=== PATIENT | male | born 1955 | race Caucasian/White ===

== ENCOUNTER 2024-08-09 17:10 | Emergency (ER) | payer MEDICARE, MEDICAID, SELFPAY ==
--- NOTE | ~2024-08-09 | CT_ITS ---
EXAMINATION: CT CERVICAL SPINE WITHOUT CONTRAST CLINICAL INFORMATION: Fall. Head strike. COMPARISON: None available. TECHNIQUE: Noncontrast computed tomography of the cervical spine was performed. This CT examination was performed using dose optimization techniques as appropriate, variously including the following: *Automated exposure control *Adjustment of mA and/or kV according to patient size (this includes techniques or standardized protocols for targeted exams where dose is matched to indication/reason for exam; i.e. extremities or head) *Use of iterative reconstruction technique DLP: 546.99 mGy-cm FINDINGS: There is straightening and reversal of the cervical lordosis. There is trace anterolisthesis of C3 in relation to C4 and C4 in relation to C5. The posterior elements are anatomically aligned. The atlantooccipital articulations are intact. The C1-C2 relationship is anatomic. Vertebral body heights are preserved. There is moderate degenerative disc disease at C5-C6 and milder degenerative disc disease at C6-7. There is multilevel facet arthropathy. No acute fracture. Prevertebral soft tissue is normal in appearance. The lung apices are clear. The thyroid gland is normal in appearance. CT/CT cervical spine wo IV con IMPRESSION: No acute osseous cervical spine abnormality. Fleischner guidelines were followed. Electronically signed by: Ras Ibarra DO 08/09/2024 09:31 PM JENN
--- NOTE | ~2024-08-09 | CT_ITS ---
EXAMINATION: CT HEAD WITHOUT CONTRAST CLINICAL INFORMATION: Fall. Head strike. COMPARISON: None available. TECHNIQUE: Contiguous axial imaging was performed from the skull base to vertex without intravenous administration of contrast. This CT examination was performed using dose optimization techniques as appropriate, variously including the following: *Automated exposure control *Adjustment of mA and/or kV according to patient size (this includes techniques or standardized protocols for targeted exams where dose is matched to indication/reason for exam; i.e. extremities or head) *Use of iterative reconstruction technique DLP: 722.69 mGy-cm FINDINGS: There is no acute intracranial hemorrhage. There is no evidence of acute/subacute cerebral or cerebellar infarction. There is moderate microvascular ischemic change. No midline shift or mass effect. No extra-axial fluid collection. The ventricles are normal in size. The orbits are symmetric and within normal limits. The calvarium is intact. Visualized paranasal sinuses and mastoid air cells are clear. CT/CT head/brain wo IV con IMPRESSION: No acute intracranial pathology. Electronically signed by: Ras Ibarra DO 08/09/2024 09:01 PM EST
[2024-08-09 17:26] VITALS: BP 190/78; BP 206/103; PULSE 60; PULSE 63; RESP 18; TEMP 36.3; O2SAT 100; O2SAT 96; BMI 35.4
[2024-08-09 17:30] VITALS: BP 204/106; PULSE 65; RESP 18; TEMP 36.6; O2SAT 96
[2024-08-09 18:05] VITALS: BP 213/126; PULSE 69
[2024-08-09 18:08] VITALS: BP 213/126; PULSE 69
[2024-08-09] MEDS: atenoloL 25 MG TABLET PO (18:08)
[2024-08-09] MEDS: Acetaminophen 325 MG TABLET 650 MG PO (18:10)
--- NOTE | 2024-08-09 18:24 | ED.FALL ---
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 Denies symptoms prior to fall including lightheadedness/dizziness, denies LOC or anticoagulation use. Reports missing doses of blood pressure medication, denies taking today. Denies headache, neck or back pain, vision change or loss, nausea/vomiting, CP. Tetanus up-to-date. Denies EtOH or substance use Related Data Previous Rx's ?Medication ?Instructions ?Recorded bacitracin 500 unit/gram topical 1 appl topical BID #30 grams 08/09/24 ointment Allergies Allergy/AdvReac Type Severity Reaction Status Date / Time No Known Allergies Allergy Verified 08/09/24 17:28 Review of Systems Review of Systems: Yes all other systems are reviewed and are negative Constitutional: Constitutional: Reports as per HPI Neurologic: Denies Abnormal speech present [facility] Past Medical History Attestation statement: The following information was validated with the patient. Source: old records reviewed Social History Social History Advance Directives: No Advance Directives Information Provided: No Physical Exam Vital Signs: Vital Signs: Last Vital Signs Temp 97.9 F 08/09/24 17:30 Pulse 69 08/09/24 18:08 Resp 18 08/09/24 17:30 BP 213/126 H 08/09/24 18:08 Pulse Ox 96 08/09/24 17:30 O2 Del Method Room Air 08/09/24 17:30 BMI result Body Mass Index 35.4 Const: General: cooperative, healthy appearing and no acute distress Orientation/consciousness: patient oriented x3 Limitations: no limitations HEENT: Other: Superficial abrasion noted to right forehead + 2 cm irregular laceration noted to right temporal region. Bleeding controlled. Head: Yes normal to inspection, No Urias's sign and No raccoon eyes Ears: hearing grossly normal bilaterally General nose exam: Normal external nose present Face and sinus: Yes normal facial exam Mouth: Normal oral and palatal mucosa present and no drooling Throat: Yes posterior oropharynx normal, Yes uvula midline, No peritonsillar mass, No uvula laterally displaced and No uvular edema Eyes: General: appearance normal, both eyes and all related structures Pupils: Equal, round and reactive pupils present EOM: EOMs intact bilaterally Neck: Other: C-collar in place Neck: Yes normal visual inspection and Yes no meningeal signs Resp: Effort & Inspection: normal respiratory effort and no respiratory distress Auscultation: clear to auscultation bilaterally Cardio: Rate: regular rate Heart sounds: S1 normal heart sound present and S2 normal heart sound present GI: Inspection: Yes normal to inspection Palpation (GI): Soft to palpation, nontender, no guarding and not rigid Back/Spine/Pelvis: Other: No midline cervical/thoracic/lumbar spinous tenderness/step-off or deformity Skin: Rashes: no rashes Wounds: no wounds Neuro: General: patient oriented x3, gait normal, tone normal, moves all extremities, no meningeal signs, no focal motor deficits and CN's II-XI intact bilaterally Cranial nerves: Yes CN's II-XII intact bilaterally, Yes Equal, round and reactive pupils present and Yes Bilaterally intact EOM present Cognition (Neuro): normal cognition Speech: No Abnormal speech present Motor exam (neuro): 5/5 motor strength present throughout Extrem: General: Yes normal to inspection Course Course Course Narrative: -wound repair successful with 6 sutures 1937--patient's blood pressure slightly improved after home dose of atenolol. Patient would like to leave prior to CT results. Patient will sign out AMA. Discussed risks including brain bleed, fractures, and . Patient is A&O x3, competent to make his own decisions. Medications Administered Discontinued Medications Generic Name Dose Route Start Last Admin Trade Name Katerine PRN Reason Stop Dose Admin Acetaminophen 650 mg 08/09/24 17:51 08/09/24 18:10 Acetaminophen 325 Mg Tablet PO 08/09/24 17:52 650 mg ONCE ONE Administration Atenolol 25 mg 08/09/24 17:51 08/09/24 18:08 Atenolol 25 Mg Tablet PO 08/09/24 17:52 25 mg ONCE ONE Administration Protocol Lidocaine HCl 5 ml 08/09/24 17:47 08/09/24 19:20 Lidocaine Hcl 1 % Mpf 5 Ml Vial INFILTRATI 08/09/24 17:48 5 ml ONCE ONE Administration Procedures Laceration Laceration 1: Site: face Side (If applicable): right Size (cm): 2 Description: irregular Depth: simple, single layer Local Anesthetic: lidocaine 1% Amount of anesthesia used (mL): 3 Pre-repair: wound explored Skin layer closed with: nylon Size (cm): 5-0 Number of sutures: 6 Technique: simple, interrupted Medical Decision Making Medical Decision Making [facility] Narrative: 69-year-old male with a past medical history HTN, HLD, presenting to the ED via EMS complaining of laceration to right side of face s/p mechanical trip and fall on cement after getting 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 On exam hypertensive, NAD, nontoxic appearing, no midline spinous tenderness or focal neuro deficits, physical exam as noted above with abrasion and laceration noted to right side of face needing suture repair. Tetanus up-to-date. Concern for ICH vs fractures. Lower suspicion for acute hypertensive urgency/emergency at this time, hypertensive likely from medication noncompliance. Unlikely ACS Plan: Head/C-spine CT, wound repair Please refer to course for remaining clinical decision making, interpretation of labs/imaging results, and discussions with consultants and/or family members. Differential Diagnosis Differential Diagnoses: The differential diagnosis associated with the presentation includes As above Admission/Observation Consideration of admission/observation: Escalation of care including admission/observation considered Lab Data [facility] Lab Attestation statement: I reviewed the patient's lab results. Independent Interpretation I performed an independent interpretation of an: CT Scan Radiology Impression Discussion of test interpretation with radiology: I have reviewed the radiologist's reading. External Record Review External record reviewed: Inpatient record, Office record, Outpatient record, Prior outpatient labs, Prior outpatient radiology, Primary care record and Outside ED record Tests considered The following testing was considered but not selected: As above Prescription Management I considered prescription management with: Pain Medication Chronic Conditions Patient?s care impacted by: Hypertension Social Determinants Patient?s care significantly limited by Social Determinants of Health including: Other Social Determinant of Health Discharge Plan Discharge Clinical Impression: Head injury, Facial laceration Patient Disposition: Left Against Medical Advice Instructions: Laceration (DC), Head Injury (ED) Additional Instructions: Your wounds were repaired today in the emergency department. Keep dry and clean. You need to return to any emergency department, urgent care, or your PCPs office in 5 days for suture removal Apply bacitracin and or Neosporin daily Once sutures are removed apply anti scar cream like Mederma If area begins look infected, is red, there is drainage, streaking, or you have fever please return to the emergency department Prescriptions: New bacitracin 500 unit/gram ointment 1 appl topical BID Qty: 30 0RF Print Language: Anguillan
[2024-08-09] MEDS: Lidocaine HCl 1 % MPF 5 ML VIAL INFILTRATI (19:20)
--- NOTE | 2024-08-09 19:37 | PC.NURSE ---
PT refuses to wait for CT scan says he has A hard head and he's not worried about it. PT verbalizes understanding of Risks leaving AMA.
--- NOTE | 2024-08-09 19:39 | PC.NURSE ---
PT ripped out C-collar says he doesn't want to wear it because he's uncomfortable and doesn't need it. PT verbalizes understanding of risks of taking off c-collar before cleared by provider, pt continued to take off collar.
[2024-08-09 19:45] VITALS: BP 151/88; PULSE 63; RESP 16; TEMP 36.5; O2SAT 97
--- NOTE | 2024-08-09 22:54 | PC.NURSE ---
PT verbalizes understanding of risks of leaving AMA, despite teaching form this nurse and the provider about risks of leaving ama pt wishes to go. AMA form signed, provider signed and second witness provided.
[2024-08-09 22:55] VITALS: BP 151/88; PULSE 63; RESP 16; TEMP 36.5; O2SAT 97
--- OUTSIDE RECORDS SUMMARY | 2024-08-12 13:37 | XMS_ITS | Continuity of Care Document ---
Author Organization [facility] ialty Address [address] [place] [address]- Care Team Providers Care Tank Washer Name Role Phone Jovita Jonas MD Primary Care Physician Encounter [facility] Date(s): 11/29/19 - 12/06/19 [facility] [address] [place] [address]- [place] Attending Physician: Robert Maynard MD Referring Physician: Jovita Jonas MD Allergies, Adverse Reactions, Alerts Substance Reaction Severity Status NKA Active Immunizations Given and Recorded Vaccine Date Status Refusal Reason hepatitis B adult vaccine 1 03/08/19 Given hepatitis B adult vaccine 02/08/19 Recorded influenza virus vaccine, inactivated 2 07/22/18 Gi diandra influenza virus vaccine, inactivated 07/06/18 Give n influenza virus vaccine, inactivated 3, 4 08/21/17 Given influenza virus vaccine, inactivated 5 09/02/16 Gi diandra influenza virus vaccine, inactivated 06/26/15 Give n pneumococcal 23-valent vaccine 09/02/16 Given Fluzone (oldterm) 07/18/14 Given Fluarix (oldterm) 08/16/13 Given Prevnar (oldterm) 02/01/13 Given FluLaval (oldterm) 07/20/12 Given FluLaval (oldterm) 07/01/11 Given FluLaval (oldterm) 08/20/10 Given FluLaval (oldterm) 06/19/09 Given tetanus/diphtheria/pertussis, acel(Tdap) 08/20/10 Given influ virus vac, H1N1, inactive(oldterm) 6 08/14/09 Given Influenza Virus Vaccine (oldterm) 07/12/08 Given Influenza Virus Vaccine (oldterm) 7 08/17/07 Given Influenza Virus Vaccine (oldterm) 07/22/06 Given Influenza Virus Vaccine (oldterm) 08/26/02 Given Pneumococcal Vaccine (oldterm) 12/20/07 Given Pneumococcal Vaccine (oldterm) 08/24/99 Given tetanus-diphtheria toxoids (Td) 07/14/05 Given Hepatitis B Vaccine (old term) 10/18/01 Given Hepatitis B Vaccine (old term) 04/09/01 Given Hepatitis B Vaccine (old term) 03/10/01 Given 1Result Comment: Heplisav-B #2 2Result Comment: [07/22/2018] [facility]#[id number] 3Result Comment: [08/21/2017] [facility] #[id number] 4Admin Note: afluria quadrivalent 5Admin Note: Afluria made by [employer] 6Admin Note: h1n1 7Admin Note: [employer]ETS [employer] Medications ADCARE ADCARE, See Instructions, # 1 each, Refills 0, Tot. Refills 0, Maintenance, ADCARE Evaluate and treat for outpatient, 11/09/19 10:02:00 EST, Compound Start Date: 11/09/19 Status: Ordered aspirin 81 mg oral tablet, chewable 81 mg, 1, tablet, By Mouth, Daily, # 90 tablet, Refills 3, Tot. Refills 3, Maintenance, 08/21/17 14:03:42, Route to Pharmacy Electronically, [id number], [facility]/pharmacy #[id number] Start Date: 08/21/17 Status: Ordered atenolol 25 mg oral tablet 25 mg, 1, tablet, By Mouth, Daily, # 90 tablet, Refills 3, Tot. Refills 3, Maintenance, 09/02/19 9:30:06 EST, Route to Pharmacy Electronically, [id number], [facility]/pharmacy #[id number], 168.5, cm, 09/02/19 8:56:00 EST, Height, 94.9, kg... Start Date: 09/02/19 Stop Date: 11/01/19 Status: Ordered atorvastatin 40 mg oral tablet 1 tablet = 40 mg, By Mouth, Daily, # 90 tablet, 3 Refills, Maintenance, 09/02/19 9:28:38 EST, Tablet, 168.5, cm, 09/02/19 8:56:00 EST, Height, 94.9, kg, 06/23/19 8:51:12 EDT, Dry Weight Start Date: 09/02/19 Status: Ordered Norvir 100 mg oral tablet 1 tablet = 100 mg, By Mouth, Daily, # 90 tablet, 3 Refills, Maintenance, 06/08/19 14:56:00 EDT Start Date: 06/08/19 Status: Ordered Paxil 20 mg oral tablet 20 mg, 1, tablet, By Mouth, Daily, # 30 tablet, Refills 5, Tot. Refills 5, Maintenance, 08/22/19 11:06:03 EST, Route to Pharmacy Electronically, [id number], [facility]/pharmacy #[id number] Start Date: 08/22/19 Stop Date: 02/18/20 Status: Ordered QUEtiapine 200 mg oral tablet 1, tablet, By Mouth, Daily, # 90 tablet, Refills 0, Tot. Refills 0, Maintenance, 09/12/19 15:33:00 EST, Route to Pharmacy Electronically, [id number], 168.5, cm, 09/02/19 11:13:00 EST, Height, 94.9, kg, 06/23/19 8:51:00 EDT, Dry Weight Start Date: 09/12/19 Status: Ordered Reyataz 300 mg oral capsule 1 capsule = 300 mg, By Mouth, Daily, # 90 capsule, 3 Refills, Maintenance, 06/08/19 14:56:00 EDT, 1capsule By Mouth Daily Start Date: 06/08/19 Status: Ordered tenofovir disoproxil fumarate 300 mg oral tablet 1 tablet, By Mouth, Daily, # 30 tablet, 11 Refills, Maintenance, 09/12/19 8:29:00 EST, [id number], 168.5, cm, 09/02/19 11:13:00 EST, Height, 94.9, kg, 06/23/19 8:51:00 EDT, Dry Weight Start Date: 09/12/19 Status: Ordered Therpaeutic phlebotomy one unit every 6 weeks Hold for Hb<12 gmDiagnosis: Heriditary Hemochromatos Therpaeutic phlebotomy one unit every 6 weeks Hold for Hb<12 gmDiagnosis: Heriditary Hemochromatosis, See Instructions, # 1 units, Refills 12, Tot. Refills 12, Maintenance, Hold for Hb <12 gm Diagnosis : heriditary hemochromatosis, 09/04/14 10:04:... Start Date: 09/04/14 Stop Date: 09/06/15 Status: Ordered Ziagen 300 mg oral tablet 2 tablets, By Mouth, Daily, # 180 capsule, 3 Refills, Maintenance, 06/08/19 14:56:00 EDT Start Date: 06/08/19 Stop Date: 10/06/19 Status: Ordered Problem List Condition Effective Dates Status Health Status Inform ant AIDS(Confirmed) Active Cocaine dependence(Confirmed) Active Cranial neuropathy(Confirmed) Active FHx: AAA(Confirmed) Active Fracture of left radius(Confirmed) Active Gall bladder polyp(Confirmed) Active Hemochromatosis(Confirmed) 1 Active HIV - Human immunodeficiency virus infection(Confirmed) Active Hyperlipidemia LDL goal < 130(Confirmed) Active Hypertension(Confirmed) Active Insomnia(Confirmed) Active 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
--- OUTSIDE RECORDS SUMMARY | 2024-08-12 13:37 | XMS_ITS | Continuity of Care Document ---
Author Organization [facility] Address [address] [place] [address]- Care Team Providers Care Diesel Trailer Mechanic Name Role Phone Ponce Andrew MD Primary Care Physician [facility]counter [facility] Date(s): 07/22/22 - 08/21/22 [facility] [address] [place] [id number] Allergies, Adverse Reactions, Alerts No Known Allergies Immunizations Given and Recorded Vaccine Date Status Refusal Reason SARS-CoV-2 (COVID-19) mRNA-1273 vaccine 08/02/21 R ecorded SARS-CoV-2 (COVID-19) mRNA-1273 vaccine 01/11/21 R ecorded SARS-CoV-2 (COVID-19) mRNA-1273 vaccine 12/14/20 R ecorded influenza virus vaccine, inactivated 07/31/21 Gilberto rded influenza virus vaccine, inactivated 07/11/20 Give n influenza virus vaccine, inactivated 08/04/19 Gilberto rded influenza virus vaccine, inactivated 1 07/22/18 Gi diandra influenza virus vaccine, inactivated 07/06/18 Give n influenza virus vaccine, inactivated 2, 3 08/21/17 Given influenza virus vaccine, inactivated 4 09/02/16 Gi diandra influenza virus vaccine, inactivated 06/26/15 Give n tetanus-diphtheria toxoids (Td) 5 01/08/21 Given tetanus-diphtheria toxoids (Td) 07/14/05 Given hepatitis B adult vaccine 6 03/08/19 Given hepatitis B adult vaccine 02/08/19 Recorded pneumococcal 23-valent vaccine 09/02/16 Given Fluzone (oldterm) 07/18/14 Given Fluarix (oldterm) 08/16/13 Given Prevnar (oldterm) 02/01/13 Given FluLaval (oldterm) 07/20/12 Given FluLaval (oldterm) 07/01/11 Given FluLaval (oldterm) 08/20/10 Given FluLaval (oldterm) 06/19/09 Given tetanus/diphtheria/pertussis, acel(Tdap) 08/20/10 Given influ virus vac, H1N1, inactive(oldterm) 7 08/14/09 Given Influenza Virus Vaccine (oldterm) 07/12/08 Given Influenza Virus Vaccine (oldterm) 8 08/17/07 Given Influenza Virus Vaccine (oldterm) 07/22/06 Given Influenza Virus Vaccine (oldterm) 08/26/02 Given Pneumococcal Vaccine (oldterm) 12/20/07 Given Pneumococcal Vaccine (oldterm) 08/24/99 Given Hepatitis B Vaccine (old term) 10/18/01 Given Hepatitis B Vaccine (old term) 04/09/01 Given Hepatitis B Vaccine (old term) 03/10/01 Given 1Result Comment: [07/22/2018] [facility]#[id number] 2Result Comment: [08/21/2017] [facility] #[id number] 3Admin Note: afluria quadrivalent 4Admin Note: Afluria made by [employer] 5Result Comment: [facility]# [id number] 6Result Comment: Heplisav-B #2 7Admin Note: h1n1 8Admin Note: [employer] PATIENT MEETS [employer]ITERIA Medications abacavir 300 mg oral tablet 2 tablet, By Mouth, Daily, # 180 tablet, 0 Refills, Maintenance, 06/30/22 8:33:00 EDT, [facility], 168.5, cm, 06/27/22 11:54:00 EDT, Height Start Date: 06/30/22 Stop Date: 07/30/22 Status: Ordered ADCARE ADCARE, See Instructions, # 1 each, Refills 0, Tot. Refills 0, Maintenance, ADCARE Evaluate and treat for outpatient, 11/09/19 10:02:00 EST, Compound Start Date: 11/09/19 Status: Ordered atazanavir 300 mg oral capsule 1 capsule, By Mouth, Daily, # 90 capsule, 0 Refills, Maintenance, 06/13/22 15:54:00 EDT, [facility], 90, TAKE 1 CAPSULE BY MOUTH EVERY DAY, 168.5, cm, 05/21/22 11:39:00 EDT, Height Start Date: 06/13/22 Status: Ordered atenolol 25 mg oral tablet 1, tablet, By Mouth, Daily, # 90 tablet, Refills 1, Route to Pharmacy Electronically, [facility] STORE [id number], 168.5, cm, 11/05/21 10:51:00 EST, Height Start Date: 05/08/22 Status: Ordered atorvastatin 40 mg oral tablet 1 tablet = 40 mg, By Mouth, Daily, # 90 tablet, 3 Refills, Maintenance, 03/07/22 11:06:00 EDT, Tablet, [facility]/pharmacy #[id number], 168.5, cm, 11/05/21 10:51:00 EST, Height Start Date: 03/07/22 Status: Ordered diclofenac sodium 75 mg oral delayed release tablet 1 tablet = 75 mg, By Mouth, 2 times a day, PRN rib pain, with food, # 30 tablet, 1 Refills, Maintenance, 10/04/21 12:43:00 EST, EC Tablet, [facility]/pharmacy #[id number], Partial fill upon patient request if theprescription is for a schedule II opioid drug., 168... Start Date: 10/04/21 Stop Date: 10/04/22 Status: Ordered Paxil 20 mg oral tablet 20 mg, 1, tablet, By Mouth, Daily, for 90 days, # 90 tablet, Refills 3, Tot. Refills 3, Hard Stop 06/12/23 12:46:00 EDT, 06/17/22 12:46:00 EDT, Route to Pharmacy Electronically, [facility]/pharmacy #[id number], 168.5, cm, 05/21/22 11:39:00 EDT, Height Start Date: 06/17/22 Stop Date: 06/12/23 Status: Ordered QUEtiapine 200 mg oral tablet 1, tablet, By Mouth, Daily, # 90 tablet, Refills 3, Route to Pharmacy Electronically, [facility] STORE 85729, 168.5, cm, 10/02/21 10:33:00 EST, Height, 95.3, kg, 02/23/20 7:40:00 EDT, Dry Weight Start Date: 10/04/21 Status: Ordered ritonavir 100 mg oral tablet 1 tablet, By Mouth, Daily, # 90 tablet, 0 Refills, Maintenance, 06/13/22 15:54:00 EDT, [facility], 168.5, cm, 05/21/22 11:39:00 EDT, Height Start Date: 06/13/22 Status: Ordered Shingrix intramuscular injection = 0.5 mL, Intramuscular, Once, repeat dose in 2 to 6 months, # 2 each, 0 Refills, Soft Stop, 09/07/20 14:31:00 EST, Powder, [facility]/pharmacy #[id number], Partial fill upon patient request if the prescription is for a schedule II opioid drug., 0.5 mL Intramuscul... Start Date: 09/07/20 Status: Ordered tenofovir disoproxil fumarate 300 mg oral tablet 1 tablet, By Mouth, Daily, # 90 tablet, 1 Refills, Maintenance, 06/13/22 15:54:00 EDT, [facility] STORE 23995, 168.5, cm, 05/21/22 11:39:00 EDT, Height Start Date: 06/13/22 Status: Ordered Therpaeutic phlebotomy one unit every 6 weeks Hold for Hb<12 gmDiagnosis: Heriditary Hemochromatos Therpaeutic phlebotomy one unit every 6 weeks Hold for Hb<12 gmDiagnosis: Heriditary Hemochromatosis, See Instructions, # 1 units, Refills 12, Tot. Refills 12, Maintenance, Hold for Hb <12 gm Diagnosis : heriditary hemochromatosis, 09/04/14 10:04:... Start Date: 09/04/14 Stop Date: 09/06/15 Status: Ordered Problem List Condition Confirmation Course Effective Dates Status H ealth Status Informant Adrenal adenoma Confirmed Active AIDS Confirmed Active Carpal tunnel syndrome Confirmed Active Cocaine dependence Confirmed Active Cranial neuropathy Confirmed Active FHx: AAA Confirmed Active Fracture of left radius Confirmed Active Gall bladder polyp Confirmed Active Hemochromatosis 1 Confirmed Active HIV - Human immunodeficiency virus infection Confirmed Active Hyperlipidemia LDL goal < 130 Confirmed Active Hypertension Confirmed Active Insomnia Confirmed Active Malignant basal cell neoplasm of skin Confirmed Active Pulmonary nodules Confirmed Active Lung mass Confirmed Active Obese class I Confirmed Active Obesity Confirmed Active Depression Confirmed Active Complex sleep apnea syndrome Confirmed Active Tobacco use Confirmed [facility] Social History Social History Type Response Smoking Status Current every day sm oker; Type: Cigarettes; Previous treatment: Nicotine replacement; Interested in cessation: Yes; Tobacco use times per day: 1ppd; Number of years: 40; Total pack years: 40; Started at age: 15; 1 entered on: 02/19/16 Sex 11 ppd Patient Care team information Care Team Personnel Name: Trina Beaver Position: [facility] Onco RN Member Role: Primary Care Nurse Name: Ponce Andrew MD Position: [facility] Primary Care Physician Member Role: PCP Address: Address: [address] [place] [address] [facility] [address] Name: Daniella Brand RN Position: [facility] RN Member Role: Primary Care Nurse Name: Kiersten Rodrigues RN Position: [facility] RN Member Role: Primary Care Nurse Name: Gloria Osorio RN Position: [facility] RN Supv Member Role: Primary Care Nurse Name: Shira Rosa RN Position: S RN Member Role: Primary Care Nurse Name: Soledad Mckee RN Position: [facility] RN Member Role: Primary Care Nurse Care Team Related Persons Name: CATRACHITO BORGES Address: home [place], [place] Name: COURTNEY BORGES Address: home [address], [place]
--- OUTSIDE RECORDS SUMMARY | 2024-08-12 13:37 | XMS_ITS | Continuity of Care Document ---
Author Organization [facility] Address [address] [place] [address]- Care Team Providers Care Office Support Assistant Name Role Phone Ponce Andrew MD Primary Care Physician [place] [facility]21 [place] 11/12/21 [facility] [address] [place], [place] [address] Encounter Diagnosis AIDS(Discharge Diagnosis) - 11/05/21 Cocaine dependence(Discharge Diagnosis) - 11/05/21 Depression(Discharge Diagnosis) - 11/05/21 Hypertension(Discharge Diagnosis) - 11/05/21 Hyperlipidemia LDL goal < 130(Discharge Diagnosis) - 11/05/21 Insomnia(Discharge Diagnosis) - 11/05/21 Tobacco use(Discharge Diagnosis) - 11/05/21 Attending Physician: Ponce Andrew MD Allergies, Adverse Reactions, Alerts No Known Allergies [...] (old term) 03/10/01 Given 1Result Comment: [07/22/2018] [facility]#[id number] 2Result Comment: [08/21/2017] [facility] #[id number] 3Admin Note: afluria quadrivalent 4Admin Note: Afluria made by [employer] 5Result Comment: [facility]# [id number] 6Result Comment: Heplisav-B #2 7Admin Note: h1n1 8Admin Note: [employer] PATIENT MEETS [employer]ITERIA Medications ADCARE ADCARE, See Instructions, # 1 each, Refills 0, Tot. Refills 0, Maintenance, ADCARE Evaluate and treat for outpatient, 11/09/19 10:02:00 EST, Compound Start Date: 11/09/19 Status: Ordered atazanavir 300 mg oral capsule 1 capsule, By Mouth, Daily, # 90 capsule, 1 Refills, [facility], 90, TAKE 1 CAPSULE BY MOUTH EVERY DAY, 168.5, cm, 08/18/21 13:57:00 EDT, Height, 95.3, kg, 02/23/20 7:40:00 EDT, Dry Weight Start Date: 08/05/21 Status: Ordered atenolol 25 mg oral tablet 25 mg, 1, tablet, By Mouth, Daily, # 90 tablet, Refills 1, Tot. Refills 1, Maintenance, 10/31/21 13:33:00 EST, Route to Pharmacy Electronically, [facility]/pharmacy #207, 168.5, cm, 10/02/21 10:33:00 EST, Height, 95.3, kg, 02/23/20 7:40:00 EDT, Dry Weight Start Date: 10/31/21 Status: Ordered atorvastatin 40 mg oral tablet 1 tablet = 40 mg, By Mouth, Daily, # 90 tablet, 3 Refills, Maintenance, 09/17/20 10:02:00 EST, Tablet, [facility]/pharmacy #207, 168.5, cm, 07/11/20 10:23:00 EDT, Height, 95.3, kg, 02/23/20 7:40:00 EDT, Dry Weight Start Date: 09/17/20 Status: Ordered diclofenac sodium 75 mg oral delayed release tablet 1 tablet = 75 mg, By Mouth, 2 times a day, PRN rib pain, with food, # 30 tablet, 1 Refills, Maintenance, 10/04/21 12:43:00 EST, EC Tablet, [facility]/pharmacy #207, Partial fill upon patient request if theprescription is for a schedule II opioid drug., 168... Start Date: 10/04/21 Stop Date: 10/04/22 Status: Ordered Norvir 100 mg oral tablet 1 tablet = 100 mg, By Mouth, Daily, # 30 tablet, 5 Refills, Maintenance, 04/08/21 10:08:00 EDT, [facility]/pharmacy #[id number], 168.5, cm, 02/06/21 10:35:00 EDT, Height, 95.3, kg, 02/23/20 7:40:00 EDT, Dry Weight Start Date: 04/08/21 Stop Date: 10/05/21 Status: Ordered Norvir 100 mg oral tablet 1 tablet = 100 mg, By Mouth, Daily, # 30 tablet, 2 Refills, Maintenance, 09/09/21 16:24:00 EST, [facility]/pharmacy #[id number], 168.5, cm, 05/08/21 13:57:00 EDT, Height, 95.3, kg, 02/23/20 7:40:00 EDT, Dry Weight Start Date: 09/09/21 Stop Date: 12/08/21 Status: Ordered Paxil 20 mg oral tablet 20 mg, 1, tablet, By Mouth, Daily, for 30 days, # 30 tablet, Refills 5, Tot. Refills 5, Hard Stop 03/08/22 15:12:00 EDT, 09/09/21 15:12:00 EST, Route to Pharmacy Electronically, [facility]/pharmacy #[id number], 168.5, cm, 05/08/21 13:57:00 EDT, Height, 95.3, kg, 0... Start Date: 09/09/21 Stop Date: 03/08/22 Status: Ordered QUEtiapine 200 mg oral tablet 1, tablet, By Mouth, Daily, # 90 tablet, Refills 3, Route to Pharmacy Electronically, [facility] STORE 91546, 168.5, cm, 10/02/21 10:33:00 EST, Height, 95.3, kg, 02/23/20 7:40:00 EDT, Dry Weight Start Date: 10/04/21 Status: Ordered Shingrix intramuscular injection = 0.5 mL, Intramuscular, Once, repeat dose in 2 to 6 months, # 2 each, 0 Refills, Soft Stop, 09/07/20 14:31:00 EST, Powder, [facility]/pharmacy #207, Partial fill upon patient request if the prescription is for a schedule II opioid drug., 0.5 mL Intramuscul... Start Date: 09/07/20 Status: Ordered tenofovir disoproxil fumarate 300 mg oral tablet 1 tablet, By Mouth, Daily, # 30 tablet, 5 Refills, Maintenance, 04/08/21 10:08:00 EDT, [facility]/pharmacy#[id number], 168.5, cm, 02/06/21 10:35:00 EDT, Height, 95.3, kg, 02/23/20 7:40:00 EDT, Dry Weight Start Date: 04/08/21 Stop Date: 10/05/21 Status: Ordered tenofovir disoproxil fumarate 300 mg oral tablet 1 tablet, By Mouth, Daily, # 30 tablet, 2 Refills, Maintenance, 09/09/21 16:24:00 EST, [id number], 168.5, cm, 05/08/21 13:57:00 EDT, Height, 95.3, kg, 02/23/20 7:40:00 EDT, Dry Weight Start Date: 09/09/21 Stop Date: 12/08/21 Status: Ordered Therpaeutic phlebotomy one unit every [...] tablet 2 tablets, By Mouth, Daily, # 60 tablet, 5 Refills, Maintenance, 04/08/21 10:08:00 EDT, [id number], 168.5, cm, 02/06/21 10:35:00 EDT, Height, 95.3, kg, 02/23/20 7:40:00 EDT, Dry Weight Start Date: 04/08/21 Stop Date: 10/05/21 Status: Ordered Ziagen 300 mg oral tablet 2 tablets, By Mouth, Daily, # 60 tablet, 2 Refills, Maintenance, 09/09/21 16:24:00 EST, [facility]pharmacy #[id number], 168.5, cm, 05/08/21 13:57:00 EDT, Height, 95.3, kg, 02/23/20 7:40:00 EDT, Dry Weight Start Date: 09/09/21 Stop Date: 12/08/21 Status: Ordered Problem List Condition Effective Dates Status Health Status Inform ant Adrenal adenoma(Confirmed) Active AIDS(Confirmed) Active Carpal tunnel syndrome(Confirmed) Active Cocaine dependence(Confirmed) Active Cranial neuropathy(Confirmed) Active FHx: AAA(Confirmed) Active Fracture of left radius(Confirmed) Active Gall bladder polyp(Confirmed) Active Hemochromatosis(Confirmed) 1 Active HIV - Human immunodeficiency virus infection(Confirmed) Active Hyperlipidemia LDL goal < 130(Confirmed) Active Hypertension(Confirmed) Active Insomnia(Confirmed) Active Malignant basal cell neoplas m of skin(Confirmed) Active Pulmonary nodules(Confirmed) Active Lung mass(Confirmed) Active Obese class II(Confirmed) Active Obesity(Confirmed) Active Depression(Confirmed) Active Complex sleep apnea syndrome(Confirmed) Active Tobacco use(Confirmed) [facility] Diagnosis Diagnosis Type Effective Dates Health Status Clinical Service Informant AIDS Discharge Diagnosis 11/05/21 Cocaine dependence Discharge Diagnosis 11/05/21 Depression Discharge Diagnosis 11/05/21 Hypertension Discharge Diagnosis 11/05/21 Hyperlipidemia LDL goal < 130 Discharge Diagnosis 11/05/21 Insomnia Discharge Diagnosis 11/05/21 Tobacco use Discharge Diagnosis 11/05/21 Vital Signs Most recent to oldest [Reference Range]: 1 2 Height 168.5 cm (11/05/21 10:51 AM) 168.5 cm (11/05/21 10:32 AM) Weight 100.2 kg (11/05/21 10:32 AM) Oxygen Saturation [94-100 %] 97 % (11/05/21 10:32 AM) Pulse Rate [55-90 bpm] 73 bpm (11/05/21 10:32 AM) Body Mass Index [18.5-24.99] 35.29 *>HHI* (11/05/21 10:32 AM) Blood Pressure [90-138/55-84 mm Hg] 128/ 60mm Hg (11/05/21 10:51 AM) 142/66mm Hg *H* (11/05/21 10:32 AM) Temperature [96.8-100.4 DegF] 98.3 DegF (11/05/21 10:32 AM) Blood pressure sites Arm, left (11/05/21 10:51 AM) Arm, left (11/05/21 10:32 AM) Temperature Route Temporal (11/05/21 10:32 AM) Social History Social History Type Response Smoking Status Current every day sneha phipps; Type: Cigarettes; Previous treatment: Nicotine replacement; Interested in cessation: Yes; Tobacco use times per day: 1ppd; Number of years: 40; Total pack years: 40; Started at age: 15; 1 entered on: 02/19/16 Sex 11 ppd
--- OUTSIDE RECORDS SUMMARY | 2024-08-12 13:37 | XMS_ITS | Continuity of Care Document ---
Author Organization [facility] wan Address [address] [place], [place] [address] ve [address] [place] [address]- Care Team Providers Care Salary And Wage Administrator Name Role Phone Jovita Jonas MD Primary Care Physician [phone] [facility]counter [facility] Date[facility]s): 03/06/20 - 03/13/20 [facility] [address] [place] [address]- [facility] Attending Physician: Robert Maynard MD Allergies, Adverse Reactions, Alerts Substance Reaction [...] 1Result Comment: Heplisav-B #2 2Result Comment: [07/22/2018] [facility]#[id number] 3Result Comment: [08/21/2017] [facility] #[id number] 4Admin Note: afluria quadrivalent 5Admin Note: Afluria made by [employer] 6Admin Note: h1n1 7Admin Note: [employer] PATIENT MEETS CRITERIA Medications ADCARE ADCARE, See Instructions, # 1 each, Refills 0, Tot. Refills 0, Maintenance, ADCARE Evaluate and treat for outpatient, 11/09/19 10:02:00 EST, Compound Start Date: 11/09/19 Status: Ordered aspirin 81 mg oral tablet, chewable 81 mg, 1, tablet, By Mouth, Daily, # 90 tablet, Refills 3, Tot. Refills 3, Maintenance, 08/21/17 14:03:42, Route to Pharmacy Electronically, [id number], [facility]/pharmacy #207 Start Date: 08/21/17 Status: Ordered atenolol 25 mg oral tablet 25 mg, 1, tablet, By Mouth, Daily, # 90 tablet, Refills 3, Tot. Refills 3, Maintenance, 09/02/19 9:30:06 EST, Route to Pharmacy Electronically, [id number], [facility]/pharmacy #207, 168.5, cm, 09/02/19 8:56:00 EST, Height, 94.9, [...] tablet, Refills 5, Tot. Refills 5, Maintenance, 03/12/20 9:24:00 EDT, Route to Pharmacy Electronically, [facility]/pharmacy #[id number], 168.5, cm, 03/06/20 9:48:00 EDT, Height, 95.3, kg, 02/23/20 7:40:00 EDT, Dry Weight Start Date: 03/12/20 Stop Date: 09/08/20 Status: Ordered QUEtiapine 200 mg oral tablet 1, tablet, By Mouth, Daily, # 90 tablet, Refills 1, Tot. Refills 1, Maintenance, 12/26/19 15:16:00 EDT, Route to Pharmacy Electronically, [facility]/pharmacy #[id number], 168.5, cm, 09/02/19 11:13:00 EST, Height,94.9, kg, 06/23/19 8:51:00 EDT, Dry Weight Start Date: 12/26/19 Status: Ordered Reyataz 300 mg oral capsule 1 capsule = 300 mg, By Mouth, Daily, # 90 capsule, 3 Refills, Maintenance, 06/08/19 14:56:00 EDT, 1capsule By Mouth Daily Start Date: 06/08/19 Status: Ordered tenofovir disoproxil fumarate 300 mg oral tablet 1 tablet, By Mouth, Daily, # 30 tablet, 11 Refills, Maintenance, 09/12/19 8:29:00 EST, [facility] STORE 24276, 168.5, cm, 09/02/19 11:13:00 EST, Height, 94.9, [...] Status Health Status Inform ant AIDS(Confirmed) Active Carpal tunnel syndrome(Confirmed) Active Cocaine [...] Tobacco use(Confirmed) Active [facility] Vital Signs Most recent to oldest [Reference Range]: 1 Height 168.5 cm (03/06/20 9:48 AM) Social History Social History Type Response Smoking Status Current every day sneha phipps; Type: Cigarettes; Previous treatment: Nicotine replacement; Interested in cessation: Yes; Tobacco use times per day: 1ppd; Number of years: 40; Total pack years: 40; Started at age: 15; 1 entered on: 02/19/16 Sex 11 ppd
--- OUTSIDE RECORDS SUMMARY | 2024-08-12 13:37 | XMS_ITS | Continuity of Care Document ---
Author Organization [facility] Address [address] [place] [address]- Care Team Providers Care Mental Health Case Manager Name Role Phone Ponce Andrew MD Primary Care Physician [facility] Date[facility]s): 02[facility]10[facility]22 - 03/12/22 [facility] [address] [place] [id number] Allergies, Adverse Reactions, Alerts No Known Allergies [...] (old term) 03/10/01 Given 1Result Comment: [07/22/2018] [facility]#[id number] 2Result Comment: [08/21/2017] [facility] #[id number] 3Admin Note: afluria quadrivalent 4Admin Note: Afluria made by [employer] 5Result Comment: [facility]# [id number] 6Result Comment: Heplisav-B #2 7Admin Note: h1n1 8Admin Note: [employer] PATIENT MEETS CRITERIA Medications ADCARE ADCARE, See Instructions, # 1 each, Refills 0, Tot. Refills 0, Maintenance, ADCARE Evaluate and treat for outpatient, 11/09/19 10:02:00 EST, Compound Start Date: 11/09/19 Status: Ordered atazanavir 300 mg oral capsule 1 capsule, By Mouth, Daily, # 90 capsule, 1 Refills, [facility], 90, TAKE 1 CAPSULE BY MOUTH EVERY DAY, 168.5, cm, 05/08/21 13:57:00 EDT, Height, 95.3, kg, 02/23/20 7:40:00 EDT, Dry Weight Start Date: 08/05/21 Status: Ordered atazanavir 300 mg oral capsule 1 capsule, By Mouth, Daily, for 30 days, # 30 capsule, 2 Refills, Physician Stop 05/08/22 8:55:00 EDT, 02/07/22 8:55:00 EDT, [facility]/pharmacy #[id number], 1 capsule By Mouth Daily,x30 days, 168.5, cm, 11/05/2209:51:00 EST, Height, 95.3, kg, 02/23/20 7:40:00 ED... Start Date: 02/07/22 Stop Date: 05/08/22 Status: Ordered atenolol 25 mg oral tablet 25 mg, 1, tablet, By Mouth, Daily, # 90 tablet, Refills 1, Tot. Refills 1, Maintenance, 10/31/21 13:33:00 EST, Route to Pharmacy Electronically, [facility]/pharmacy #207, 168.5, cm, 10/02/21 10:33:00 EST, Height, 95.3, kg, 02/23/20 7:40:00 EDT, Dry Weight Start Date: 10/31/21 Status: Ordered atorvastatin 40 mg oral tablet 1 tablet = 40 mg, By Mouth, Daily, # 90 tablet, 3 Refills, Maintenance, 03/07/22 11:06:00 EDT, Tablet, [facility]/pharmacy #207, 168.5, cm, 11/05/21 10:51:00 EST, Height Start [...] Date: 10/04/21 Stop Date: 10/04/22 Status: Ordered QUEtiapine 200 mg oral tablet 1, tablet, By Mouth, Daily, # 90 tablet, Refills 3, Route to Pharmacy Electronically, [facility], 168.5, cm, 10/02/21 10:33:00 EST, Height, 95.3, kg, 02/23/20 7:40:00 EDT, Dry Weight Start Date: 10/04/21 Status: Ordered ritonavir 100 mg oral tablet 1 tablet, By Mouth, Daily, # 90 tablet, 0 Refills, [facility] STORE [address]334, 168.5, cm, 11/05/21 10:51:00 EST, Height Start Date: 03/03/22 Status: Ordered Shingrix intramuscular injection = 0.5 mL, Intramuscular, Once, repeat dose in 2 to 6 months, # 2 each, 0 Refills, Soft Stop, 09/07/20 14:31:00 EST, Powder, [id number], Partial fill upon patient request if the prescription is for a schedule II opioid drug., 0.5 mL Intramuscul... Start Date: 09/07/20 Status: Ordered tenofovir disoproxil fumarate 300 mg oral tablet 1 tablet, By Mouth, Daily, # 30 tablet, 5 Refills, Maintenance, 04/08/21 10:08:00 EDT, [id number], 168.5, cm, 02/06/21 10:35:00 EDT, Height, 95.3, kg, 02/23/20 7:40:00 EDT, Dry Weight Start Date: 04/08/21 Stop Date: 10/05/21 Status: Ordered tenofovir disoproxil fumarate 300 mg oral tablet 1 tablet, By Mouth, Daily, for 30 days, # 30 tablet, 5 Refills, Hard Stop 08/09/22 10:29:00 EST, 02/10/22 10:29:00 EDT, [id number], 168.5, cm, 11/05/21 10:51:00 EST, Height, 95.3, kg, 02/23/20 7:40:00 EDT, Dry Weight Start Date: 02/10/22 Stop Date: 08/09/22 Status: Ordered tenofovir disoproxil fumarate 300 mg [...] Daily, # 60 tablet, 2 Refills, Maintenance, 02/07/22 8:55:00 EDT, [id number], 168.5, cm, 11/05/21 10:51:00 EST, Height, 95.3, kg, 02/23/20 7:40:00 EDT, Dry Weight Start Date: 02/07/22 Stop Date: 05/08/22 Status: Ordered Ziagen 300 mg oral tablet 2 tablets, By Mouth, Daily, # 60 tablet, 5 Refills, Maintenance, 04/08/21 10:08:00 EDT, [id number], 168.5, cm, 02/06/21 10:35:00 EDT, Height, 95.3, kg, 02/23/20 7:40:00 EDT, Dry Weight Start Date: 04/08/21 Stop Date: 10/05/21 Status: Ordered Ziagen 300 mg oral tablet 2 tablets, By Mouth, Daily, # 60 tablet, 2 Refills, Maintenance, 09/09/21 16:24:00 EST, [id number], 168.5, cm, 05/08/21 13:57:00 EDT, Height, [...]
--- OUTSIDE RECORDS SUMMARY | 2024-08-12 13:37 | XMS_ITS | Continuity of Care Document ---
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 Name Role Phone Ponce Andrew MD Primary Care Physician [phone] Encounter [facility] Date(s): 06/23/23 - 06/30/23 [facility] [address] [place], [place] [address] Encounter Diagnosis AIDS(Discharge Diagnosis) - 06/23/23 Cocaine dependence(Discharge Diagnosis) - 06/23/23 Hypertension(Discharge Diagnosis) - 06/23/23 Depression(Discharge Diagnosis) - 06/23/23 Attending Physician: Ponce Andrew MD Allergies, Adverse Reactions, Alerts No Known Allergies Immunizations Given and Recorded Vaccine Date Status Refusal Reason influenza virus vaccine, inactivated 07/09/22 Gilberto rded influenza virus vaccine, inactivated 07/31/21 Gilberto rded influenza virus vaccine, inactivated 07/11/20 Give n influenza virus vaccine, inactivated 08/04/19 Gilberto rded influenza virus vaccine, inactivated 1 07/22/18 Gi diandra influenza virus vaccine, inactivated 07/06/18 Give n influenza virus vaccine, inactivated 2, 3 08/21/17 Given influenza virus vaccine, inactivated 4 09/02/16 Gi diandra influenza virus vaccine, inactivated 06/26/15 Give n SARS-CoV-2 (COVID-19) mRNA-1273 vaccine 08/02/21 R ecorded SARS-CoV-2 (COVID-19) mRNA-1273 vaccine 01/11/21 R ecorded SARS-CoV-2 (COVID-19) mRNA-1273 vaccine 12/14/20 R ecorded tetanus-diphtheria toxoids (Td) 5 01/08/21 Given tetanus-diphtheria [...] (old term) 03/10/01 Given 1Result Comment: [07/22/2018] [facility]#[id number] 2Result Comment: [08/21/2017] [facility] #[id number] 3Admin Note: afluria quadrivalent 4Admin Note: Afluria made by [employer] 5Result Comment: [facility]# [id number] 6Result Comment: Heplis[facility]-B #2 7Admin Note: [id number] 8Admin Note: [employer] [facility] [employer] Medications abacavir 300 mg oral tablet 2 tablet, By Mouth, Daily, # 180 tablet, 0 Refills, Maintenance, 04/20/23 14:00:00 EDT, [id number], 168.5, cm, 03/12/23 8:41:00 EDT, Height Start Date: 04/20/23 Status: Ordered atazanavir 300 mg oral capsule 1 capsule, By Mouth, Daily, # 90 capsule, 0 Refills, Maintenance, 02/11/23 18:29:00 EDT, [facility]/pharmacy #[id number], 1 capsule By Mouth Daily,x90 days, 168.5, cm, 11/11/22 10:31:00 EST, Height Start Date: 02/11/23 Stop Date: 05/12/23 Status: Ordered atenolol 25 mg oral tablet 1, tablet, By Mouth, Daily, # 90 tablet, Refills 3, Tot. Refills 3, 06/23/23 13:06:00 EDT, Route toPharmacy Electronically, [facility]/pharmacy #[id number], 168.5, cm, 06/23/23 13:01:00 EDT, Height Start Date: 06/23/23 Status: Ordered atorvastatin 40 mg oral tablet 1 tablet, By Mouth, Daily, # 90 tablet, 3 Refills, Maintenance, 06/23/23 13:06:00 EDT, [facility]/pharmacy#[id number], 168.5, cm, 06/23/23 13:01:00 EDT, Height Start Date: 06/23/23 Status: Ordered PARoxetine 20 mg oral tablet See Instructions, TAKE 1 TABLET BY MOUTH EVERY DAY, # 90 tablet, Refills 3, Maintenance, 06/23/23 13:06:00 EDT, Instructions Replace Required Details, Route to Pharmacy Electronically, [id number], 168.5, cm, 06/23/23 13:01:00 EDT, Height Start Date: 06/23/23 Status: Ordered QUEtiapine 200 mg oral tablet 1, tablet, By Mouth, Daily, # 90 tablet, Refills 3, Tot. Refills 3, 06/23/23 13:07:00 EDT, Route toPharmacy Electronically, [facility]/pharmacy #[id number], 168.5, cm, 06/23/23 13:01:00 EDT, Height Start Date: 06/23/23 Status: Ordered ritonavir 100 mg oral tablet 1 tablet, By Mouth, Daily, # 90 tablet, 0 Refills, Maintenance, 01/06/23 11:49:00 EDT, [facility]/pharmacy#[id number], 168.5, cm, 11/11/22 10:31:00 EST, Height Start Date: 01/06/23 Stop Date: 04/06/23 Status: Ordered tenofovir disoproxil fumarate 300 mg oral tablet 1 tablet, By Mouth, Daily, # 90 tablet, 0 Refills, Maintenance, 04/20/23 14:00:00 EDT, [id number], 168.5, cm, 03/12/23 8:41:00 EDT, Height Start Date: 04/20/23 Status: Ordered Therpaeutic phlebotomy one unit every [...] use Confirmed Active [facility] Diagnosis Diagnosis Type Effective Dates Health Status Clinical Service Informant AIDS Discharge Diagnosis 06/23/23 Cocaine dependence Discharge Diagnosis 06/23/23 Hypertension Discharge Diagnosis 06/23/23 Depression Discharge Diagnosis 06/23/23 Vital Signs Most recent to oldest [Reference Range]: 1 2 3 Height 168.5 cm (06/23/23 1:08 PM) 168.5 cm (06/23/23 1:01 PM) 168.5 cm (06/23/23 12:54 PM) Weight 93.0 kg (06/23/23 12:54 PM) Oxygen Saturation [94-100 %] 96 % (06/23/23 12:54 PM) Pulse Rate [55-90 bpm] 74 bpm (06/23/23 12:54 PM) Body Mass Index [18.5-24.99 kg/m2] 32.76 kg/m2 *>HHI* (06/23/23 12:54 PM) Blood Pressure [90-138/55-84 mm Hg] 128/80mm Hg (06/23/23 1:08 PM) 139/88mm Hg *H* (06/23/23 1:01 PM) 160/95mm Hg *H* (06/23/23 12:54 PM) Mode of Delivery (Oxygen) Room air (06/23/23 12:54 PM) Blood pressure sites Arm, left (06/23/23 1:08 PM) Arm, left (06/23/23 1:01 PM) Arm, left (06/23/23 12:54 PM) Weight Obtained Via Standing scale (06/23/23 12:54 PM) Social History Social History Type Response Smoking Status Current every day sm oker; Type: Cigarettes; Previous treatment: Nicotine replacement; Interested in cessation: Yes; Tobacco use times per day: 1ppd; Number of years: 40; Total pack years: 40; Started at age: 15; 1 entered on: 02/19/16 Sex 11 ppd Note * Veronica Mar: PERFORM, SIGN, VERIFY Event Display: Patient Education/Instruction Authored Date: [id number] [facility] *[facility] Clinical Summary Name DIAZ BORGES Age 68 Years 1955 PCP Kamran JENKINS, Ponce Alfonso PCP Visit Date 06/23/2023 12:46:00 Patient Instructions continue current medication and diet; avoid cocaine use, stay in contact with your sponsor, and continue to attend recovery meetings; flu shot today; try to cut back on smoking, let me know if you'd like to try nicotine patches again; keep scheduled appointment with dr harrington; call if any question orproblem Additional Instructions: Scheduled Appointments?? Future Appointments ?No Future Appointments Scheduled Follow-Up Instructions ?? Diagnosis Medications: Please continue your medications until treatment is completed or stopped by your provider. Discuss any questions related to medications with your provider. Medications to Continue Taking That Have Changed These medications were not printed or sent to your pharmacy - Miscellaneous Rx (Therpaeutic phlebotomy one unit every 6 weeks Hold for Hb<12 gmDiagnosis: Heriditary Hemochromatos) Hold for Hb <12 gm Diagnosis : heriditary hemochromatosis. Refills: 12. Next Dose: Medications to Continue with No Changes [facility]/pharmacy #[id number], [address] [facility] [place] [id number], [phone] Atenolol (atenolol 25 mg oral tablet) 1 tab(s) Oral Daily. Refills: 3. Next Dose: Atorvastatin (atorvastatin 40 mg oral tablet) 1 tab(s) Oral Daily. Refills: 3. Next Dose: Quetiapine (QUEtiapine 200 mg oral tablet) 1 tab(s) Oral Daily. Refills: 3. Next Dose: These medications were not printed or sent to your pharmacy Abacavir (abacavir 300 mg oral tablet) 2 tab(s) Oral Daily. Refills: 0. Next Dose: Atazanavir (atazanavir 300 mg oral capsule) 1 capsule Oral Daily for 90 Days. Refills: 0. Next Dose: Paroxetine (PARoxetine 20 mg oral tablet) TAKE 1 TABLET BY MOUTH EVERY DAY. Refills: 3. Next Dose: Ritonavir (ritonavir 100 mg oral tablet) 1 tab(s) Oral Daily for 90 Days. Refills: 0. Next Dose: Tenofovir (tenofovir disoproxil fumarate 300 mg oral tablet) 1 tab(s) Oral Daily. Refills: 0. Next Dose: No Longer Take the Following Medications Diclofenac (diclofenac sodium 75 mg oral delayed release tablet) 1 tab(s) Oral twice a day as needed rib pain. with food. Refills: 1. zoster vaccine, inactivated (Shingrix intramuscular injection) 0.5 Milliliter Intramuscular once. repeat dose in 2 to 6 months. Refills: 0. Allergy Info:?? NKA Medications Given This Visit Future Orders ?No future orders Vital Signs Height 168.5 cm Weight 93.0 kg BMI 32.76 kg/m2 Blood Pressure 128 mm Hg/80 mm Hg Temperature Pulse Rate 74 bpm Respiratory Rate 02 Sat Mode of Delivery 96 %/Room air You can now view a summary of your hospital visit from the comfort of your home through a free online portal called [employer]. [employer] is a website that allows you to securely view your medical information including discharge summary, medications and follow-up visits. ??You can alsosend a secure electronic message to your doctor???s office to request appointments, renew medications or just ask a question. You can enroll at [email or web address] or register during your next office visit. Disclaimer:?? The information provided is of a general nature and is intended to be used in conjunction with the recommendations and advice of your health care practitioner. ??Every effort has been made to ensure that the information provided is accurate and complete at the time it is provided to you however, as your needs change, or, as new ??information becomes available, different or additional instructions may be required. If you have questions, please consult with your primary care provider or pharmacist, as appropriate. ??This information is not intended to serve as substitution for assessment and evaluation by a qualified health care provider. If you do not have a primary care provider, you may find a [facility] provider by calling [facility] [employer] Link at [phone]. [facility], in keeping with [facility] guidance, no longer requires face masks for staff, patientsor visitors in most situations. Similar to time spent indoors at other locations, there is the chance that you were exposed to respiratory viruses during your time with us (such as flu or COVID-19).? If you develop symptoms concerning for a viral respiratory infection, please seek testing (and treatment if indicated) from your medical provider or home test kit. For information about the plan of care including goals and instructions for your diagnosis, please see the patient education orders section of this document. Patient Education Materials?? The content of this educational material or handout may have been modified, supplemented, or adapted from its original content and format to support your individualized medical care. Patient Care team information Care Team Personnel Name: Trina Beaver Position: [facility] Onco RN Member Role: Primary Care Nurse Name: Ponce Andrew MD Position: [facility] Physician - Primary Care Member Role: PCP Address: Address: [address] [place] [address] [facility] [address] Name: Daniella Brand RN Position: [facility] AMB Nurse Member Role: Primary Care Nurse Name: Kiersten Rodrigues RN Position: [facility] AMB Nurse Member Role: Primary Care Nurse Name: Shira Rosa RN Position: [facility] ED RN W/OE and Tasks Member Role: Primary Care Nurse Name: Soledad Mckee RN Position: [facility] SN RN Member Role: Primary Care Nurse Care Team Related Persons Name: CATRACHITO BORGES Address: home [place], [place] Name: COURTNEY BORGES Address: home [address], [place]
--- OUTSIDE RECORDS SUMMARY | 2024-08-12 13:37 | XMS_ITS | Continuity of Care Document ---
Author Organization [facility] Address [address] [place] [address]- Care Team Providers Care Carbide Powder Processor Name Role Phone Ponce Andrew MD Primary Care Physician [place] [facility] [place]): [place]24 [facility] [address], [place] [address] Encounter Diagnosis Cocaine dependence(Discharge Diagnosis) - 06/23/24 Attending Physician: Ponce Andrew MD Allergies, Adverse Reactions, Alerts No Known Allergies Immunizations Given and Recorded Vaccine Date Status Refusal Reason influenza virus vaccine, inactivated 06/22/24 Gilberto rded influenza virus vaccine, inactivated 07/09/22 Gilberto rded [...] influenza virus vaccine, inactivated 06/26/15 Give n SARS-CoV-2(COVID-19)mRNA-LNP vac([id number]) 06/22/24 Recorded SARS-CoV-2 (COVID-19) mRNA-1273 vaccine 08/02/21 R ecorded [...] (old term) 03/10/01 Given 1Result Comment: [07/22/2018] [facility]#[id number] 2Result Comment: [08/21/2017] [facility] #[id number] 3Admin Note: afluria quadrivalent 4Admin Note: Afluria made by Seq[employer] 5Result Comment: [facility]# [id number] 6Result Comment: Heplisav-B #2 7Admin Note: h1n1 8Admin Note: [employer] PATIENT MEETS CRITERIA Medications abacavir 300 mg oral tablet 2 tablet, By Mouth, Daily, # 180 tablet, 1 Refills, Maintenance, 02/08/24 14:51:00 EDT, [id number], 168.5, cm, 12/23/23 13:13:00 EDT, Height, 95.5, kg, 12/23/23 13:06:00 EDT, Dry Weight Start Date: 02/08/24 Status: Ordered atazanavir 300 mg oral capsule 1 capsule, By Mouth, Daily, # 90 capsule, 1 Refills, Maintenance, 03/29/24 15:32:00 EDT, [facility] STORE [id number], 90, TAKE 1 CAPSULE BY MOUTH EVERY DAY, 168.5, cm, 03/10/24 8:13:00 EDT, Height, 95.5, kg, 12/23/23 13:06:00 EDT, Dry Weight Start Date: 03/29/24 Status: Ordered atenolol 25 mg oral tablet 1, tablet, By Mouth, Daily, # 90 tablet, Refills 3, Tot. Refills 3, 06/23/24 8:28:00 EDT, [id number] 168.5, cm, 06/23/24 8:19:00 EDT, Height, 95.5, kg, 12/23/23 13:06:00 EDT, Dry Weight Start Date: 06/23/24 Status: Ordered atorvastatin 40 mg oral tablet 1 tablet, By Mouth, Daily, # 90 tablet, 3 Refills, Maintenance, 06/23/24 8:29:00 EDT[id number] 168.5, cm, 06/23/24 8:19:00 EDT, Height, 95.5, kg, 12/23/23 13:06:00 EDT, Dry Weight Start Date: 06/23/24 Status: Ordered PARoxetine 20 mg oral tablet See Instructions, TAKE 1 TABLET BY MOUTH EVERY DAY, # 90 tablet, Refills 3, Tot. Refills 3, Maintenance, 06/23/24 8:29:00 EDT, Instructions Replace Required Details, [facility] 168.5, cm, 06/23/24 8:19:00 EDT... Start Date: 06/23/24 Status: Ordered QUEtiapine 200 mg oral tablet 1, tablet, By Mouth, Daily, # 90 tablet, Refills 3, Tot. Refills 3, 06/23/24 8:30:00 EDT, [id number], 168.5, cm, 06/23/24 8:19:00 EDT, Height, 95.5, kg, 12/23/23 13:06:00 EDT, Dry Weight Start Date: 06/23/24 Status: Ordered ritonavir 100 mg oral tablet 1 tablet, By Mouth, Daily, with food, # 90 tablet, 1 Refills, Maintenance, 04/25/24 14:07:00 EDT, [facility]/pharmacy #[id number], 168.5, cm, 03/10/24 8:13:00 EDT, Height, 95.5, kg, 12/23/23 13:06:00 EDT, Dry Weight Start Date: 04/25/24 Stop Date: 10/22/24 Status: Ordered tenofovir disoproxil fumarate 300 mg oral tablet 1 tablet, By Mouth, Daily, # 90 tablet, 1 Refills, Maintenance, 02/08/24 14:51:00 EDT, [id number], 168.5, cm, 12/23/23 13:13:00 EDT, Height, 95.5, kg, 12/23/23 13:06:00 EDT, Dry Weight Start Date: 02/08/24 Status: Ordered Therpaeutic phlebotomy one unit every [...] Condition Confirmation Course Effective Dates Status H ealt Status Informant Adrenal adenoma Confirmed Active AIDS [...] Effective Dates Health Status Clinical Service Informant Cocaine dependence Discharge Diagnosis 06/23/24 Vital Signs Most recent to oldest [Reference Range]: 1 Height 168.5 cm (06/23/24 8:19 AM) Weight 97.2 kg (10/3/24 8:19 AM) Oxygen Saturation [94-100 %] 85 % *L* (06/23/24 8:19 AM) Pulse Rate [55-90 bpm] 85 bpm (06/23/24 8:19 AM) Body Mass Index [18.5-24.99 kg/m2] 34.23 kg/m2 *>HHI* (06/23/24 8:19 AM) Blood Pressure [90-138/55-84 mm Hg] 138/ 84mm Hg (06/23/24 8:19 AM) Mode of Delivery (Oxygen) Room air (06/23/24 8:19 AM) Blood pressure sites Arm, left (06/23/24 8:19 AM) Social History Social History Type Response Smoking Status Current every day sneha phipps; Type: Cigarettes; Previous treatment: Nicotine replacement; Interested in cessation: Yes; Tobacco use times per day: 1ppd; Number of years: 40; Total pack years: 40; Started at age: 15; 1 entered on: 02/19/16 Sex 11 ppd Note * Gaby Julian MA: PERFORM Event Display: Patient Education/Instruction Authored Date: [id number] Ambulatory Adult Visit Summary [facility] [address] [place] [address] Name: DIAZ BORGES : 1955?? Visit: 06/23/2024 08:00?? Ambulatory Visit Instructions ?? Your Care Team Primary Care Provider Ponce Andrew MD? This Visit Provider Ponce Andrew MD Vitals Signs Pulse Rate: 85 bpm Height: 168.5 cm Systolic Blood Pressure: 138 mm Hg Weight: 97.2 kg Diastolic Blood Pressure: 84 mm Hg Body Mass Index:??34.23 kg/m2??Critical Oxygen Saturation:??85 %??Low Body surface area: 2.13 What to do next Future Orders Ferritin - Routine, Once, 12/23/23 13:19:00 EDT, Future Order, [facility], Blood?? Iron + Iron Binding Capacity - Routine, Once, 12/23/23 13:19:00 EDT, Future Order, [facility], Blood?? Cholesterol Total - Routine, Once, 12/23/23 13:19:00 EDT, Future Order, [facility], Blood?? Direct LDL - Routine, Once, 12/23/23 13:19:00 EDT, Future Order, [facility], Blood?? Medications The list below reflects the information in our records and provided by you today along with any changes made during this visit. Please continue your medications until treatment is completed or stopped by your provider. If this is different from the information you have or there are other questions,please contact the prescribing provider. What How Much When Instructions Unchanged Abacavir (abacavir 300 mg oral tablet) 2 tab(s) Oral Daily Unchanged Atazanavir (atazanavir 300 mg oral capsule) 1 capsule Oral Daily Unchanged Atenolol (atenolol 25 mg oral tablet) 1 tab(s) Oral Daily Unchanged Atorvastatin (atorvastatin 40 mg oral tablet) 1 tab(s) Oral Daily Unchanged Miscellaneous Rx (Therpaeutic phlebotomy one unit every 6 weeks Hold for Hb<12 gmDiagnosis: Heriditary Hemochromatos) See instructions Hold for Hb <12 gm ?? Diagnosis : heriditary hemochromatosis ?? Unchanged Paroxetine (PARoxetine 20 mg oral tablet) See instructions TAKE 1 TABLET BY MOUTH EVERY DAY ?? Unchanged Quetiapine (QUEtiapine 200 mg oral tablet) 1 tab(s) Oral Daily Unchanged Ritonavir (ritonavir 100 mg oral tablet) 1 tab(s) Oral Daily Duration: 90 Days with food ?? Unchanged Tenofovir (tenofovir disoproxil fumarate 300 mg oral tablet) 1 tab(s) Oral Daily Medications and Immunizations Administered Medications Given During Visit No medications given during this visit.?? Allergies (NKA means No Known Allergies) NKA Education Materials Below is the list of Educational Leaflet Providered with your Visit summary. [employer] Ignite Patient Education - How to Quit Smoking?? Common Emergency Awareness Tips IS IT A STROKE? Act FAST and Check for these signs: FACE Does the face look uneven? ARM Does one arm drift down? SPEECH Does their speech sound strange? TIME Call at any sign of stroke ?? Heart Attack Signs Chest discomfort: Most heart attacks involve discomfort in the center of the chest and lasts more than a few minutes, or goes away and comes back. It can feel like uncomfortable pressure, squeezing, fullness or pain. Discomfort in upper body: Symptoms can include pain or discomfort in one or both arms, back, neck, jaw or stomach. Shortness of breath: With or without discomfort. Other signs: Breaking out in a cold sweat, nausea, or lightheaded. Remember, MINUTES DO MATTER. If you experience any of these heart attack warning signs, call 05-22- to get immediate medical attention! ?? Smoking can increase your chances of developing chronic health problems and can cause harmful effects to other family members in your house. If you smoke, you are strongly encouraged to quit. Please call [facility] [employer] Link at [phone] or [phone] ([phone]) or log in to [email or web address] for referrals to smoking cessation programs. ?? The National Suicide Prevention Hotline is available 13/04 if you or someone you know needs to find a reason to keep living. By calling 6-701-904-ParkingCarma (2806) you'll be connected to a skilled, trained counselor at a crisis center in your area. [facility] [employer] Portal You can view and manage your care through the patient portal or by using a health care fatoumata of your choosing. [employer] is a website that allows you to securely view your medical information including your hospital discharge summary, office visit summaries, medications and follow-up visits. You can also request appointments, renew medications, and request access to your medical information using a health care fatoumata of your choosing, or just ask a question. You can enroll at [email or web address] or register during your next office visit. [facility], in keeping with [facility] guidance, no longer requires face masks for staff, patientsor visitors in most situations. Similiar to time spent indoors at other locations, there is the chance that you were exposed to repiratory viruses during your time with us (such as flu or COVID-19). If you develop symptoms concerning for a viral respiratory infection, please seek testing (and treatment if indicated) from your medical provider or home test kit. ?? Disclaimer: The information provided is of a general nature and is intended to be used in conjunction with the recommendations and advice of your health care practitioner. Every effort has been made to ensure that the information provided is accurate and complete at the time it is provided to you however, as your needs change, or, as new information becomes available, different or additional instructions may be required. ?? If you have questions, please consult with your primary care provider or pharmacist, as appropriate. This information is not intended to serve as substitution for assessment and evaluation by a qualified health care provider. If you do not have a primary care provider, you may find a [facility] provider by calling [facility] [employer] [facility] at [phone]. * Gaby Julian MA: PERFORM Event Display: Patient Education Leaflets Authored Date: How to Quit Smoking ?? [id number] How to Quit Smoking Smoking is a hard habit to break. About half of all??people who've ever smoked have been able to quit. Most people??who still smoke want to quit. Here are some of the best ways to stop smoking. Keep in mind how quitting can help your health The health benefits of quitting start right away. They keep improving the longer you go without smoking. Knowing this can help inspire you to stay on track. These benefits occur at any age. Quitting is a good choice whether you are 17 or 70. Some of the health benefits after your last cigarette include: ??? After 20 minutes: Your blood pressure and pulse return to normal. ??? After 8 hours: Your oxygen levels return to normal. ??? After 2 days: Your ability to smell and taste start to get better as damaged nerves regrow. ??? After 2 to 3 weeks: Your circulation and lung function get better. ??? After 1 to 9 months: You have less coughing, congestion, and shortness of breath. You feel less tired. ??? After 1 year: Your risk of heart attack goes down by 50%. ??? After 5 years: Your risk of lung cancer goes down by 50%. Your risk of stroke becomes the same as a nonsmoker???s. ?? What about going cold turkey? You may have heard about quitting cold turkey. This means stopping all at once. Going cold turkeyis an option. But it's not the most successful way to quit smoking. Trying to cut back slowly oftendoesn't work as well either. This may be because it continues the habit of smoking. You may also inhale more smoke while smoking fewer cigarettes. This leads to the same amount of nicotine in your body. But quitting cold turkey or cutting back slowly aren't your only choices. Using tobacco cessation medicines with behavioral counseling may be a better choice to help you succeed. Talk with your provider about your choices for support while you quit smoking. ?? Get support Support programs can be a big help, especially for heavy smokers. These groups offer information, ways to change behavior, and peer support. Ask your provider for some resources. Here are some other ways to find support: ??? Smokefree.gov at www.smokefree.gov or 770-CVTM-PMK (460-726-4298) ??? [place] Lung Associationat www.lung.org/quit-smoking or 863-717-7495 ??? [place] [employer] at www.cancer.org/quitsmoking or 634-029-4129 Support at home is important too. Family and friends can offer praise and reassurance. Ask your friends who smoke to support your decision. Try to stay away from situations that trigger the desire tosmoke. This may include smoking with your morning coffee. Or smoking after a meal. Create new routines to help decrease your cravings. If the smoker in your life finds it hard to quit, encourage them to keep trying. Remind them of allof the benefits to themselves and people they love. ?? Try ijct-bgi-jssxhbu nicotine replacements Nicotine replacement therapy??may make it??easier to quit. You can buy some aids without a prescription. These include a nicotine patch, gum, and lozenges. But it's best to use these under the care of your healthcare provider. The skin patch gives a steady supply of nicotine. Nicotine gum and lozenges give??short- time doses of low levels of nicotine. Both methods reduce the craving for cigarettes. If you??have upset stomach (nausea), vomiting, dizziness, weakness, or a fast heartbeat, stop using these products and see your provider. ?? Ask about prescription medicine After reviewing??your smoking patterns and past attempts to quit, your provider may offer a prescription medicine. These include bupropion, varenicline, a nicotine inhaler, or nasal spray. Each has advantages and side effects. Your provider can go over these with you. ?? Keep trying Most smokers try to quit many times before they succeed. It???s important not to give up. ?? Last Reviewed Date: 2022 ?? 3034-9518 The [employer] All rights reserved. This information is not intended as a substitute for professional medical care. Always follow your healthcare professional's instructions. ?? Patient Care team information Care Team Personnel Name: Trina Beaver Position: [facility] Onco RN Member Role: Primary Care Nurse Name: Ponce Andrew MD Position: [facility] Physician - Primary Care Member Role: PCP Address: Address: [address] [place] [address] Adult [facility] Pediatric Medicine [address] Name: Daniella Brand RN Position: [facility] AMB Nurse Member Role: Primary Care Nurse Name: Kiersten Rodrigues RN Position: [facility] AMB Nurse Member Role: Primary Care Nurse Name: Shira Rosa RN Position: [facility] ED RN W/OE and Tasks Member Role: Primary Care Nurse Name: Soledad Mckee RN Position: [facility] SN RN Member Role: Primary Care Nurse Care Team Related Persons Name: CATRACHITO BORGES Address: home [place], [place] Name: COURTNEY BORGES Address: home [address] [place] [address]
--- OUTSIDE RECORDS SUMMARY | 2024-08-12 13:37 | XMS_ITS | Continuity of Care Document ---
Author Organization [facility] Address [address] [place] [address]- Care Team Providers Care Reverse Unit Operator Name Role Phone Ponce Andrew MD Primary Care Physician [phone] Encounter [facility] Date(s): 09/25/22 - 10/25/22 [facility]/[address] [address]- [place] Allergies, Adverse Reactions, Alerts No Known Allergies [...] (old term) 03/10/01 Given 1Result Comment: [07/22/2018] [facility]#[id number] 2Result Comment: [08/21/2017] [facility] #[id number] 3Admin Note: afluria quadrivalent 4Admin Note: Afluria made by Seqirus 5Result Comment: [facility]# [id number] 6Result Comment: Heplisav-B #2 7Admin Note: h1n1 8Admin Note: [employer] PATIENT MEETS CRITERIA Medications abacavir 300 mg oral tablet 2 tablet, By Mouth, Daily, # 180 tablet, 0 Refills, Maintenance, 10/07/22 12:08:00 EST, [facility]/pharmacy #[id number], 168.5, cm, 06/27/22 11:54:00 EDT, Height Start Date: 10/07/22 Stop Date: 11/06/22 Status: Ordered ADCARE ADCARE, See Instructions, # 1 each, Refills 0, Tot. Refills 0, Maintenance, ADCARE Evaluate and treat for outpatient, 11/09/19 10:02:00 EST, Compound Start Date: 11/09/19 Status: Ordered atazanavir 300 mg oral capsule 1 capsule, By Mouth, Daily, # 90 capsule, 0 Refills, Maintenance, 09/25/22 15:09:00 EST, [facility], 90, TAKE 1 CAPSULE BY MOUTH EVERY DAY, 168.5, cm, 06/27/22 11:54:00 EDT, Height Start Date: 09/25/22 Status: Ordered atenolol 25 mg oral tablet 1, tablet, By Mouth, Daily, # 90 tablet, Refills 1, Route to Pharmacy Electronically, [facility]37, 168.5, cm, 11/05/21 10:51:00 EST, Height Start Date: 05/08/22 Status: Ordered atorvastatin 40 mg oral tablet 1 tablet = 40 mg, By Mouth, Daily, # 90 tablet, 3 Refills, Maintenance, 03/07/22 11:06:00 EDT, Tablet, [facility]/pharmacy #[id number], 168.5, cm, 11/05/21 10:51:00 EST, Height Start Date: 03/07/22 Status: Ordered diclofenac sodium 75 mg oral delayed release tablet 1 tablet = 75 mg, By Mouth, 2 times a day, PRN rib pain, with food, # 30 tablet, 1 Refills, Maintenance, 10/04/21 12:43:00 EST, EC Tablet, [facility]/pharmacy #[id number], Partial fill upon patient request if theprescription is for a schedule II opioid drug., 168... Start Date: 10/04/21 Stop Date: 10/04/22 Status: Ordered Paxil 20 mg oral tablet 20 mg, 1, tablet, By Mouth, Daily, for 90 days, # 90 tablet, Refills 3, Tot. Refills 3, Hard Stop 06/12/23 12:46:00 EDT, 06/17/22 12:46:00 EDT, Route to Pharmacy Electronically, [facility]/pharmacy #[id number], 168.5, cm, 05/21/22 11:39:00 EDT, Height Start Date: 06/17/22 Stop Date: 06/12/23 Status: Ordered QUEtiapine 200 mg oral tablet 1, tablet, By Mouth, Daily, # 90 tablet, Refills 3, Route to Pharmacy Electronically, [facility] 18444, 168.5, cm, 10/02/21 10:33:00 EST, Height, 95.3, kg, 02/23/20 7:40:00 EDT, Dry Weight Start Date: 10/04/21 Status: Ordered ritonavir 100 mg oral tablet 1 tablet, By Mouth, Daily, # 90 tablet, 0 Refills, Maintenance, 09/25/22 15:09:00 EST, [facility], 168.5, cm, 06/27/22 11:54:00 EDT, Height Start Date: 09/25/22 Status: Ordered Shingrix intramuscular injection = 0.5 mL, Intramuscular, Once, repeat dose in 2 to 6 months, # 2 each, 0 Refills, Soft Stop, 09/07/20 14:31:00 EST, Powder, [facility]/pharmacy #[id number], Partial fill upon patient request if the prescription is for a schedule II opioid drug., 0.5 mL Intramuscul... Start Date: 09/07/20 Status: Ordered tenofovir disoproxil fumarate 300 mg oral tablet 1 tablet, By Mouth, Daily, # 90 tablet, 1 Refills, Maintenance, 06/13/22 15:54:00 EDT, [facility], 168.5, cm, 05/21/22 11:39:00 EDT, Height Start [...] Care Team Personnel Name: Trina Beaver Position: [facility] Onco RN Member Role: Primary Care Nurse Name: Ponce Andrew MD Position: [facility] Primary Care Physician Member Role: PCP Address: Address: [address] [place] [address] Adult & Pediatric Medicine [address] Name: Daniella Brand RN Position: [facility] RN Member Role: Primary Care Nurse Name: Kiersten Rodrigues RN Position: [facility] RN Member Role: Primary Care Nurse Name: Gloria Osorio RN Position: [facility] RN Supv Member Role: Primary Care Nurse Name: Shira Rosa RN Position: S RN Member Role: Primary Care Nurse Name: Soledad Mckee RN Position: [facility] RN Member Role: Primary Care Nurse Care Team Related Persons Name: CATRACHITO BORGES Address: home [place], [place] Name: COURTNEY BORGES Address: home [address], [place]
--- OUTSIDE RECORDS SUMMARY | 2024-08-12 13:37 | XMS_ITS | Continuity of Care Document ---
Author Organization [facility] Address [address] [place] [address]- Care Team Providers Care Manager Union Name Role Phone Pritesh JENKINS, Jovita Primary Care Physician [facility]counter [facility] Date(s): 10/20/20 - 11/19/20 [facility] [address] [place], [place] [address] Allergies, Adverse Reactions, Alerts Substance Reaction Severity Status NKA Active Immunizations Given and Recorded Vaccine Date Status Refusal Reason influenza virus vaccine, inactivated 07/11/20 Give n influenza virus vaccine, inactivated 1 07/22/18 Gi diandra influenza virus vaccine, inactivated 07/06/18 Give n influenza virus vaccine, inactivated 2, 3 08/21/17 Given influenza virus vaccine, inactivated 4 09/02/16 Gi diandra influenza virus vaccine, inactivated 06/26/15 Give n hepatitis B adult vaccine 5 03/08/19 Given hepatitis B adult vaccine 02/08/19 [...] Vaccine (oldterm) 08/26/02 Given Pneumococcal Vaccine (oldterm) 3/31/08 Given Pneumococcal Vaccine (oldterm) 08/24/99 Given tetanus-diphtheria toxoids (Td) 07/14/05 Given Hepatitis B Vaccine (old term) 10/18/01 Given Hepatitis B Vaccine (old term) 04/09/01 Given Hepatitis B Vaccine (old term) 03/10/01 Given 1Result Comment: [07/22/2018] [facility]#[id number] 2Result Comment: [08/21/2017] [facility] #[id number] 3Admin Note: afluria quadrivalent 4Admin Note: Afluria made by Seq[employer] 5Result Comment: Heplisav-B #2 6Admin Note: h1n1 7Admin Note: [employer] PATIENT MEETS CRITERIA Medications ADCARE ADCARE, See Instructions, # 1 each, Refills 0, Tot. Refills 0, Maintenance, ADCARE Evaluate and treat for outpatient, 11/09/19 10:02:00 EST, Compound Start Date: 11/09/19 Status: Ordered atenolol 25 mg oral tablet 25 mg, 1, tablet, By Mouth, Daily, # 90 tablet, Refills 3, Tot. Refills 3, Maintenance, 09/17/20 10:02:00 EST, Route to Pharmacy Electronically, [facility]/pharmacy #[id number], 168.5, cm, 07/11/20 10:23:00 EDT, Height, 95.3, kg, 02/23/20 7:40:00 EDT, Dry Weight Start Date: 09/17/20 Status: Ordered atorvastatin 40 mg oral tablet 1 tablet = 40 mg, By Mouth, Daily, # 90 tablet, 3 Refills, Maintenance, 09/17/20 10:02:00 EST, Tablet, [facility]/pharmacy #[id number], 168.5, cm, 07/11/20 10:23:00 EDT, Height, 95.3, kg, 02/23/20 7:40:00 EDT, Dry Weight Start Date: 09/17/20 Status: Ordered Norvir 100 mg oral tablet 1 tablet = 100 mg, By Mouth, Daily, for 30 days, # 30 tablet, 5 Refills, Hard Stop 12/15/20 10:40:00 EDT, 06/18/20 10:40:00 EDT, [facility]/pharmacy #[id number], 168.5, cm, 03/14/20 9:16:00 EDT, Height, 95.3, kg,02/23/20 7:40:00 EDT, Dry Weight Start Date: 06/18/20 Stop Date: 12/15/20 Status: Ordered Norvir 100 mg oral tablet 1 tablet = 100 mg, By Mouth, Daily, # 30 tablet, 5 Refills, Maintenance, 10/09/20 11:17:00 EST, [facility]/pharmacy #207, 168.5, cm, 07/11/20 10:23:00 EDT, Height, 95.3, kg, 02/23/20 7:40:00 EDT, Dry Weight Start Date: 10/09/20 Stop Date: 04/07/21 Status: Ordered Paxil 20 mg oral tablet 20 mg, 1, tablet, By Mouth, Daily, for 30 days, # 30 tablet, Refills 5, Tot. Refills 5, Hard Stop 03/06/21 14:31:00 EDT, 09/07/20 14:31:00 EST, Route to Pharmacy Electronically, [facility]/pharmacy #[id number], 168.5, cm, 07/11/20 10:23:00 EDT, Height, 95.3, kg, 0... Start Date: 09/07/20 Stop Date: 03/06/21 Status: Ordered QUEtiapine 200 mg oral tablet 1, tablet, By Mouth, Daily, # 90 tablet, Refills 1, Tot. Refills 1, Maintenance, 06/14/20 11:42:00 EDT, Route to Pharmacy Electronically, [facility]/pharmacy #[id number], 168.5, cm, 03/14/20 9:16:00 EDT, Height, 95.3, kg, 02/23/20 7:40:00 EDT, Dry Weight Start Date: 06/14/20 Status: Ordered QUEtiapine 200 mg oral tablet See Instructions, TAKE 1 TABLET BY MOUTH EVERY DAY, # 90 tablet, Refills 1, Tot. Refills 1, 09/07/20 14:31:00 EST, Instructions Replace Required Details, Route to Pharmacy Electronically, [facility]/pharmacy #207, 168.5, cm, 07/11/20 10:23:00 EDT, Height, 9... Start Date: 09/07/20 Status: Ordered Reyataz 300 mg oral capsule 1 capsule = 300 mg, By Mouth, Daily, for 30 days, # 30 capsule, 5 Refills, Hard Stop 12/15/20 10:40:00 EDT, 06/18/20 10:40:00 EDT, [facility]/pharmacy #207, 168.5, cm, 03/14/20 9:16:00 EDT, Height, 95.3, kg, 02/23/20 7:40:00 EDT, Dry Weight Start Date: 06/18/20 Stop Date: 12/15/20 Status: Ordered Reyataz 300 mg oral capsule 1 capsule = 300 mg, By Mouth, Daily, # 30 capsule, 5 Refills, Maintenance, 10/09/20 11:17:00 EST, [facility]/pharmacy #207, 1 capsule By Mouth Daily,x30 days, 168.5, cm, 07/11/20 10:23:00 EDT, Height, 95.3, kg, 02/23/20 7:40:00 EDT, Dry Weight Start Date: 10/09/20 Stop Date: 04/07/21 Status: Ordered Shingrix intramuscular injection = 0.5 mL, Intramuscular, Once, repeat dose in 2 to 6 months, # 2 each, 0 Refills, Soft Stop, 09/07/20 14:31:00 EST, Powder, [facility]/pharmacy #[id number], Partial fill upon patient request if the prescription is for a schedule II opioid drug., 0.5 mL Intramuscul... Start Date: 09/07/20 Status: Ordered tenofovir disoproxil fumarate 300 mg oral tablet 1 tablet, By Mouth, Daily, for 30 days, # 30 tablet, 5 Refills, Hard Stop 12/15/20 10:40:00 EDT, 06/18/20 10:40:00 EDT, [facility]/pharmacy #[id number], 168.5, cm, 03/14/20 9:16:00 EDT, Height, 95.3, kg, :40:00 EDT, Dry Weight Start Date: 06/18/20 Stop Date: 12/15/20 Status: Ordered tenofovir disoproxil fumarate 300 mg oral tablet 1 tablet, By Mouth, Daily, # 30 tablet, 5 Refills, Maintenance, 10/09/20 11:17:00 EST, [facility]/pharmacy#207, 168.5, cm, 07/11/20 10:23:00 EDT, Height, 95.3, kg, 02/23/20 7:40:00 EDT, Dry Weight Start Date: 10/09/20 Stop Date: 04/07/21 Status: Ordered Therpaeutic phlebotomy one unit every [...] oral tablet 2 tablets, By Mouth, Daily, for 30 days, # 60 tablet, 5 Refills, Hard Stop 12/15/20 10:40:00 EDT, 06/18/20 10:40:00 EDT, [facility]/pharmacy #207, 168.5, cm, 03/14/20 9:16:00 EDT, Height, 95.3, kg, 02/23/20 7:40:00 EDT, Dry Weight Start Date: 06/18/20 Stop Date: 12/15/20 Status: Ordered Ziagen 300 mg oral tablet 2 tablets, By Mouth, Daily, # 60 tablet, 5 Refills, Maintenance, 10/09/20 11:17:00 EST, [facility]/pharmacy #[id number], 168.5, cm, 07/11/20 10:23:00 EDT, Height, 95.3, kg, 02/23/20 7:40:00 EDT, Dry Weight Start Date: 10/09/20 Stop Date: 04/07/21 Status: Ordered Problem List Condition Effective Dates [...] Active Pulmonary nodules(Confirmed) Active Lung mass(Confirmed) Active Obesity(Confirmed) Active Depression(Confirmed) [...]
--- OUTSIDE RECORDS SUMMARY | 2024-08-12 13:37 | XMS_ITS | Continuity of Care Document ---
Author Organization [facility] Address [address] [place] [address]- Care Team Providers Care Workshop Manager Name Role Phone Ponce Andrew MD Primary Care Physician Encounter [facility] Date(s): 07/03/22 - 08/02/[address] [address] Attending Physician: Admtr, Arielle Admitting Physician: Admtr, Tim8 Referring Physician: Admtr, Ar8 Allergies, Adverse Reactions, Alerts No Known Allergies [...] (old term) 03/10/01 Given 1Result Comment: [07/22/2018] [facility]#[id number] 2Result Comment: [08/21/2017] [facility] #[id number] 3Admin Note: afluria quadrivalent 4Admin Note: Afluria made by Se[employer] 5Result Comment: [facility]# [id number] 6Result Comment: Heplisav-B #2 7Admin Note: h1n1 8Admin Note: [employer] PATIENT MEETS CRITERIA Medications abacavir 300 mg oral tablet 2 tablet, By Mouth, Daily, # 180 tablet, 0 Refills, Maintenance, 06/30/22 8:33:00 EDT, [facility], 168.5, cm, 06/27/22 11:54:00 EDT, Height Start Date: 06/30/22 Stop Date: 07/30/22 Status: Ordered ADCARE ADCARE, See Instructions, # 1 each, Refills 0, Tot. Refills 0, Maintenance, ADCARE Evaluate and treat for outpatient, 11/09/19 10:02:00 EST, Compound Start Date: 11/09/19 Status: Ordered atazanavir 300 mg oral capsule 1 capsule, By Mouth, Daily, # 90 capsule, 0 Refills, Maintenance, 06/13/22 15:54:00 EDT, [facility] STORE [facility], 90, TAKE 1 CAPSULE BY MOUTH EVERY DAY, 168.5, cm, 05/21/22 11:39:00 EDT, Height Start Date: 06/13/22 Status: Ordered atenolol 25 mg oral tablet 1, tablet, By Mouth, Daily, # 90 tablet, Refills 1, Route to Pharmacy Electronically, [facility], 168.5, cm, 11/05/21 10:51:00 EST, Height Start Date: 05/08/22 Status: Ordered atorvastatin 40 mg oral tablet 1 tablet = 40 mg, By Mouth, Daily, # 90 tablet, 3 Refills, Maintenance, 03/07/22 11:06:00 EDT, Tablet, [facility]/pharmacy #[id number], 168.5, cm, 11/05/21 10:51:00 EST, Height Start Date: 03/07/22 Status: Ordered diclofenac sodium 75 mg oral delayed release tablet 1 tablet = 75 mg, By Mouth, 2 times a day, PRN rib pain, with food, # 30 tablet, 1 Refills, Maintenance, 10/04/21 12:43:00 EST, EC Tablet, [facility]/pharmacy #207, Partial fill upon patient request if theprescription is for a schedule II opioid drug., 168... Start Date: 10/04/21 Stop Date: 10/04/22 Status: Ordered Paxil 20 mg oral tablet 20 mg, 1, tablet, By Mouth, Daily, for 90 days, # 90 tablet, Refills 3, Tot. Refills 3, Hard Stop 06/12/23 12:46:00 EDT, 06/17/22 12:46:00 EDT, Route to Pharmacy Electronically, [facility]/pharmacy #[id number], 168.5, cm, 05/21/22 11:39:00 EDT, Height Start Date: 06/17/22 Stop Date: 06/12/23 Status: Ordered QUEtiapine 200 mg oral tablet 1, tablet, By Mouth, Daily, # 90 tablet, Refills 3, Route to Pharmacy Electronically, [facility] 6[facility], 168.5, cm, 10/02/21 10:33:00 EST, Height, 95.3, kg, 02/23/20 7:40:00 EDT, Dry Weight Start Date: 10/04/21 Status: Ordered ritonavir 100 mg oral tablet 1 tablet, By Mouth, Daily, # 90 tablet, 0 Refills, Maintenance, 06/13/22 15:54:00 EDT, [facility], 168.5, cm, 05/21/22 11:39:00 EDT, Height Start Date: 06/13/22 Status: Ordered Shingrix intramuscular injection = 0.5 mL, Intramuscular, Once, repeat dose in 2 to 6 months, # 2 each, 0 Refills, Soft Stop, 09/07/20 14:31:00 EST, Powder, [facility]/pharmacy #2071, Partial fill upon patient request if the prescription is for a schedule II opioid drug., 0.5 mL Intramuscul... Start Date: 09/07/20 Status: Ordered tenofovir disoproxil fumarate 300 mg oral tablet 1 tablet, By Mouth, Daily, # 90 tablet, 1 Refills, Maintenance, 06/13/22 15:54:00 EDT, [facility], 168.5, cm, 05/21/22 11:39:00 EDT, Height Start [...] Care Team Personnel Name: Trina Beaver Position: [facility] Onco RN Member Role: Primary Care Nurse Name: Ponce Andrew MD Position: [facility] Primary Care Physician Member Role: PCP Address: Address: [address] [place] [address] [facility] [address] Name: Daniella Brand RN Position: [facility] RN Member Role: Primary Care Nurse Name: Kiersten Rodrigues RN Position: [facility] RN Member Role: Primary Care Nurse Name: Gloria Osorio RN Position: [facility] RN Supv Member Role: Primary Care Nurse Name: Shira Rosa RN Position: [facility] RN Member Role: Primary Care Nurse Name: Soledad Mckee RN Position: [facility] SN RN Member Role: Primary Care Nurse Care Team Related Persons Name: CATRACHITO BORGES Address: home [place], [place] Name: COURTNEY BORGES Address: home [address] [place] [address]
--- OUTSIDE RECORDS SUMMARY | 2024-08-12 13:38 | XMS_ITS | Continuity of Care Document ---
Author Organization [facility] wan Address [address] [place], [place] [address]i ve [address] [place] [address]- Care Team Providers Care Reactor Service Operator Name Role Phone Jovita Jonas MD Primary Care Physician [facility]counter [facility] Date(s): 03/14/20 - 03/21/20 [facility] [address] [place] [address]- [facility] Attending Physician: Manasa Levine Allergies, Adverse Reactions, Alerts Substance Reaction Severity [...] 1Result Comment: Heplisav-B #2 2Result Comment: [07/22/2018] [facility]#[id number] 3Result Comment: [08/21/2017] [facility] #[id number] 4Admin Note: afluria quadrivalent 5Admin Note: Afluria made by Seq[employer] 6Admin Note: h1n1 7Admin Note: [employer] PATIENT MEETS CRITERIA Medications ADCARE ADCARE, See Instructions, # 1 each, Refills 0, Tot. Refills 0, Maintenance, ADCARE Evaluate and treat for outpatient, 11/09/19 10:02:00 EST, Compound Start Date: 11/09/19 Status: Ordered aspirin 81 mg oral tablet, chewable 81 mg, 1, tablet, By Mouth, Daily, # 90 tablet, Refills 3, Tot. Refills 3, Maintenance, 08/21/17 14:03:42, Route to Pharmacy Electronically, [id number], [facility]/pharmacy #207 Start Date: 08/21/17 Status: Ordered atenolol 25 mg oral tablet 25 mg, 1, tablet, By Mouth, Daily, # 90 tablet, Refills 3, Tot. Refills 3, Maintenance, 09/02/19 9:30:06 EST, Route to Pharmacy Electronically, [id number], [facility]/pharmacy #207, 168.5, cm, 09/02/19 8:56:00 EST, Height, [...] 03/12/20 9:24:00 EDT, Route to Pharmacy Electronically, [facility]/pharmacy #[id number], 168.5, cm, 03/06/20 9:48:00 EDT, Height, 95.3, kg, 02/23/20 7:40:00 EDT, Dry Weight Start Date: 03/12/20 Stop Date: 09/08/20 Status: Ordered QUEtiapine 200 mg oral tablet 1, tablet, By Mouth, Daily, # 90 tablet, Refills 1, Tot. Refills 1, Maintenance, 12/26/19 15:16:00 EDT, Route to Pharmacy Electronically, [facility]/pharmacy #[id number], 168.5, cm, 09/02/19 11:13:00 EST, Height,94.9, [...] tablet, 11 Refills, Maintenance, 09/12/19 8:29:00 EST, [facility] STORE 81404, 168.5, cm, 09/02/19 11:13:00 EST, Height, 94.9, [...] oldest [Reference Range]: 1 Height 168.5 cm (03/14/20 9:16 AM) Weight 96.36 kg (03/14/20 9:16 AM) Body Mass Index [18.5-24.99] 33.94 *>HHI* (03/14/20 9:16 AM) Temperature [96.8-100.4 DegF] 98.0 DegF (03/14/20 9:16 AM) Temperature Route Temporal (03/14/20 9:16 AM) Weight Obtained Via Standing scale (03/14/20 9:16 AM) Social History Social History Type Response Smoking Status Current every day sm laverneer; Type: Cigarettes; Previous treatment: Nicotine replacement; Interested in cessation: Yes; Tobacco use times per day: 1ppd; Number of years: 40; Total pack years: 40; Started at age: 15; 1 entered on: 02/19/16 Sex 11 ppd
--- OUTSIDE RECORDS SUMMARY | 2024-08-12 13:38 | XMS_ITS | Continuity of Care Document ---
Author Organization [facility] Address [address] [place] [address]- Care Team Providers Care Director Of Reservations Name Role Phone Jovita Jonas MD Primary Care Physician Encounter [facility] Date(s): 03/07/20 - 04/06/20 [facility] [address] [place] [address]- [facility] Attending Physician: Arielle Ortiz Admitting Physician: AdmArielle mcintosh Referring Physician: Admtr, Ar8 Allergies, Adverse Reactions, Alerts Substance Reaction Severity [...] 1Result Comment: Heplisav-B #2 2Result Comment: [07/22/2018] [facility]#[id number] 3Result Comment: [08/21/2017] [facility] #[id number] 4Admin Note: afluria quadrivalent 5Admin Note: Afluria [...] Maintenance, 08/21/17 14:03:42, Route to Pharmacy Electronically, [id number], [facility]/pharmacy #207 Start Date: 08/21/17 Status: Ordered atenolol 25 mg oral tablet 25 mg, 1, tablet, By Mouth, Daily, # 90 tablet, Refills 3, Tot. Refills 3, Maintenance, 09/02/19 9:30:06 EST, Route to Pharmacy Electronically, [id number], [facility]/pharmacy #207, 168.5, cm, 09/02/19 8:56:00 [...] 03/12/20 9:24:00 EDT, Route to Pharmacy Electronically, [facility]/pharmacy #[id number], 168.5, cm, 03/06/20 9:48:00 EDT, Height, 95.3, kg, 02/23/20 7:40:00 EDT, Dry Weight Start Date: 03/12/20 Stop Date: 09/08/20 Status: Ordered QUEtiapine 200 mg oral tablet 1, tablet, By Mouth, Daily, # 90 tablet, Refills 1, Tot. Refills 1, Maintenance, 12/26/19 15:16:00 EDT, Route to Pharmacy Electronically, [facility]/pharmacy #[id number], 168.5, cm, 09/02/19 11:13:00 [...] tablet, 11 Refills, Maintenance, 09/12/19 8:29:00 EST, [facility] STORE 18388, 168.5, cm, 09/02/19 11:13:00 EST, Height, 94.9, [...]
--- OUTSIDE RECORDS SUMMARY | 2024-08-12 13:38 | XMS_ITS | Continuity of Care Document ---
Author Organization [facility] Address [address] [place] [address]- Care Team Providers Care Fluorescent Lighting Model Maker Name Role Phone Jovita Jonas MD Primary Care Physician [phone] Encounter [facility] Date(s): 09/07/20 - 09/14/20 [facility] [address] [place] [address]- Encounter Diagnosis AIDS(Discharge Diagnosis) - 09/07/20 Cocaine dependence(Discharge Diagnosis) - 09/07/20 Complex sleep apnea syndrome(Discharge Diagnosis) - 09/07/20 Depression(Discharge Diagnosis) - 09/07/20 Hemochromatosis(Discharge Diagnosis) - 09/07/20 Hyperlipidemia LDL goal < 130(Discharge Diagnosis) - 09/07/20 Hypertension(Discharge Diagnosis) - 09/07/20 Tobacco use(Discharge Diagnosis) - 09/07/20 Attending Physician: Jovita Jonas MD Allergies, Adverse Reactions, [...] (old term) 03/10/01 Given 1Result Comment: [07/22/2018] [facility]#[id number] 2Result Comment: [08/21/2017] [facility] #[id number] 3Admin Note: afluria quadrivalent 4Admin Note: Afluria made by Seqirus 5Result Comment: Heplisav-B #2 6Admin Note: h1n1 7Admin Note: [employer] PATIENT MEETS CRITERIA Medications ADCARE ADCARE, See Instructions, # 1 each, Refills 0, Tot. Refills 0, Maintenance, ADCARE Evaluate and treat for outpatient, 11/09/19 10:02:00 EST, Compound Start Date: 11/09/19 Status: Ordered atenolol 25 mg oral tablet 25 mg, 1, tablet, By Mouth, Daily, # 90 tablet, Refills 3, Tot. Refills 3, Maintenance, 09/07/20 14:31:00 EST, Route to Pharmacy Electronically, [facility]/pharmacy #1031, 168.5, cm, 07/11/20 10:23:00 EDT, Height, 95.3, kg, 02/23/20 7:40:00 EDT, Dry Weight Start Date: 09/07/20 Status: Ordered atorvastatin 40 mg oral tablet 1 tablet = 40 mg, By Mouth, Daily, # 90 tablet, 3 Refills, Maintenance, 09/07/20 14:31:00 EST, Tablet, [facility]/pharmacy #[id number], 168.5, cm, 07/11/20 10:23:00 EDT, Height, 95.3, kg, 02/23/20 7:40:00 EDT, Dry Weight Start Date: 09/07/20 Status: Ordered Norvir 100 mg oral tablet 1 tablet = 100 mg, By Mouth, Daily, # 30 tablet, 5 Refills, Maintenance, 06/18/20 10:40:00 EDT, [facility]/pharmacy #[id number], 168.5, cm, 03/14/20 9:16:00 EDT, Height, 95.3, kg, 02/23/20 7:40:00 EDT, Dry Weight Start Date: 06/18/20 Stop Date: 12/15/20 Status: Ordered Paxil 20 mg oral tablet 20 mg, 1, tablet, By Mouth, Daily, for 30 days, # 30 tablet, Refills 5, Tot. Refills 5, Hard Stop 03/06/21 14:31:00 EDT, 09/07/20 14:31:00 EST, [id number] 168.5, cm, 07/11/20 10:23:00 EDT, Height, 95.3, kg, 0... Start Date: 09/07/20 Stop Date: 03/06/21 Status: Ordered QUEtiapine 200 mg oral tablet 1, tablet, By Mouth, Daily, # 90 tablet, Refills 1, Tot. Refills 1, Maintenance, 06/14/20 11:42:00 EDT, Route to Pharmacy Electronically, [facility]/pharmacy #[id number], 168.5, cm, 03/14/20 9:16:00 EDT, Height, 95.3, kg, 02/23/20 7:40:00 EDT, Dry Weight Start Date: 06/14/20 Status: Ordered QUEtiapine 200 mg oral tablet See Instructions, TAKE 1 TABLET BY MOUTH EVERY DAY, # 90 tablet, Refills 1, Tot. Refills 1, 09/07/20 14:31:00 EST, Instructions Replace Required Details, Route to Pharmacy Electronically, [facility]/pharmacy #[id number], 168.5, cm, 07/11/20 10:23:00 EDT, Height, 9... Start Date: 09/07/20 Status: Ordered Reyataz 300 mg oral capsule 1 capsule = 300 mg, By Mouth, Daily, # 30 capsule, 5 Refills, Maintenance, 06/18/20 10:40:00 EDT, [facility]/pharmacy #207, 1 capsule By Mouth Daily,x30 days, 168.5, cm, 03/14/20 9:16:00 EDT, Height, 95.3,kg, 02/23/20 7:40:00 EDT, Dry Weight Start Date: 06/18/20 Stop Date: 12/15/20 Status: Ordered Shingrix intramuscular injection = 0.5 mL, Intramuscular, Once, repeat dose in 2 to 6 months, # 2 each, 0 Refills, Soft Stop, 09/07/20 14:31:00 EST, Powder, [facility]/pharmacy #[id number], Partial fill upon patient request if the prescription is for a schedule II opioid drug., 0.5 mL Intramuscul... Start Date: 09/07/20 Status: Ordered tenofovir disoproxil fumarate 300 mg oral tablet 1 tablet, By Mouth, Daily, # 30 tablet, 5 Refills, Maintenance, 06/18/20 10:40:00 EDT, [facility], 168.5, cm, 03/14/20 9:16:00 EDT, Height, 95.3, kg, 02/23/20 7:40:00 EDT, Dry Weight Start Date: 06/18/20 Stop Date: 12/15/20 Status: Ordered Therpaeutic phlebotomy one unit every [...] Daily, # 60 tablet, 5 Refills, Maintenance, 06/18/20 10:40:00 EDT, [facility], 168.5, cm, 03/14/20 9:16:00 EDT, Height, 95.3, kg, 02/23/20 7:40:00 EDT, Dry Weight Start Date: 06/18/20 Stop Date: 12/15/20 Status: Ordered Problem List Condition Effective Dates [...] Status Clinical Service Informant AIDS Discharge Diagnosis 09/07/20 Cocaine dependence Discharge Diagnosis 09/07/20 Complex sleep apnea syndrome Discharge Diagnosis 09/07/20 Depression Discharge Diagnosis 09/07/20 Hemochromatosis Discharge Diagnosis 09/07/20 Hyperlipidemia LDL goal < 130 Discharge Diagnosis 09/07/20 Hypertension Discharge Diagnosis 09/07/20 Tobacco use Discharge Diagnosis 09/07/20 Social History Social History Type Response Smoking Status Current every day sneha phipps; Type: Cigarettes; Previous treatment: Nicotine replacement; Interested in cessation: Yes; Tobacco use times per day: 1ppd; Number of years: 40; Total pack years: 40; Started at age: 15; 1 entered on: 02/19/16 Sex 11 ppd
--- OUTSIDE RECORDS SUMMARY | 2024-08-12 13:38 | XMS_ITS | Continuity of Care Document ---
Author Organization [facility] Infectious Disease Address [address] [place] [id number]- Care Team Providers Care Soft Mud Molder Name Role Phone Ponce Andrew MD Primary Care Physician Encounter [facility] Date(s): 11/04/21 - 12/04/21 [facility] [address] [place] [id number] Allergies, Adverse Reactions, Alerts No Known Allergies [...] (old term) 03/10/01 Given 1Result Comment: [07/22/2018] [facility]#[id number] 2Result Comment: [08/21/2017] [facility] #[id number] 3Admin Note: afluria quadrivalent 4Admin Note: Afluria made by Seq[employer] 5Result Comment: [facility]# [id number] 6Result Comment: Heplisav-B #2 7Admin Note: h1n1 8Admin Note: [employer] PATIENT MEETS CRITERIA Medications ADCARE ADCARE, See Instructions, # 1 each, Refills 0, Tot. Refills 0, Maintenance, ADCARE Evaluate and treat for outpatient, 11/09/19 10:02:00 EST, Compound Start Date: 11/09/19 Status: Ordered atazanavir 300 mg oral capsule 1 capsule, By Mouth, Daily, # 90 capsule, 1 Refills, [facility] STORE [facility]8088, 90, TAKE 1 CAPSULE BY MOUTH EVERY DAY, 168.5, cm, 05/08/21 13:57:00 EDT, Height, 95.3, kg, 02/23/20 7:40:00 EDT, Dry Weight Start Date: 08/05/21 Status: Ordered atenolol 25 mg oral tablet 25 mg, 1, tablet, By Mouth, Daily, # 90 tablet, Refills 1, Tot. Refills 1, Maintenance, 10/31/21 13:33:00 EST, Route to Pharmacy Electronically, [facility]/pharmacy #207, 168.5, cm, 10/02/21 10:33:00 EST, Height, 95.3, kg, 02/23/20 7:40:00 EDT, Dry Weight Start Date: 10/31/21 Status: Ordered atorvastatin 40 mg oral tablet 1 tablet = 40 mg, By Mouth, Daily, # 90 tablet, 3 Refills, Maintenance, 09/17/20 10:02:00 EST, Tablet, [facility]/pharmacy #207, 168.5, cm, 07/11/20 10:23:00 EDT, Height, 95.3, kg, 02/23/20 7:40:00 EDT, Dry Weight Start Date: 09/17/20 Status: Ordered diclofenac sodium 75 mg oral delayed release tablet 1 tablet = 75 mg, By Mouth, 2 times a day, PRN rib pain, with food, # 30 tablet, 1 Refills, Maintenance, 10/04/21 12:43:00 EST, EC Tablet, [facility]/pharmacy #207, Partial fill upon patient request if theprescription is for a schedule II opioid drug., 168... Start Date: 10/04/21 Stop Date: 10/04/22 Status: Ordered Norvir 100 mg oral tablet 1 tablet = 100 mg, By Mouth, Daily, # 30 tablet, 5 Refills, Maintenance, 04/08/21 10:08:00 EDT, [facility]/pharmacy #207, 168.5, cm, 02/06/21 10:35:00 EDT, Height, 95.3, kg, 02/23/20 7:40:00 EDT, Dry Weight Start Date: 04/08/21 Stop Date: 10/05/21 Status: Ordered Norvir 100 mg oral tablet 1 tablet = 100 mg, By Mouth, Daily, # 30 tablet, 2 Refills, Maintenance, 09/09/21 16:24:00 EST, [facility]/pharmacy #207, 168.5, cm, 05/08/21 13:57:00 EDT, Height, 95.3, kg, 02/23/20 7:40:00 EDT, Dry Weight Start Date: 09/09/21 Stop Date: 12/08/21 Status: Ordered Paxil 20 mg oral tablet 20 mg, 1, tablet, By Mouth, Daily, for 30 days, # 30 tablet, Refills 5, Tot. Refills 5, Hard Stop 03/08/22 15:12:00 EDT, 09/09/21 15:12:00 EST, Route to Pharmacy Electronically, [facility]/pharmacy #207, 168.5, cm, 05/08/21 13:57:00 EDT, Height, 95.3, kg, 0... Start Date: 09/09/21 Stop Date: 03/08/22 Status: Ordered QUEtiapine 200 mg oral tablet 1, tablet, By Mouth, Daily, # 90 tablet, Refills 3, Route to Pharmacy Electronically, [facility] STORE 57767, 168.5, cm, 10/02/21 10:33:00 EST, Height, 95.3, kg, 02/23/20 7:40:00 EDT, Dry Weight Start Date: 10/04/21 Status: Ordered Shingrix intramuscular injection = 0.5 mL, Intramuscular, Once, repeat dose in 2 to 6 months, # 2 each, 0 Refills, Soft Stop, 09/07/20 14:31:00 EST, Powder, [facility]/pharmacy #[id number], Partial fill upon patient request if the prescription is for a schedule II opioid drug., 0.5 mL Intramuscul... Start Date: 09/07/20 Status: Ordered tenofovir disoproxil fumarate 300 mg oral tablet 1 tablet, By Mouth, Daily, # 30 tablet, 5 Refills, Maintenance, 04/08/21 10:08:00 EDT, [facility]/pharmacy#207, 168.5, cm, 02/06/21 10:35:00 EDT, Height, 95.3, kg, 02/23/20 7:40:00 EDT, Dry Weight Start Date: 04/08/21 Stop Date: 10/05/21 Status: Ordered tenofovir disoproxil fumarate 300 mg oral tablet 1 tablet, By Mouth, Daily, # 30 tablet, 2 Refills, Maintenance, 09/09/21 16:24:00 EST, [facility]/pharmacy#207, 168.5, cm, 05/08/21 13:57:00 EDT, Height, 95.3, [...]
--- OUTSIDE RECORDS SUMMARY | 2024-08-12 13:38 | XMS_ITS | Continuity of Care Document ---
Author Organization [facility] Address [address] [place] [address]- Care Team Providers Care [employer] Customer Service Name Role Phone Ponce Andrew MD Primary Care Physician Encounter [facility] Date(s): 11/11/22 - 11/18/22 [facility] [address] [place], [place] [address] Encounter Diagnosis Cocaine dependence(Discharge Diagnosis) - 11/11/22 HIV - Human immunodeficiency virus infection(Discharge Diagnosis) - 11/11/22 Depression(Discharge Diagnosis) - 11/11/22 Hypertension(Discharge Diagnosis) - 11/11/22 Hyperlipidemia LDL goal < 130(Discharge Diagnosis) - 11/11/22 Tobacco use(Discharge Diagnosis) - 11/11/22 Attending Physician: Ponce Andrew MD Allergies, Adverse [...] (old term) 03/10/01 Given 1Result Comment: [07/22/2018] [facility]#[id number] 2Result Comment: [08/21/2017] [facility] #[id number] 3Admin Note: afluria quadrivalent 4Admin Note: Afluria made by Seq[employer] 5Result Comment: [facility]# [id number] 6Result Comment: Heplisav-B #2 7Admin Note: h1n1 8Admin Note: [employer] PATIENT MEETS CRITERIA Medications abacavir 300 mg oral tablet 2 tablet, By Mouth, Daily, # 180 tablet, 0 Refills, Maintenance, 11/12/22 13:43:00 EST, [facility] #[id number], 168.5, cm, 11/11/22 10:31:00 EST, Height Start Date: 11/12/22 Stop Date: 02/10/23 Status: Ordered ADCARE ADCARE, See Instructions, # 1 each, Refills 0, Tot. Refills 0, Maintenance, ADCARE Evaluate and treat for outpatient, 11/09/19 10:02:00 EST, Compound Start Date: 11/09/19 Status: Ordered atazanavir 300 mg oral capsule 1 capsule, By Mouth, Daily, # 90 capsule, 0 Refills, Maintenance, 09/25/22 15:09:00 EST, [facility], 90, TAKE 1 CAPSULE BY MOUTH EVERY DAY, 168.5, cm, 06/27/22 11:54:00 EDT, Height Start Date: 09/25/22 Status: Ordered atenolol 25 mg oral tablet 1, tablet, By Mouth, Daily, # 90 tablet, Refills 1, Route to Pharmacy Electronically, [facility] 418[facility], 168.5, cm, 11/05/21 10:51:00 EST, Height Start Date: 05/08/22 Status: Ordered atorvastatin 40 mg oral tablet 1 tablet = 40 mg, By Mouth, Daily, # 90 tablet, 3 Refills, Maintenance, 03/07/22 11:06:00 EDT, Tablet, [facility]/pharmacy #[id number], 168.5, cm, 11/05/21 10:51:00 EST, Height Start Date: 03/07/22 Status: Ordered diclofenac sodium 75 mg oral delayed release tablet 1 tablet = 75 mg, By Mouth, 2 times a day, PRN rib pain, with food, # 30 tablet, 1 Refills, Maintenance, 10/04/21 12:43:00 EST, EC Tablet, [facility]/pharmacy #[id number], Partial fill upon patient request if theprescription is for a schedule II opioid drug., 168... Start Date: 10/04/21 Stop Date: 10/04/22 Status: Ordered Paxil 20 mg oral tablet 20 mg, 1, tablet, By Mouth, Daily, for 90 days, # 90 tablet, Refills 3, Tot. Refills 3, Hard Stop 06/12/23 12:46:00 EDT, 06/17/22 12:46:00 EDT, Route to Pharmacy Electronically, [facility]/pharmacy #[id number], 168.5, cm, 05/21/22 11:39:00 EDT, Height Start Date: 06/17/22 Stop Date: 06/12/23 Status: Ordered QUEtiapine 200 mg oral tablet 1, tablet, By Mouth, Daily, # 90 tablet, Refills 3, Route to Pharmacy Electronically, [facility] STORE 51109, 168.5, cm, 10/02/21 10:33:00 EST, Height, 95.3, kg, 02/23/20 7:40:00 EDT, Dry Weight Start Date: 10/04/21 Status: Ordered ritonavir 100 mg oral tablet 1 tablet, By Mouth, Daily, # 90 tablet, 0 Refills, Maintenance, 09/25/22 15:09:00 EST, [facility] STORE 41369, 168.5, cm, 06/27/22 11:54:00 EDT, Height Start Date: 09/25/22 Status: Ordered Shingrix intramuscular injection = 0.5 mL, Intramuscular, Once, repeat dose in 2 to 6 months, # 2 each, 0 Refills, Soft Stop, 09/07/20 14:31:00 EST, Powder, [facility]/pharmacy #[id number], Partial fill upon patient request if the prescription is for a schedule II opioid drug., 0.5 mL Intramuscul... Start Date: 09/07/20 Status: Ordered tenofovir disoproxil fumarate 300 mg oral tablet 1 tablet, By Mouth, Daily, # 90 tablet, 1 Refills, Maintenance, 06/13/22 15:54:00 EDT, [facility] STORE 07847, 168.5, cm, 05/21/22 11:39:00 EDT, Height Start [...] Clinical Service Informant Cocaine dependence Discharge Diagnosis 11/11/22 HIV - Human immunodeficiency virus infection Discharge Diagnosis 11/11/22 Depression Discharge Diagnosis 11/11/22 Hypertension Discharge Diagnosis 11/11/22 Hyperlipidemia LDL goal < 130 Discharge Diagnosis 11/11/22 Tobacco use Discharge Diagnosis 11/11/22 Vital Signs Most recent to oldest [Reference Range]: 1 Height 168.5 cm (11/11/22 10:31 AM) Weight 94.5 kg (11/11/22 10:31 AM) Oxygen Saturation [94-100 %] 96 % (11/11/22 10:31 AM) Pulse Rate [55-90 bpm] 93 bpm *H* (11/11/22 10:31 AM) Body Mass Index [18.5-24.99 kg/m2] 33.28 kg/m2 *>HHI* (11/11/22 10:31 AM) Blood Pressure [90-138/55-84 mm Hg] 138/ 88mm Hg (11/11/22 10:31 AM) Mode of Delivery (Oxygen) Nasal cannula (11/11/22 10:31 AM) Blood pressure sites Arm, left (11/11/22 10:31 AM) Weight Obtained Via Standing scale (11/11/22 10:31 AM) Social History Social History Type Response Smoking Status Current every day sm oker; Type: Cigarettes; Previous treatment: Nicotine replacement; Interested in cessation: Yes; Tobacco use times per day: 1ppd; Number of years: 40; Total pack years: 40; Started at age: 15; 1 entered on: 02/19/16 Sex 11 ppd Note * Kyleigh Heller: PERFORM, SIGN, VERIFY Event Display: Patient Education/Instruction Authored Date: [facility] *No [facility] Clinical Summary Name DIAZ BORGES Age 67 Years 1955 PCP Kamran JENKINS, Ponce Alfonso PCP Visit Date 11/11/2022 10:30:00 Patient Instructions continue current medication, avoid alcohol and cocaine use as discussed, and continue going to a.a.meetings daily; consider having someone hold your a.t.m. card for you, and consider attending i.o.p. program; follow up with dr harrington as scheduled; call if any question or problem Additional Instructions: Scheduled Appointments?? Future Appointments ?No Future Appointments Scheduled Follow-Up Instructions ?? Diagnosis Medications: Please continue your medications until treatment is completed or stopped by your provider. Discuss any questions related to medications with your provider. Medications to Continue with No Changes These medications were not printed or sent to your pharmacy Abacavir (abacavir 300 mg oral tablet) 2 tab(s) Oral Daily for 30 Days. Refills: 0. Next Dose: Atazanavir (atazanavir 300 mg oral capsule) 1 capsule Oral Daily. Refills: 0. Next Dose: Atenolol (atenolol 25 mg oral tablet) 1 tab(s) Oral Daily. Refills: 1. Next Dose: Atorvastatin (atorvastatin 40 mg oral tablet) 1 tab(s) Oral Daily. Refills: 3. Next Dose: Diclofenac (diclofenac sodium 75 mg oral delayed release tablet) 1 tab(s) Oral twice a day as needed rib pain. with food. Refills: 1. Next Dose: Miscellaneous Rx (ADCARE) ADCARE Evaluate and treat for outpatient. Refills: 0. Next Dose: Miscellaneous Rx (Therpaeutic phlebotomy one unit every 6 weeks Hold for Hb<12 gmDiagnosis: Heriditary Hemochromatos) Hold for Hb <12 gm Diagnosis : heriditary hemochromatosis. Refills: 12. Next Dose: Paroxetine (Paxil 20 mg oral tablet) 1 tab(s) Oral Daily for 90 Days. Refills: 3. Next Dose: Quetiapine (QUEtiapine 200 mg oral tablet) 1 tab(s) Oral Daily. Refills: 3. Next Dose: Ritonavir (ritonavir 100 mg oral tablet) 1 tab(s) Oral Daily. Refills: 0. Next Dose: Tenofovir (tenofovir disoproxil fumarate 300 mg oral tablet) 1 tab(s) Oral Daily. Refills: 1. Next Dose: zoster vaccine, inactivated (Shingrix intramuscular injection) 0.5 Milliliter Intramuscular once. repeat dose in 2 to 6 months. Refills: 0. Next Dose: Allergy Info:?? NKA Medications Given This Visit Future Orders ?No future orders Vital Signs Height 168.5 cm Weight 94.5 kg BMI 33.28 kg/m2 Blood Pressure 138 mm Hg/88 mm Hg Temperature Pulse Rate 93 bpm Respiratory Rate 02 Sat Mode of Delivery 96 %/Nasal cannula You can now view a summary of your hospital visit from the comfort of your home through a free online portal called [employer]. [employer] is a website that allows you to securely view your medical information including discharge summary, medications and follow-up visits. ??You can alsosend a secure electronic message to your doctor???s office to request appointments, renew medications or just ask a question. You can enroll at [email or web address] or register during your next office [...] primary care provider, you may find a [facility] provider by calling [facility] [employer] [facility] at [phone]. For information about the plan of care [...] Care Team Personnel Name: Trina Beaver Position: [facility] Onco RN Member Role: Primary Care Nurse Name: Ponce Andrew MD Position: [facility] Primary Care Physician Member Role: PCP Address: Address: [address] [place] [address] Adult & Pediatric Medicine [address] Name: Daniella Brand RN Position: S RN Member Role: Primary Care Nurse Name: Kiersten Rodrigues RN Position: [facility] RN Member Role: Primary Care Nurse Name: Gloria Osorio RN Position: [facility] RN Supdavey Member Role: Primary Care Nurse Name: Shira Rosa RN Position: S RN Member Role: Primary Care Nurse Name: Soledad Mckee RN Position: [facility] RN Member Role: Primary Care Nurse Care Team Related Persons Name: CATRACHITO BORGES Address: home [place], [place] Name: COURTNEY BORGES Address: home [address] [place] [address]
--- OUTSIDE RECORDS SUMMARY | 2024-08-12 13:38 | XMS_ITS | Continuity of Care Document ---
Author Organization [facility] Address [address] [place] [address]- Care Team Providers Care Network Designer Name Role Phone Ponce Andrew MD Primary Care Physician Encounter [facility] Date(s): 06/30/22 - 07/30/22 [facility]/[address] [address]- [place] Allergies, Adverse Reactions, Alerts No Known [...] (old term) 03/10/01 Given 1Result Comment: [07/22/2018] [facility]#[id number] 2Result Comment: [08/21/2017] [facility] #[id number] 3Admin Note: afluria quadrivalent 4Admin Note: Afluria made by [employer] 5Result Comment: [facility]# [id number] 6Result Comment: Heplisav-B #2 7Admin Note: h1n1 8Admin Note: [employer] PATIENT MEETS CRITERIA Medications abacavir 300 mg oral tablet 2 tablet, By Mouth, Daily, # 180 tablet, 0 Refills, Maintenance, 06/30/22 8:33:00 EDT, [facility], 168.5, cm, 06/27/22 11:54:00 EDT, Height Start Date: 06/30/22 Stop Date: 07/30/22 Status: Ordered ADCARE ADCARE, See Instructions, # 1 each, Refills 0, Tot. Refills 0, Maintenance, ADCARE Evaluate and treat for outpatient, 11/09/19 10:02:00 EST, Compound Start Date: 11/09/19 Status: Ordered atazanavir 300 mg oral capsule 1 capsule, By Mouth, Daily, # 90 capsule, 0 Refills, Maintenance, 06/13/22 15:54:00 EDT, [facility], 90, TAKE 1 CAPSULE BY MOUTH EVERY DAY, 168.5, cm, 05/21/22 11:39:00 EDT, Height Start Date: 06/13/22 Status: Ordered atenolol 25 mg oral tablet 1, tablet, By Mouth, Daily, # 90 tablet, Refills 1, Route to Pharmacy Electronically, [facility] STORE 02175, 168.5, cm, 11/05/21 10:51:00 EST, Height Start Date: 05/08/22 Status: Ordered atorvastatin 40 mg oral tablet 1 tablet = 40 mg, By Mouth, Daily, # 90 tablet, 3 Refills, Maintenance, 03/07/22 11:06:00 EDT, Tablet, [facility]/pharmacy #[id number], 168.5, cm, 11/05/21 10:51:00 EST, Height Start Date: 03/07/22 Status: Ordered diclofenac sodium 75 mg oral delayed release tablet 1 tablet = 75 mg, By Mouth, 2 times a day, PRN rib pain, with food, # 30 tablet, 1 Refills, Maintenance, 10/04/21 12:43:00 EST, EC Tablet, [facility]/pharmacy #[id number], Partial fill upon patient request if theprescription is for a schedule II opioid drug., 168... Start Date: 10/04/21 Stop Date: 10/04/22 Status: Ordered Paxil 20 mg oral tablet 20 mg, 1, tablet, By Mouth, Daily, for 90 days, # 90 tablet, Refills 3, Tot. Refills 3, Hard Stop 06/12/23 12:46:00 EDT, 06/17/22 12:46:00 EDT, Route to Pharmacy Electronically, [facility]/pharmacy #[id number], 168.5, cm, 05/21/22 11:39:00 EDT, Height Start Date: 06/17/22 Stop Date: 06/12/23 Status: Ordered QUEtiapine 200 mg oral tablet 1, tablet, By Mouth, Daily, # 90 tablet, Refills 3, Route to Pharmacy Electronically, [facility], 168.5, cm, 10/02/21 10:33:00 EST, Height, 95.3, kg, 02/23/20 7:40:00 EDT, Dry Weight Start Date: 10/04/21 Status: Ordered ritonavir 100 mg oral tablet 1 tablet, By Mouth, Daily, # 90 tablet, 0 Refills, Maintenance, 06/13/22 15:54:00 EDT, [facility] STORE 99144, 168.5, cm, 05/21/22 11:39:00 EDT, Height Start Date: 06/13/22 Status: Ordered Shingrix intramuscular injection = 0.5 mL, Intramuscular, Once, repeat dose in 2 to 6 months, # 2 each, 0 Refills, Soft Stop, 09/07/20 14:31:00 EST, Powder, [facility]/pharmacy #[id number], Partial fill upon patient request if the prescription is for a schedule II opioid drug., 0.5 mL Intramuscul... Start Date: 09/07/20 Status: Ordered tenofovir disoproxil fumarate 300 mg oral tablet 1 tablet, By Mouth, Daily, # 90 tablet, 1 Refills, Maintenance, 06/13/22 15:54:00 EDT, [facility] STORE 91054, 168.5, cm, 05/21/22 11:39:00 EDT, Height Start [...] Care Team Personnel Name: Trina Beaver Position: [facility] Onco RN Member Role: Primary Care Nurse Name: Ponce Andrew MD Position: [facility] Primary Care Physician Member Role: PCP Address: Address: [address] [place] [address] Adult & Pediatric Medicine [place], [place] [address] Name: Daniella Brand RN Position: [facility] RN Member Role: Primary Care Nurse Name: Kiersten Rodrigues RN Position: [facility] RN Member Role: Primary Care Nurse Name: Gloria Osorio RN Position: [facility] RN Supv Member Role: Primary Care Nurse Name: Shira Rosa RN Position: S RN Member Role: Primary Care Nurse Name: Soledad Mckee RN Position: [facility] RN Member Role: Primary Care Nurse Care Team Related Persons Name: CATRACHITO BORGES Address: home [place], [place] Name: COURTNEY BORGES Address: home [address] [place], [place]
--- OUTSIDE RECORDS SUMMARY | 2024-08-12 13:38 | XMS_ITS | Continuity of Care Document ---
Author Organization [facility][1] Adult [facility] Address [address] [place] [address]- Care Team Providers Care Dividend Deposit Voucher Clerk Name Role Phone Jovita Jonas MD Primary Care Physician Encounter [facility] Date(s): 03/02/20 - 03/09/20 [facility][1] [facility] [address] [place] [address]- [facility] Encounter Diagnosis HIV - Human immunodeficiency virus infection(Discharge Diagnosis) - 03/02/20 Hemochromatosis(Discharge Diagnosis) - 03/02/20 Depression(Discharge Diagnosis) - 03/02/20 Carpal tunnel syndrome(Discharge Diagnosis) - 03/02/20 Attending Physician: Jovita Jonas MD Allergies, Adverse [...] 1Result Comment: Heplisav-B #2 2Result Comment: [07/22/2018] [facility]#[id number] 3Result Comment: [08/21/2017] [facility] #[id number] 4Admin Note: afluria quadrivalent 5Admin Note: Afluria made by [employer] 6Admin Note: h1n1 7Admin Note: [employer] PATIENT MEETS CRITERIA Medications ADCARE ADCARE, See Instructions, # 1 each, Refills 0, Tot. Refills 0, Maintenance, ADCARE Evaluate and treat for outpatient, 11/09/19 10:02:00 EST, Compound Start Date: 11/09/19 Status: Ordered aspirin 81 mg oral tablet, chewable 81 mg, 1, tablet, By Mouth, Daily, # 90 tablet, Refills 3, Tot. Refills 3, Maintenance, 08/21/17 14:03:42, Route to Pharmacy Electronically, [id number], [facility]/pharmacy #[id number] Start Date: 08/21/17 Status: Ordered atenolol 25 mg oral tablet 25 mg, 1, tablet, By Mouth, Daily, # 90 tablet, Refills 3, Tot. Refills 3, Maintenance, 09/02/19 9:30:06 EST, Route to Pharmacy Electronically, [id number], [facility]/pharmacy #207, 168.5, cm, 09/02/19 8:56:00 EST, [...] 08/22/19 11:06:03 EST, Route to Pharmacy Electronically, [id number], [facility]/pharmacy #[id number] Start Date: 08/22/19 Stop Date: 02/18/20 Status: Ordered QUEtiapine 200 mg oral tablet 1, tablet, By Mouth, Daily, # 90 tablet, Refills 1, Tot. Refills 1, Maintenance, 12/26/19 15:16:00 EDT, Route to Pharmacy Electronically, [facility]/pharmacy #[id number], 168.5, cm, 09/02/19 11:13:00 EST, [...] tablet, 11 Refills, Maintenance, 09/12/19 8:29:00 EST, [facility] STORE 52089, 168.5, cm, 09/02/19 11:13:00 EST, Height, 94.9, [...] Effective Dates Health Status Clinical Service Informant HIV - Human immunodeficiency virus infection Discharge Diagnosis 03/02/20 Hemochromatosis Discharge Diagnosis 03/02/20 Depression Discharge Diagnosis 03/02/20 Carpal tunnel syndrome Discharge Diagnosis 03/02/20 Vital Signs Most recent to oldest [Reference Range]: 1 Height 168.5 cm (03/01/20 9:56 AM) Social History Social History Type Response Smoking Status Current every day sm oker; Type: Cigarettes; Previous treatment: Nicotine replacement; Interested in cessation: Yes; Tobacco use times per day: 1ppd; Number of years: 40; Total pack years: 40; Started at age: 15; 1 entered on: 02/19/16 Sex 11 ppd
--- OUTSIDE RECORDS SUMMARY | 2024-08-12 13:38 | XMS_ITS | Continuity of Care Document ---
Author Organization [facility] Alda wan Address [address] [place] [address] [address] [place] [address]- Care Team Providers Care Therapeutic Recreation Director Name Role Phone Jovita Jonas MD Primary Care Physician [facility] Date[facility]): 03/14/20 - 04/13/20 [facility] [address] [place] [address]- [facility] Attending Physician: AdmArielle mcintosh Admitting Physician: Admtr, Arielle Referring Physician: Admtr, Ar8 Allergies, Adverse Reactions, [...] 1Result Comment: Heplisav-B #2 2Result Comment: [07/22/2018] [facility]#[id number] 3Result Comment: [08/21/2017] [facility] #[id number] 4Admin Note: afluria quadrivalent 5Admin Note: Afluria [...] Maintenance, 08/21/17 14:03:42, Route to Pharmacy Electronically, [id number], [facility]/pharmacy #[id number] Start Date: 08/21/17 Status: Ordered atenolol 25 mg oral tablet 25 mg, 1, tablet, By Mouth, Daily, # 90 tablet, Refills 3, Tot. Refills 3, Maintenance, 09/02/19 9:30:06 EST, Route to Pharmacy Electronically, [id number], [facility]/pharmacy #[id number], 168.5, cm, 09/02/19 8:56:00 EST, Height, [...] 03/12/20 9:24:00 EDT, Route to Pharmacy Electronically, [facility]/pharmacy #[id number], 168.5, cm, 03/06/20 9:48:00 EDT, Height, 95.3, kg, 02/23/20 7:40:00 EDT, Dry Weight Start Date: 03/12/20 Stop Date: 09/08/20 Status: Ordered QUEtiapine 200 mg oral tablet 1, tablet, By Mouth, Daily, # 90 tablet, Refills 1, Tot. Refills 1, Maintenance, 12/26/19 15:16:00 EDT, Route to Pharmacy Electronically, [facility]/pharmacy #[id number], 168.5, cm, 09/02/19 11:13:00 EST, [...] Refills, Maintenance, 09/12/19 8:29:00 EST, [facility], 168.5, cm, 09/02/19 11:13:00 EST, Height, 94.9, [...]
--- OUTSIDE RECORDS SUMMARY | 2024-08-12 13:38 | XMS_ITS | Continuity of Care Document ---
Author Organization [facility] Address [address] [place] [address]- Care Team Providers Care Financial Center Manager Name Role Phone Ponce Andrew MD Primary Care Physician [phone] [place] [facility] [place]24 - 05/25/24 [facility] [address] [place] [id number] Allergies, Adverse Reactions, Alerts No Known Allergies [...] (old term) 03/10/01 Given 1Result Comment: [07/22/2018] [facility]#[id number] 2Result Comment: [08/21/2017] [facility] #[id number] 3Admin Note: afluria quadrivalent 4Admin Note: Afluria made by [employer] 5Result Comment: [facility]# [id number] 6Result Comment: Heplisav-B #2 7Admin Note: h1n1 8Admin Note: [employer] PATIENT MEETS CRITERIA Medications abacavir 300 mg oral tablet 2 tablet, By Mouth, Daily, # 180 tablet, 1 Refills, Maintenance, 02/08/24 14:51:00 EDT, [facility], 168.5, cm, 12/23/23 13:13:00 EDT, Height, 95.5, kg, 12/23/23 13:06:00 EDT, Dry Weight Start Date: 02/08/24 Status: Ordered atazanavir 300 mg oral capsule 1 capsule, By Mouth, Daily, # 90 capsule, 1 Refills, Maintenance, 03/29/24 15:32:00 EDT, [facility], 90, TAKE 1 CAPSULE BY MOUTH EVERY DAY, 168.5, cm, 03/10/24 8:13:00 EDT, Height, 95.5, kg, 12/23/23 13:06:00 EDT, Dry Weight Start Date: 03/29/24 Status: Ordered atenolol 25 mg oral tablet 1, tablet, By Mouth, Daily, # 90 tablet, Refills 3, Tot. Refills 3, 06/23/23 13:06:00 EDT, Route toPharmacy Electronically, [facility]/pharmacy #2071, 168.5, cm, 06/23/23 13:01:00 EDT, Height Start Date: 06/23/23 Status: Ordered atorvastatin 40 mg oral tablet 1 tablet, By Mouth, Daily, # 90 tablet, 3 Refills, Maintenance, 06/23/23 13:06:00 EDT, [facility], 168.5, cm, 06/23/23 13:01:00 EDT, Height Start Date: 06/23/23 Status: Ordered PARoxetine 20 mg oral tablet See Instructions, TAKE 1 TABLET BY MOUTH EVERY DAY, # 90 tablet, Refills 3, Maintenance, 06/23/23 13:06:00 EDT, Instructions Replace Required Details, Route to Pharmacy Electronically, [facility], 168.5, cm, 06/23/23 13:01:00 EDT, Height Start Date: 06/23/23 Status: Ordered QUEtiapine 200 mg oral tablet 1, tablet, By Mouth, Daily, # 90 tablet, Refills 3, Tot. Refills 3, 06/23/23 13:07:00 EDT, Route toPharmacy Electronically, [facility]/pharmacy #2071, 168.5, cm, 06/23/23 13:01:00 EDT, Height Start Date: 06/23/23 Status: Ordered ritonavir 100 mg oral tablet 1 tablet, By Mouth, Daily, with food, # 90 tablet, 1 Refills, Maintenance, 04/25/24 14:07:00 EDT, [facility], 168.5, cm, 03/10/24 8:13:00 EDT, Height, 95.5, kg, 12/23/23 13:06:00 EDT, Dry Weight Start Date: 04/25/24 Stop Date: 10/22/24 Status: Ordered tenofovir disoproxil fumarate 300 mg oral tablet 1 tablet, By Mouth, Daily, # 90 tablet, 1 Refills, Maintenance, 02/08/24 14:51:00 EDT, [facility], 168.5, cm, 12/23/23 13:13:00 EDT, Height, 95.5, [...] Care Team Personnel Name: Trina Beaver Position: [facility] Onco RN Member Role: Primary Care Nurse Name: Ponce Andrew MD Position: [facility] Physician - Primary Care Member Role: PCP Address: Address: [address] [place] [address] Adult & Pediatric Medicine [place], [place] [address] Name: Daniella Brand RN Position: [facility] AMB Nurse Member Role: Primary Care Nurse Name: Kiersten Rodrigues RN Position: [facility] AMB Nurse Member Role: Primary Care Nurse Name: Shira Rosa RN Position: [facility] ED RN W/OE and Tasks Member Role: Primary Care Nurse Name: Soledad Mckee RN Position: [facility] RN Member Role: Primary Care Nurse Care Team Related Persons Name: CATRACHITO BORGES Address: [place] [address] Name: COURTNEY BORGES Address: home [address] [place] [address]
--- OUTSIDE RECORDS SUMMARY | 2024-08-12 13:38 | XMS_ITS | Continuity of Care Document ---
Author Organization [facility] Address [address] [place] [address]- Care Team Providers Care Jig Builder Name Role Phone Ponce Andrew MD Primary Care Physician [facility] Date[facility]s): 07/01/22 - 07/08/22 [facility] [address] [place] [address]- Encounter Diagnosis COVID-19 virus infection(Discharge Diagnosis) - 07/01/22 Attending Physician: Tatyana GIBBONS, Mera Referring Physician: Ponce Andrew MD Allergies, Adverse Reactions, [...] term) 03/10/01 Given 1Result Comment: [07/22/2018] [facility]#[id number] 2Result Comment: [08/21/2017] [facility] #[id number] 3Admin Note: afluria quadrivalent 4Admin Note: Afluria made by [employer] 5Result Comment: [facility]# [id number] 6Result Comment: Heplisav-B #2 7Admin Note: h1n1 8Admin Note: [employer] PATIENT MEETS CRITERIA Medications abacavir 300 mg oral tablet 2 tablet, By Mouth, Daily, # 180 tablet, 0 Refills, Maintenance, 06/30/22 8:33:00 EDT, [facility], 168.5, cm, 06/27/22 11:54:00 EDT, Height Start Date: 06/30/22 Stop Date: 07/30/22 Status: Ordered ADCARE ADCARE, See Instructions, # 1 each, Refills 0, Tot. Refills 0, Maintenance, ADCARE Evaluate and treat for outpatient, 11/09/19 10:02:00 EST, Compound Start Date: 11/09/19 Status: Ordered atazanavir 300 mg oral capsule 1 capsule, By Mouth, Daily, # 90 capsule, 0 Refills, Maintenance, 06/13/22 15:54:00 EDT, [facility], 90, TAKE 1 CAPSULE BY MOUTH EVERY DAY, 168.5, cm, 05/21/22 11:39:00 EDT, Height Start Date: 06/13/22 Status: Ordered atenolol 25 mg oral tablet 1, tablet, By Mouth, Daily, # 90 tablet, Refills 1, Route to Pharmacy Electronically, [facility], 168.5, cm, 11/05/21 10:51:00 EST, Height Start Date: 05/08/22 Status: Ordered atorvastatin 40 mg oral tablet 1 tablet = 40 mg, By Mouth, Daily, # 90 tablet, 3 Refills, Maintenance, 03/07/22 11:06:00 EDT, Tablet, [facility]/pharmacy #2071, 168.5, cm, 11/05/21 10:51:00 EST, Height Start Date: 03/07/22 Status: Ordered diclofenac sodium 75 mg oral delayed release tablet 1 tablet = 75 mg, By Mouth, 2 times a day, PRN rib pain, with food, # 30 tablet, 1 Refills, Maintenance, 10/04/21 12:43:00 EST, EC Tablet, [facility]/pharmacy #2071, Partial fill upon patient request if theprescription is for a schedule II opioid drug., 168... Start Date: 10/04/21 Stop Date: 10/04/22 Status: Ordered Paxil 20 mg oral tablet 20 mg, 1, tablet, By Mouth, Daily, for 90 days, # 90 tablet, Refills 3, Tot. Refills 3, Hard Stop 06/12/23 12:46:00 EDT, 06/17/22 12:46:00 EDT, Route to Pharmacy Electronically, [facility]/pharmacy #2071, 168.5, cm, 05/21/22 11:39:00 EDT, Height Start Date: 06/17/22 Stop Date: 06/12/23 Status: Ordered QUEtiapine 200 mg oral tablet 1, tablet, By Mouth, Daily, # 90 tablet, Refills 3, Route to Pharmacy Electronically, [facility] 87[facility], 168.5, cm, 10/02/21 10:33:00 EST, Height, 95.3, kg, 02/23/20 7:40:00 EDT, Dry Weight Start Date: 10/04/21 Status: Ordered ritonavir 100 mg oral tablet 1 tablet, By Mouth, Daily, # 90 tablet, 0 Refills, Maintenance, 06/13/22 15:54:00 EDT, [facility], 168.5, cm, 05/21/22 11:39:00 EDT, Height Start Date: 06/13/22 Status: Ordered Shingrix intramuscular injection = 0.5 mL, Intramuscular, Once, repeat dose in 2 to 6 months, # 2 each, 0 Refills, Soft Stop, 09/07/20 14:31:00 EST, Powder, [facility]/pharmacy #2071, Partial fill upon patient request if the prescription is for a schedule II opioid drug., 0.5 mL Intramuscul... Start Date: 09/07/20 Status: Ordered tenofovir disoproxil fumarate 300 mg oral tablet 1 tablet, By Mouth, Daily, # 90 tablet, 1 Refills, Maintenance, 06/13/22 15:54:00 EDT, [facility], 168.5, cm, 05/21/22 11:39:00 EDT, Height Start [...] Diagnosis Diagnosis Type Effective Dates Health Status Cl inical Service Informant COVID-19 virus infection Discharge Diagnosis 07/01/22 Social History Social History Type Response Smoking Status Current every day sm oker; Type: Cigarettes; Previous treatment: Nicotine replacement; Interested in cessation: Yes; Tobacco use times per day: 1ppd; Number of years: 40; Total pack years: 40; Started at age: 15; 1 entered on: 02/19/16 Sex 11 ppd Patient Care team information Personnel Name: Ponce Andrew MD Address: Address: [address] [place] [address] Adult & Pediatric Medicine [place], [place] [address]
--- OUTSIDE RECORDS SUMMARY | 2024-08-12 13:38 | XMS_ITS | Continuity of Care Document ---
Author Organization [facility] Address [address] [place] [address]- Care Team Providers Care Assistant Food Service Manager Name Role Phone Ponce Andrew MD Primary Care Physician [phone] [place] [facility] [place] 09/25/23 [facility] [address] [place] [id number] Allergies, Adverse Reactions, Alerts No [...] (old term) 03/10/01 Given 1Result Comment: [07/22/2018] [facility]#[id number] 2Result Comment: [08/21/2017] [facility] #[id number] 3Admin Note: afluria quadrivalent 4Admin Note: Afluria made by [employer] 5Result Comment: [facility]# [id number] 6Result Comment: Heplisav-B #2 7Admin Note: h1n1 8Admin Note: [employer] PATIENT MEETS CRITERIA Medications abacavir 300 mg oral tablet 2 tablet, By Mouth, Daily, # 180 tablet, 1 Refills, Maintenance, 08/26/23 14:57:00 EST, [facility]/pharmacy #207, 168.5, cm, 06/23/23 13:08:00 EDT, Height Start Date: 08/26/23 Stop Date: 02/22/24 Status: Ordered atazanavir 300 mg oral capsule 1 capsule, By Mouth, Daily, # 90 capsule, 1 Refills, Maintenance, 08/26/23 14:57:00 EST, [facility], 1 capsule By Mouth Daily,x90 days, 168.5, cm, 06/23/23 13:08:00 EDT, Height Start Date: 08/26/23 Stop Date: 02/22/24 Status: Ordered atenolol 25 mg oral tablet 1, tablet, By Mouth, Daily, # 90 tablet, Refills 3, Tot. Refills 3, 06/23/23 13:06:00 EDT, Route toPharmacy Electronically, [facility]/pharmacy #2071, 168.5, cm, 06/23/23 13:01:00 EDT, Height Start Date: 06/23/23 Status: Ordered atorvastatin 40 mg oral tablet 1 tablet, By Mouth, Daily, # 90 tablet, 3 Refills, Maintenance, 06/23/23 13:06:00 EDT, [facility]/pharmacy#1, 168.5, cm, 06/23/23 13:01:00 EDT, Height Start Date: 06/23/23 Status: Ordered PARoxetine 20 mg oral tablet See Instructions, TAKE 1 TABLET BY MOUTH EVERY DAY, # 90 tablet, Refills 3, Maintenance, 06/23/23 13:06:00 EDT, Instructions Replace Required Details, Route to Pharmacy Electronically, [facility], 168.5, cm, 06/23/23 13:01:00 EDT, Height Start Date: 06/23/23 Status: Ordered QUEtiapine 200 mg oral tablet 1, tablet, By Mouth, Daily, # 90 tablet, Refills 3, Tot. Refills 3, 06/23/23 13:07:00 EDT, Route toPharmacy Electronically, [facility]/pharmacy #1, 168.5, cm, 06/23/23 13:01:00 EDT, Height Start Date: 06/23/23 Status: Ordered ritonavir 100 mg oral tablet 1 tablet, By Mouth, Daily, # 90 tablet, 1 Refills, Maintenance, 08/26/23 14:57:00 EST, [facility]/pharmacy#1, 168.5, cm, 06/23/23 13:08:00 EDT, Height Start Date: 08/26/23 Stop Date: 02/22/24 Status: Ordered tenofovir disoproxil fumarate 300 mg oral tablet 1 tablet, By Mouth, Daily, # 90 tablet, 1 Refills, Maintenance, 08/26/23 14:57:00 EST, [facility]/pharmacy#2071, 168.5, cm, 06/23/23 13:08:00 EDT, Height Start Date: 08/26/23 Stop Date: 02/22/24 Status: Ordered Therpaeutic phlebotomy one unit every [...] Care Team Personnel Name: Trina Beaver Position: [facility] Onco RN Member Role: Primary Care Nurse Name: Ponce Andrew MD Position: [facility] Physician - Primary Care Member Role: PCP Address: Address: [address] [place] [address] Adult & Pediatric Medicine [address] Name: Daniella Brand RN Position: [facility] AMB Nurse Member Role: Primary Care Nurse Name: Kiersten Rodrigues RN Position: [facility] AMB Nurse Member Role: Primary Care Nurse Name: Shira Rosa RN Position: [facility] [place] RN W/OE and Tasks Member Role: Primary Care Nurse Name: Soledad Mckee RN Position: [facility] SN RN Member Role: Primary Care Nurse Care Team Related Persons Name: CATRACHITO BORGES Address: [place] [address] Name: COURTNEY BORGES Address: home [address] [place] [id number]
--- OUTSIDE RECORDS SUMMARY | 2024-08-12 13:38 | XMS_ITS | Continuity of Care Document ---
Author Organization [facility] Address [address] [place] [address]- Care Team Providers Care Environmental Technical Officer Name Role Phone Kamran JENKINS, Ponce Alfonso Primary Care Physician [facility] Date(s): 12/28/20 - 04/27/21 [facility] [address] [place], [place] [address] Attending Physician: Jovita Jonas MD Allergies, Adverse Reactions, Alerts Substance Reaction Severity Status NKA Active Immunizations Given and Recorded Vaccine Date Status Refusal Reason SARS-CoV-2 (COVID-19) mRNA-1273 vaccine 01/11/21 R ecorded SARS-CoV-2 (COVID-19) mRNA-1273 vaccine 12/14/20 R ecorded tetanus-diphtheria toxoids (Td) 1 01/08/21 Given tetanus-diphtheria toxoids (Td) 07/14/05 Given influenza virus vaccine, inactivated 07/11/20 Give n influenza virus vaccine, inactivated 08/04/19 Gilberto rded influenza virus vaccine, inactivated 2 07/22/18 Gi diandra influenza virus vaccine, inactivated 07/06/18 Give n influenza virus vaccine, inactivated 3, 4 08/21/17 Given influenza virus vaccine, inactivated 5 09/02/16 Gi diandra influenza virus vaccine, inactivated 06/26/15 Give n hepatitis B adult vaccine 6 03/08/19 Given [...] Vaccine (old term) 03/10/01 Given 1Result Comment: [facility]# [id number] 2Result Comment: [07/22/2018] [facility]#[id number] 3Result Comment: [08/21/2017] [facility] #[id number] 4Admin Note: afluria quadrivalent 5Admin Note: Afluria made by [employer] 6Result Comment: Heplisav-B #2 7Admin Note: h1n1 [...] 09/17/20 10:02:00 EST, Route to Pharmacy Electronically, [facility]/pharmacy #0151, 168.5, cm, 07/11/20 10:23:00 EDT, Height, 95.3, kg, 02/23/20 7:40:00 EDT, Dry Weight Start Date: 09/17/20 Status: Ordered atorvastatin 40 mg oral tablet 1 tablet = 40 mg, By Mouth, Daily, # 90 tablet, 3 Refills, Maintenance, 09/17/20 10:02:00 EST, Tablet, [facility]/pharmacy #0661, 168.5, cm, 07/11/20 10:23:00 EDT, Height, 95.3, kg, 02/23/20 7:40:00 EDT, Dry Weight Start Date: 09/17/20 Status: Ordered Norvir 100 mg oral tablet 1 tablet = 100 mg, By Mouth, Daily, # 30 tablet, 5 Refills, Maintenance, 04/08/21 10:08:00 EDT, [facility]/pharmacy #2071, 168.5, cm, 02/06/21 10:35:00 EDT, Height, 95.3, kg, 02/23/20 7:40:00 EDT, Dry Weight Start Date: 04/08/21 Stop Date: 10/05/21 Status: Ordered QUEtiapine 200 mg oral tablet 1, tablet, By Mouth, Daily, # 90 tablet, Refills 0, Tot. Refills 0, Maintenance, 03/02/21 16:11:00 EDT, Route to Pharmacy Electronically, [facility]/pharmacy #2071, 168.5, cm, 02/06/21 10:35:00 EDT, Height,95.3, kg, 02/23/20 7:40:00 EDT, Dry Weight Start Date: 03/02/21 Status: Ordered QUEtiapine 200 mg oral tablet See Instructions, TAKE 1 TABLET BY MOUTH EVERY DAY, # 90 tablet, Refills 1, Tot. Refills 1, 09/07/20 14:31:00 EST, Instructions Replace Required Details, Route to Pharmacy Electronically, [facility]/pharmacy #2071, 168.5, cm, 07/11/20 10:23:00 EDT, Height, 9... Start Date: 09/07/20 Status: Ordered Reyataz 300 mg oral capsule 1 capsule = 300 mg, By Mouth, Daily, # 30 capsule, 5 Refills, Maintenance, 04/08/21 10:08:00 EDT, [facility]/pharmacy #2071, 1 capsule By Mouth Daily,x30 days, 168.5, cm, 02/06/21 10:35:00 EDT, Height, 95.3, kg, 02/23/20 7:40:00 EDT, Dry Weight Start Date: 04/08/21 Stop Date: 10/05/21 Status: Ordered Shingrix intramuscular injection = 0.5 [...] Date: 04/08/21 Stop Date: 10/05/21 Status: Ordered Therpaeutic phlebotomy one unit every [...] 5 Refills, Maintenance, 04/08/21 10:08:00 EDT, [facility], 168.5, cm, 02/06/21 10:35:00 EDT, Height, 95.3, kg, 02/23/20 7:40:00 EDT, Dry Weight Start Date: 04/08/21 Stop Date: 10/05/21 Status: Ordered Problem List Condition Effective Dates [...]
--- OUTSIDE RECORDS SUMMARY | 2024-08-12 13:38 | XMS_ITS | Continuity of Care Document ---
Author Organization [facility] Address [address] [place] [address]- Care Team Providers Care Glassware Maker Demonstrator Name Role Phone Jovita Jonas MD Primary Care Physician [phone] Encounter [facility] Date(s): 01/08/21 - 01/15/21 [facility] [address] [place], [place] [address] Attending Physician: Not on Staff, Attending MD Allergies, Adverse Reactions, Alerts Substance Reaction Severity Status NKA Active Immunizations Given and Recorded Vaccine Date Status Refusal Reason tetanus-diphtheria toxoids (Td) 1 01/08/21 Given tetanus-diphtheria toxoids (Td) 07/14/05 Given influenza virus vaccine, inactivated 07/11/20 Give n influenza virus vaccine, inactivated 2 07/22/18 Gi [...] Vaccine (old term) 03/10/01 Given 1Result Comment: [facility]# [id number] 2Result Comment: [07/22/2018] [facility]#[id number] 3Result Comment: [08/21/2017] [facility] #[id number] 4Admin Note: afluria quadrivalent 5Admin Note: Afluria made by [employer] 6Result Comment: [facility]-B #2 7Admin Note: h1n1 8Admin Note: [email or web address] PATIENT MEETS CRITERIA Medications ADCARE [...] EST, Route to Pharmacy Electronically, [facility]/pharmacy #2071, 168.5, cm, 07/11/20 10:23:00 EDT, Height, 95.3, kg, 02/23/20 7:40:00 EDT, Dry Weight Start Date: 09/17/20 Status: Ordered atorvastatin 40 mg oral tablet 1 tablet = 40 mg, By Mouth, Daily, # 90 tablet, 3 Refills, Maintenance, 09/17/20 10:02:00 EST, Tablet, [facility]/pharmacy #2071, 168.5, cm, 07/11/20 10:23:00 EDT, Height, 95.3, kg, 02/23/20 7:40:00 EDT, Dry Weight Start Date: 09/17/20 Status: Ordered Norvir 100 mg oral tablet 1 tablet = 100 mg, By Mouth, Daily, # 30 tablet, 5 Refills, Maintenance, 10/09/20 11:17:00 EST, [facility]/pharmacy #2071, 168.5, cm, 07/11/20 10:23:00 EDT, Height, 95.3, kg, 02/23/20 7:40:00 EDT, Dry Weight Start Date: 10/09/20 Stop Date: 04/07/21 Status: Ordered Paxil 20 mg oral tablet 20 mg, 1, tablet, By Mouth, Daily, for 30 days, # 30 tablet, Refills 5, Tot. Refills 5, Hard Stop 03/06/21 14:31:00 EDT, 09/07/20 14:31:00 EST, [facility] 168.5, cm, 07/11/20 10:23:00 EDT, Height, 95.3, kg, 0... Start Date: 09/07/20 Stop Date: 03/06/21 Status: Ordered QUEtiapine 200 mg oral tablet 1, tablet, By Mouth, Daily, # 90 tablet, Refills 1, Tot. Refills 1, Maintenance, 06/14/20 11:42:00 EDT, Route to Pharmacy Electronically, [facility]/pharmacy #1, 168.5, cm, 03/14/20 9:16:00 EDT, Height, 95.3, kg, 02/23/20 7:40:00 EDT, Dry Weight Start Date: 06/14/20 Status: Ordered QUEtiapine 200 mg oral tablet See Instructions, TAKE 1 TABLET BY MOUTH EVERY DAY, # 90 tablet, Refills 1, Tot. Refills 1, 09/07/20 14:31:00 EST, Instructions Replace Required Details, Route to Pharmacy Electronically, [facility]/pharmacy #2071, 168.5, cm, 07/11/20 10:23:00 EDT, Height, 9... Start Date: 09/07/20 Status: Ordered Reyataz 300 mg oral capsule 1 capsule = 300 mg, By Mouth, Daily, # 30 capsule, 5 Refills, Maintenance, 10/09/20 11:17:00 EST, [facility]/pharmacy #2070, 1 capsule By Mouth Daily,x30 days, 168.5, cm, 07/11/20 10:23:00 EDT, Height, 95.3, kg, 02/23/20 7:40:00 EDT, Dry Weight Start Date: 10/09/20 Stop Date: 04/07/21 Status: Ordered Shingrix intramuscular injection = 0.5 mL, Intramuscular, Once, repeat dose in 2 to 6 months, # 2 each, 0 Refills, Soft Stop, 09/07/20 14:31:00 EST, Powder, [facility]/pharmacy #2071, Partial fill upon patient request if the prescription is for a schedule II opioid drug., 0.5 mL Intramuscul... Start Date: 09/07/20 Status: Ordered tenofovir disoproxil fumarate 300 mg oral tablet 1 tablet, By Mouth, Daily, # 30 tablet, 5 Refills, Maintenance, 10/09/20 11:17:00 EST, [facility]/pharmacy#2071, 168.5, cm, 07/11/20 10:23:00 EDT, Height, 95.3, [...] tablet, 5 Refills, Maintenance, 10/09/20 11:17:00 EST, [facility]/pharmacy #2071, 168.5, cm, 07/11/20 10:23:00 EDT, [...]
--- OUTSIDE RECORDS SUMMARY | 2024-08-12 13:38 | XMS_ITS | Continuity of Care Document ---
Author Organization [facility] Address [address] [place] [address]- Care Team Providers Care Natural Gas Basis Trader Name Role Phone Jovita Jonas MD Primary Care Physician [phone] [place] [facility] [place] - 03/08/21 [facility] [address] [place], [place] [address] Attending Physician: AdmArielle mcintosh Admitting Physician: Admtr, [...] Vaccine (old term) 03/10/01 Given 1Result Comment: [facility]# [id number] 2Result Comment: [07/22/2018] [facility]#[id number] 3Result Comment: [08/21/2017] [facility] #[id number] 4Admin Note: afluria quadrivalent 5Admin Note: Afluria made by Seq[employer] 6Result Comment: Heplisav-B #2 7Admin Note: h1n1 8Admin Note: [employer] PATIENT MEETS CRITERIA Medications ADCARE ADCARE, See Instructions, # 1 each, Refills 0, Tot. Refills 0, Maintenance, ADCARE Evaluate and treat for outpatient, 11/09/19 10:02:00 EST, Compound Start Date: 11/09/19 Status: Ordered atenolol 25 mg oral tablet 25 mg, 1, tablet, By Mouth, Daily, # 90 tablet, Refills 3, Tot. Refills 3, Maintenance, 09/17/20 10:02:00 EST, Route to Pharmacy Electronically, [facility]/pharmacy #2071, 168.5, cm, 07/11/20 10:23:00 EDT, Height, 95.3, kg, 02/23/20 7:40:00 EDT, Dry Weight Start Date: 09/17/20 Status: Ordered atorvastatin 40 mg oral tablet 1 tablet = 40 mg, By Mouth, Daily, # 90 tablet, 3 Refills, Maintenance, 09/17/20 10:02:00 EST, Tablet, [facility]/pharmacy #2071, 168.5, cm, 07/11/20 10:23:00 EDT, Height, 95.3, kg, 02/23/20 7:40:00 EDT, Dry Weight Start Date: 09/17/20 Status: Ordered Norvir 100 mg oral tablet 1 tablet = 100 mg, By Mouth, Daily, # 30 tablet, 5 Refills, Maintenance, 10/09/20 11:17:00 EST, [facility], 168.5, cm, 07/11/20 10:23:00 EDT, Height, 95.3, kg, 02/23/20 7:40:00 EDT, Dry Weight Start Date: 10/09/20 Stop Date: 04/07/21 Status: Ordered QUEtiapine 200 mg oral tablet 1, tablet, By Mouth, Daily, # 90 tablet, Refills 0, Tot. Refills 0, Maintenance, 03/02/21 16:11:00 EDT, Route to Pharmacy Electronically, [facility]/pharmacy #2070, 168.5, cm, 02/06/21 10:35:00 EDT, Height,95.3, kg, 02/23/20 7:40:00 EDT, Dry Weight Start Date: 03/02/21 Status: Ordered QUEtiapine 200 mg oral tablet See Instructions, TAKE 1 TABLET BY MOUTH EVERY DAY, # 90 tablet, Refills 1, Tot. Refills 1, 09/07/20 14:31:00 EST, Instructions Replace Required Details, Route to Pharmacy Electronically, [facility], 168.5, cm, 07/11/20 10:23:00 EDT, Height, 9... Start Date: 09/07/20 Status: Ordered Reyataz 300 mg oral capsule 1 capsule = 300 mg, By Mouth, Daily, # 30 capsule, 5 Refills, Maintenance, 10/09/20 11:17:00 EST, [facility], 1 capsule By Mouth Daily,x30 days, 168.5, cm, 07/11/20 10:23:00 EDT, Height, 95.3, kg, 02/23/20 7:40:00 EDT, Dry Weight Start Date: 10/09/20 Stop Date: 04/07/21 Status: Ordered Shingrix intramuscular injection = 0.5 mL, Intramuscular, Once, repeat dose in 2 to 6 months, # 2 each, 0 Refills, Soft Stop, 09/07/20 14:31:00 EST, Powder, [facility]/pharmacy #207, Partial fill upon patient request if the prescription is for a schedule II opioid drug., 0.5 mL Intramuscul... Start Date: 09/07/20 Status: Ordered tenofovir disoproxil fumarate 300 mg oral tablet 1 tablet, By Mouth, Daily, # 30 tablet, 5 Refills, Maintenance, 10/09/20 11:17:00 EST, [facility]/pharmacy#2071, 168.5, cm, 07/11/20 10:23:00 EDT, Height, [...] tablet, 5 Refills, Maintenance, 10/09/20 11:17:00 EST, [facility], 168.5, cm, 07/11/20 10:23:00 EDT, Height, [...]
--- OUTSIDE RECORDS SUMMARY | 2024-08-12 13:38 | XMS_ITS | Continuity of Care Document ---
Author Organization [facility] Address [address] [place] [address]- Care Team Providers Care Production Support Supervisor Name Role Phone Jovita Jonas MD Primary Care Physician [phone] [place] [facility] [place] 12/09/19 [facility] [address] [place] [address]- [place] Attending Physician: Admarnaldo, Arielle Admitting Physician: AdmtrArielle Referring Physician: Admtr, Ar8 Allergies, Adverse Reactions, [...] Comment: Heplisav-B #2 2Result Comment: [07/22/2018] [facility]#[id number] 3Result Comment: [08/21/2017] [facility] #[id number] 4Admin Note: afluria quadrivalent 5Admin Note: Afluria [...] Maintenance, 08/21/17 14:03:42, Route to Pharmacy Electronically, [id number], [facility]/pharmacy #207 Start Date: 08/21/17 Status: Ordered atenolol 25 mg oral tablet 25 mg, 1, tablet, By Mouth, Daily, # 90 tablet, Refills 3, Tot. Refills 3, Maintenance, 09/02/19 9:30:06 EST, Route to Pharmacy Electronically, [id number], [facility]/pharmacy #2070, 168.5, cm, 09/02/19 8:56:00 EST, Height, 94.9, [...] 08/22/19 11:06:03 EST, Route to Pharmacy Electronically, [id number], [facility]/pharmacy #2070 Start Date: 08/22/19 Stop Date: 02/18/20 Status: Ordered QUEtiapine 200 mg oral tablet 1, tablet, By Mouth, Daily, # 90 tablet, Refills 0, Tot. Refills 0, Maintenance, 09/12/19 15:33:00 EST, Route to Pharmacy Electronically, [facility], 168.5, cm, 09/02/19 11:13:00 EST, Height, 94.9, [...] Refills, Maintenance, 09/12/19 8:29:00 EST, [facility], 168.5, cm, 09/02/19 11:13:00 EST, Height, 94.9, [...] Response Smoking Status Current every day sm desire; Type: Cigarettes; Previous treatment: Nicotine replacement; Interested in cessation: Yes; Tobacco use times per day: 1ppd; Number of years: 40; Total pack years: 40; Started at age: 15; 1 entered on: 02/19/16 Sex 11 ppd
--- OUTSIDE RECORDS SUMMARY | 2024-08-12 13:38 | XMS_ITS | Continuity of Care Document ---
Author Organization [facility] Address [address] [place] [address]- Care Team Providers Care Textile Machinery Sales Representative Name Role Phone Ponce Andrew MD Primary Care Physician Encounter [facility] [place] Date(s): 07/03/22 - 08/02/[address] [address] Attending Physician: Ponce Andrew MD Admitting Physician: Ponce Andrew MD Referring Physician: Ponce Andrew MD Allergies, Adverse [...] term) 03/10/01 Given 1Result Comment: [07/22/2018] [facility]#[id number] 2Result Comment: [08/21/2017] [facility] #[id number] 3Admin Note: afluria quadrivalent 4Admin Note: Afluria made by [employer] 5Result Comment: [facility]# [id number] 6Result Comment: Heplisav-B #2 7Admin Note: h1n1 8Admin Note: [employer] PATIENT MEETS CRITERIA Medications abacavir 300 mg oral tablet 2 tablet, By Mouth, Daily, # 180 tablet, 0 Refills, Maintenance, 06/30/22 8:33:00 EDT, [facility], 168.5, cm, 06/27/22 11:54:00 EDT, Height Start Date: 06/30/22 Stop Date: 07/30/22 Status: Ordered ADCARE ADCARE, See Instructions, # 1 each, Refills 0, Tot. Refills 0, Maintenance, ADCARE Evaluate and treat for outpatient, 11/09/19 10:02:00 EST, Compound Start Date: 11/09/19 Status: Ordered atazanavir 300 mg oral capsule 1 capsule, By Mouth, Daily, # 90 capsule, 0 Refills, Maintenance, 06/13/22 15:54:00 EDT, [facility] 71500, 90, TAKE 1 CAPSULE BY MOUTH EVERY DAY, 168.5, cm, 05/21/22 11:39:00 EDT, Height Start Date: 06/13/22 Status: Ordered atenolol 25 mg oral tablet 1, tablet, By Mouth, Daily, # 90 tablet, Refills 1, Route to Pharmacy Electronically, [facility] STORE 22461, 168.5, cm, 11/05/21 10:51:00 EST, Height Start Date: 05/08/22 Status: Ordered atorvastatin 40 mg oral tablet 1 tablet = 40 mg, By Mouth, Daily, # 90 tablet, 3 Refills, Maintenance, 03/07/22 11:06:00 EDT, Tablet, [facility]/pharmacy #2071, 168.5, cm, 11/05/21 10:51:00 EST, Height Start Date: 03/07/22 Status: Ordered diclofenac sodium 75 mg oral delayed release tablet 1 tablet = 75 mg, By Mouth, 2 times a day, PRN rib pain, with food, # 30 tablet, 1 Refills, Maintenance, 10/04/21 12:43:00 EST, EC Tablet, [facility]/pharmacy #207, Partial fill upon patient request if theprescription is for a schedule II opioid drug., 168... Start Date: 10/04/21 Stop Date: 10/04/22 Status: Ordered Paxil 20 mg oral tablet 20 mg, 1, tablet, By Mouth, Daily, for 90 days, # 90 tablet, Refills 3, Tot. Refills 3, Hard Stop 06/12/23 12:46:00 EDT, 06/17/22 12:46:00 EDT, Route to Pharmacy Electronically, [facility]/pharmacy #2071, 168.5, cm, 05/21/22 11:39:00 EDT, Height Start Date: 06/17/22 Stop Date: 06/12/23 Status: Ordered QUEtiapine 200 mg oral tablet 1, tablet, By Mouth, Daily, # 90 tablet, Refills 3, Route to Pharmacy Electronically, [facility] STORE 05835, 168.5, cm, 10/02/21 10:33:00 EST, Height, 95.3, kg, 02/23/20 7:40:00 EDT, Dry Weight Start Date: 10/04/21 Status: Ordered ritonavir 100 mg oral tablet 1 tablet, By Mouth, Daily, # 90 tablet, 0 Refills, Maintenance, 06/13/22 15:54:00 EDT, [facility], 168.5, cm, 05/21/22 11:39:00 EDT, Height Start Date: 06/13/22 Status: Ordered Shingrix intramuscular injection = 0.5 mL, Intramuscular, Once, repeat dose in 2 to 6 months, # 2 each, 0 Refills, Soft Stop, 09/07/20 14:31:00 EST, Powder, [facility]/pharmacy #2071, Partial fill upon patient request if the prescription is for a schedule II opioid drug., 0.5 mL Intramuscul... Start Date: 09/07/20 Status: Ordered tenofovir disoproxil fumarate 300 mg oral tablet 1 tablet, By Mouth, Daily, # 90 tablet, 1 Refills, Maintenance, 06/13/22 15:54:00 EDT, [facility], 168.5, cm, 05/21/22 11:39:00 EDT, Height Start [...] RN Member Role: Primary Care Nurse Name: Ponec Andrew MD Position: [facility] Primary Care Physician Member Role: PCP Address: Address: [address] [place] [address] Adult & Pediatric Medicine [address] Name: Daniella Brand RN Position: [facility] RN Member Role: Primary Care Nurse Name: Kiersten Rodrigues RN Position: [facility] RN Member Role: Primary Care Nurse Name: Gloria Osorio RN Position: [facility] RN Supv Member Role: Primary Care Nurse Name: Shira Rosa RN Position: [facility] RN Member Role: Primary Care Nurse Name: Soledad Mckee RN Position: [facility] SN RN Member Role: Primary Care Nurse Care Team Related Persons Name: CATRACHITO BORGES Address: home [place], [place] Name: COURTNEY BORGES Address: home [address] [place] [address]
--- OUTSIDE RECORDS SUMMARY | 2024-08-12 13:39 | XMS_ITS | Continuity of Care Document ---
Author Organization [facility] Address [address] [place] [address]- Care Team Providers Care Commercial Representative Name Role Phone Ponce Andrew MD Primary Care Physician Encounter [facility] Date(s): 07/01/22 - 07/31/22 [facility] [address] [place], [place] [address] Attending Physician: Admtr, Ar8 Allergies, Adverse Reactions, Alerts [...] Given Fluarix (oldterm) 08/16/13 Given Prevnar (oldterm) 5/14/13 Given FluLaval (oldterm) 07/20/12 Given FluLaval (oldterm) [...] (old term) 03/10/01 Given 1Result Comment: [07/22/2018] [facility]#[id number] 2Result Comment: [08/21/2017] [facility] #[id number] 3Admin Note: afluria quadrivalent 4Admin Note: Afluria made by [employer] 5Result Comment: [facility]# [id number] 6Result Comment: Heplisav-B #2 7Admin Note: h1n1 8Admin Note: [employer] PATIENT MEETS CRITERIA Medications abacavir 300 mg oral tablet 2 tablet, By Mouth, Daily, # 180 tablet, 0 Refills, Maintenance, 06/30/22 8:33:00 EDT, [facility], 168.5, cm, 06/27/22 11:54:00 EDT, Height Start Date: 06/30/22 Stop Date: 07/30/22 Status: Ordered ADCARE ADCARE, See Instructions, # 1 each, Refills 0, Tot. Refills 0, Maintenance, ADCARE Evaluate and treat for outpatient, 11/09/19 10:02:00 EST, Compound Start Date: 11/09/19 Status: Ordered atazanavir 300 mg oral capsule 1 capsule, By Mouth, Daily, # 90 capsule, 0 Refills, Maintenance, 06/13/22 15:54:00 EDT, [facility] 36797, 90, TAKE 1 CAPSULE BY MOUTH EVERY DAY, 168.5, cm, 05/21/22 11:39:00 EDT, Height Start Date: 06/13/22 Status: Ordered atenolol 25 mg oral tablet 1, tablet, By Mouth, Daily, # 90 tablet, Refills 1, Route to Pharmacy Electronically, [facility] STORE 48116, 168.5, cm, 11/05/21 10:51:00 EST, Height Start Date: 05/08/22 Status: Ordered atorvastatin 40 mg oral tablet 1 tablet = 40 mg, By Mouth, Daily, # 90 tablet, 3 Refills, Maintenance, 03/07/22 11:06:00 EDT, Tablet, [facility]/pharmacy #207, 168.5, cm, 11/05/21 10:51:00 EST, Height Start Date: 03/07/22 Status: Ordered diclofenac sodium 75 mg oral delayed release tablet 1 tablet = 75 mg, By Mouth, 2 times a day, PRN rib pain, with food, # 30 tablet, 1 Refills, Maintenance, 10/04/21 12:43:00 EST, EC Tablet, [facility]/pharmacy #2071, Partial fill upon patient request if theprescription is for a schedule II opioid drug., 168... Start Date: 10/04/21 Stop Date: 10/04/22 Status: Ordered Paxil 20 mg oral tablet 20 mg, 1, tablet, By Mouth, Daily, for 90 days, # 90 tablet, Refills 3, Tot. Refills 3, Hard Stop 06/12/23 12:46:00 EDT, 06/17/22 12:46:00 EDT, Route to Pharmacy Electronically, [facility]/pharmacy #2070, 168.5, cm, 05/21/22 11:39:00 EDT, Height Start Date: 06/17/22 Stop Date: 06/12/23 Status: Ordered QUEtiapine 200 mg oral tablet 1, tablet, By Mouth, Daily, # 90 tablet, Refills 3, Route to Pharmacy Electronically, [facility] STORE 22872, 168.5, cm, 10/02/21 10:33:00 EST, Height, 95.3, kg, 02/23/20 7:40:00 EDT, Dry Weight Start Date: 10/04/21 Status: Ordered ritonavir 100 mg oral tablet 1 tablet, By Mouth, Daily, # 90 tablet, 0 Refills, Maintenance, 06/13/22 15:54:00 EDT, [facility], 168.5, cm, 05/21/22 11:39:00 EDT, Height Start Date: 06/13/22 Status: Ordered Shingrix intramuscular injection = 0.5 mL, Intramuscular, Once, repeat dose in 2 to 6 months, # 2 each, 0 Refills, Soft Stop, 09/07/20 14:31:00 EST, Powder, [facility]/pharmacy #2071, Partial fill upon patient request if the prescription is for a schedule II opioid drug., 0.5 mL Intramuscul... Start Date: 09/07/20 Status: Ordered tenofovir disoproxil fumarate 300 mg oral tablet 1 tablet, By Mouth, Daily, # 90 tablet, 1 Refills, Maintenance, 06/13/22 15:54:00 EDT, [facility], 168.5, cm, 05/21/22 11:39:00 EDT, Height Start [...] Care Team Personnel Name: Trina Beaver Position: [facility] Onco RN Member Role: Primary Care Nurse Name: Ponce Anrdew MD Position: [facility] Primary Care Physician Member Role: PCP Address: Address: [address] [place] [address] Adult & Pediatric Medicine [address] Name: Daniella Brand RN Position: S RN Member Role: Primary Care Nurse Name: Kiersten Rodrigues RN Position: [facility] RN Member Role: Primary Care Nurse Name: Gloria Osorio RN Position: [facility] RN Supv Member Role: Primary Care Nurse Name: Shira Rosa RN Position: S RN Member Role: Primary Care Nurse Name: Soledad Mckee RN Position: [facility] RN Member Role: Primary Care Nurse Care Team Related Persons Name: CATRACHITO BORGES Address: home [place], [place] Name: COURTNEY BORGES Address: home [address], [place]
--- OUTSIDE RECORDS SUMMARY | 2024-08-12 13:39 | XMS_ITS | Continuity of Care Document ---
Author Organization [facility] Address [address] [place] [address]- Care Team Providers Care Coverstitch Binder Name Role Phone Jovita Jonas MD Primary Care Physician [facility]counter [facility] Date(s): 01/08/21 - 02/07/21 [facility] [address] [place], [place] [address] Attending Physician: Admtr, Ar8 Allergies, Adverse Reactions, [...] Vaccine (old term) 03/10/01 Given 1Result Comment: [facility]# [id number] 2Result Comment: [07/22/2018] [facility]#[id number] 3Result Comment: [08/21/2017] [facility] #[id number] 4Admin Note: afluria quadrivalent 5Admin Note: Afluria [...] 09/17/20 10:02:00 EST, Route to Pharmacy Electronically, [facility]/pharmacy #8801, 168.5, cm, 07/11/20 10:23:00 EDT, Height, 95.3, kg, 02/23/20 7:40:00 EDT, Dry Weight Start Date: 09/17/20 Status: Ordered atorvastatin 40 mg oral tablet 1 tablet = 40 mg, By Mouth, Daily, # 90 tablet, 3 Refills, Maintenance, 09/17/20 10:02:00 EST, Tablet, [facility]/pharmacy #2071, 168.5, cm, 07/11/20 10:23:00 EDT, Height, 95.3, kg, 02/23/20 7:40:00 EDT, Dry Weight Start Date: 09/17/20 Status: Ordered Norvir 100 mg oral tablet 1 tablet = 100 mg, By Mouth, Daily, # 30 tablet, 5 Refills, Maintenance, 10/09/20 11:17:00 EST, [facility]/pharmacy #2070, 168.5, cm, 07/11/20 10:23:00 EDT, Height, 95.3, kg, 02/23/20 7:40:00 EDT, Dry Weight Start Date: 10/09/20 Stop Date: 04/07/21 Status: Ordered Paxil 20 mg oral tablet 20 mg, 1, tablet, By Mouth, Daily, for 30 days, # 30 tablet, Refills 5, Tot. Refills 5, Hard Stop 03/06/21 14:31:00 EDT, 09/07/20 14:31:00 EST, [facility] 168[facility]5, cm, 07/11/20 10:23:00 EDT, Height, 95.3, kg, 0... Start Date: 09/07/20 Stop Date: 03/06/21 Status: Ordered QUEtiapine 200 mg oral tablet 1, tablet, By Mouth, Daily, # 90 tablet, Refills 1, Tot. Refills 1, Maintenance, 06/14/20 11:42:00 EDT, Route to Pharmacy Electronically, [facility]/pharmacy #2070, 168.5, cm, 03/14/20 9:16:00 EDT, Height, 95.3, kg, 02/23/20 7:40:00 EDT, Dry Weight Start Date: 06/14/20 Status: Ordered QUEtiapine 200 mg oral tablet See Instructions, TAKE 1 TABLET BY MOUTH EVERY DAY, # 90 tablet, Refills 1, Tot. Refills 1, 09/07/20 14:31:00 EST, Instructions Replace Required Details, Route to Pharmacy Electronically, [facility]/pharmacy #207, 168.5, cm, 07/11/20 10:23:00 EDT, Height, 9... Start Date: 09/07/20 Status: Ordered Reyataz 300 mg oral capsule 1 capsule = 300 mg, By Mouth, Daily, # 30 capsule, 5 Refills, Maintenance, 10/09/20 11:17:00 EST, [facility]/pharmacy #1, 1 capsule By Mouth Daily,x30 days, 168.5, cm, 07/11/20 10:23:00 EDT, Height, 95.3, kg, 02/23/20 7:40:00 EDT, Dry Weight Start Date: 10/09/20 Stop Date: 04/07/21 Status: Ordered Shingrix intramuscular injection = 0.5 mL, Intramuscular, Once, repeat dose in 2 to 6 months, # 2 each, 0 Refills, Soft Stop, 09/07/20 14:31:00 EST, Powder, [facility]/pharmacy #2071, Partial fill upon patient request if the prescription is for a schedule II opioid drug., 0.5 mL Intramuscul... Start Date: 09/07/20 Status: Ordered tenofovir disoproxil fumarate 300 mg oral tablet 1 tablet, By Mouth, Daily, # 30 tablet, 5 Refills, Maintenance, 10/09/20 11:17:00 EST, [facility]/pharmacy#2071, 168.5, cm, 07/11/20 10:23:00 EDT, Height, 95.3, [...]
--- OUTSIDE RECORDS SUMMARY | 2024-08-12 13:39 | XMS_ITS | Continuity of Care Document ---
Author Organization [facility] Address [address] [place] [address]- Care Team Providers Care Family Development Extension Specialist Name Role Phone Ponce Andrew MD Primary Care Physician [phone] [facility]counter [facility] Date[facility]s): 11[facility]21 - 12/01/21 [facility] [address] [place] [id number] Attending Physician: AdmtrArielle Admitting Physician: Admtr, Ar8 Referring Physician: Admtr, Ar8 Allergies, Adverse Reactions, [...] (old term) 03/10/01 Given 1Result Comment: [07/22/2018] [facility]#[id number] 2Result Comment: [08/21/2017] [facility] #[id number] 3Admin Note: afluria quadrivalent 4Admin Note: Afluria made by [employer] 5Result Comment: [facility]# [id number] 6Result Comment: Heplisav-B #2 7Admin Note: h1n1 8Admin Note: [employer] PATIENT MEETS CRITERIA Medications ADCARE ADCARE, See Instructions, # 1 each, Refills 0, Tot. Refills 0, Maintenance, ADCARE Evaluate and treat for outpatient, 11/09/19 10:02:00 EST, Compound Start Date: 11/09/19 Status: Ordered atazanavir 300 mg oral capsule 1 capsule, By Mouth, Daily, # 90 capsule, 1 Refills, [facility] 19260, 90, TAKE 1 CAPSULE BY MOUTH EVERY DAY, 168.5, cm, 05/08/21 13:57:00 EDT, Height, 95.3, kg, 02/23/20 7:40:00 EDT, Dry Weight Start Date: 08/05/21 Status: Ordered atenolol 25 mg oral tablet 25 mg, 1, tablet, By Mouth, Daily, # 90 tablet, Refills 1, Tot. Refills 1, Maintenance, 10/31/21 13:33:00 EST, Route to Pharmacy Electronically, [facility]/pharmacy #207, 168.5, cm, 10/02/21 10:33:00 EST, Height, 95.3, kg, 02/23/20 7:40:00 EDT, Dry Weight Start Date: 10/31/21 Status: Ordered atorvastatin 40 mg oral tablet 1 tablet = 40 mg, By Mouth, Daily, # 90 tablet, 3 Refills, Maintenance, 09/17/20 10:02:00 EST, Tablet, [facility]/pharmacy #207, 168.5, cm, 07/11/20 10:23:00 EDT, Height, [...] tablet, 5 Refills, Maintenance, 04/08/21 10:08:00 EDT, [facility]/pharmacy #207, 168.5, cm, 02/06/21 10:35:00 EDT, Height, 95.3, kg, 02/23/20 7:40:00 EDT, Dry Weight Start Date: 04/08/21 Stop Date: 10/05/21 Status: Ordered Norvir 100 mg oral tablet 1 tablet = 100 mg, By Mouth, Daily, # 30 tablet, 2 Refills, Maintenance, 09/09/21 16:24:00 EST, [facility]/pharmacy #207, 168.5, cm, 05/08/21 13:57:00 EDT, Height, 95.3, kg, 02/23/20 7:40:00 EDT, Dry Weight Start Date: 09/09/21 Stop Date: 12/08/21 Status: Ordered Paxil 20 mg oral tablet 20 mg, 1, tablet, By Mouth, Daily, for 30 days, # 30 tablet, Refills 5, Tot. Refills 5, Hard Stop 03/08/22 15:12:00 EDT, 09/09/21 15:12:00 EST, Route to Pharmacy Electronically, [facility]/pharmacy #207, 168.5, cm, 05/08/21 13:57:00 EDT, Height, 95.3, kg, 0... Start Date: 09/09/21 Stop Date: 03/08/22 Status: Ordered QUEtiapine 200 mg oral tablet 1, tablet, By Mouth, Daily, # 90 tablet, Refills 3, Route to Pharmacy Electronically, [facility] 29764, 168.5, cm, 10/02/21 10:33:00 EST, Height, 95.3, kg, 02/23/20 7:40:00 EDT, Dry Weight Start Date: 10/04/21 Status: Ordered Shingrix intramuscular injection = 0.5 mL, Intramuscular, Once, repeat dose in 2 to 6 months, # 2 each, 0 Refills, Soft Stop, 09/07/20 14:31:00 EST, Powder, [facility]/pharmacy #207, Partial fill upon patient request if the prescription is for a schedule II opioid drug., 0.5 mL Intramuscul... Start Date: 09/07/20 Status: Ordered tenofovir disoproxil fumarate 300 mg oral tablet 1 tablet, By Mouth, Daily, # 30 tablet, 5 Refills, Maintenance, 04/08/21 10:08:00 EDT, [facility]/pharmacy#207, 168.5, cm, 02/06/21 10:35:00 EDT, Height, 95.3, kg, 02/23/20 7:40:00 EDT, Dry Weight Start Date: 04/08/21 Stop Date: 10/05/21 Status: Ordered tenofovir disoproxil fumarate 300 mg oral tablet 1 tablet, By Mouth, Daily, # 30 tablet, 2 Refills, Maintenance, 09/09/21 16:24:00 EST, [facility]/pharmacy#207, 168.5, cm, 05/08/21 13:57:00 EDT, Height, 95.3, [...]
--- OUTSIDE RECORDS SUMMARY | 2024-08-12 13:39 | XMS_ITS | Continuity of Care Document ---
Author Organization [facility] Address [address] [place] [address]- Care Team Providers Care University Counselor Name Role Phone Jovita Jonas MD Primary Care Physician Encounter [facility] [place] Date(s): 05/22/20 - 06/21/[address] [address]- [facility] Attending Physician: Arielle Ortiz Admitting Physician: AdmArielle mcintosh Referring Physician: Admtr, Tim8 Allergies, Adverse Reactions, Alerts Substance Reaction Severity [...] (oldterm) 07/22/06 Given Influenza Virus Vaccine (oldterm) 12/6/02 Given Pneumococcal Vaccine (oldterm) 12/20/07 Given Pneumococcal Vaccine (oldterm) 08/24/99 Given tetanus-diphtheria toxoids (Td) 07/14/05 Given Hepatitis B Vaccine (old term) 10/18/01 Given Hepatitis B Vaccine (old term) 04/09/01 Given Hepatitis B Vaccine (old term) 03/10/01 Given 1Result Comment: Heplisav-B #2 2Result Comment: [07/22/2018] [facility]#[id number] 3Result Comment: [08/21/2017] [facility] #[id number] 4Admin Note: afluria quadrivalent 5Admin Note: Afluria made by [employer] 6Admin Note: h1n1 7Admin Note: [employer] PATIENT MEETS CRITERIA Medications ADCARE ADCARE, See Instructions, # 1 each, Refills 0, Tot. Refills 0, Maintenance, ADCARE Evaluate and treat for outpatient, 11/09/19 10:02:00 EST, Compound Start Date: 11/09/19 Status: Ordered aspirin 81 mg oral tablet, chewable 81 mg, 1, tablet, By Mouth, Daily, # 90 tablet, Refills 3, Tot. Refills 3, Maintenance, 08/21/17 14:03:42, Route to Pharmacy Electronically, [id number], [facility]/pharmacy #[id number] Start Date: 08/21/17 Status: Ordered atenolol 25 mg oral tablet 25 mg, 1, tablet, By Mouth, Daily, # 90 tablet, Refills 3, Tot. Refills 3, Maintenance, 09/02/19 9:30:06 EST, Route to Pharmacy Electronically, [id number], [facility]/pharmacy #2071, 168.5, cm, 09/02/19 8:56:00 EST, Height, [...] tablet, 5 Refills, Maintenance, 06/18/20 10:40:00 EDT, [facility]/pharmacy #207, 168.5, cm, 03/14/20 9:16:00 EDT, Height, 95.3, kg, 02/23/20 7:40:00 EDT, Dry Weight Start Date: 06/18/20 Stop Date: 12/15/20 Status: Ordered Paxil 20 mg oral tablet 20 mg, 1, tablet, By Mouth, Daily, # 30 tablet, Refills 5, Tot. Refills 5, Maintenance, 03/12/20 9:24:00 EDT, Route to Pharmacy Electronically, [facility]/pharmacy #2070, 168.5, cm, 03/06/20 9:48:00 EDT, Height, 95.3, kg, 02/23/20 7:40:00 EDT, Dry Weight Start Date: 03/12/20 Stop Date: 09/08/20 Status: Ordered QUEtiapine 200 mg oral tablet 1, tablet, By Mouth, Daily, # 90 tablet, Refills 1, Tot. Refills 1, Maintenance, 06/14/20 11:42:00 EDT, Route to Pharmacy Electronically, [facility]/pharmacy #207, 168.5, cm, 03/14/20 9:16:00 EDT, Height, 95.3, kg, 02/23/20 7:40:00 EDT, Dry Weight Start Date: 06/14/20 Status: Ordered Reyataz 300 mg oral capsule 1 capsule = 300 mg, By Mouth, Daily, # 30 capsule, 5 Refills, Maintenance, 06/18/20 10:40:00 EDT, [facility]/pharmacy #2071, 1 capsule By Mouth Daily,x30 days, 168.5, cm, 03/14/20 9:16:00 EDT, Height, 95.3,kg, 02/23/20 7:40:00 EDT, Dry Weight Start Date: 06/18/20 Stop Date: 12/15/20 Status: Ordered tenofovir disoproxil fumarate 300 mg oral tablet 1 tablet, By Mouth, Daily, # 30 tablet, 5 Refills, Maintenance, 06/18/20 10:40:00 EDT, [facility], 168.5, cm, 03/14/20 9:16:00 EDT, Height, 95.3, [...] 5 Refills, Maintenance, 06/18/20 10:40:00 EDT, [id number], 168.5, cm, [...]
--- OUTSIDE RECORDS SUMMARY | 2024-08-12 13:39 | XMS_ITS | Continuity of Care Document ---
Author Organization [facility] Address [address] [place] [address]- Care Team Providers Care Oil Burner Journeyman Name Role Phone Jovita Jonas MD Primary Care Physician [phone] Encounter [facility] [place] Date(s): 10/04/19 - 10/11/19 [facility] [address] [place] [address]- [facility] Attending Physician: Robert Maynard MD Referring Physician: [...] 1Result Comment: Heplisav-B #2 2Result Comment: [07/22/2018] [facility]#[id number] 3Result Comment: [08/21/2017] [facility] #[id number] 4Admin Note: afluria quadrivalent 5Admin Note: Afluria made by [employer] 6Admin Note: h1n1 7Admin Note: [employer] PATIENT MEETS CRITERIA Medications aspirin 81 mg oral tablet, chewable 81 mg, 1, tablet, By Mouth, Daily, # 90 tablet, Refills 3, Tot. Refills 3, Maintenance, 08/21/17 14:03:42, Route to Pharmacy Electronically, [id number], [facility]/pharmacy #2071 Start Date: 08/21/17 Status: Ordered atenolol 25 mg oral tablet 25 mg, 1, tablet, By Mouth, Daily, # 90 tablet, Refills 3, Tot. Refills 3, Maintenance, 09/02/19 9:30:06 EST, Route to Pharmacy Electronically, [id number], [facility]/pharmacy #2071, 168.5, cm, 09/02/19 8:56:00 EST, [...] 08/22/19 11:06:03 EST, Route to Pharmacy Electronically, [id number], [facility]/pharmacy #2071 Start Date: 08/22/19 Stop Date: 02/18/20 Status: Ordered QUEtiapine 200 mg oral tablet 1, tablet, By Mouth, Daily, # 90 tablet, Refills 0, Tot. Refills 0, Maintenance, 09/12/19 15:33:00 EST, Route to Pharmacy Electronically, [facility], 168.5, cm, 09/02/19 11:13:00 EST, Height, 94.9, [...] tablet, 11 Refills, Maintenance, 09/12/19 8:29:00 EST, [facility] 317[facility], 168.5, cm, 09/02/19 11:13:00 EST, Height, 94.9, [...]
--- OUTSIDE RECORDS SUMMARY | 2024-08-12 13:39 | XMS_ITS | Continuity of Care Document ---
Author Organization [facility] Address [address] [place] [address]- Care Team Providers Care Economic Specialist Name Role Phone Ponce Andrew MD Primary Care Physician [place] [facility] Date(s): 06/27/22 - 07/27/22 [facility] [address] [place] [id number] Attending Physician: Admtr, Arielle Admitting Physician: Admtr, Ar8 Referring Physician: Admtr, [...] (old term) 03/10/01 Given 1Result Comment: [07/22/2018] [facility]#[id number] 2Result Comment: [08/21/2017] [facility] #[id number] 3Admin Note: afluria quadrivalent 4Admin Note: Afluria made by [employer] 5Result Comment: [facility]# [id number] 6Result Comment: Heplisav-B #2 7Admin Note: h1n1 8Admin Note: [employer] PATIENT MEETS CRITERIA Medications abacavir 300 mg oral tablet 2 tablet, By Mouth, Daily, # 180 tablet, 0 Refills, Maintenance, 06/30/22 8:33:00 EDT, [facility] 11056, 168.5, cm, 06/27/22 11:54:00 EDT, Height Start Date: 06/30/22 Stop Date: 07/30/22 Status: Ordered ADCARE ADCARE, See Instructions, # 1 each, Refills 0, Tot. Refills 0, Maintenance, ADCARE Evaluate and treat for outpatient, 11/09/19 10:02:00 EST, Compound Start Date: 11/09/19 Status: Ordered atazanavir 300 mg oral capsule 1 capsule, By Mouth, Daily, # 90 capsule, 0 Refills, Maintenance, 06/13/22 15:54:00 EDT, [facility], 90, TAKE 1 CAPSULE BY MOUTH EVERY DAY, 168.5, cm, 05/21/22 11:39:00 EDT, Height Start Date: 06/13/22 Status: Ordered atenolol 25 mg oral tablet 1, tablet, By Mouth, Daily, # 90 tablet, Refills 1, Route to Pharmacy Electronically, [facility] STORE 83865, 168.5, cm, 11/05/21 10:51:00 EST, Height Start Date: 05/08/22 Status: Ordered atorvastatin 40 mg oral tablet 1 tablet = 40 mg, By Mouth, Daily, # 90 tablet, 3 Refills, Maintenance, 03/07/22 11:06:00 EDT, Tablet, [facility]/pharmacy #2071, 168.5, cm, 11/05/21 10:51:00 EST, Height Start Date: 03/07/22 Status: Ordered diclofenac sodium 75 mg oral delayed release tablet 1 tablet = 75 mg, By Mouth, 2 times a day, PRN rib pain, with food, # 30 tablet, 1 Refills, Maintenance, 10/04/21 12:43:00 EST, EC Tablet, [facility]/pharmacy #2071, Partial fill upon patient request if theprescription is for a schedule II opioid drug., 168... Start Date: 10/04/21 Stop Date: 10/04/22 Status: Ordered Paxil 20 mg oral tablet 20 mg, 1, tablet, By Mouth, Daily, for 90 days, # 90 tablet, Refills 3, Tot. Refills 3, Hard Stop 06/12/23 12:46:00 EDT, 06/17/22 12:46:00 EDT, Route to Pharmacy Electronically, [facility]/pharmacy #2071, 168.5, cm, 05/21/22 11:39:00 EDT, Height Start Date: 06/17/22 Stop Date: 06/12/23 Status: Ordered QUEtiapine 200 mg oral tablet 1, tablet, By Mouth, Daily, # 90 tablet, Refills 3, Route to Pharmacy Electronically, [facility] STORE 16725, 168.5, cm, 10/02/21 10:33:00 EST, Height, 95.3, kg, 02/23/20 7:40:00 EDT, Dry Weight Start Date: 10/04/21 Status: Ordered ritonavir 100 mg oral tablet 1 tablet, By Mouth, Daily, # 90 tablet, 0 Refills, Maintenance, 06/13/22 15:54:00 EDT, [facility], 168.5, cm, 05/21/22 11:39:00 EDT, Height Start Date: 06/13/22 Status: Ordered Shingrix intramuscular injection = 0.5 mL, Intramuscular, Once, repeat dose in 2 to 6 months, # 2 each, 0 Refills, Soft Stop, 09/07/20 14:31:00 EST, Powder, [facility]/pharmacy #2071, Partial fill upon patient request if the prescription is for a schedule II opioid drug., 0.5 mL Intramuscul... Start Date: 09/07/20 Status: Ordered tenofovir disoproxil fumarate 300 mg oral tablet 1 tablet, By Mouth, Daily, # 90 tablet, 1 Refills, Maintenance, 06/13/22 15:54:00 EDT, [facility], 168.5, cm, 05/21/22 11:39:00 EDT, Height Start [...] Personnel Name: Ponce Andrew MD Address: Address: [address] [place] [address] Adult [facility] [address]
--- OUTSIDE RECORDS SUMMARY | 2024-08-12 13:39 | XMS_ITS | Continuity of Care Document ---
Author Organization [facility] Address [address] [place] [address]- Care Team Providers Care Product Distribution Specialist Name Role Phone Ponce Andrew MD Primary Care Physician Encounter [facility] [place] Date(s): 05/08/21 - 05/15/21 [facility] [address] [place], [place] [address] Encounter Diagnosis AIDS(Discharge Diagnosis) - 05/08/21 Cocaine dependence(Discharge Diagnosis) - 05/08/21 Depression(Discharge Diagnosis) - 05/08/21 HIV - Human immunodeficiency virus infection(Discharge Diagnosis) - 05/08/21 Attending Physician: Ponce Andrew MD Allergies, Adverse Reactions, Alerts Substance Reaction [...] Vaccine (old term) 03/10/01 Given 1Result Comment: [facility]# [id number] 2Result Comment: [07/22/2018] [facility]#[id number] 3Result Comment: [08/21/2017] [facility] #[id number] 4Admin Note: afluria quadrivalent 5Admin Note: Afluria [...] 09/17/20 10:02:00 EST, Route to Pharmacy Electronically, [facility]/pharmacy #8261, 168.5, cm, 07/11/20 10:23:00 EDT, Height, 95.3, kg, 02/23/20 7:40:00 EDT, Dry Weight Start Date: 09/17/20 Status: Ordered atorvastatin 40 mg oral tablet 1 tablet = 40 mg, By Mouth, Daily, # 90 tablet, 3 Refills, Maintenance, 09/17/20 10:02:00 EST, Tablet, [facility]/pharmacy #2070, 168.5, cm, 07/11/20 10:23:00 EDT, Height, 95.3, kg, 02/23/20 7:40:00 EDT, Dry Weight Start Date: 09/17/20 Status: Ordered Norvir 100 mg oral tablet 1 tablet = 100 mg, By Mouth, Daily, # 30 tablet, 5 Refills, Maintenance, 04/08/21 10:08:00 EDT, [facility]/pharmacy #2071, 168.5, cm, 02/06/21 10:35:00 EDT, Height, 95.3, kg, 02/23/20 7:40:00 EDT, Dry Weight Start Date: 04/08/21 Stop Date: 10/05/21 Status: Ordered Paxil 20 mg oral tablet 20 mg, 1, tablet, By Mouth, Daily, for 30 days, # 30 tablet, Refills 5, Tot. Refills 5, Hard Stop 11/04/21 14:16:00 EST, 05/08/21 14:16:00 EDT, Route to Pharmacy Electronically, [facility]/pharmacy #2070, 168.5, cm, 05/08/21 13:57:00 EDT, Height, 95.3, kg, 0... Start Date: 05/08/21 Stop Date: 11/04/21 Status: Ordered QUEtiapine 200 mg oral tablet 1, tablet, By Mouth, Daily, # 90 tablet, Refills 0, Tot. Refills 0, Maintenance, 03/02/21 16:11:00 EDT, Route to Pharmacy Electronically, [facility]/pharmacy #2071, 168.5, cm, 02/06/21 10:35:00 EDT, Height,95.3, kg, 02/23/20 7:40:00 EDT, Dry Weight Start Date: 03/02/21 Status: Ordered QUEtiapine 200 mg oral tablet See Instructions, TAKE 1 TABLET BY MOUTH EVERY DAY, # 90 tablet, Refills 1, Tot. Refills 1, 09/07/20 14:31:00 EST, Instructions Replace Required Details, Route to Pharmacy Electronically, [facility]/pharmacy #2071, 168.5, cm, 07/11/20 10:23:00 EDT, Height, 9... Start Date: 09/07/20 Status: Ordered Reyataz 300 mg oral capsule 1 capsule = 300 mg, By Mouth, Daily, # 30 capsule, 5 Refills, Maintenance, 04/08/21 10:08:00 EDT, [facility]/pharmacy #2071, 1 capsule By Mouth Daily,x30 days, 168.5, cm, 02/06/21 10:35:00 EDT, Height, 95.3, kg, 02/23/20 7:40:00 EDT, Dry Weight Start Date: 04/08/21 Stop Date: 10/05/21 Status: Ordered Shingrix intramuscular injection = 0.5 mL, Intramuscular, Once, repeat dose in 2 to 6 months, # 2 each, 0 Refills, Soft Stop, 09/07/20 14:31:00 EST, Powder, [facility]/pharmacy #207, Partial fill upon patient request if the prescription is for a schedule II opioid drug., 0.5 mL Intramuscul... Start Date: 09/07/20 Status: Ordered tenofovir disoproxil fumarate 300 mg oral tablet 1 tablet, By Mouth, Daily, # 30 tablet, 5 Refills, Maintenance, 04/08/21 10:08:00 EDT, [facility]/pharmacy#207, 168.5, cm, 02/06/21 10:35:00 EDT, Height, 95.3, [...] tablet, 5 Refills, Maintenance, 04/08/21 10:08:00 EDT, [facility]/pharmacy #2071, 168.5, cm, 02/06/21 10:35:00 EDT, Height, [...] Status Clinical Service Informant AIDS Discharge Diagnosis 05/08/21 Cocaine dependence Discharge Diagnosis 05/08/21 Depression Discharge Diagnosis 05/08/21 HIV - Human immunodeficiency virus infection Discharge Diagnosis 05/08/21 Vital Signs Most recent to oldest [Reference Range]: 1 Height 168.5 cm (05/08/21 1:57 PM) Weight 96.3 kg (05/08/21 1:57 PM) Oxygen Saturation [94-100 %] 96 % (05/08/21 1:57 PM) Pulse Rate [55-90 bpm] 83 bpm (05/08/21 1:57 PM) Body Mass Index [18.5-24.99] 33.92 *>HHI* (05/08/21 1:57 PM) Blood Pressure [90-138/55-84 mm Hg] 140/ 90mm Hg *H* (05/08/21 1:57 PM) Blood pressure sites Arm, left (05/08/21 1:57 PM) Social History Social History Type Response Smoking Status Current every day sneha phipps; Type: Cigarettes; Previous treatment: Nicotine replacement; Interested in cessation: Yes; Tobacco use times per day: 1ppd; Number of years: 40; Total pack years: 40; Started at age: 15; 1 entered on: 02/19/16 Sex 11 ppd
--- OUTSIDE RECORDS SUMMARY | 2024-08-12 13:39 | XMS_ITS | Continuity of Care Document ---
Author Organization [facility] Address [address] [place] [address]- Care Team Providers Care Food And Beverage Lead Name Role Phone Ponce Andrew MD Primary Care Physician [phone] Encounter [facility] [place] Date(s): 11/12/22 - 12/12/22 [facility] [address] [place] [id number] Allergies, Adverse Reactions, Alerts No [...] (old term) 03/10/01 Given 1Result Comment: [07/22/2018] [facility]#[id number] 2Result Comment: [08/21/2017] [facility] #[id number] 3Admin Note: afluria quadrivalent 4Admin Note: Afluria made by [employer] 5Result Comment: [facility]# [id number] 6Result Comment: Heplisav-B #2 7Admin Note: h1n1 8Admin Note: [employer] PATIENT MEETS CRITERIA Medications abacavir 300 mg oral tablet 2 tablet, By Mouth, Daily, # 180 tablet, 0 Refills, Maintenance, 11/12/22 13:43:00 EST, [facility]/pharmacy #2071, 168.5, cm, 11/11/22 10:31:00 EST, Height Start Date: 11/12/22 Stop Date: 02/10/23 Status: Ordered ADCARE ADCARE, See Instructions, # 1 each, Refills 0, Tot. Refills 0, Maintenance, ADCARE Evaluate and treat for outpatient, 11/09/19 10:02:00 EST, Compound Start Date: 11/09/19 Status: Ordered atazanavir 300 mg oral capsule 1 capsule, By Mouth, Daily, # 90 capsule, 0 Refills, Maintenance, 09/25/22 15:09:00 EST, [facility] ST[facility] 37856, 90, TAKE 1 CAPSULE BY MOUTH EVERY DAY, 168.5, cm, 06/27/22 11:54:00 EDT, Height Start Date: 09/25/22 Status: Ordered atenolol 25 mg oral tablet 1, tablet, By Mouth, Daily, # 90 tablet, Refills 1, Route to Pharmacy Electronically, [facility] 21070, 168.5, cm, 11/05/21 10:51:00 EST, Height Start Date: 05/08/22 Status: Ordered atorvastatin 40 mg oral tablet 1 tablet = 40 mg, By Mouth, Daily, # 90 tablet, 3 Refills, Maintenance, 03/07/22 11:06:00 EDT, Tablet, [facility]/pharmacy #2071, 168.5, cm, 11/05/21 10:51:00 EST, Height Start Date: 03/07/22 Status: Ordered diclofenac sodium 75 mg oral delayed release tablet 1 tablet = 75 mg, By Mouth, 2 times a day, PRN rib pain, with food, # 30 tablet, 1 Refills, Maintenance, 10/04/21 12:43:00 EST, EC Tablet, [facility]/pharmacy #207, Partial fill upon patient request if theprescription is for a schedule II opioid drug., 168... Start Date: 10/04/21 Stop Date: 10/04/22 Status: Ordered Paxil 20 mg oral tablet 20 mg, 1, tablet, By Mouth, Daily, for 90 days, # 90 tablet, Refills 3, Tot. Refills 3, Hard Stop 06/12/23 12:46:00 EDT, 06/17/22 12:46:00 EDT, Route to Pharmacy Electronically, [facility]/pharmacy #[id number], 168.5, cm, 05/21/22 11:39:00 EDT, Height Start Date: 06/17/22 Stop Date: 06/12/23 Status: Ordered QUEtiapine 200 mg oral tablet 1, tablet, By Mouth, Daily, # 90 tablet, Refills 3, Route to Pharmacy Electronically, [facility] 03948, 168.5, cm, 10/02/21 10:33:00 EST, Height, 95.3, kg, 02/23/20 7:40:00 EDT, Dry Weight Start Date: 10/04/21 Status: Ordered ritonavir 100 mg oral tablet 1 tablet, By Mouth, Daily, # 90 tablet, 0 Refills, Maintenance, 09/25/22 15:09:00 EST, [facility], 168.5, cm, 06/27/22 11:54:00 EDT, Height Start Date: 09/25/22 Status: Ordered Shingrix intramuscular injection = 0.5 mL, Intramuscular, Once, repeat dose in 2 to 6 months, # 2 each, 0 Refills, Soft Stop, 09/07/20 14:31:00 EST, Powder, [facility]/pharmacy #2071, Partial fill upon patient request if the prescription is for a schedule II opioid drug., 0.5 mL Intramuscul... Start Date: 09/07/20 Status: Ordered tenofovir disoproxil fumarate 300 mg oral tablet 1 tablet, By Mouth, Daily, # 90 tablet, 1 Refills, Maintenance, 06/13/22 15:54:00 EDT, [facility], 168.5, cm, 05/21/22 11:39:00 EDT, Height Start [...] Care Team Personnel Name: Trina Beaver Position: [facility] Onco RN Member Role: Primary Care Nurse Name: Ponce Andrew MD Position: [facility] Primary Care Physician Member Role: PCP Address: Address: [address] [place] [address] Adult & Pediatric Medicine [address] Name: Daniella Brand RN Position: [facility] RN Member Role: Primary Care Nurse Name: Kiersten Rodrigues RN Position: [facility] RN Member Role: Primary Care Nurse Name: Gloria Osorio RN Position: [facility] RN Supv Member Role: Primary Care Nurse Name: Shira Rosa RN Position: S RN Member Role: Primary Care Nurse Name: Soledad Mckee RN Position: [facility] RN Member Role: Primary Care Nurse Care Team Related Persons Name: CATRACHITO BORGES Address: home [place], [place] Name: COURTNEY BORGES Address: home [address], [place]
--- OUTSIDE RECORDS SUMMARY | 2024-08-12 13:39 | XMS_ITS | Continuity of Care Document ---
Author Organization [facility] Address Unknown Care Team Providers Care Engineering Research Manager Name Role Phone Ponce Andrew MD Primary Care Physician [phone] Encounter [facility] [place] Date(s): 08/05/21 - 09/04/21 [facility] Allergies, Adverse Reactions, Alerts Substance Reaction Severity [...] Vaccine (old term) 03/10/01 Given 1Result Comment: [facility]# [id number] 2Result Comment: [07/22/2018] [facility]#[id number] 3Result Comment: [08/21/2017] [facility] #[id number] 4Admin Note: afluria quadrivalent 5Admin Note: Afluria made by [employer] 6Result Comment: Heplisav-B #2 7Admin Note: h1n1 8Admin Note: [employer] PATIENT MEETS CRITERIA Medications ADCARE ADCARE, See Instructions, # 1 each, Refills 0, Tot. Refills 0, Maintenance, ADCARE Evaluate and treat for outpatient, 11/09/19 10:02:00 EST, Compound Start Date: 11/09/19 Status: Ordered atazanavir 300 mg oral capsule 1 capsule, By Mouth, Daily, # 90 capsule, 1 Refills, [facility] STORE 48301, 90, TAKE 1 CAPSULE BY MOUTH EVERY DAY, 168.5, cm, 05/08/21 13:57:00 EDT, Height, 95.3, kg, 02/23/20 7:40:00 EDT, Dry Weight Start Date: 08/05/21 Status: Ordered atenolol 25 mg oral tablet 25 mg, 1, tablet, By Mouth, Daily, # 90 tablet, Refills 3, Tot. Refills 3, Maintenance, 09/17/20 10:02:00 EST, Route to Pharmacy Electronically, [facility]/pharmacy #2071, 168.5, cm, 07/11/20 10:23:00 EDT, Height, 95.3, kg, 02/23/20 7:40:00 EDT, Dry Weight Start Date: 09/17/20 Status: Ordered atorvastatin 40 mg oral tablet 1 tablet = 40 mg, By Mouth, Daily, # 90 tablet, 3 Refills, Maintenance, 09/17/20 10:02:00 EST, Tablet, [facility]/pharmacy #2070, 168.5, cm, 07/11/20 10:23:00 EDT, Height, 95.3, kg, 02/23/20 7:40:00 EDT, Dry Weight Start Date: 09/17/20 Status: Ordered Norvir 100 mg oral tablet 1 tablet = 100 mg, By Mouth, Daily, # 30 tablet, 5 Refills, Maintenance, 04/08/21 10:08:00 EDT, [facility]/pharmacy #2070, 168.5, cm, 02/06/21 10:35:00 EDT, Height, 95.3, kg, 02/23/20 7:40:00 EDT, Dry Weight Start Date: 04/08/21 Stop Date: 10/05/21 Status: Ordered Paxil 20 mg oral tablet 20 mg, 1, tablet, By Mouth, Daily, for 30 days, # 30 tablet, Refills 5, Tot. Refills 5, Hard Stop 11/04/21 14:16:00 EST, 05/08/21 14:16:00 EDT, Route to Pharmacy Electronically, [facility]/pharmacy #2070, 168.5, cm, 05/08/21 13:57:00 EDT, Height, 95.3, kg, 0... Start Date: 05/08/21 Stop Date: 11/04/21 Status: Ordered QUEtiapine 200 mg oral tablet 1, tablet, By Mouth, Daily, # 90 tablet, Refills 0, Route to Pharmacy Electronically, [facility] STORE 85571, 168.5, cm, 05/08/21 13:57:00 EDT, Height, 95.3, kg, 02/23/20 7:40:00 EDT, Dry Weight Start Date: 05/30/21 Status: Ordered Shingrix intramuscular injection = 0.5 mL, Intramuscular, Once, repeat dose in 2 to 6 months, # 2 each, 0 Refills, Soft Stop, 09/07/20 14:31:00 EST, Powder, [facility]/pharmacy #207, Partial fill upon patient request if the prescription is for a schedule II opioid drug., 0.5 mL Intramuscul... Start Date: 09/07/20 Status: Ordered tenofovir disoproxil fumarate 300 mg oral tablet 1 tablet, By Mouth, Daily, # 30 tablet, 5 Refills, Maintenance, 04/08/21 10:08:00 EDT, [facility]/pharmacy#2071, 168.5, cm, 02/06/21 10:35:00 EDT, Height, 95.3, [...]
--- OUTSIDE RECORDS SUMMARY | 2024-08-12 13:39 | XMS_ITS | Continuity of Care Document ---
Author Organization [facility] Address [address] [place] [address]- Care Team Providers Care Barrel Reamer Name Role Phone Jovita Jonas MD Primary Care Physician Encounter [facility] [place] Date(s): 11/18/19 - 01/27/20 [facility] [address] [place] [address]- [facility] Attending Physician: Adin Garrett MD Admitting Physician: Adin Garrett MD Allergies, Adverse Reactions, Alerts Substance Reaction [...] Comment: Heplisav-B #2 2Result Comment: [07/22/2018] [facility]#[id number] 3Result Comment: [08/21/2017] [facility] #[id number] 4Admin Note: afluria quadrivalent 5Admin Note: Afluria [...] Maintenance, 08/21/17 14:03:42, Route to Pharmacy Electronically, [id number], [facility]/pharmacy #[id number] Start Date: 08/21/17 Status: Ordered atenolol 25 mg oral tablet 25 mg, 1, tablet, By Mouth, Daily, # 90 tablet, Refills 3, Tot. Refills 3, Maintenance, 09/02/19 9:30:06 EST, Route to Pharmacy Electronically, [id number], [facility]/pharmacy #[id number], 168.5, cm, 09/02/19 8:56:00 EST, [...] 08/22/19 11:06:03 EST, Route to Pharmacy Electronically, [id number], [facility]/pharmacy #[id number] Start Date: 08/22/19 Stop Date: 02/18/20 Status: Ordered QUEtiapine 200 mg oral tablet 1, tablet, By Mouth, Daily, # 90 tablet, Refills 1, Tot. Refills 1, Maintenance, 12/26/19 15:16:00 EDT, Route to Pharmacy Electronically, [facility]/pharmacy #[id number], 168.5, cm, 09/02/19 11:13:00 [...] Refills, Maintenance, 09/12/19 8:29:00 EST, [facility], 168.5, cm, 09/02/19 11:13:00 EST, Height, 94.9, [...]
--- OUTSIDE RECORDS SUMMARY | 2024-08-12 13:39 | XMS_ITS | Continuity of Care Document ---
Author Organization [facility] Address [address] [place] [address]- Care Team Providers Care Clerk Cashier Name Role Phone Jovita Jonas MD Primary Care Physician [facility] Date[facility]s): 09/02/19 - 09/09/19 [facility] [address] [place] [address]- [facility] Attending Physician: Jovita Jonas MD Allergies, Adverse [...] 1Result Comment: Heplisav-B #2 2Result Comment: [07/22/2018] [facility]#[id number] 3Result Comment: [08/21/2017] [facility] #[id number] 4Admin Note: afluria quadrivalent 5Admin Note: Afluria made by [employer] 6Admin Note: h1n1 7Admin Note: [employer] PATIENT MEETS CRITERIA Medications aspirin 81 mg oral tablet, chewable 81 mg, 1, tablet, By Mouth, Daily, # 90 tablet, Refills 3, Tot. Refills 3, Maintenance, 08/21/17 14:03:42, Route to Pharmacy Electronically, [id number], [facility]/pharmacy #[id number] Start Date: 08/21/17 Status: Ordered atenolol 25 mg oral tablet 25 mg, 1, tablet, By Mouth, Daily, # 90 tablet, Refills 3, Tot. Refills 3, Maintenance, 09/02/19 9:30:06 EST, Route to Pharmacy Electronically, [id number], [facility]/pharmacy #[id number], 168.5, cm, 09/02/19 8:56:00 EST, Height, [...] 08/22/19 11:06:03 EST, Route to Pharmacy Electronically, [id number], [facility]/pharmacy #207 Start Date: 08/22/19 Stop Date: 02/18/20 Status: Ordered QUEtiapine 200 mg oral tablet See Instructions, # 30 tablet, Refills 2 Tot. Refills 2, TAKE 1 TABLET BY MOUTH EVERY DAY, [facility]/pharmacy #[id number] Start Date: 06/21/19 Status: Ordered Reyataz 300 mg oral capsule 1 capsule = 300 mg, By Mouth, Daily, # 90 capsule, 3 Refills, Maintenance, 06/08/19 14:56:00 EDT, 1capsule By Mouth Daily Start Date: 06/08/19 Status: Ordered Therpaeutic phlebotomy one unit every 6 weeks Hold for Hb<12 gmDiagnosis: Heriditary Hemochromatos Therpaeutic phlebotomy one unit every 6 weeks Hold for Hb<12 gmDiagnosis: Heriditary Hemochromatosis, See Instructions, # 1 units, Refills 12, Tot. Refills 12, Maintenance, Hold for Hb <12 gm Diagnosis : heriditary hemochromatosis, 09/04/14 10:04:... Start Date: 09/04/14 Stop Date: 09/06/15 Status: Ordered Viread 300 mg oral tablet 1 tablet = 300 mg, By Mouth, Daily, # 90 tablet, 3 Refills, Maintenance, 08/18/18 15:07:00 EST, Tablet Start Date: 08/18/18 Status: Ordered Ziagen 300 mg oral tablet [...] [Reference Range]: 1 2 Height 168.5 cm (09/02/19 10:00 AM) 168.5 cm (09/02/19 8:56 AM) Weight 92.8 kg (09/02/19 8:56 AM) Oxygen Saturation [94-100 %] 95 % (09/02/19 8:56 AM) Pulse Rate [55-90 bpm] 74 bpm (09/02/19 8:56 AM) Body Mass Index [18.5-24.99] 32.68 *>HHI* (09/02/19 8:56 AM) Blood Pressure [90-138/55-84 mm Hg] 140/ 84mm Hg *H* (09/02/19 10:00 AM) 140/88mm Hg *H* (09/02/19 8:56 AM) Mode of Delivery (Oxygen) Room air (09/02/19 8:56 AM) Blood pressure sites Arm, right (09/02/19 8:56 AM) Weight Obtained Via Standing scale (09/02/19 8:56 AM) Social History Social History Type Response Smoking Status Current every day sneha phipps; Type: Cigarettes; Previous treatment: Nicotine replacement; Interested in cessation: Yes; Tobacco use times per day: 1ppd; Number of years: 40; Total pack years: 40; Started at age: 15; 1 entered on: 02/19/16 Sex 13 ppd
--- OUTSIDE RECORDS SUMMARY | 2024-08-12 13:39 | XMS_ITS | Continuity of Care Document ---
Author Organization [facility] Address [address] [place] [address]- Care Team Providers Care Broadcast Program Director Name Role Phone Ponce Andrew MD Primary Care Physician Encounter [facility] Date(s): 02/12/24 - 03/13/[address] [address] Attending Physician: AdmtrArielle Admitting Physician: Admtr, Tim8 Referring Physician: Admtr, [...] (old term) 03/10/01 Given 1Result Comment: [07/22/2018] [facility]#[id number] 2Result Comment: [08/21/2017] [facility] #[id number] 3Admin Note: afluria quadrivalent 4Admin Note: Afluria made by [employer] 5Result Comment: [facility]# [id number] 6Result Comment: Heplisav-B #2 7Admin Note: h1n1 8Admin Note: [employer] PATIENT MEETS CRITERIA Medications abacavir 300 mg oral tablet 2 tablet, By Mouth, Daily, # 180 tablet, 1 Refills, Maintenance, 02/08/24 14:51:00 EDT, [facility], 168.5, cm, 12/23/23 13:13:00 EDT, Height, 95.5, [...] 3, 06/23/23 13:06:00 EDT, Route toPharmacy Electronically, [facility]/pharmacy #[id number], 168.5, cm, 06/23/23 13:01:00 EDT, Height Start Date: 06/23/23 Status: Ordered atorvastatin 40 mg oral tablet 1 tablet, By Mouth, Daily, # 90 tablet, 3 Refills, Maintenance, 06/23/23 13:06:00 EDT, [facility]/pharmacy#[id number], 168.5, cm, 06/23/23 13:01:00 EDT, Height Start Date: 06/23/23 Status: Ordered PARoxetine 20 mg oral tablet See Instructions, TAKE 1 TABLET BY MOUTH EVERY DAY, # 90 tablet, Refills 3, Maintenance, 06/23/23 13:06:00 EDT, Instructions Replace Required Details, Route to Pharmacy Electronically, [facility], 168.5, cm, 06/23/23 13:01:00 EDT, Height Start Date: 06/23/23 Status: Ordered QUEtiapine 200 mg oral tablet 1, tablet, By Mouth, Daily, # 90 tablet, Refills 3, Tot. Refills 3, 06/23/23 13:07:00 EDT, Route toPharmacy Electronically, [facility]/pharmacy #[id number], 168.5, cm, 06/23/23 13:01:00 EDT, Height Start Date: 06/23/23 Status: Ordered ritonavir 100 mg oral tablet 1 tablet, By Mouth, Daily, # 90 tablet, 0 Refills, Maintenance, 02/29/24 10:46:00 EDT, [facility], 168.5, cm, 12/23/23 13:13:00 EDT, Height, 95.5, kg, 12/23/23 13:06:00 EDT, Dry Weight Start Date: 02/29/24 Status: Ordered tenofovir disoproxil fumarate 300 mg oral tablet 1 tablet, By Mouth, Daily, # 90 tablet, 1 Refills, Maintenance, 02/08/24 14:51:00 EDT, [facility], 168.5, cm, 12/23/23 13:13:00 EDT, Height, 95.5, [...] Care Team Personnel Name: Trina Beaver Position: [facility] Onco RN Member Role: Primary Care Nurse Name: Ponce Andrew MD Position: [facility] Physician - Primary Care Member Role: PCP Address: Address: [address] [place] [address] Adult & Pediatric Medicine [place], [place] [address] Name: Daniella Brand RN Position: [facility] AMB Nurse Member Role: Primary Care Nurse Name: Kiersten Rodrigues RN Position: [facility] AMB Nurse Member Role: Primary Care Nurse Name: Shira Rosa RN Position: [facility] RN W/OE and Tasks Member Role: Primary Care Nurse Name: Soledad Mckee RN Position: [facility] RN Member Role: Primary Care Nurse Care Team Related Persons Name: CATRACHITO BORGES Address: [place] [address] Name: COURTNEY BORGES Address: home [address] [place] [address]
--- OUTSIDE RECORDS SUMMARY | 2024-08-12 13:39 | XMS_ITS | Continuity of Care Document ---
Author Organization [facility] Address [address] [place] [address]- Care Team Providers Care Game Engineer Name Role Phone Kamran JENKINS, Ponce Alfonso Primary Care Physician [facility] Date(s): 10/03/21 - 11/02/[address] [facility] [address] [place], [place] [address] Allergies, Adverse Reactions, Alerts No Known [...] Given Prevnar (oldterm) 02/01/13 Given FluLaval (oldterm) 10/30/12 Given FluLaval (oldterm) 07/01/11 Given FluLaval (oldterm) [...] (old term) 03/10/01 Given 1Result Comment: [07/22/2018] [facility]#[id number] 2Result Comment: [08/21/2017] [facility] #[id number] 3Admin Note: afluria quadrivalent 4Admin Note: Afluria made by [employer] 5Result Comment: [facility]# [id number] 6Result Comment: Heplisav-B #2 7Admin Note: h1n1 8Admin Note: [employer] PATIENT MEETS CRITERIA Medications ADCARE ADCARE, See Instructions, # 1 each, Refills 0, Tot. Refills 0, Maintenance, ADCARE Evaluate and treat for outpatient, 11/09/19 10:02:00 EST, Compound Start Date: 11/09/19 Status: Ordered atazanavir 300 mg oral capsule 1 capsule, By Mouth, Daily, # 90 capsule, 1 Refills, [facility], 90, TAKE 1 CAPSULE BY MOUTH EVERY DAY, 168.5, cm, 05/08/21 13:57:00 EDT, Height, 95.3, kg, 02/23/20 7:40:00 EDT, Dry Weight Start Date: 08/05/21 Status: Ordered atenolol 25 mg oral tablet 25 mg, 1, tablet, By Mouth, Daily, # 90 tablet, Refills 1, Tot. Refills 1, Maintenance, 10/31/21 13:33:00 EST, Route to Pharmacy Electronically, [facility]/pharmacy #207, 168.5, cm, 10/02/21 10:33:00 EST, Height, 95.3, kg, 02/23/20 7:40:00 EDT, Dry Weight Start Date: 10/31/21 Status: Ordered atorvastatin 40 mg oral tablet 1 tablet = 40 mg, By Mouth, Daily, # 90 tablet, 3 Refills, Maintenance, 09/17/20 10:02:00 EST, Tablet, [facility]/pharmacy #207, 168.5, cm, 07/11/20 10:23:00 EDT, Height, 95.3, kg, 02/23/20 7:40:00 EDT, Dry Weight Start Date: 09/17/20 Status: Ordered diclofenac sodium 75 mg oral delayed release tablet 1 tablet = 75 mg, By Mouth, 2 times a day, PRN rib pain, with food, # 30 tablet, 1 Refills, Maintenance, 10/04/21 12:43:00 EST, EC Tablet, [facility]/pharmacy #207, Partial fill upon patient request if theprescription is for a schedule II opioid drug., 168... Start Date: 10/04/21 Stop Date: 10/04/22 Status: Ordered Norvir 100 mg oral tablet 1 tablet = 100 mg, By Mouth, Daily, # 30 tablet, 5 Refills, Maintenance, 04/08/21 10:08:00 EDT, [facility]/pharmacy #2070, 168.5, cm, 02/06/21 10:35:00 EDT, Height, 95.3, kg, 02/23/20 7:40:00 EDT, Dry Weight Start Date: 04/08/21 Stop Date: 10/05/21 Status: Ordered Norvir 100 mg oral tablet 1 tablet = 100 mg, By Mouth, Daily, # 30 tablet, 2 Refills, Maintenance, 09/09/21 16:24:00 EST, [facility]/pharmacy #207, 168.5, cm, 05/08/21 13:57:00 EDT, Height, 95.3, kg, 02/23/20 7:40:00 EDT, Dry Weight Start Date: 09/09/21 Stop Date: 12/08/21 Status: Ordered Paxil 20 mg oral tablet 20 mg, 1, tablet, By Mouth, Daily, for 30 days, # 30 tablet, Refills 5, Tot. Refills 5, Hard Stop 03/08/22 15:12:00 EDT, 09/09/21 15:12:00 EST, Route to Pharmacy Electronically, [facility]/pharmacy #207, 168.5, cm, 05/08/21 13:57:00 EDT, Height, 95.3, kg, 0... Start Date: 09/09/21 Stop Date: 03/08/22 Status: Ordered QUEtiapine 200 mg oral tablet 1, tablet, By Mouth, Daily, # 90 tablet, Refills 3, Route to Pharmacy Electronically, [facility] 394[facility], 168.5, cm, 10/02/21 10:33:00 EST, Height, 95.3, kg, 02/23/20 7:40:00 EDT, Dry Weight Start Date: 10/04/21 Status: Ordered Shingrix intramuscular injection = 0.5 mL, Intramuscular, Once, repeat dose in 2 to 6 months, # 2 each, 0 Refills, Soft Stop, 09/07/20 14:31:00 EST, Powder, [facility]/pharmacy #207, Partial fill upon patient request if the prescription is for a schedule II opioid drug., 0.5 mL Intramuscul... Start Date: 09/07/20 Status: Ordered tenofovir disoproxil fumarate 300 mg oral tablet 1 tablet, By Mouth, Daily, # 30 tablet, 5 Refills, Maintenance, 04/08/21 10:08:00 EDT, [facility]/pharmacy#207, 168.5, cm, 02/06/21 10:35:00 EDT, Height, 95.3, kg, 02/23/20 7:40:00 EDT, Dry Weight Start Date: 04/08/21 Stop Date: 10/05/21 Status: Ordered tenofovir disoproxil fumarate 300 mg oral tablet 1 tablet, By Mouth, Daily, # 30 tablet, 2 Refills, Maintenance, 09/09/21 16:24:00 EST, [facility]/pharmacy#207, 168.5, cm, 05/08/21 13:57:00 [...]
--- OUTSIDE RECORDS SUMMARY | 2024-08-12 13:39 | XMS_ITS | Continuity of Care Document ---
Author Organization [facility] Address [address] [place] [address]- Care Team Providers Care Sap Gatherer Name Role Phone Ponce Andrew MD Primary Care Physician [facility] Date(s): 06/13/22 - 07/13/22 [facility]/[address] [address] [place] Allergies, Adverse Reactions, Alerts No Known [...] term) 03/10/01 Given 1Result Comment: [07/22/2018] [facility]#[id number] 2Result Comment: [08/21/2017] [facility] #[id number] 3Admin Note: afluria quadrivalent 4Admin Note: Afluria made by [employer] 5Result Comment: [facility]# [id number] 6Result Comment: Heplisav-B #2 7Admin Note: h1n1 8Admin Note: [employer] PATIENT MEETS CRITERIA Medications abacavir 300 mg oral tablet 2 tablet, By Mouth, Daily, # 180 tablet, 0 Refills, Maintenance, 06/30/22 8:33:00 EDT, [facility], 168.5, cm, 06/27/22 11:54:00 EDT, Height Start Date: 06/30/22 Stop Date: 07/30/22 Status: Ordered ADCARE ADCARE, See Instructions, # 1 each, Refills 0, Tot. Refills 0, Maintenance, ADCARE Evaluate and treat for outpatient, 11/09/19 10:02:00 EST, Compound Start Date: 11/09/19 Status: Ordered atazanavir 300 mg oral capsule 1 capsule, By Mouth, Daily, # 90 capsule, 0 Refills, Maintenance, 06/13/22 15:54:00 EDT, [facility], 90, TAKE 1 CAPSULE BY MOUTH EVERY DAY, 168.5, cm, 05/21/22 11:39:00 EDT, Height Start Date: 06/13/22 Status: Ordered atenolol 25 mg oral tablet 1, tablet, By Mouth, Daily, # 90 tablet, Refills 1, Route to Pharmacy Electronically, [facility], 168.5, cm, 11/05/21 10:51:00 EST, Height Start Date: 05/08/22 Status: Ordered atorvastatin 40 mg oral tablet 1 tablet = 40 mg, By Mouth, Daily, # 90 tablet, 3 Refills, Maintenance, 03/07/22 11:06:00 EDT, Tablet, [facility]/pharmacy #2071, 168.5, cm, 11/05/21 10:51:00 EST, Height Start Date: 03/07/22 Status: Ordered diclofenac sodium 75 mg oral delayed release tablet 1 tablet = 75 mg, By Mouth, 2 times a day, PRN rib pain, with food, # 30 tablet, 1 Refills, Maintenance, 10/04/21 12:43:00 EST, EC Tablet, [facility]/pharmacy #2071, Partial fill upon patient request if theprescription is for a schedule II opioid drug., 168... Start Date: 10/04/21 Stop Date: 10/04/22 Status: Ordered Paxil 20 mg oral tablet 20 mg, 1, tablet, By Mouth, Daily, for 90 days, # 90 tablet, Refills 3, Tot. Refills 3, Hard Stop 06/12/23 12:46:00 EDT, 06/17/22 12:46:00 EDT, Route to Pharmacy Electronically, [facility]/pharmacy #2071, 168.5, cm, 05/21/22 11:39:00 EDT, Height Start Date: 06/17/22 Stop Date: 06/12/23 Status: Ordered QUEtiapine 200 mg oral tablet 1, tablet, By Mouth, Daily, # 90 tablet, Refills 3, Route to Pharmacy Electronically, [facility], 168.5, cm, 10/02/21 10:33:00 EST, Height, 95.3, kg, 02/23/20 7:40:00 EDT, Dry Weight Start Date: 10/04/21 Status: Ordered ritonavir 100 mg oral tablet 1 tablet, By Mouth, Daily, # 90 tablet, 0 Refills, Maintenance, 06/13/22 15:54:00 EDT, [facility], 168.5, cm, 05/21/22 11:39:00 EDT, Height Start Date: 06/13/22 Status: Ordered Shingrix intramuscular injection = 0.5 mL, Intramuscular, Once, repeat dose in 2 to 6 months, # 2 each, 0 Refills, Soft Stop, 09/07/20 14:31:00 EST, Powder, [facility]/pharmacy #2071, Partial fill upon patient request if the prescription is for a schedule II opioid drug., 0.5 mL Intramuscul... Start Date: 09/07/20 Status: Ordered tenofovir disoproxil fumarate 300 mg oral tablet 1 tablet, By Mouth, Daily, # 90 tablet, 1 Refills, Maintenance, 06/13/22 15:54:00 EDT, [facility], 168.5, cm, 05/21/22 11:39:00 EDT, Height Start [...] Personnel Name: Ponce Andrew MD Address: Address: [address] [place] [address] Adult & Pediatric Medicine [place], [place] [address]
--- OUTSIDE RECORDS SUMMARY | 2024-08-12 13:39 | XMS_ITS | Continuity of Care Document ---
Author Organization [facility] Address [address] [place] [address]- Care Team Providers Care Sales Broker Name Role Phone oPnce Andrew MD Primary Care Physician [facility] Date[facility]): 05/12/22 - 06/11/22 [facility] [address] [place] [id number] Allergies, Adverse Reactions, Alerts No Known [...] (old term) 03/10/01 Given 1Result Comment: [07/22/2018] [facility]#[id number] 2Result Comment: [08/21/2017] [facility] #[id number] 3Admin Note: afluria quadrivalent 4Admin Note: Afluria made by [employer] 5Result Comment: [facility]# [id number] 6Result Comment: Heplisav-B #2 7Admin Note: h1n1 8Admin Note: [employer] PATIENT MEETS CRITERIA Medications ADCARE ADCARE, See Instructions, # 1 each, Refills 0, Tot. Refills 0, Maintenance, ADCARE Evaluate and treat for outpatient, 11/09/19 10:02:00 EST, Compound Start Date: 11/09/19 Status: Ordered atazanavir 300 mg oral capsule 1 capsule, By Mouth, Daily, # 90 capsule, 1 Refills, [facility], 90, TAKE 1 CAPSULE BY MOUTH EVERY DAY, 168.5, cm, 05/08/21 13:57:00 EDT, Height, 95.3, kg, 02/23/20 7:40:00 EDT, Dry Weight Start Date: 08/05/21 Status: Ordered atenolol 25 mg oral tablet 1, tablet, By Mouth, Daily, # 90 tablet, Refills 1, Route to Pharmacy Electronically, [facility] [address]194, 168.5, cm, 11/05/21 10:51:00 EST, Height Start Date: 05/08/22 Status: Ordered atorvastatin 40 mg oral tablet 1 tablet = 40 mg, By Mouth, Daily, # 90 tablet, 3 Refills, Maintenance, 03/07/22 11:06:00 EDT, Tablet, [facility]/pharmacy #2071, 168.5, cm, 11/05/21 10:51:00 EST, Height Start Date: 03/07/22 Status: Ordered diclofenac sodium 75 mg oral delayed release tablet 1 tablet = 75 mg, By Mouth, 2 times a day, PRN rib pain, with food, # 30 tablet, 1 Refills, Maintenance, 10/04/21 12:43:00 EST, EC Tablet, [facility], Partial fill upon patient request if theprescription is for a schedule II opioid drug., 168... Start Date: 10/04/21 Stop Date: 10/04/22 Status: Ordered QUEtiapine 200 mg oral tablet 1, tablet, By Mouth, Daily, # 90 tablet, Refills 3, Route to Pharmacy Electronically, [facility], 168.5, cm, 10/02/21 10:33:00 EST, Height, 95.3, kg, 02/23/20 7:40:00 EDT, Dry Weight Start Date: 10/04/21 Status: Ordered ritonavir 100 mg oral tablet 1 tablet, By Mouth, Daily, # 90 tablet, 0 Refills, [facility], 168.5, cm, 11/05/21 10:51:00 EST, Height Start [...] tablets, By Mouth, Daily, # 60 tablet, 1 Refills, Maintenance, 05/07/22 15:40:00 EDT, [facility], 168.5, cm, 11/05/21 10:51:00 EST, Height Start Date: 05/07/22 Stop Date: 07/06/22 Status: Ordered Problem List Condition Effective Dates [...] nodules(Confirmed) Active Lung mass(Confirmed) Active Obese class I(Confirmed) Active Obesity(Confirmed) Active Depression(Confirmed) Active Complex sleep [...] 1 entered on: 02/19/16 Sex 13 ppd Care Team Personnel Name: Ponce Andrew MD Address: [address] [place] [address] Adult & Pediatric Medicine [place], [place] [address]
--- OUTSIDE RECORDS SUMMARY | 2024-08-12 13:39 | XMS_ITS | Continuity of Care Document ---
Author Organization [facility] Address [address] [place] [address]- Care Team Providers Care Residence Leasing Agent Name Role Phone Pritesh JENIKNS, Jovita Primary Care Physician [facility]21 - 03/08/21 [facility] [address] [place], [place] [address] Allergies, Adverse Reactions, Alerts Substance Reaction Severity [...] 03/10/01 Given 1Result Comment: [facility]# [id number] 2Result Comment: [07/22/2018] [facility]#[id number] 3Result Comment: [08/21/2017] [facility] #[id number] 4Admin Note: afluria quadrivalent 5Admin Note: Afluria [...] 09/17/20 10:02:00 EST, Route to Pharmacy Electronically, [facility]/pharmacy #[id number], 168.5, cm, 07/11/20 10:23:00 EDT, Height, 95.3, kg, 02/23/20 7:40:00 EDT, Dry Weight Start Date: 09/17/20 Status: Ordered atorvastatin 40 mg oral tablet 1 tablet = 40 mg, By Mouth, Daily, # 90 tablet, 3 Refills, Maintenance, 09/17/20 10:02:00 EST, Tablet, [facility]/pharmacy #[id number], 168.5, cm, 07/11/20 10:23:00 EDT, Height, 95.3, kg, 02/23/20 7:40:00 EDT, Dry Weight Start Date: 09/17/20 Status: Ordered Norvir 100 mg oral tablet 1 tablet = 100 mg, By Mouth, Daily, # 30 tablet, 5 Refills, Maintenance, 10/09/20 11:17:00 EST, [facility]/pharmacy #207, 168.5, cm, 07/11/20 10:23:00 EDT, Height, 95.3, kg, 02/23/20 7:40:00 EDT, Dry Weight Start Date: 10/09/20 Stop Date: 04/07/21 Status: Ordered QUEtiapine 200 mg oral tablet 1, tablet, By Mouth, Daily, # 90 tablet, Refills 0, Tot. Refills 0, Maintenance, 03/02/21 16:11:00 EDT, Route to Pharmacy Electronically, [facility]/pharmacy #207, 168.5, cm, 02/06/21 10:35:00 EDT, Height,95.3, kg, 02/23/20 7:40:00 EDT, Dry Weight Start Date: 03/02/21 Status: Ordered QUEtiapine 200 mg oral tablet See Instructions, TAKE 1 TABLET BY MOUTH EVERY DAY, # 90 tablet, Refills 1, Tot. Refills 1, 09/07/20 14:31:00 EST, Instructions Replace Required Details, Route to Pharmacy Electronically, [facility]/pharmacy #207, 168.5, cm, 07/11/20 10:23:00 EDT, Height, 9... Start Date: 09/07/20 Status: Ordered Reyataz 300 mg oral capsule 1 capsule = 300 mg, By Mouth, Daily, # 30 capsule, 5 Refills, Maintenance, 10/09/20 11:17:00 EST, [facility]/pharmacy #207, 1 capsule By Mouth Daily,x30 days, 168.5, cm, 07/11/20 10:23:00 EDT, Height, 95.3, kg, 02/23/20 7:40:00 EDT, Dry Weight Start Date: 10/09/20 Stop Date: 04/07/21 Status: Ordered Shingrix intramuscular injection = 0.5 mL, Intramuscular, Once, repeat dose in 2 to 6 months, # 2 each, 0 Refills, Soft Stop, 09/07/20 14:31:00 EST, Powder, [facility]/pharmacy #[id number], Partial fill upon patient request if the prescription is for a schedule II opioid drug., 0.5 mL Intramuscul... Start Date: 09/07/20 Status: Ordered tenofovir disoproxil fumarate 300 mg oral tablet 1 tablet, By Mouth, Daily, # 30 tablet, 5 Refills, Maintenance, 10/09/20 11:17:00 EST, [facility]/pharmacy#[id number], 168.5, cm, 07/11/20 10:23:00 EDT, Height, 95.3, [...]
--- OUTSIDE RECORDS SUMMARY | 2024-08-12 13:39 | XMS_ITS | Continuity of Care Document ---
Author Organization [facility] Address [address] [place] [address]- Care Team Providers Care Exam Proctor Name Role Phone Pritesh JENKINS, Jovita Primary Care Physician [facility]): 10[facility]20/20 - 11/19/20 [facility] [address] [place], [place] [address] Allergies, Adverse Reactions, Alerts Substance Reaction [...] [facility]#[id number] 2Result Comment: [08/21/2017] [facility] #[id number] 3Admin Note: afluria quadrivalent 4Admin Note: Afluria made by Seqirus 5Result Comment: Heplisav-B #2 6Admin Note: h1n1 7Admin Note: [employer] PATIENT MEETS CRITERIA Medications ADCARE ADCARE, See Instructions, # 1 each, Refills 0, Tot. Refills 0, Maintenance, ADCARE Evaluate and treat for outpatient, 11/09/19 10:02:00 EST, Compound Start Date: 11/09/19 Status: Ordered atenolol 25 mg oral tablet 25 mg, 1, tablet, By Mouth, Daily, # 90 tablet, Refills 3, Tot. Refills 3, Maintenance, 09/17/20 10:02:00 EST, Route to Pharmacy Electronically, [facility]/pharmacy #[id number], 168.5, cm, 07/11/20 10:23:00 EDT, Height, 95.3, kg, 02/23/20 7:40:00 EDT, Dry Weight Start Date: 09/17/20 Status: Ordered atorvastatin 40 mg oral tablet 1 tablet = 40 mg, By Mouth, Daily, # 90 tablet, 3 Refills, Maintenance, 09/17/20 10:02:00 EST, Tablet, [facility]/pharmacy #[id number], 168.5, cm, 07/11/20 10:23:00 EDT, Height, 95.3, kg, 02/23/20 7:40:00 EDT, Dry Weight Start Date: 09/17/20 Status: Ordered Norvir 100 mg oral tablet 1 tablet = 100 mg, By Mouth, Daily, for 30 days, # 30 tablet, 5 Refills, Hard Stop 12/15/20 10:40:00 EDT, 06/18/20 10:40:00 EDT, [facility]/pharmacy #[id number], 168.5, cm, 03/14/20 9:16:00 EDT, Height, 95.3, kg,02/23/20 7:40:00 EDT, Dry Weight Start Date: 06/18/20 Stop Date: 12/15/20 Status: Ordered Norvir 100 mg oral tablet 1 tablet = 100 mg, By Mouth, Daily, # 30 tablet, 5 Refills, Maintenance, 10/09/20 11:17:00 EST, [facility]/pharmacy #207, 168.5, cm, 07/11/20 10:23:00 EDT, Height, 95.3, kg, 02/23/20 7:40:00 EDT, Dry Weight Start Date: 10/09/20 Stop Date: 04/07/21 Status: Ordered Paxil 20 mg oral tablet 20 mg, 1, tablet, By Mouth, Daily, for 30 days, # 30 tablet, Refills 5, Tot. Refills 5, Hard Stop 03/06/21 14:31:00 EDT, 09/07/20 14:31:00 EST, Route to Pharmacy Electronically, [facility]/pharmacy #[id number], 168.5, cm, 07/11/20 10:23:00 EDT, Height, 95.3, kg, 0... Start Date: 09/07/20 Stop Date: 03/06/21 Status: Ordered QUEtiapine 200 mg oral tablet 1, tablet, By Mouth, Daily, # 90 tablet, Refills 1, Tot. Refills 1, Maintenance, 06/14/20 11:42:00 EDT, Route to Pharmacy Electronically, [facility]/pharmacy #[id number], 168.5, cm, 03/14/20 9:16:00 EDT, Height, 95.3, kg, 02/23/20 7:40:00 EDT, Dry Weight Start Date: 06/14/20 Status: Ordered QUEtiapine 200 mg oral tablet See Instructions, TAKE 1 TABLET BY MOUTH EVERY DAY, # 90 tablet, Refills 1, Tot. Refills 1, 09/07/20 14:31:00 EST, Instructions Replace Required Details, Route to Pharmacy Electronically, [facility]/pharmacy #207, 168.5, cm, 07/11/20 10:23:00 EDT, Height, 9... Start Date: 09/07/20 Status: Ordered Reyataz 300 mg oral capsule 1 capsule = 300 mg, By Mouth, Daily, for 30 days, # 30 capsule, 5 Refills, Hard Stop 12/15/20 10:40:00 EDT, 06/18/20 10:40:00 EDT, [facility]/pharmacy #207, 168.5, cm, 03/14/20 9:16:00 EDT, Height, 95.3, kg, 02/23/20 7:40:00 EDT, Dry Weight Start Date: 06/18/20 Stop Date: 12/15/20 Status: Ordered Reyataz 300 mg oral capsule 1 capsule = 300 mg, By Mouth, Daily, # 30 capsule, 5 Refills, Maintenance, 10/09/20 11:17:00 EST, [facility]/pharmacy #207, 1 capsule By Mouth Daily,x30 days, 168.5, cm, 07/11/20 10:23:00 EDT, Height, 95.3, kg, 02/23/20 7:40:00 EDT, Dry Weight Start Date: 10/09/20 Stop Date: 04/07/21 Status: Ordered Shingrix intramuscular injection = 0.5 mL, Intramuscular, Once, repeat dose in 2 to 6 months, # 2 each, 0 Refills, Soft Stop, 09/07/20 14:31:00 EST, Powder, [facility]/pharmacy #[id number], Partial fill upon patient request if [...] tablet, 5 Refills, Maintenance, 10/09/20 11:17:00 EST, [facility]/pharmacy#207, 168.5, cm, 07/11/20 10:23:00 EDT, Height, 95.3, [...] Stop 12/15/20 10:40:00 EDT, 06/18/20 10:40:00 EDT, [facility]/pharmacy #207, 168.5, cm, 03/14/20 9:16:00 EDT, Height, 95.3, kg, 02/23/20 7:40:00 EDT, Dry Weight Start Date: 06/18/20 Stop Date: 12/15/20 Status: Ordered Ziagen 300 mg oral tablet 2 tablets, By Mouth, Daily, # 60 tablet, 5 Refills, Maintenance, 10/09/20 11:17:00 EST, [facility]/pharmacy #[id number], 168.5, cm, 07/11/20 10:23:00 EDT, Height, [...]
--- OUTSIDE RECORDS SUMMARY | 2024-08-12 13:40 | XMS_ITS | Continuity of Care Document ---
Author Organization [facility] Address [address] [place] [address]- Care Team Providers Care Wildlife Rehabilitator Name Role Phone Ponce Andrew MD Primary Care Physician [facility]): 10[facility]21 - 11/01/21 [facility] [address] [place], [place] [address] Attending Physician: Admarnaldo, Arielle Admitting Physician: Admtr, [id number] Referring Physician: [...] 1Result Comment: [07/22/2018] [facility]#[id number] 2Result Comment: [08/21/2017] [facility] #[id number] 3Admin Note: afluria quadrivalent 4Admin Note: Afluria made by Seqirus 5Result Comment: [facility]# [id number] 6Result Comment: Heplisav-B #2 7Admin Note: h1n1 8Admin Note: [employer] PATIENT MEETS CRITERIA Medications ADCARE ADCARE, See Instructions, # 1 each, Refills 0, Tot. Refills 0, Maintenance, ADCARE Evaluate and treat for outpatient, 11/09/19 10:02:00 EST, Compound Start Date: 11/09/19 Status: Ordered atazanavir 300 mg oral capsule 1 capsule, By Mouth, Daily, # 90 capsule, 1 Refills, [facility] STORE [id number], 90, TAKE 1 CAPSULE BY MOUTH EVERY DAY, 168.5, cm, 05/08/21 13:57:00 EDT, Height, 95.3, kg, 02/23/20 7:40:00 EDT, Dry Weight Start Date: 08/05/21 Status: Ordered atenolol 25 mg oral tablet 25 mg, 1, tablet, By Mouth, Daily, # 90 tablet, Refills 1, Tot. Refills 1, Maintenance, 10/31/21 13:33:00 EST, Route to Pharmacy Electronically, [facility]/pharmacy #[id number], 168.5, cm, 10/02/21 10:33:00 EST, Height, 95.3, kg, 02/23/20 7:40:00 EDT, Dry Weight Start Date: 10/31/21 Status: Ordered atorvastatin 40 mg oral tablet 1 tablet = 40 mg, By Mouth, Daily, # 90 tablet, 3 Refills, Maintenance, 09/17/20 10:02:00 EST, Tablet, [facility]/pharmacy #[id number], 168.5, cm, 07/11/20 10:23:00 EDT, Height, 95.3, kg, 02/23/20 7:40:00 EDT, Dry Weight Start Date: 09/17/20 Status: Ordered diclofenac sodium 75 mg oral delayed release tablet 1 tablet = 75 mg, By Mouth, 2 times a day, PRN rib pain, with food, # 30 tablet, 1 Refills, Maintenance, 10/04/21 12:43:00 EST, EC Tablet, [facility]/pharmacy #207, Partial fill upon patient request if theprescription is for a schedule II opioid drug., 168... Start Date: 10/04/21 Stop Date: 10/04/22 Status: Ordered Norvir 100 mg oral tablet 1 tablet = 100 mg, By Mouth, Daily, # 30 tablet, 5 Refills, Maintenance, 04/08/21 10:08:00 EDT, [facility]/pharmacy #[id number], 168.5, cm, 02/06/21 10:35:00 EDT, Height, 95.3, kg, 02/23/20 7:40:00 EDT, Dry Weight Start Date: 04/08/21 Stop Date: 10/05/21 Status: Ordered Norvir 100 mg oral tablet 1 tablet = 100 mg, By Mouth, Daily, # 30 tablet, 2 Refills, Maintenance, 09/09/21 16:24:00 EST, [facility]/pharmacy #207, 168.5, cm, 05/08/21 13:57:00 EDT, Height, 95.3, kg, 02/23/20 7:40:00 EDT, Dry Weight Start Date: 09/09/21 Stop Date: 12/08/21 Status: Ordered Paxil 20 mg oral tablet 20 mg, 1, tablet, By Mouth, Daily, for 30 days, # 30 tablet, Refills 5, Tot. Refills 5, Hard Stop 03/08/22 15:12:00 EDT, 09/09/21 15:12:00 EST, Route to Pharmacy Electronically, [facility]/pharmacy #207, 168.5, cm, 05/08/21 13:57:00 EDT, Height, 95.3, kg, 0... Start Date: 09/09/21 Stop Date: 03/08/22 Status: Ordered QUEtiapine 200 mg oral tablet 1, tablet, By Mouth, Daily, # 90 tablet, Refills 3, Route to Pharmacy Electronically, [facility] [id number], 168.5, cm, 10/02/21 10:33:00 EST, Height, 95.3, kg, 02/23/20 7:40:00 EDT, Dry Weight Start Date: 10/04/21 Status: Ordered Shingrix intramuscular injection = 0.5 mL, Intramuscular, Once, repeat dose in 2 to 6 months, # 2 each, 0 Refills, Soft Stop, 09/07/20 14:31:00 EST, Powder, [facility]/pharmacy #[id number], Partial fill upon patient request if the prescription is for a schedule II opioid drug., 0.5 mL Intramuscul... Start Date: 09/07/20 Status: Ordered tenofovir disoproxil fumarate 300 mg oral tablet 1 tablet, By Mouth, Daily, # 30 tablet, 5 Refills, Maintenance, 04/08/21 10:08:00 EDT, [facility]/pharmacy#207, 168.5, cm, 02/06/21 10:35:00 EDT, Height, 95.3, kg, 02/23/20 7:40:00 EDT, Dry Weight Start Date: 04/08/21 Stop Date: 10/05/21 Status: Ordered tenofovir disoproxil fumarate 300 mg oral tablet 1 tablet, By Mouth, Daily, # 30 tablet, 2 Refills, Maintenance, 09/09/21 16:24:00 EST, [facility]/pharmacy#207, 168.5, cm, 05/08/21 13:57:00 [...]
--- OUTSIDE RECORDS SUMMARY | 2024-08-12 13:40 | XMS_ITS | Continuity of Care Document ---
Author Organization [facility] Address [address] [place] [address]- Care Team Providers Care Neuroradiologist Name Role Phone Ponce Andrew MD Primary Care Physician [facility]): [facility] - 10/17/23 [facility] [address] [place] [id number] Attending Physician: Admtr, Arielle Admitting Physician: [...] term) 03/10/01 Given 1Result Comment: [07/22/2018] [facility]#[id number] 2Result Comment: [08/21/2017] [facility] #[id number] 3Admin Note: afluria quadrivalent 4Admin Note: Afluria made by Seq[employer] 5Result Comment: [facility]# [id number] 6Result Comment: Heplisav-B #2 7Admin Note: h1n1 8Admin Note: [employer] PATIENT MEETS CRITERIA Medications abacavir 300 mg oral tablet 2 tablet, By Mouth, Daily, # 180 tablet, 1 Refills, Maintenance, 08/26/23 14:57:00 EST, [facility]/pharmacy #[id number], 168.5, cm, 06/23/23 13:08:00 EDT, Height Start [...] Route toPharmacy Electronically, [facility]/pharmacy #[id number], 168.5, cm, 06/23/23 13:01:00 EDT, Height Start Date: 06/23/23 Status: Ordered atorvastatin 40 mg oral tablet 1 tablet, By Mouth, Daily, # 90 tablet, 3 Refills, Maintenance, 06/23/23 13:06:00 EDT, [facility]/pharmacy#[id number], 168.5, cm, 06/23/23 13:01:00 EDT, Height Start Date: 06/23/23 Status: Ordered PARoxetine 20 mg oral tablet See Instructions, TAKE 1 TABLET BY MOUTH EVERY DAY, # 90 tablet, Refills 3, Maintenance, 06/23/23 13:06:00 EDT, Instructions Replace Required Details, Route to Pharmacy Electronically, [facility]ORE [id number], 168.5, cm, 06/23/23 13:01:00 EDT, Height Start Date: 06/23/23 Status: Ordered QUEtiapine 200 mg oral tablet 1, tablet, By Mouth, Daily, # 90 tablet, Refills 3, Tot. Refills 3, 06/23/23 13:07:00 EDT, Route toPharmacy Electronically, [facility]/pharmacy #[id number], 168.5, cm, 06/23/23 13:01:00 EDT, Height Start Date: 06/23/23 Status: Ordered ritonavir 100 mg oral tablet 1 tablet, By Mouth, Daily, # 90 tablet, 1 Refills, Maintenance, 08/26/23 14:57:00 EST, [facility]/pharmacy#[id number], 168.5, cm, 06/23/23 13:08:00 EDT, Height Start Date: 08/26/23 Stop Date: 02/22/24 Status: Ordered tenofovir disoproxil fumarate 300 mg oral tablet 1 tablet, By Mouth, Daily, # 90 tablet, 1 Refills, Maintenance, 08/26/23 14:57:00 EST, [facility]/pharmacy#[id number], 168.5, cm, 06/23/23 13:08:00 EDT, Height [...] on: 02/19/16 Sex 11 ppd Note * Event Display: Capsule Endoscopy Report Authored Date: Patient Care team information Care Team Personnel Name: Trina Beaver Position: [facility] Onco RN Member Role: Primary Care Nurse Name: Ponce Andrew MD Position: [facility] Physician - Primary Care Member Role: PCP Address: Address: [address] [place] [address] Adult & Pediatric Medicine [address] Name: Daniella Brand RN Position: [facility] AMB Nurse Member Role: Primary Care Nurse Name: Kiersten Rodrigues RN Position: [facility] AMB Nurse Member Role: Primary Care Nurse Name: Shira Rosa RN Position: [facility] ED RN W/OE and Tasks Member Role: Primary Care Nurse Name: Soledad Mckee RN Position: [facility] RN Member Role: Primary Care Nurse Care Team Related Persons Name: CATRACHITO BORGES Address: [place] [address] Name: COURTNEY BORGES Address: home [address] [place] [address]
--- OUTSIDE RECORDS SUMMARY | 2024-08-12 13:40 | XMS_ITS | Continuity of Care Document ---
Author Organization [facility] Address [address] [place] [address]- Care Team Providers Care Job Cost Estimator Name Role Phone Pritesh JENKINS, Jovita Primary Care Physician [facility]20 - 10/12/20 [facility] [address] [place], [place] [address] Allergies, Adverse Reactions, Alerts Substance Reaction Severity [...] 03/10/01 Given 1Result Comment: [07/22/2018] [facility]#[id number] 2Result Comment: [08/21/2017] [facility] #[id number] 3Admin Note: afluria quadrivalent 4Admin Note: Afluria made by Seq[employer] 5Result Comment: Heplisav-B #2 6Admin Note: h1n1 7Admin Note: [employer] PATIENT MEETS CRITERIA Medications ADCARE ADCARE, See Instructions, # 1 each, Refills 0, Tot. Refills 0, Maintenance, ADCARE Evaluate and treat for outpatient, 11/09/19 10:02:00 EST, Compound Start Date: 11/09/19 Status: Ordered atenolol 25 mg oral tablet 25 mg, 1, tablet, By Mouth, Daily, # 90 tablet, Refills 3, Tot. Refills 3, Maintenance, 09/17/20 10:02:00 EST, Route to Pharmacy Electronically, [facility]/pharmacy #[id number], 168.5, cm, 07/11/20 10:23:00 EDT, Height, 95.3, kg, 02/23/20 7:40:00 EDT, Dry Weight Start Date: 09/17/20 Status: Ordered atorvastatin 40 mg oral tablet 1 tablet = 40 mg, By Mouth, Daily, # 90 tablet, 3 Refills, Maintenance, 09/17/20 10:02:00 EST, Tablet, [facility]/pharmacy #[id number], 168.5, cm, 07/11/20 10:23:00 EDT, Height, 95.3, kg, 02/23/20 7:40:00 EDT, Dry Weight Start Date: 09/17/20 Status: Ordered Norvir 100 mg oral tablet 1 tablet = 100 mg, By Mouth, Daily, for 30 days, # 30 tablet, 5 Refills, Hard Stop 12/15/20 10:40:00 EDT, 06/18/20 10:40:00 EDT, [facility]/pharmacy #[id number], 168.5, cm, 03/14/20 9:16:00 EDT, Height, 95.3, kg,02/23/20 7:40:00 EDT, Dry Weight Start Date: 06/18/20 Stop Date: 12/15/20 Status: Ordered Norvir 100 mg oral tablet 1 tablet = 100 mg, By Mouth, Daily, # 30 tablet, 5 Refills, Maintenance, 10/09/20 11:17:00 EST, [facility]/pharmacy #[id number], 168.5, cm, 07/11/20 10:23:00 EDT, Height, 95.3, kg, 02/23/20 7:40:00 EDT, Dry Weight Start Date: 10/09/20 Stop Date: 04/07/21 Status: Ordered Paxil 20 mg oral tablet 20 mg, 1, tablet, By Mouth, Daily, for 30 days, # 30 tablet, Refills 5, Tot. Refills 5, Hard Stop 03/06/21 14:31:00 EDT, 09/07/20 14:31:00 EST, Route to Pharmacy Electronically, [facility]/pharmacy #[id number], 168.5, cm, 07/11/20 10:23:00 EDT, Height, 95.3, kg, 0... Start Date: 09/07/20 Stop Date: 03/06/21 Status: Ordered QUEtiapine 200 mg oral tablet 1, tablet, By Mouth, Daily, # 90 tablet, Refills 1, Tot. Refills 1, Maintenance, 06/14/20 11:42:00 EDT, Route to Pharmacy Electronically, [facility]/pharmacy #[id number], 168.5, cm, 03/14/20 9:16:00 EDT, Height, 95.3, kg, 02/23/20 7:40:00 EDT, Dry Weight Start Date: 06/14/20 Status: Ordered QUEtiapine 200 mg oral tablet See Instructions, TAKE 1 TABLET BY MOUTH EVERY DAY, # 90 tablet, Refills 1, Tot. Refills 1, 09/07/20 14:31:00 EST, Instructions Replace Required Details, Route to Pharmacy Electronically, [facility]/pharmacy #[id number], 168.5, cm, 07/11/20 10:23:00 EDT, Height, 9... Start Date: 09/07/20 Status: Ordered Reyataz 300 mg oral capsule 1 capsule = 300 mg, By Mouth, Daily, for 30 days, # 30 capsule, 5 Refills, Hard Stop 12/15/20 10:40:00 EDT, 06/18/20 10:40:00 EDT, [facility]/pharmacy #207, 168.5, cm, 03/14/20 9:16:00 EDT, Height, 95.3, kg, 02/23/20 7:40:00 EDT, Dry Weight Start Date: 06/18/20 Stop Date: 12/15/20 Status: Ordered Reyataz 300 mg oral capsule 1 capsule = 300 mg, By Mouth, Daily, # 30 capsule, 5 Refills, Maintenance, 10/09/20 11:17:00 EST, [facility]/pharmacy #207, 1 capsule By Mouth Daily,x30 days, 168.5, cm, 07/11/20 10:23:00 EDT, Height, 95.3, kg, 02/23/20 7:40:00 EDT, Dry Weight Start Date: 10/09/20 Stop Date: 04/07/21 Status: Ordered Shingrix intramuscular injection = 0.5 mL, Intramuscular, Once, repeat dose in 2 to 6 months, # 2 each, 0 Refills, Soft Stop, 09/07/20 14:31:00 EST, Powder, [facility]/pharmacy #207, Partial fill upon patient request [...] tablet, 5 Refills, Maintenance, 10/09/20 11:17:00 EST, [facility]/pharmacy#207, 168.5, cm, 07/11/20 10:23:00 EDT, Height, 95.3, [...] Stop 12/15/20 10:40:00 EDT, 06/18/20 10:40:00 EDT, [facility]/pharmacy #207, 168.5, cm, 03/14/20 9:16:00 EDT, Height, 95.3, kg, 02/23/20 7:40:00 EDT, Dry Weight Start Date: 06/18/20 Stop Date: 12/15/20 Status: Ordered Ziagen 300 mg oral tablet 2 tablets, By Mouth, Daily, # 60 tablet, 5 Refills, Maintenance, 10/09/20 11:17:00 EST, [facility]/pharmacy #[id number], 168.5, cm, 07/11/20 10:23:00 EDT, [...]
--- OUTSIDE RECORDS SUMMARY | 2024-08-12 13:40 | XMS_ITS | Continuity of Care Document ---
Author Organization [facility] Address [address] [place] [address]- Care Team Providers Care Freight Clerk Name Role Phone Ponce Andrew MD Primary Care Physician [facility]counter [facility] Date(s): 02/04/22 - 06/04/22 [facility] [address] [place] [address]- Encounter Diagnosis Hyperlipidemia LDL goal < 130(Discharge Diagnosis) - 03/07/22 Attending Physician: Ponce Andrew MD Allergies, Adverse [...] (old term) 03/10/01 Given 1Result Comment: [07/22/2018] [facility]#[id number] 2Result Comment: [08/21/2017] [facility] #[id number] 3Admin Note: afluria quadrivalent 4Admin Note: Afluria made by Seq[employer] 5Result Comment: [facility]# [id number] 6Result Comment: Heplisav-B #2 7Admin Note: h1n1 8Admin Note: [employer] PATIENT MEETS CRITERIA Medications ADCARE ADCARE, See Instructions, # 1 each, Refills 0, Tot. Refills 0, Maintenance, ADCARE Evaluate and treat for outpatient, 11/09/19 10:02:00 EST, Compound Start Date: 11/09/19 Status: Ordered atazanavir 300 mg oral capsule 1 capsule, By Mouth, Daily, # 90 capsule, 1 Refills, [facility] STORE [id number], 90, TAKE 1 CAPSULE BY MOUTH EVERY DAY, 168.5, cm, 05/08/21 13:57:00 EDT, Height, 95.3, kg, 02/23/20 7:40:00 EDT, Dry Weight Start Date: 08/05/21 Status: Ordered atenolol 25 mg oral tablet 1, tablet, By Mouth, Daily, # 90 tablet, Refills 1, Route to Pharmacy Electronically, [facility] STORE 52442, 168.5, cm, 11/05/21 10:51:00 EST, Height Start Date: 05/08/22 Status: Ordered atorvastatin 40 mg oral tablet 1 tablet = 40 mg, By Mouth, Daily, # 90 tablet, 3 Refills, Maintenance, 03/07/22 11:06:00 EDT, Tablet, [facility]/pharmacy #[id number], 168.5, cm, 11/05/21 10:51:00 EST, Height Start Date: 03/07/22 Status: Ordered diclofenac sodium 75 mg oral delayed release tablet 1 tablet = 75 mg, By Mouth, 2 times a day, PRN rib pain, with food, # 30 tablet, 1 Refills, Maintenance, 10/04/21 12:43:00 EST, EC Tablet, [facility]/pharmacy #[id number], Partial fill upon patient request if theprescription is for a schedule II opioid drug., 168... Start Date: 10/04/21 Stop Date: 10/04/22 Status: Ordered QUEtiapine 200 mg oral tablet 1, tablet, By Mouth, Daily, # 90 tablet, Refills 3, Route to Pharmacy Electronically, [facility] STORE 47387, 168.5, cm, 10/02/21 10:33:00 EST, Height, 95.3, kg, 02/23/20 7:40:00 EDT, Dry Weight Start Date: 10/04/21 Status: Ordered ritonavir 100 mg oral tablet 1 tablet, By Mouth, Daily, # 90 tablet, 0 Refills, [facility] STORE 95034, 168.5, cm, 11/05/21 10:51:00 EST, Height Start Date: 03/03/22 Status: Ordered Shingrix intramuscular injection = 0.5 mL, Intramuscular, Once, repeat dose in 2 to 6 months, # 2 each, 0 Refills, Soft Stop, 09/07/20 14:31:00 EST, Powder, [facility]/pharmacy #[id number], Partial fill upon patient request if the prescription is for a schedule II opioid drug., 0.5 mL Intramuscul... Start Date: 09/07/20 Status: Ordered tenofovir disoproxil fumarate 300 mg oral tablet 1 tablet, By Mouth, Daily, # 30 tablet, 5 Refills, Maintenance, 04/08/21 10:08:00 EDT, [facility], 168.5, cm, 02/06/21 10:35:00 EDT, Height, 95.3, kg, 02/23/20 7:40:00 EDT, Dry Weight Start Date: 04/08/21 Stop Date: 10/05/21 Status: Ordered tenofovir disoproxil fumarate 300 mg oral tablet 1 tablet, By Mouth, Daily, for 30 days, # 30 tablet, 5 Refills, Hard Stop 08/09/22 10:29:00 EST, 02/10/22 10:29:00 EDT, [facility], 168.5, cm, 11/05/21 10:51:00 EST, Height, 95.3, kg, 02/23/20 7:40:00 EDT, Dry Weight Start Date: 02/10/22 Stop Date: 08/09/22 Status: Ordered tenofovir disoproxil fumarate 300 mg oral tablet 1 tablet, By Mouth, Daily, # 30 tablet, 2 Refills, Maintenance, 09/09/21 16:24:00 EST, [facility], 168.5, cm, 05/08/21 13:57:00 EDT, Height, 95.3, [...] Effective Dates Health Status Clinical Service Informant Hyperlipidemia LDL goal < 130 Discharge Diagnosis 03/07/22 Non-Specified Social History Social History Type Response Smoking Status Current every day sneha phipps; Type: Cigarettes; Previous treatment: Nicotine replacement; Interested in cessation: Yes; Tobacco use times per day: 1ppd; Number of years: 40; Total pack years: 40; Started at age: 15; 1 entered on: 02/19/16 Sex 11 ppd Care Team Personnel Name: Ponce Andrew MD Address: [address] [place] [address] Adult & Pediatric Medicine [address]
--- OUTSIDE RECORDS SUMMARY | 2024-08-12 13:40 | XMS_ITS | Continuity of Care Document ---
Author Organization [facility] Address [address] [place] [address]- Care Team Providers Care Interior Design Professional Name Role Phone Ponce Andrew MD Primary Care Physician [phone] [facility]counter [facility] Date[facility]): 01/22/23 - 02/21/23 [facility] [address] [place] [address] [[email or web address] Allergies, Adverse Reactions, Alerts No Known Allergies [...] 1Result Comment: [07/22/2018] [facility]#[id number] 2Result Comment: [08/21/2017] [facility] #[id number] 3Admin Note: afluria quadrivalent 4Admin Note: Afluria made by [employer] 5Result Comment: [facility]# [id number] 6Result Comment: Heplisav-B #2 7Admin Note: h1n1 8Admin Note: [employer] PATIENT MEETS CRITERIA Medications abacavir 300 mg oral tablet 2 tablet, By Mouth, Daily, # 180 tablet, 0 Refills, Maintenance, 11/12/22 13:43:00 EST, [facility]/pharmacy #[id number], 168.5, cm, 11/11/22 10:31:00 EST, Height Start Date: 11/12/22 Stop Date: 02/10/23 Status: Ordered ADCARE ADCARE, See Instructions, # 1 each, Refills 0, Tot. Refills 0, Maintenance, ADCARE Evaluate and treat for outpatient, 11/09/19 10:02:00 EST, Compound Start Date: 11/09/19 Status: Ordered atazanavir 300 mg oral capsule 1 capsule, By Mouth, Daily, for 90 days, # 90 capsule, 0 Refills, Hard Stop 04/06/23 11:49:00 EDT, 01/06/23 11:49:00 EDT, [facility]/pharmacy #[id number], 168.5, cm, 11/11/22 10:31:00 EST, Height Start Date: 01/06/23 Stop Date: 04/06/23 Status: Ordered atazanavir 300 mg oral capsule 1 capsule, By Mouth, Daily, # 90 capsule, 0 Refills, Maintenance, 02/11/23 18:29:00 EDT, [facility]/pharmacy #[id number], 1 capsule By Mouth Daily,x90 days, 168.5, cm, 11/11/22 10:31:00 EST, Height Start Date: 02/11/23 Stop Date: 05/12/23 Status: Ordered atenolol 25 mg oral tablet 1, tablet, By Mouth, Daily, # 90 tablet, Refills 1, Tot. Refills 1, 01/06/23 10:19:00 EDT, Route toPharmacy Electronically, [facility]/pharmacy #[id number], 168.5, cm, 11/11/22 10:31:00 EST, Height Start Date: 01/06/23 Status: Ordered atorvastatin 40 mg oral tablet 1 tablet = 40 mg, By Mouth, Daily, # 90 tablet, 3 Refills, Maintenance, 03/07/22 11:06:00 EDT, Tablet, [facility]/pharmacy #[id number], 168.5, cm, 11/05/21 10:51:00 EST, Height Start Date: 03/07/22 Status: Ordered diclofenac sodium 75 mg oral delayed release tablet 1 tablet = 75 mg, By Mouth, 2 times a day, PRN rib pain, with food, # 30 tablet, 1 Refills, Maintenance, 10/04/21 12:43:00 EST, EC Tablet, [facility]/pharmacy #207, Partial fill upon patient request if [...] 90 tablet, Refills 3, Tot. Refills 3, 12/30/22 7:46:00 EDT, Route to Pharmacy Electronically, [facility]/pharmacy #207, 168.5, cm, 11/11/22 10:31:00 EST, Height Start Date: 12/30/22 Status: Ordered ritonavir 100 mg oral tablet 1 tablet, By Mouth, Daily, # 90 tablet, 0 Refills, Maintenance, 01/06/23 11:49:00 EDT, [facility]/pharmacy#[id number], 168.5, cm, 11/11/22 10:31:00 EST, Height Start Date: 01/06/23 Stop Date: 04/06/23 Status: Ordered Shingrix intramuscular injection = 0.5 mL, Intramuscular, Once, repeat dose in 2 to 6 months, # 2 each, 0 Refills, Soft Stop, 09/07/20 14:31:00 EST, Powder, [facility]/pharmacy #207, Partial fill upon patient request if the prescription is for a schedule II opioid drug., 0.5 mL Intramuscul... Start Date: 09/07/20 Status: Ordered tenofovir disoproxil fumarate 300 mg oral tablet 1 tablet, By Mouth, Daily, # 90 tablet, 0 Refills, Maintenance, 01/06/23 11:49:00 EDT, [facility]/pharmacy#207, 168.5, cm, 11/11/22 10:31:00 EST, Height Start Date: 01/06/23 Stop Date: 04/06/23 Status: Ordered Therpaeutic phlebotomy one unit every [...] Care Team Personnel Name: Trina Beaver Position: [facility] Onco RN Member Role: Primary Care Nurse Name: Ponce Andrew MD Position: [facility] Physician - Primary Care Member Role: PCP Address: Address: [address] [place] [address] Adult & Pediatric Medicine [address] Name: Daniella Brand RN Position: [facility] AMB Nurse Member Role: Primary Care Nurse Name: Kiersten Rodrigues RN Position: [facility] RN Member Role: Primary Care Nurse Name: Gloria Osorio RN Position: [facility] RN Supv Member Role: Primary Care Nurse Name: Shira Rosa RN Position: [facility] ED RN W/OE and Tasks Member Role: Primary Care Nurse Name: Soledad Mckee RN Position: [facility] SN RN Member Role: Primary Care Nurse Care Team Related Persons Name: CATRACHITO BORGES Address: [place] [address] Name: COURTNEY BORGES Address: home [address] [place] [address]
--- OUTSIDE RECORDS SUMMARY | 2024-08-12 13:40 | XMS_ITS | Continuity of Care Document ---
Author Organization [facility] Address [address] [place] [address]- Care Team Providers Care Meringuer Name Role Phone Ponce Andrew MD Primary Care Physician Encounter [facility] Date(s): 12/04/23 - 01/03/24 [facility] [address] [place] [id number] Allergies, Adverse Reactions, Alerts No Known [...] 1Result Comment: [07/22/2018] [facility]#[id number] 2Result Comment: [08/21/2017] [facility] #[id number] 3Admin Note: afluria quadrivalent 4Admin Note: Afluria made by [employer] 5Result Comment: [facility]# [id number] 6Result Comment: Heplisav-B #2 7Admin Note: h1n1 8Admin Note: [employer] PATIENT MEETS CRITERIA Medications abacavir 300 mg oral tablet 2 tablet, By Mouth, Daily, # 180 tablet, 1 Refills, Maintenance, 08/26/23 14:57:00 EST, [facility]/pharmacy #[id number], 168.5, cm, 06/23/23 13:08:00 EDT, Height [...] 3, 06/23/23 13:06:00 EDT, Route toPharmacy Electronically, [facility]/pharmacy #[id number], 168.5, cm, 06/23/23 13:01:00 EDT, Height Start Date: 06/23/23 Status: Ordered atorvastatin 40 mg oral tablet 1 tablet, By Mouth, Daily, # 90 tablet, 3 Refills, Maintenance, 06/23/23 13:06:00 EDT, [facility]/pharmacy#[id number], 168.5, cm, 06/23/23 13:01:00 EDT, Height Start Date: 06/23/23 Status: Ordered PARoxetine 20 mg oral tablet See Instructions, TAKE 1 TABLET BY MOUTH EVERY DAY, # 90 tablet, Refills 3, Maintenance, 06/23/23 13:06:00 EDT, Instructions Replace Required Details, Route to Pharmacy Electronically, [facility] STORE 71221, 168.5, cm, 06/23/23 13:01:00 EDT, Height Start Date: 06/23/23 Status: Ordered QUEtiapine 200 mg oral tablet 1, tablet, By Mouth, Daily, # 90 tablet, Refills 3, Tot. Refills 3, 06/23/23 13:07:00 EDT, Route toPharmacy Electronically, [facility]/pharmacy #[id number], 168.5, cm, 06/23/23 13:01:00 EDT, Height Start Date: 06/23/23 Status: Ordered ritonavir 100 mg oral tablet 1 tablet, By Mouth, Daily, # 90 tablet, 1 Refills, Maintenance, 08/26/23 14:57:00 EST, [facility]/pharmacy#[id number], 168.5, cm, 06/23/23 13:08:00 EDT, Height Start Date: 08/26/23 Stop Date: 02/22/24 Status: Ordered tenofovir disoproxil fumarate 300 mg oral tablet 1 tablet, By Mouth, Daily, # 90 tablet, 1 Refills, Maintenance, 08/26/23 14:57:00 EST, [facility]/pharmacy#207, 168.5, cm, 06/23/23 13:08:00 EDT, Height Start [...] Care Team Personnel Name: Trina Beaver Position: [facility] Onco RN Member Role: Primary Care Nurse Name: Ponce Andrew MD Position: [facility] Physician - Primary Care Member Role: PCP Address: Address: [address] [place] [address] Adult & Pediatric [place] [address] Name: Daniella Brand RN Position: [facility] AMB Nurse Member Role: Primary Care Nurse Name: Kiersten Rodrigues RN Position: [facility] AMB Nurse Member Role: Primary Care Nurse Name: Shira Rosa RN Position: [facility] ED RN W/OE and Tasks Member Role: Primary Care Nurse Name: Soledad Mckee RN Position: [facility] SN RN Member Role: Primary Care Nurse Care Team Related Persons Name: CATRACHITO BORGES Address: [place] [address] Name: COURTNEY BORGES Address: home [address] [place] [id number]
--- OUTSIDE RECORDS SUMMARY | 2024-08-12 13:40 | XMS_ITS | Continuity of Care Document ---
Author Organization [facility] Address [address] [place] [address]- Care Team Providers Care Word Processing Operator Name Role Phone Ponce Andrew MD Primary Care Physician [facility] Date(s): 07/03/22 - 08/02/22 [facility] [address] [place], [place] [address] Allergies, Adverse Reactions, Alerts No Known [...] [facility]#[id number] 2Result Comment: [08/21/2017] [facility] #[id number] 3Admin Note: afluria quadrivalent 4Admin Note: Afluria made by [employer] 5Result Comment: [facility]# [id number] 6Result Comment: Heplisav-B #2 7Admin Note: h1n1 8Admin Note: [employer] PATIENT MEETS CRITERIA Medications abacavir 300 mg oral tablet 2 tablet, By Mouth, Daily, # 180 tablet, 0 Refills, Maintenance, 06/30/22 8:33:00 EDT, [facility], 168.5, cm, 06/27/22 11:54:00 EDT, Height Start Date: 06/30/22 Stop Date: 07/30/22 Status: Ordered ADCARE ADCARE, See Instructions, # 1 each, Refills 0, Tot. Refills 0, Maintenance, ADCARE Evaluate and treat for outpatient, 11/09/19 10:02:00 EST, Compound Start Date: 11/09/19 Status: Ordered atazanavir 300 mg oral capsule 1 capsule, By Mouth, Daily, # 90 capsule, 0 Refills, Maintenance, 06/13/22 15:54:00 EDT, [facility], 90, TAKE 1 CAPSULE BY MOUTH EVERY DAY, 168.5, cm, 05/21/22 11:39:00 EDT, Height Start Date: 06/13/22 Status: Ordered atenolol 25 mg oral tablet 1, tablet, By Mouth, Daily, # 90 tablet, Refills 1, Route to Pharmacy Electronically, [facility] STORE 96551, 168.5, cm, 11/05/21 10:51:00 EST, Height Start Date: 05/08/22 Status: Ordered atorvastatin 40 mg oral tablet 1 tablet = 40 mg, By Mouth, Daily, # 90 tablet, 3 Refills, Maintenance, 03/07/22 11:06:00 EDT, Tablet, [facility]/pharmacy #[id number], 168.5, cm, 11/05/21 10:51:00 EST, Height Start Date: 03/07/22 Status: Ordered diclofenac sodium 75 mg oral delayed release tablet 1 tablet = 75 mg, By Mouth, 2 times a day, PRN rib pain, with food, # 30 tablet, 1 Refills, Maintenance, 10/04/21 12:43:00 EST, EC Tablet, [facility]/pharmacy #[id number], Partial fill upon patient request if theprescription is for a schedule II opioid drug., 168... Start Date: 10/04/21 Stop Date: 10/04/22 Status: Ordered Paxil 20 mg oral tablet 20 mg, 1, tablet, By Mouth, Daily, for 90 days, # 90 tablet, Refills 3, Tot. Refills 3, Hard Stop 06/12/23 12:46:00 EDT, 06/17/22 12:46:00 EDT, Route to Pharmacy Electronically, [facility]/pharmacy #[id number], 168.5, cm, 05/21/22 11:39:00 EDT, Height Start Date: 06/17/22 Stop Date: 06/12/23 Status: Ordered QUEtiapine 200 mg oral tablet 1, tablet, By Mouth, Daily, # 90 tablet, Refills 3, Route to Pharmacy Electronically, [facility], 168.5, cm, 10/02/21 10:33:00 EST, Height, 95.3, kg, 02/23/20 7:40:00 EDT, Dry Weight Start Date: 10/04/21 Status: Ordered ritonavir 100 mg oral tablet 1 tablet, By Mouth, Daily, # 90 tablet, 0 Refills, Maintenance, 06/13/22 15:54:00 EDT, [facility] STORE 71387, 168.5, cm, 05/21/22 11:39:00 EDT, Height Start Date: 06/13/22 Status: Ordered Shingrix intramuscular injection = 0.5 mL, Intramuscular, Once, repeat dose in 2 to 6 months, # 2 each, 0 Refills, Soft Stop, 09/07/20 14:31:00 EST, Powder, [facility]/pharmacy #[id number], Partial fill upon patient request if the prescription is for a schedule II opioid drug., 0.5 mL Intramuscul... Start Date: 09/07/20 Status: Ordered tenofovir disoproxil fumarate 300 mg oral tablet 1 tablet, By Mouth, Daily, # 90 tablet, 1 Refills, Maintenance, 06/13/22 15:54:00 EDT, [facility] STORE 63491, 168.5, cm, 05/21/22 11:39:00 EDT, Height Start [...] Care Team Personnel Name: Trina Beaver Position: [facility] Onco RN Member Role: Primary Care Nurse Name: Ponce Andrew MD Position: [facility] Primary Care Physician Member Role: PCP Address: Address: [address] [place] [address] Adult & Pediatric Medicine [place], [place] [address] Name: Daniella Brand RN Position: [facility] RN Member Role: Primary Care Nurse Name: Kiersten Rodrigues RN Position: [facility] RN Member Role: Primary Care Nurse Name: Gloria Osorio RN Position: [facility] RN Supv Member Role: Primary Care Nurse Name: Shira Rosa RN Position: S RN Member Role: Primary Care Nurse Name: Soledad Mckee RN Position: [facility] RN Member Role: Primary Care Nurse Care Team Related Persons Name: CATRACHITO BORGES Address: home [place], [place] Name: COURTNEY BORGES Address: home [address], [place]
--- OUTSIDE RECORDS SUMMARY | 2024-08-12 13:40 | XMS_ITS | Continuity of Care Document ---
Author Organization [facility] Address [address] [place] [address]- Care Team Providers Care Parts Sales Associate Name Role Phone Jovita Jonas MD Primary Care Physician Encounter [facility] Date(s): 02/09/20 - 02/16/20 [facility] [address] [place] [address]- [facility] Encounter Diagnosis Pharyngitis(Discharge Diagnosis) - 02/09/20 Attending Physician: Jovita Jonas MD Allergies, Adverse [...] Heplisav-B #2 2Result Comment: [07/22/2018] [facility]#[id number] 3Result Comment: [08/21/2017] [facility] #[id number] 4Admin Note: afluria quadrivalent 5Admin Note: Afluria [...] Maintenance, 08/21/17 14:03:42, Route to Pharmacy Electronically, [id number], [facility]/pharmacy #[id number] Start Date: 08/21/17 Status: Ordered atenolol 25 mg oral tablet 25 mg, 1, tablet, By Mouth, Daily, # 90 tablet, Refills 3, Tot. Refills 3, Maintenance, 09/02/19 9:30:06 EST, Route to Pharmacy Electronically, [id number], [facility]/pharmacy #[id number], 168.5, cm, 09/02/19 8:56:00 EST, Height, 94.9, kg... Start Date: 09/02/19 Stop Date: 11/01/19 Status: Ordered atorvastatin 40 mg oral tablet 1 tablet = 40 mg, By Mouth, Daily, # 90 tablet, 3 Refills, Maintenance, 09/02/19 9:28:38 EST, Tablet, 168.5, cm, 09/02/19 8:56:00 EST, Height, 94.9, kg, 06/23/19 8:51:12 EDT, Dry Weight Start Date: 09/02/19 Status: Ordered Azithromycin 5 Day Dose Pack 250 mg oral tablet See Instructions, Take 2 tablets on day one. Take 1 tablet daily on Days 2-5., # 6 tablet, 0 Refills, Maintenance, 02/09/20 17:42:00 EDT, Tablet, [facility]/pharmacy #207, 168.5, cm, 09/02/19 11:13:00 EST,Height, 94.9, kg, 06/23/19 8:51:00 EDT, Dry Weight Start Date: 02/09/20 Status: Ordered Norvir 100 mg oral tablet 1 tablet = 100 mg, By Mouth, Daily, # 90 tablet, 3 Refills, Maintenance, 06/08/19 14:56:00 EDT Start Date: 06/08/19 Status: Ordered Paxil 20 mg oral tablet 20 mg, 1, tablet, By Mouth, Daily, # 30 tablet, Refills 5, Tot. Refills 5, Maintenance, 08/22/19 11:06:03 EST, Route to Pharmacy Electronically, [id number], [facility]/pharmacy #207 Start Date: 08/22/19 Stop Date: 02/18/20 Status: Ordered QUEtiapine 200 mg oral tablet 1, tablet, By Mouth, Daily, # 90 tablet, Refills 1, Tot. Refills 1, Maintenance, 12/26/19 15:16:00 EDT, Route to Pharmacy Electronically, [facility]/pharmacy #[id number], 168.5, cm, 09/02/19 11:13:00 EST, Height,94.9, [...] Refills, Maintenance, 09/12/19 8:29:00 EST, [facility], 168.5, cm, 09/02/19 11:13:00 EST, Height, 94.9, [...] Diagnosis Diagnosis Type Effective Dates Health Status [facility] Service Informant Pharyngitis Discharge Diagnosis 02/09/20 Social History Social History Type Response Smoking Status Current every day sm oker; Type: Cigarettes; Previous treatment: Nicotine replacement; Interested in cessation: Yes; Tobacco use times per day: 1ppd; Number of years: 40; Total pack years: 40; Started at age: 15; 1 entered on: 02/19/16 Sex 11 ppd
--- OUTSIDE RECORDS SUMMARY | 2024-08-12 13:40 | XMS_ITS | Continuity of Care Document ---
Author Organization [facility] Infectious Disease Address [address] [place] [address]- Care Team Providers Care Evening Or Night Nurse Supervisor Name Role Phone Ponce Andrew MD Primary Care Physician Encounter [facility] [place] Date(s[place] 10/07/22 - 11/06/22 [facility] Infectious Disease [address] [place] [id number] Allergies, Adverse Reactions, Alerts No Known Allergies Immunizations Given and Recorded Vaccine Date Status Refusal Reason SARS-CoV-2 (COVID-19) mRNA-1273 vaccine 08/02/21 R ecorded SARS-CoV-2 (COVID-19) mRNA-1273 vaccine 01/11/21 R ecorded SARS-CoV-2 (COVID-19) mRNA-1273 vaccine 12/14/20 R ecorded influenza virus vaccine, inactivated 07/31/21 Gilberto rded influenza virus vaccine, inactivated 07/11/20 Give n influenza virus vaccine, inactivated 08/04/19 Gilberot rded influenza virus vaccine, inactivated 1 07/22/18 [...] term) 03/10/01 Given 1Result Comment: [07/22/2018] [facility]#[id number] 2Result Comment: [08/21/2017] [facility] #[id number] 3Admin Note: afluria quadrivalent 4Admin Note: Afluria made by [employer] 5Result Comment: [facility]# [id number] 6Result Comment: Heplisav-B #2 7Admin Note: h1n1 8Admin Note: [employer] PAT[employer] MEETS [employer]ITER[employer] Medications abacavir 300 mg oral tablet 2 tablet, By Mouth, Daily, # 180 tablet, 0 Refills, Maintenance, 10/07/22 12:08:00 EST, [facility]/pharmacy #2071, 168.5, cm, 06/27/22 11:54:00 EDT, Height Start Date: 10/07/22 Stop Date: 11/06/22 Status: Ordered ADCARE ADCARE, See Instructions, # 1 each, Refills 0, Tot. Refills 0, Maintenance, ADCARE Evaluate and treat for outpatient, 11/09/19 10:02:00 EST, Compound Start Date: 11/09/19 Status: Ordered atazanavir 300 mg oral capsule 1 capsule, By Mouth, Daily, # 90 capsule, 0 Refills, Maintenance, 09/25/22 15:09:00 EST, [facility], 90, TAKE 1 CAPSULE BY MOUTH EVERY DAY, 168.5, cm, 06/27/22 11:54:00 EDT, Height Start Date: 09/25/22 Status: Ordered atenolol 25 mg oral tablet 1, tablet, By Mouth, Daily, # 90 tablet, Refills 1, Route to Pharmacy Electronically, [facility] 91150, 168.5, cm, 11/05/21 10:51:00 EST, Height Start Date: 05/08/22 Status: Ordered atorvastatin 40 mg oral tablet 1 tablet = 40 mg, By Mouth, Daily, # 90 tablet, 3 Refills, Maintenance, 03/07/22 11:06:00 EDT, Tablet, [facility]/pharmacy #[id number], 168.5, cm, 11/05/21 10:51:00 EST, Height Start Date: 03/07/22 Status: Ordered diclofenac sodium 75 mg oral delayed release tablet 1 tablet = 75 mg, By Mouth, 2 times a day, PRN rib pain, with food, # 30 tablet, 1 Refills, Maintenance, 10/04/21 12:43:00 EST, EC Tablet, [facility]/pharmacy #2071, Partial fill upon patient request if theprescription is for a schedule II opioid drug., 168... Start Date: 10/04/21 Stop Date: 10/04/22 Status: Ordered Paxil 20 mg oral tablet 20 mg, 1, tablet, By Mouth, Daily, for 90 days, # 90 tablet, Refills 3, Tot. Refills 3, Hard Stop 06/12/23 12:46:00 EDT, 06/17/22 12:46:00 EDT, Route to Pharmacy Electronically, [facility]/pharmacy #2071, 168.5, cm, 05/21/22 11:39:00 EDT, Height Start Date: 06/17/22 Stop Date: 06/12/23 Status: Ordered QUEtiapine 200 mg oral tablet 1, tablet, By Mouth, Daily, # 90 tablet, Refills 3, Route to Pharmacy Electronically, [facility], 168.5, cm, 10/02/21 10:33:00 EST, Height, 95.3, kg, 02/23/20 7:40:00 EDT, Dry Weight Start Date: 10/04/21 Status: Ordered ritonavir 100 mg oral tablet 1 tablet, By Mouth, Daily, # 90 tablet, 0 Refills, Maintenance, 09/25/22 15:09:00 EST, [facility], 168.5, cm, 06/27/22 11:54:00 EDT, Height Start [...] tablet, 1 Refills, Maintenance, 06/13/22 15:54:00 EDT, [facility] 25230, 168.5, cm, 05/21/22 11:39:00 EDT, Height Start [...] Andrew MD Position: [facility] Primary Care Physician Member Role: PCP Address: Address: [address] [place] [address] Adult & Pediatric Medicine [address] Name: Daniella Brand RN Position: [facility] RN Member Role: Primary Care Nurse Name: Kiersten Rodrigues RN Position: [facility] RN Member Role: Primary Care Nurse Name: Gloria Osorio RN Position: [facility] RN Supv Member Role: Primary Care Nurse Name: Shira Rosa RN Position: [facility] RN Member Role: Primary Care Nurse Name: Soledad Mckee RN Position: [facility] RN Member Role: Primary Care Nurse Care Team Related Persons Name: CATRACHITO BORGES Address: home [place], [place] Name: COURTNEY BORGES Address: home [address], [place]
--- OUTSIDE RECORDS SUMMARY | 2024-08-12 13:40 | XMS_ITS | Continuity of Care Document ---
Author Organization [facility] Infectious Disease Address [address] [place] [address]- Care Team Providers Care Flotation Tender Helper Name Role Phone Ponce Andrew MD Primary Care Physician [place] [facility] [place]18[place]22 - 08/17/22 [facility] Infectious Disease [address] [place], [place] [address] Allergies, Adverse Reactions, Alerts No Known [...] Given 1Result Comment: [07/22/2018] [facility]#[id number] 2Result Comment: [08/21/2017] [facility] #[id number] 3Admin Note: afluria quadrivalent 4Admin Note: Afluria made by [employer] 5Result Comment: [facility]# [id number] 6Result Comment: Heplisav-B #2 7Admin Note: h1n1 8Admin Note: [employer] PATIENT MEETS [employer]ITERIA Medications abacavir 300 mg oral tablet 2 tablet, By Mouth, Daily, # 180 tablet, 0 Refills, Maintenance, 06/30/22 8:33:00 EDT, [facility], 168.5, cm, 06/27/22 11:54:00 EDT, Height Start Date: 06/30/22 Stop Date: 07/30/22 Status: Ordered ADCARE ADCARE, See Instructions, # 1 each, Refills 0, Tot. Refills 0, Maintenance, ADCARE Evaluate and treat for outpatient, 11/09/19 10:02:00 EST, Compound Start Date: 11/09/19 Status: Ordered atazanavir 300 mg oral capsule 1 capsule, By Mouth, Daily, # 90 capsule, 0 Refills, Maintenance, 06/13/22 15:54:00 EDT, [facility], 90, TAKE 1 CAPSULE BY MOUTH EVERY DAY, 168.5, cm, 05/21/22 11:39:00 EDT, Height Start Date: 06/13/22 Status: Ordered atenolol 25 mg oral tablet 1, tablet, By Mouth, Daily, # 90 tablet, Refills 1, Route to Pharmacy Electronically, [facility] ST[facility] 34483, 168.5, cm, 11/05/21 10:51:00 EST, Height Start Date: 05/08/22 Status: Ordered atorvastatin 40 mg oral tablet 1 tablet = 40 mg, By Mouth, Daily, # 90 tablet, 3 Refills, Maintenance, 03/07/22 11:06:00 EDT, Tablet, [facility]/pharmacy #2071, 168.5, cm, 11/05/21 10:51:00 EST, Height Start Date: 03/07/22 Status: Ordered diclofenac sodium 75 mg oral delayed release tablet 1 tablet = 75 mg, By Mouth, 2 times a day, PRN rib pain, with food, # 30 tablet, 1 Refills, Maintenance, 10/04/21 12:43:00 EST, EC Tablet, [facility]/pharmacy #2071, Partial fill upon patient request if theprescription is for a schedule II opioid drug., 168... Start Date: 10/04/21 Stop Date: 10/04/22 Status: Ordered Paxil 20 mg oral tablet 20 mg, 1, tablet, By Mouth, Daily, for 90 days, # 90 tablet, Refills 3, Tot. Refills 3, Hard Stop 06/12/23 12:46:00 EDT, 06/17/22 12:46:00 EDT, Route to Pharmacy Electronically, [facility]/pharmacy #2071, 168.5, cm, 05/21/22 11:39:00 EDT, Height Start Date: 06/17/22 Stop Date: 06/12/23 Status: Ordered QUEtiapine 200 mg oral tablet 1, tablet, By Mouth, Daily, # 90 tablet, Refills 3, Route to Pharmacy Electronically, [facility], 168.5, cm, 10/02/21 10:33:00 EST, Height, 95.3, kg, 02/23/20 7:40:00 EDT, Dry Weight Start Date: 10/04/21 Status: Ordered ritonavir 100 mg oral tablet 1 tablet, By Mouth, Daily, # 90 tablet, 0 Refills, Maintenance, 06/13/22 15:54:00 EDT, [facility], 168.5, cm, 05/21/22 11:39:00 EDT, Height Start Date: 06/13/22 Status: Ordered Shingrix intramuscular injection = 0.5 mL, Intramuscular, Once, repeat dose in 2 to 6 months, # 2 each, 0 Refills, Soft Stop, 09/07/20 14:31:00 EST, Powder, [facility]/pharmacy #2071, Partial fill upon patient request if the prescription is for a schedule II opioid drug., 0.5 mL Intramuscul... Start Date: 09/07/20 Status: Ordered tenofovir disoproxil fumarate 300 mg oral tablet 1 tablet, By Mouth, Daily, # 90 tablet, 1 Refills, Maintenance, 06/13/22 15:54:00 EDT, [facility], 168.5, cm, 05/21/22 11:39:00 EDT, Height Start [...] Care Team Personnel Name: Trina Beaver Position: [facility] Onco RN Member Role: Primary Care Nurse Name: Ponce Andrew MD Position: [facility] Primary Care Physician Member Role: PCP Address: Address: [address] [place] [address] Adult & [place] [address] Name: Daniella Brand RN Position: [facility] RN Member Role: Primary Care Nurse Name: Kiersten Rodrigues RN Position: [facility] RN Member Role: Primary Care Nurse Name: Gloria Osorio RN Position: [facility] RN Supv Member Role: Primary Care Nurse Name: Shira Rosa RN Position: S RN Member Role: Primary Care Nurse Name: Soledad Mckee RN Position: [facility] RN Member Role: Primary Care Nurse Care Team Related Persons Name: CATRACHITO BORGES Address: home [place], [place] Name: COURTNEY BORGES Address: home [address], [place]
--- OUTSIDE RECORDS SUMMARY | 2024-08-12 13:40 | XMS_ITS | Continuity of Care Document ---
Author Organization [facility] Address [address] [place] [address]- Care Team Providers Care Management Liaison Name Role Phone Ponce Andrew MD Primary Care Physician [phone] Encounter [place] Date(s): 12/23/23 - 12/30/23 [facility] [address] [place], [place] [address] Encounter Diagnosis AIDS(Discharge Diagnosis) - 12/23/23 Cocaine dependence(Discharge Diagnosis) - 12/23/23 Depression(Discharge Diagnosis) - 12/23/23 Hypertension(Discharge Diagnosis) - 12/23/23 Attending Physician: Ponce Andrew MD Allergies, Adverse [...] term) 03/10/01 Given 1Result Comment: [07/22/2018] [facility]#[id number] 2Result Comment: [08/21/2017] [facility] #[id number] 3Admin Note: afluria quadrivalent 4Admin Note: Afluria made by [employer] 5Result Comment: [facility]# [id number] 6Result Comment: Heplisav-B #2 7Admin Note: h1n1 8Admin Note: [employer] PATIENT MEETS CRITERIA Medications abacavir 300 mg oral tablet 2 tablet, By Mouth, Daily, # 180 tablet, 1 Refills, Maintenance, 08/26/23 14:57:00 EST, [facility], 168.5, cm, 06/23/23 13:08:00 EDT, Height Start Date: 08/26/23 Stop Date: 02/22/24 Status: Ordered atazanavir 300 mg oral capsule 1 capsule, By Mouth, Daily, # 90 capsule, 1 Refills, Maintenance, 08/26/23 14:57:00 EST, [facility], 1 capsule By Mouth Daily,x90 days, 168.5, cm, 06/23/23 13:08:00 EDT, Height Start Date: 08/26/23 Stop Date: 02/22/24 Status: Ordered atenolol 25 mg oral tablet 1, tablet, By Mouth, Daily, # 90 tablet, Refills 3, Tot. Refills 3, 06/23/23 13:06:00 EDT, Route toPharmacy Electronically, [facility]/pharmacy #2070, 168.5, cm, 06/23/23 13:01:00 EDT, Height Start Date: 06/23/23 Status: Ordered atorvastatin 40 mg oral tablet 1 tablet, By Mouth, Daily, # 90 tablet, 3 Refills, Maintenance, 06/23/23 13:06:00 EDT, [facility]/pharmacy#2070, 168.5, cm, 06/23/23 13:01:00 EDT, Height Start Date: 06/23/23 Status: Ordered PARoxetine 20 mg oral tablet See Instructions, TAKE 1 TABLET BY MOUTH EVERY DAY, # 90 tablet, Refills 3, Maintenance, 06/23/23 13:06:00 EDT, Instructions Replace Required Details, Route to Pharmacy Electronically, [facility] STORE 72496, 168.5, cm, 06/23/23 13:01:00 EDT, Height Start Date: 06/23/23 Status: Ordered QUEtiapine 200 mg oral tablet 1, tablet, By Mouth, Daily, # 90 tablet, Refills 3, Tot. Refills 3, 06/23/23 13:07:00 EDT, Route toPharmacy Electronically, [facility]/pharmacy #[id number], 168.5, cm, 06/23/23 13:01:00 EDT, Height Start Date: 06/23/23 Status: Ordered ritonavir 100 mg oral tablet 1 tablet, By Mouth, Daily, # 90 tablet, 1 Refills, Maintenance, 08/26/23 14:57:00 EST, [facility]/pharmacy#2070, 168.5, cm, 06/23/23 13:08:00 EDT, Height Start Date: 08/26/23 Stop Date: 02/22/24 Status: Ordered tenofovir disoproxil fumarate 300 mg oral tablet 1 tablet, By Mouth, Daily, # 90 tablet, 1 Refills, Maintenance, 08/26/23 14:57:00 EST, [facility]/pharmacy#2071, 168.5, cm, 06/23/23 13:08:00 EDT, Height Start [...] Status Clinical Service Informant AIDS Discharge Diagnosis 12/23/23 Cocaine dependence Discharge Diagnosis 12/23/23 Depression Discharge Diagnosis 12/23/23 Hypertension Discharge Diagnosis 12/23/23 Vital Signs Most recent to oldest [Reference Range]: 1 2 3 Height 168.5 cm (12/23/23 1:13 PM) 168.5 cm (12/23/23 1:07 PM) 168.5 cm (12/23/23 1:06 PM) Weight 95.5 kg (12/23/23 1:06 PM) Oxygen Saturation [94-100 %] 95 % (12/23/23 1:06 PM) Pulse Rate [55-90 bpm] 65 bpm (12/23/23 1:06 PM) Body Mass Index [18.5-24.99 kg/m2] 33.64 kg/m2 *>HHI* (12/23/23 1:06 PM) Blood Pressure [90-138/55-84 mm Hg] 122/70mm Hg (12/23/23 1:13 PM) 136/85mm Hg (12/23/23 1:07 PM) 159/90mm Hg *H* (12/23/23 1:06 PM) Mode of Delivery (Oxygen) Room air (12/23/23 1:06 PM) Blood pressure sites Arm, left (12/23/23 1:13 PM) Arm, left (12/23/23 1:07 PM) Arm, left (12/23/23 1:06 PM) Dry Weight 95.5 kg (12/23/23 1:06 PM) Weight Obtained Via Standing scale (12/23/23 1:06 PM) Dry Weight Obtained Via Standing scale (12/23/23 1:06 PM) Social History Social History Type Response Smoking Status Current every day sneha phipps; Type: Cigarettes; Previous treatment: Nicotine replacement; Interested in cessation: Yes; Tobacco use times per day: 1ppd; Number of years: 40; Total pack years: 40; Started at age: 15; 1 entered on: 02/19/16 Sex 11 ppd Patient Care team information Care Team Personnel Name: Trina Beaver Position: [facility] Onco RN Member Role: Primary Care Nurse Name: Ponce Andrew MD Position: [facility] Physician - Primary Care Member Role: PCP Address: Address: [address] [place] [address] Adult & Pediatric Medicine [place], [place] [address] Name: Daniella Brand RN Position: [facility] AMB Nurse Member Role: Primary Care Nurse Name: Kiersten Rodrigues RN Position: [facility] Nurse Member Role: Primary Care Nurse Name: Shira Rosa RN Position: [facility] GONSALO RN W/OE and Tasks Member Role: Primary Care Nurse Name: Soledad Mckee RN Position: [facility] RN Member Role: Primary Care Nurse Care Team Related Persons Name: HILARYGONSALOKOFFICATRACHITO Address: [place] [address] Name: COURTNEY BORGES Address: home [address] [place] [id number]
--- OUTSIDE RECORDS SUMMARY | 2024-08-12 13:41 | XMS_ITS | Continuity of Care Document ---
Author Organization [facility] Infectious Disease Address [address] [place] [address]- Care Team Providers Care Workers Compensation Legal Secretary Name Role Phone Ponce Andrew MD Primary Care Physician Encounter [facility] Date(s): 03/10/24 - 04/09/24 [facility] Infectious Disease [address] [place] [id number] Attending Physician: Admtr, Arielle Admitting Physician: [...] (old term) 03/10/01 Given 1Result Comment: [07/22/2018] [facility]#[id number] 2Result Comment: [08/21/2017] [facility] #[id number] 3Admin Note: afluria quadrivalent 4Admin Note: Afluria made by [employer] 5Result Comment: [facility]# [id number] 6Result Comment: Heplisav-B #2 7Admin Note: h1n1 8Admin Note: [employer] PATIENT MEETS CRITERIA Medications abacavir 300 mg oral tablet 2 tablet, By Mouth, Daily, # 180 tablet, 1 Refills, Maintenance, 02/08/24 14:51:00 EDT, [facility], 168.5, cm, 12/23/23 13:13:00 EDT, Height, 95.5, kg, 12/23/23 13:06:00 EDT, Dry Weight Start Date: 02/08/24 Status: Ordered atazanavir 300 mg oral capsule 1 capsule, By Mouth, Daily, # 90 capsule, 1 Refills, Maintenance, 03/29/24 15:32:00 EDT, [facility], 90, TAKE 1 CAPSULE BY MOUTH EVERY DAY, 168.5, cm, 03/10/24 8:13:00 EDT, Height, 95.5, kg, 12/23/23 13:06:00 EDT, Dry Weight Start Date: 03/29/24 Status: Ordered atenolol 25 mg oral tablet 1, tablet, By Mouth, Daily, # 90 tablet, Refills 3, Tot. Refills 3, 06/23/23 13:06:00 EDT, Route toPharmacy Electronically, [facility]/pharmacy #2071, 168.5, cm, 06/23/23 13:01:00 EDT, Height Start Date: 06/23/23 Status: Ordered atorvastatin 40 mg oral tablet 1 tablet, By Mouth, Daily, # 90 tablet, 3 Refills, Maintenance, 06/23/23 13:06:00 EDT, [facility]/pharmacy#2071, 168.5, cm, 06/23/23 13:01:00 EDT, Height Start Date: 06/23/23 Status: Ordered PARoxetine 20 mg oral tablet See Instructions, TAKE 1 TABLET BY MOUTH EVERY DAY, # 90 tablet, Refills 3, Maintenance, 06/23/23 13:06:00 EDT, Instructions Replace Required Details, Route to Pharmacy Electronically, [facility], 168.5, cm, 06/23/23 13:01:00 EDT, Height Start Date: 06/23/23 Status: Ordered QUEtiapine 200 mg oral tablet 1, tablet, By Mouth, Daily, # 90 tablet, Refills 3, Tot. Refills 3, 06/23/23 13:07:00 EDT, Route toPharmacy Electronically, [facility]/pharmacy #2071, 168.5, cm, 06/23/23 13:01:00 EDT, Height Start Date: 06/23/23 Status: Ordered ritonavir 100 mg oral tablet 1 tablet, By Mouth, Daily, # 90 tablet, 0 Refills, Maintenance, 02/29/24 10:46:00 EDT, [facility], 168.5, cm, 12/23/23 13:13:00 EDT, Height, 95.5, kg, 12/23/23 13:06:00 EDT, Dry Weight Start Date: 02/29/24 Status: Ordered tenofovir disoproxil fumarate 300 mg oral tablet 1 tablet, By Mouth, Daily, # 90 tablet, 1 Refills, Maintenance, 02/08/24 14:51:00 EDT, [facility], 168.5, cm, 12/23/23 13:13:00 EDT, Height, 95.5, [...] Andrew MD Position: [facility] Physician - Primary Care Member Role: PCP Address: Address: [address] [place] [address] Adult & Pediatric Medicine [place], [place] [address] Name: Daniella Brand RN Position: [facility] AMB Nurse Member Role: Primary Care Nurse Name: Kiersten Rodrigues RN Position: [facility] AMB Nurse Member Role: Primary Care Nurse Name: Shira Rosa RN Position: [facility] ED RN W/OE and Tasks Member Role: Primary Care Nurse Name: Soledad Mckee RN Position: [facility] SN RN Member Role: Primary Care Nurse Care Team Related Persons Name: CATRACHITO BORGES Address: [place] [address] Name: COURTNEY BORGES Address: home [address] [place] [address]
--- OUTSIDE RECORDS SUMMARY | 2024-08-12 13:41 | XMS_ITS | Continuity of Care Document ---
Author Organization [facility] Infectious Disease Address [address] [place] [address]- Care Team Providers Care Emergency Response Officer Name Role Phone Ponce Andrew MD Primary Care Physician [facility]counter [facility] Date(s): 03/12/23 - 04/11/23 [facility] [address] [place] [id number] Attending Physician: Admtr, Arielle Admitting Physician: Admtr, [...] term) 03/10/01 Given 1Result Comment: [07/22/2018] [facility]#[id number] 2Result Comment: [08/21/2017] [facility] #[id number] 3Admin Note: afluria quadrivalent 4Admin Note: Afluria made by [employer] 5Result Comment: [facility]# [id number] 6Result Comment: Heplisav-B #2 7Admin Note: h1n1 8Admin Note: [employer] PATIENT MEETS CRITERIA Medications abacavir 300 mg oral tablet 2 tablet, By Mouth, Daily, # 180 tablet, 0 Refills, Maintenance, 11/12/22 13:43:00 EST, [facility]/pharmacy #[id number], 168.5, cm, 11/11/22 10:31:00 EST, Height Start Date: 11/12/22 Stop Date: 02/10/23 Status: Ordered ADCARE ADCARE, See Instructions, # 1 each, Refills 0, Tot. Refills 0, Maintenance, ADCARE Evaluate and treat for outpatient, 11/09/19 10:02:00 EST, Compound Start Date: 11/09/19 Status: Ordered atazanavir 300 mg oral capsule 1 capsule, By Mouth, Daily, # 90 capsule, 0 Refills, Maintenance, 02/11/23 18:29:00 EDT, [facility]/pharmacy #2070, 1 capsule By Mouth Daily,x90 days, 168.5, cm, 11/11/22 10:31:00 EST, Height Start Date: 02/11/23 Stop Date: 05/12/23 Status: Ordered atenolol 25 mg oral tablet 1, tablet, By Mouth, Daily, # 90 tablet, Refills 1, Tot. Refills 1, 01/06/23 10:19:00 EDT, Route toPharmacy Electronically, [facility]/pharmacy #[id number], 168.5, cm, 11/11/22 10:31:00 EST, Height Start Date: 01/06/23 Status: Ordered atorvastatin 40 mg oral tablet 1 tablet, By Mouth, Daily, # 90 tablet, 1 Refills, Maintenance, 03/27/23 11:03:00 EDT, [facility] STORE 17530, 168.5, cm, 03/12/23 8:41:00 EDT, Height Start Date: 03/27/23 Status: Ordered diclofenac sodium 75 mg oral delayed release tablet 1 tablet = 75 mg, By Mouth, 2 times a day, PRN rib pain, with food, # 30 tablet, 1 Refills, Maintenance, 10/04/21 12:43:00 EST, EC Tablet, [facility]/pharmacy #[id number], Partial fill upon patient request if theprescription is for a schedule II opioid drug., 168... Start Date: 10/04/21 Stop Date: 10/04/22 Status: Ordered Paxil 20 mg oral tablet 20 mg, 1, tablet, By Mouth, Daily, for 90 days, # 90 tablet, Refills 3, Tot. Refills 3, Hard Stop 06/12/23 12:46:00 EDT, 06/17/22 12:46:00 EDT, Route to Pharmacy Electronically, [facility]/pharmacy #[id number], 168.5, cm, 05/21/22 11:39:00 EDT, Height Start Date: 06/17/22 Stop Date: 06/12/23 Status: Ordered QUEtiapine 200 mg oral tablet 1, tablet, By Mouth, Daily, # 90 tablet, Refills 3, Tot. Refills 3, 12/30/22 7:46:00 EDT, Route to Pharmacy Electronically, [facility]/pharmacy #[id number], 168.5, cm, 11/11/22 10:31:00 EST, Height Start Date: 12/30/22 Status: Ordered ritonavir 100 mg oral tablet 1 tablet, By Mouth, Daily, # 90 tablet, 0 Refills, Maintenance, 01/06/23 11:49:00 EDT, [facility]/pharmacy#207, 168.5, cm, 11/11/22 10:31:00 EST, Height Start Date: 01/06/23 Stop Date: 04/06/23 Status: Ordered Shingrix intramuscular injection = 0.5 mL, Intramuscular, Once, repeat dose in 2 to 6 months, # 2 each, 0 Refills, Soft Stop, 09/07/20 14:31:00 EST, Powder, [facility]/pharmacy #207, Partial fill upon patient request if the prescription is for a schedule II opioid drug., 0.5 mL Intramuscul... Start Date: 09/07/20 Status: Ordered tenofovir disoproxil fumarate 300 mg oral tablet 1 tablet, By Mouth, Daily, # 90 tablet, 0 Refills, Maintenance, 01/06/23 11:49:00 EDT, [facility]/pharmacy#2070, 168.5, cm, 11/11/22 10:31:00 EST, [...] Care Team Personnel Name: Trina Beaver Position: [facility] Onco RN Member Role: Primary Care Nurse Name: Ponce Andrew MD Position: [facility] Physician - Primary Care Member Role: PCP Address: Address: [address] [place] [address] Adult & Pediatric Medicine [address] Name: Daniella Brand RN Position: [facility] AMB Nurse Member Role: Primary Care Nurse Name: Kiersten Rodrigues RN Position: [facility] AMB Nurse Member Role: Primary Care Nurse Name: Gloria Osorio RN Position: [facility] RN Supv Member Role: Primary Care Nurse Name: Shira Rosa RN Position: [facility] ED RN W/OE and Tasks Member Role: Primary Care Nurse Name: Soledad Mckee RN Position: [facility] RN Member Role: Primary Care Nurse Care Team Related Persons Name: CATRACHITO BORGES Address: [place] [address] Name: COURTNEY BORGES Address: home [address] [place] [address]
--- OUTSIDE RECORDS SUMMARY | 2024-08-12 13:41 | XMS_ITS | Continuity of Care Document ---
Author Organization [facility] Address [address] [place] [address]- Care Team Providers Care Dental Chairside Assistant Name Role Phone Kamran JENKINS, Ponce Alfonso Primary Care Physician [phone] [facility]counter [facility] Date(s): 06/17/22 - 07/17/22 [facility] [address] [place], [place] [address] Allergies, Adverse Reactions, Alerts No Known [...] (old term) 03/10/01 Given 1Result Comment: [07/22/2018] [facility]#[id number] 2Result Comment: [08/21/2017] [facility] #[id number] 3Admin Note: afluria quadrivalent 4Admin Note: Afluria made by [employer] 5Result Comment: [facility]# [id number] 6Result Comment: Heplisav-B #2 7Admin Note: h1n1 8Admin Note: [employer] PATIENT MEETS CRITERIA Medications abacavir 300 mg oral tablet 2 tablet, By Mouth, Daily, # 180 tablet, 0 Refills, Maintenance, 06/30/22 8:33:00 EDT, [facility], 168.5, cm, 06/27/22 11:54:00 EDT, Height Start Date: 06/30/22 Stop Date: 07/30/22 Status: Ordered ADCARE ADCARE, See Instructions, # 1 each, Refills 0, Tot. Refills 0, Maintenance, ADCARE Evaluate and treat for outpatient, 11/09/19 10:02:00 EST, Compound Start Date: 11/09/19 Status: Ordered atazanavir 300 mg oral capsule 1 capsule, By Mouth, Daily, # 90 capsule, 0 Refills, Maintenance, 06/13/22 15:54:00 EDT, [facility], 90, TAKE 1 CAPSULE BY MOUTH EVERY DAY, 168.5, cm, 05/21/22 11:39:00 EDT, Height Start Date: 06/13/22 Status: Ordered atenolol 25 mg oral tablet 1, tablet, By Mouth, Daily, # 90 tablet, Refills 1, Route to Pharmacy Electronically, [facility] STORE 87846, 168.5, cm, 11/05/21 10:51:00 EST, Height Start Date: 05/08/22 Status: Ordered atorvastatin 40 mg oral tablet 1 tablet = 40 mg, By Mouth, Daily, # 90 tablet, 3 Refills, Maintenance, 03/07/22 11:06:00 EDT, Tablet, [facility]/pharmacy #2071, 168.5, cm, 11/05/21 10:51:00 EST, Height Start Date: 03/07/22 Status: Ordered diclofenac sodium 75 mg oral delayed release tablet 1 tablet = 75 mg, By Mouth, 2 times a day, PRN rib pain, with food, # 30 tablet, 1 Refills, Maintenance, 10/04/21 12:43:00 EST, EC Tablet, [facility]/pharmacy #2071, Partial fill upon patient request if theprescription is for a schedule II opioid drug., 168... Start Date: 10/04/21 Stop Date: 10/04/22 Status: Ordered Paxil 20 mg oral tablet 20 mg, 1, tablet, By Mouth, Daily, for 90 days, # 90 tablet, Refills 3, Tot. Refills 3, Hard Stop 06/12/23 12:46:00 EDT, 06/17/22 12:46:00 EDT, Route to Pharmacy Electronically, [facility]/pharmacy #[id number], 168.5, cm, 05/21/22 11:39:00 EDT, Height Start Date: 06/17/22 Stop Date: 06/12/23 Status: Ordered QUEtiapine 200 mg oral tablet 1, tablet, By Mouth, Daily, # 90 tablet, Refills 3, Route to Pharmacy Electronically, [facility] STORE 65657, 168.5, cm, 10/02/21 10:33:00 EST, Height, 95.3, kg, 02/23/20 7:40:00 EDT, Dry Weight Start Date: 10/04/21 Status: Ordered ritonavir 100 mg oral tablet 1 tablet, By Mouth, Daily, # 90 tablet, 0 Refills, Maintenance, 06/13/22 15:54:00 EDT, [facility] 64918, 168.5, cm, 05/21/22 11:39:00 EDT, Height Start Date: 06/13/22 Status: Ordered Shingrix intramuscular injection = 0.5 mL, Intramuscular, Once, repeat dose in 2 to 6 months, # 2 each, 0 Refills, Soft Stop, 09/07/20 14:31:00 EST, Powder, [facility]/pharmacy #2071, Partial fill upon patient request if the prescription is for a schedule II opioid drug., 0.5 mL Intramuscul... Start Date: 09/07/20 Status: Ordered tenofovir disoproxil fumarate 300 mg oral tablet 1 tablet, By Mouth, Daily, # 90 tablet, 1 Refills, Maintenance, 06/13/22 15:54:00 EDT, [facility] STORE 20904, 168.5, cm, 05/21/22 11:39:00 EDT, Height Start [...] Personnel Name: Ponce Andrew MD Address: Address: [address] [place] [address] Adult & Pediatric [place], [place] [address]
--- OUTSIDE RECORDS SUMMARY | 2024-08-12 13:41 | XMS_ITS | Continuity of Care Document ---
Author Organization [facility] Address [address] [place] [address]- Care Team Providers Care Child Care Director Name Role Phone Ponce Andrew MD Primary Care Physician Encounter [facility] [id number] Date(s): 10/02/21 - 10/09/21 [facility] [address] [place] [address]- Attending Physician: Not on Staff, Attending MD Referring Physician: Ponce Andrew MD Allergies, [...] Vaccine (old term) 03/10/01 Given 1Result Comment: [facility]# [id number] 2Result Comment: [07/22/2018] [facility]#[id number] 3Result Comment: [08/21/2017] [facility] #[id number] 4Admin Note: afluria quadrivalent 5Admin Note: Afluria [...] Mouth, Daily, # 90 capsule, 1 Refills, [facility] STORE 17484, 90, TAKE 1 CAPSULE BY MOUTH EVERY DAY, 168.5, cm, 05/08/21 13:57:00 EDT, Height, 95.3, kg, 02/23/20 7:40:00 EDT, Dry Weight Start Date: 08/05/21 Status: Ordered atenolol 25 mg oral tablet 25 mg, 1, tablet, By Mouth, Daily, # 90 tablet, Refills 3, Tot. Refills 3, Maintenance, 09/17/20 10:02:00 EST, Route to Pharmacy Electronically, [facility]/pharmacy #2521, 168.5, cm, 07/11/20 10:23:00 EDT, Height, 95.3, kg, 02/23/20 7:40:00 EDT, Dry Weight Start Date: 09/17/20 Status: Ordered atorvastatin 40 mg oral tablet 1 tablet = 40 mg, By Mouth, Daily, # 90 tablet, 3 Refills, Maintenance, 09/17/20 10:02:00 EST, Tablet, [facility]/pharmacy #2071, 168.5, cm, 07/11/20 10:23:00 EDT, Height, 95.3, kg, 02/23/20 7:40:00 EDT, Dry Weight Start Date: 09/17/20 Status: Ordered diclofenac sodium 75 mg oral delayed release tablet 1 tablet = 75 mg, By Mouth, 2 times a day, PRN rib pain, with food, # 30 tablet, 1 Refills, Maintenance, 10/04/21 12:43:00 EST, EC Tablet, [facility]/pharmacy #2071, Partial fill upon patient request if theprescription is for a schedule II opioid drug., 168... Start Date: 10/04/21 Stop Date: 10/04/22 Status: Ordered Norvir 100 mg oral tablet 1 tablet = 100 mg, By Mouth, Daily, # 30 tablet, 5 Refills, Maintenance, 04/08/21 10:08:00 EDT, [facility]/pharmacy #2071, 168.5, cm, 02/06/21 10:35:00 EDT, Height, 95.3, kg, 02/23/20 7:40:00 EDT, Dry Weight Start Date: 04/08/21 Stop Date: 10/05/21 Status: Ordered Norvir 100 mg oral tablet 1 tablet = 100 mg, By Mouth, Daily, # 30 tablet, 2 Refills, Maintenance, 09/09/21 16:24:00 EST, [facility]/pharmacy #2071, 168.5, cm, 05/08/21 13:57:00 EDT, Height, 95.3, kg, 02/23/20 7:40:00 EDT, Dry Weight Start Date: 09/09/21 Stop Date: 12/08/21 Status: Ordered Paxil 20 mg oral tablet 20 mg, 1, tablet, By Mouth, Daily, for 30 days, # 30 tablet, Refills 5, Tot. Refills 5, Hard Stop 03/08/22 15:12:00 EDT, 09/09/21 15:12:00 EST, Route to Pharmacy Electronically, [facility]/pharmacy #2070, 168.5, cm, 05/08/21 13:57:00 EDT, Height, 95.3, kg, 0... Start Date: 09/09/21 Stop Date: 03/08/22 Status: Ordered QUEtiapine 200 mg oral tablet 1, tablet, By Mouth, Daily, # 90 tablet, Refills 3, Route to Pharmacy Electronically, [facility] STORE 32556, 168.5, cm, 10/02/21 10:33:00 EST, Height, 95.3, kg, 02/23/20 7:40:00 EDT, Dry Weight Start Date: 10/04/21 Status: Ordered Shingrix intramuscular injection = 0.5 mL, Intramuscular, Once, repeat dose in 2 to 6 months, # 2 each, 0 Refills, Soft Stop, 09/07/20 14:31:00 EST, Powder, [facility]/pharmacy #207, Partial fill upon patient request if the prescription is for a schedule II opioid drug., 0.5 mL Intramuscul... Start Date: 09/07/20 Status: Ordered tenofovir disoproxil fumarate 300 mg oral tablet 1 tablet, By Mouth, Daily, # 30 tablet, 5 Refills, Maintenance, 04/08/21 10:08:00 EDT, [facility]/pharmacy#207, 168.5, cm, 02/06/21 10:35:00 EDT, Height, 95.3, kg, 02/23/20 7:40:00 EDT, Dry Weight Start Date: 04/08/21 Stop Date: 10/05/21 Status: Ordered tenofovir disoproxil fumarate 300 mg oral tablet 1 tablet, By Mouth, Daily, # 30 tablet, 2 Refills, Maintenance, 09/09/21 16:24:00 EST, [facility]/pharmacy#207, 168.5, cm, 05/08/21 13:57:00 EDT, Height, 95.3, [...] oldest [Reference Range]: 1 Height 168.5 cm (10/02/21 10:33 AM) Oxygen Saturation [94-100 %] 95 % (10/02/21 10:33 AM) Pulse Rate [55-90 bpm] 75 bpm (10/02/21 10:33 AM) Blood Pressure [90-138/55-84 mm Hg] 175/ 100mm Hg *H* (10/02/21 10:33 AM) Respiratory Rate [16-30 br/min] 20 br/mi n (10/02/21 10:33 AM) Temperature [96.8-100.4 DegF] 97.5 DegF (10/02/21 10:33 AM) Mode of Delivery (Oxygen) Room air (10/02/21 10:33 AM) Blood pressure sites Arm, right (10/02/21 10:33 AM) Temperature Route Temporal (10/02/21 10:33 AM) Social History Social History Type Response Smoking Status Current every day sneha phipps; Type: Cigarettes; Previous treatment: Nicotine replacement; Interested in cessation: Yes; Tobacco use times per day: 1ppd; Number of years: 40; Total pack years: 40; Started at age: 15; 1 entered on: 02/19/16 Sex 13 ppd
--- OUTSIDE RECORDS SUMMARY | 2024-08-12 13:41 | XMS_ITS | Continuity of Care Document ---
Author Organization [facility] Infectious Disease Address [address] [place] [address]- Care Team Providers Care Printed Circuit Designer Name Role Phone Jovita Jonas MD Primary Care Physician [phone] Encounter [facility] Date(s): 06/18/20 - 07/18/20 [facility] Infect[facility] Disease [address] [place] [address] [facility] Allergies, Adverse Reactions, Alerts Substance Reaction Severity [...] term) 03/10/01 Given 1Result Comment: [07/22/2018] [facility]#[id number] 2Result Comment: [08/21/2017] [facility] #[id number] 3Admin Note: afluria quadrivalent 4Admin Note: Afluria [...] Maintenance, 08/21/17 14:03:42, Route to Pharmacy Electronically, [id number], [facility]/pharmacy #207 Start Date: 08/21/17 Status: Ordered atenolol 25 mg oral tablet 25 mg, 1, tablet, By Mouth, Daily, # 90 tablet, Refills 3, Tot. Refills 3, Maintenance, 09/02/19 9:30:06 EST, Route to Pharmacy Electronically, [id number], [facility]/pharmacy #207, 168.5, cm, 09/02/19 8:56:00 EST, [...] tablet, 5 Refills, Maintenance, 06/18/20 10:40:00 EDT, [facility]/pharmacy #[id number], 168.5, cm, 03/14/20 9:16:00 EDT, Height, 95.3, kg, 02/23/20 7:40:00 EDT, Dry Weight Start Date: 06/18/20 Stop Date: 12/15/20 Status: Ordered Paxil 20 mg oral tablet 20 mg, 1, tablet, By Mouth, Daily, # 30 tablet, Refills 5, Tot. Refills 5, Maintenance, 03/12/20 9:24:00 EDT, Route to Pharmacy Electronically, [facility]/pharmacy #[id number], 168.5, cm, 03/06/20 9:48:00 EDT, Height, 95.3, kg, 02/23/20 7:40:00 EDT, Dry Weight Start Date: 03/12/20 Stop Date: 09/08/20 Status: Ordered QUEtiapine 200 mg oral tablet 1, tablet, By Mouth, Daily, # 90 tablet, Refills 1, Tot. Refills 1, Maintenance, 06/14/20 11:42:00 EDT, Route to Pharmacy Electronically, [facility]/pharmacy #[id number], 168.5, cm, 03/14/20 9:16:00 EDT, Height, 95.3, kg, 02/23/20 7:40:00 EDT, Dry Weight Start Date: 06/14/20 Status: Ordered Reyataz 300 mg oral capsule 1 capsule = 300 mg, By Mouth, Daily, # 30 capsule, 5 Refills, Maintenance, 06/18/20 10:40:00 EDT, [id number], 1 capsule By Mouth Daily,x30 days, [...]
--- OUTSIDE RECORDS SUMMARY | 2024-08-12 13:41 | XMS_ITS | Continuity of Care Document ---
Author Organization [facility] Address [address] [place] [address]- Care Team Providers Care Travel Accommodations Rater Name Role Phone Jovita Jonas MD Primary Care Physician [place] [facility] Date[place] 12/28/19 - 01/07/20 [facility] [address] [place] [address] Attending Physician: Arielle Ortiz Admitting Physician: AdmtrArielle Referring Physician: Admtr, Arielle Allergies, Adverse Reactions, Alerts Substance Reaction Severity [...] 1Result Comment: Heplisav-B #2 2Result Comment: [07/22/2018] [facility]#[id number] 3Result Comment: [08/21/2017] [facility] #[id number] 4Admin Note: afluria quadrivalent 5Admin Note: Afluria [...] Maintenance, 08/21/17 14:03:42, Route to Pharmacy Electronically, [id number], [facility]/pharmacy #[id number] Start Date: 08/21/17 Status: Ordered atenolol 25 mg oral tablet 25 mg, 1, tablet, By Mouth, Daily, # 90 tablet, Refills 3, Tot. Refills 3, Maintenance, 09/02/19 9:30:06 EST, Route to Pharmacy Electronically, [id number], [facility]/pharmacy #[id number], 168.5, cm, 09/02/19 8:56:00 EST, [...] 08/22/19 11:06:03 EST, Route to Pharmacy Electronically, [id number], [facility]/pharmacy #[id number] Start Date: 08/22/19 Stop Date: 02/18/20 Status: Ordered QUEtiapine 200 mg oral tablet 1, tablet, By Mouth, Daily, # 90 tablet, Refills 1, Tot. Refills 1, Maintenance, 12/26/19 15:16:00 EDT, Route to Pharmacy Electronically, [facility]/pharmacy #207, 168.5, cm, 09/02/19 11:13:00 EST, Height,94.9, kg, [...] Refills, Maintenance, 09/12/19 8:29:00 EST, [facility], 168.5, cm, 09/02/19 11:13:00 EST, Height, 94.9, [...]
--- OUTSIDE RECORDS SUMMARY | 2024-08-12 13:41 | XMS_ITS | Continuity of Care Document ---
Author Organization [facility] Address [address] [place] [address]- Care Team Providers Care Steno Typist Name Role Phone Ponce Andrew MD Primary Care Physician [phone] [facility] [facility] Date(s): 08/20/22 - 12/18/22 [facility] [address] [place], [place] [address] Attending Physician: Ponce Andrew MD Allergies, Adverse [...] (old term) 03/10/01 Given 1Result Comment: [07/22/2018] [facility]#[id number] 2Result Comment: [08/21/2017] [facility] #[id number] 3Admin Note: afluria quadrivalent 4Admin Note: Afluria made by [employer] 5Result Comment: [facility]# [id number] 6Result Comment: Heplisav-B #2 7Admin Note: h1n1 8Admin Note: [employer] PATIENT MEETS CRITERIA Medications abacavir 300 mg oral tablet 2 tablet, By Mouth, Daily, # 180 tablet, 0 Refills, Maintenance, 11/12/22 13:43:00 EST, [facility]/pharmacy #[id number], 168.5, cm, 11/11/22 10:31:00 EST, Height [...] Refills, Maintenance, 09/25/22 15:09:00 EST, [facility], 90, TAKE 1 CAPSULE BY MOUTH EVERY DAY, 168.5, cm, 06/27/22 11:54:00 EDT, Height Start Date: 09/25/22 Status: Ordered atenolol 25 mg oral tablet 1, tablet, By Mouth, Daily, # 90 tablet, Refills 1, Route to Pharmacy Electronically, [facility] STORE 07634, 168.5, cm, 11/05/21 10:51:00 EST, Height Start Date: 05/08/22 Status: Ordered atorvastatin 40 mg oral tablet 1 tablet = 40 mg, By Mouth, Daily, # 90 tablet, 3 Refills, Maintenance, 03/07/22 11:06:00 EDT, Tablet, [facility]/pharmacy #207, 168.5, cm, 11/05/21 10:51:00 EST, Height Start Date: 03/07/22 Status: Ordered diclofenac sodium 75 mg oral delayed release tablet 1 tablet = 75 mg, By Mouth, 2 times a day, PRN rib pain, with food, # 30 tablet, 1 Refills, Maintenance, 10/04/21 12:43:00 EST, EC Tablet, [facility]/pharmacy #[id number], Partial fill upon patient request if theprescription is for a schedule II opioid drug., 168... Start Date: 10/04/21 Stop Date: 10/04/22 Status: Ordered Paxil 20 mg oral tablet 20 mg, 1, tablet, By Mouth, Daily, for 90 days, # 90 tablet, Refills 3, Tot. Refills 3, Hard Stop 06/12/23 12:46:00 EDT, 06/17/22 12:46:00 EDT, Route to Pharmacy Electronically, [facility]/pharmacy #[id number], 168.5, cm, 05/21/22 11:39:00 EDT, Height Start Date: 06/17/22 Stop Date: 06/12/23 Status: Ordered QUEtiapine 200 mg oral tablet 1, tablet, By Mouth, Daily, # 90 tablet, Refills 3, Route to Pharmacy Electronically, [facility] STORE 56930, 168.5, cm, 10/02/21 10:33:00 EST, Height, 95.3, kg, 02/23/20 7:40:00 EDT, Dry Weight Start Date: 10/04/21 Status: Ordered ritonavir 100 mg oral tablet 1 tablet, By Mouth, Daily, # 90 tablet, 0 Refills, Maintenance, 09/25/22 15:09:00 EST, [facility] ST[facility] 92652, 168.5, cm, 06/27/22 11:54:00 EDT, Height Start Date: 09/25/22 Status: Ordered Shingrix intramuscular injection = 0.5 mL, Intramuscular, Once, repeat dose in 2 to 6 months, # 2 each, 0 Refills, Soft Stop, 09/07/20 14:31:00 EST, Powder, [facility]/pharmacy #[id number], Partial fill upon patient request if the prescription is for a schedule II opioid drug., 0.5 mL Intramuscul... Start Date: 09/07/20 Status: Ordered tenofovir disoproxil fumarate 300 mg oral tablet 1 tablet, By Mouth, Daily, # 90 tablet, 1 Refills, Maintenance, 06/13/22 15:54:00 EDT, [facility], 168.5, cm, 05/21/22 11:39:00 EDT, Height Start [...] Care team information Care Team Personnel Name: Sd Trina Position: [facility] Onco RN Member Role: Primary Care Nurse Name: Ponce Andrew MD Position: [facility] Primary Care Physician Member Role: PCP Address: Address: [address] [place] [address] Adult & Pediatric Medicine [address] Name: Daniella Brand RN Position: S RN Member Role: Primary Care Nurse Name: Kiersten Rodrigues RN Position: [facility] RN Member Role: Primary Care Nurse Name: Gloria Osorio RN Position: [facility] RN Supv Member Role: Primary Care Nurse Name: Shira Rosa RN Position: S RN Member Role: Primary Care Nurse Name: Soledad Mckee RN Position: [facility] SN RN Member Role: Primary Care Nurse Care Team Related Persons Name: CATRACHITO BORGES Address: home [place], [place] Name: COURTNEY BORGES Address: home [address], [place]
--- OUTSIDE RECORDS SUMMARY | 2024-08-12 13:41 | XMS_ITS | Continuity of Care Document ---
Author Organization [facility] Address [address] [place] [address]- Care Team Providers Care Supervisor Ore Dressing Name Role Phone Ponce Andrew MD Primary Care Physician [facility]counter [facility] Date[facility]s): 02/09/23 - 03/11/23 [facility] [address] [place] [id number] Allergies, Adverse Reactions, Alerts [...] Given 1Result Comment: [07/22/2018] [facility]#86083-897-59 2Result Comment: [08/21/2017] [facility] #[id number] 3Admin Note: afluria quadrivalent 4Admin Note: Afluria made by [employer] 5Result Comment: [facility]# [address]-9 6Result Comment: Heplisav-B #2 7Admin Note: h1n1 8Admin Note: [employer] PATIENT MEETS CRITERIA Medications abacavir 300 mg oral tablet 2 tablet, By Mouth, Daily, # 180 tablet, 0 Refills, Maintenance, 11/12/22 13:43:00 EST, [facility]/pharmacy #[id number], 168.5, cm, 11/11/22 10:31:00 EST, Height [...] Stop 04/06/23 11:49:00 EDT, 01/06/23 11:49:00 EDT, [facility]/pharmacy #[id number], 168.5, cm, 11/11/22 10:31:00 EST, Height Start Date: 01/06/23 Stop Date: 04/06/23 Status: Ordered atazanavir 300 mg oral capsule 1 capsule, By Mouth, Daily, # 90 capsule, 0 Refills, Maintenance, 02/11/23 18:29:00 EDT, [facility]/pharmacy #[id number], 1 capsule By Mouth Daily,x90 days, 168.5, cm, 11/11/22 10:31:00 EST, Height Start Date: 02/11/23 Stop Date: 05/12/23 Status: Ordered atenolol 25 mg oral tablet 1, tablet, By Mouth, Daily, # 90 tablet, Refills 1, Tot. Refills 1, 01/06/23 10:19:00 EDT, Route toPharmacy Electronically, [facility]/pharmacy #[id number], 168.5, cm, 11/11/22 10:31:00 EST, Height Start Date: 01/06/23 Status: Ordered atorvastatin 40 mg oral tablet 1 tablet = 40 mg, By Mouth, Daily, # 90 tablet, 3 Refills, Maintenance, 03/07/22 11:06:00 EDT, Tablet, [facility]/pharmacy #[id number], 168.5, cm, 11/05/21 10:51:00 EST, Height Start Date: 03/07/22 Status: Ordered diclofenac sodium 75 mg oral delayed release tablet 1 tablet = 75 mg, By Mouth, 2 times a day, PRN rib pain, with food, # 30 tablet, 1 Refills, Maintenance, 10/04/21 12:43:00 EST, EC Tablet, [facility]/pharmacy #207, Partial fill upon patient request if theprescription is for a schedule II opioid drug., 168... Start Date: 10/04/21 Stop Date: 10/04/22 Status: Ordered Paxil 20 mg oral tablet 20 mg, 1, tablet, By Mouth, Daily, for 90 days, # 90 tablet, Refills 3, Tot. Refills 3, Hard Stop 06/12/23 12:46:00 EDT, 06/17/22 12:46:00 EDT, Route to Pharmacy Electronically, [facility]/pharmacy #[id number], 168.5, cm, 05/21/22 11:39:00 EDT, Height Start Date: 06/17/22 Stop Date: 06/12/23 Status: Ordered QUEtiapine 200 mg oral tablet 1, tablet, By Mouth, Daily, # 90 tablet, Refills 3, Tot. Refills 3, 12/30/22 7:46:00 EDT, Route to Pharmacy Electronically, [facility]/pharmacy #207, 168.5, cm, 11/11/22 10:31:00 EST, Height Start Date: 12/30/22 Status: Ordered ritonavir 100 mg oral tablet 1 tablet, By Mouth, Daily, # 90 tablet, 0 Refills, Maintenance, 01/06/23 11:49:00 EDT, [facility]/pharmacy#[id number], 168.5, cm, 11/11/22 10:31:00 EST, Height Start Date: 01/06/23 Stop Date: 04/06/23 Status: Ordered Shingrix intramuscular injection = 0.5 mL, Intramuscular, Once, repeat dose in 2 to 6 months, # 2 each, 0 Refills, Soft Stop, 09/07/20 14:31:00 EST, Powder, [facility]/pharmacy #207, Partial fill upon patient request if the prescription is for a schedule II opioid drug., 0.5 mL Intramuscul... Start Date: 09/07/20 Status: Ordered tenofovir disoproxil fumarate 300 mg oral tablet 1 tablet, By Mouth, Daily, # 90 tablet, 0 Refills, Maintenance, 01/06/23 11:49:00 EDT, [facility]/pharmacy#207, 168.5, cm, 11/11/22 10:31:00 EST, Height Start [...] Personnel Name: Trina Beaver Position: [facility] Onco RN Member Role: Primary Care Nurse Name: Ponce Andrew MD Position: [facility] Physician - Primary Care Member Role: PCP Address: Address: [address] [place] [address] Adult & Pediatric Medicine [address] Name: Daniella Brand RN Position: [facility] AMB Nurse Member Role: Primary Care Nurse Name: Kiersten Rodrigues RN Position: [facility] AMB Nurse Member Role: Primary Care Nurse Name: Gloria Osorio RN Position: [facility] RN Supv Member Role: Primary Care Nurse Name: Shira Rosa RN Position: [facility] ED RN W/OE and Tasks Member Role: Primary Care Nurse Name: Soledad Mckee RN Position: [facility] SN RN Member Role: Primary Care Nurse Care Team Related Persons Name: HILARYGONSALOKOFFICATRACHITO Address: home [place], [place] Name: COURTNEY BORGES Address: home [address] [place] [address]
--- OUTSIDE RECORDS SUMMARY | 2024-08-12 13:41 | XMS_ITS | Continuity of Care Document ---
Author Organization [facility] Address Unknown Care Team Providers Care Rubberizing Mechanic Name Role Phone Ponce Andrew MD Primary Care Physician [phone] [place]counter [facility] Date(s): 03/03/22 - 04/02/22 [facility] Allergies, Adverse Reactions, Alerts No Known Allergies Immunizations Given and Recorded Vaccine Date Status Refusal Reason SARS-CoV-2 (COVID-19) mRNA-1273 vaccine 08/02/21 R ecorded SARS-CoV-2 (COVID-19) mRNA-1273 vaccine 01/11/21 R ecorded SARS-CoV-2 (COVID-19) mRNA-1273 vaccine 12/14/20 R ecorded influenza virus vaccine, inactivated 07/31/21 Giblerto rded influenza virus vaccine, inactivated 07/11/20 Give [...] (old term) 03/10/01 Given 1Result Comment: [07/22/2018] [facility]#[id number] 2Result Comment: [08/21/2017] [facility] #82230-481-56 3Admin Note: afluria quadrivalent 4Admin Note: Afluria made by [employer] 5Result Comment: [facility]# [address]-9 6Result Comment: Heplisav-B #2 7Admin Note: h1n1 8Admin Note: [employer] PATIENT MEETS CRITERIA Medications ADCARE ADCARE, See Instructions, # 1 each, Refills 0, Tot. Refills 0, Maintenance, ADCARE Evaluate and treat for outpatient, 11/09/19 10:02:00 EST, Compound Start Date: 11/09/19 Status: Ordered atazanavir 300 mg oral capsule 1 capsule, By Mouth, Daily, # 90 capsule, 1 Refills, [facility] ST[facility] 30892, 90, TAKE 1 CAPSULE BY MOUTH EVERY DAY, 168.5, cm, 05/08/21 13:57:00 EDT, Height, 95.3, kg, 02/23/20 7:40:00 EDT, Dry Weight Start Date: 08/05/21 Status: Ordered atazanavir 300 mg oral capsule 1 capsule, By Mouth, Daily, for 30 days, # 30 capsule, 2 Refills, Physician Stop 05/08/22 8:55:00 EDT, 02/07/22 8:55:00 EDT, [facility]/pharmacy #2071, 1 capsule By Mouth Daily,x30 days, 168.5, cm, 11/05/2209:51:00 EST, Height, 95.3, kg, 02/23/20 7:40:00 ED... Start Date: 02/07/22 Stop Date: 05/08/22 Status: Ordered atenolol 25 mg oral tablet 25 mg, 1, tablet, By Mouth, Daily, # 90 tablet, Refills 1, Tot. Refills 1, Maintenance, 10/31/21 13:33:00 EST, Route to Pharmacy Electronically, [facility]/pharmacy #[id number], 168.5, cm, 10/02/21 10:33:00 EST, Height, 95.3, kg, 02/23/20 7:40:00 EDT, Dry Weight Start Date: 10/31/21 Status: Ordered atorvastatin 40 mg oral tablet 1 tablet = 40 mg, By Mouth, Daily, # 90 tablet, 3 Refills, Maintenance, 03/07/22 11:06:00 EDT, Tablet, [facility]/pharmacy #207, 168.5, cm, 11/05/21 10:51:00 EST, Height Start Date: 03/07/22 Status: Ordered diclofenac sodium 75 mg oral delayed release tablet 1 tablet = 75 mg, By Mouth, 2 times a day, PRN rib pain, with food, # 30 tablet, 1 Refills, Maintenance, 10/04/21 12:43:00 EST, EC Tablet, [facility]/pharmacy #[id number], Partial fill upon patient request if theprescription is for a schedule II opioid drug., 168... Start Date: 10/04/21 Stop Date: 10/04/22 Status: Ordered QUEtiapine 200 mg oral tablet 1, tablet, By Mouth, Daily, # 90 tablet, Refills 3, Route to Pharmacy Electronically, [facility] STORE 53046, 168.5, cm, 10/02/21 10:33:00 EST, Height, 95.3, kg, 02/23/20 7:40:00 EDT, Dry Weight Start Date: 10/04/21 Status: Ordered ritonavir 100 mg oral tablet 1 tablet, By Mouth, Daily, # 90 tablet, 0 Refills, [facility] STORE 55162, 168.5, cm, 11/05/21 10:51:00 EST, Height Start Date: 03/03/22 Status: Ordered Shingrix intramuscular injection = 0.5 mL, Intramuscular, Once, repeat dose in 2 to 6 months, # 2 each, 0 Refills, Soft Stop, 09/07/20 14:31:00 EST, Powder, [facility]/pharmacy #[id number], Partial fill upon patient request [...]
--- OUTSIDE RECORDS SUMMARY | 2024-08-12 13:41 | XMS_ITS | Continuity of Care Document ---
Author Organization [facility] Address [address] [place] [address]- Care Team Providers Care Steam Turbine Operator Name Role Phone Jovita Jonas MD Primary Care Physician [phone] Encounter [facility] [place] Date(s): 03/22/20 - 04/21/20 [facility] [address] [place] [address]- [facility] Attending Physician: Arielle Ortiz Admitting Physician: Arielle Ortiz Referring Physician: AdmtrArielle Allergies, Adverse Reactions, Alerts Substance Reaction Severity [...] Heplisav-B #2 2Result Comment: [07/22/2018] [facility]#[id number] 3Result Comment: [08/21/2017] [facility] #[id number] 4Admin Note: afluria quadrivalent 5Admin Note: Afluria made by [employer] 6Admin Note: h1n1 7Admin Note: [employer] PATIENT MEETS CRITERIA Medications ADCARE ADCARE, See Instructions, # 1 each, Refills 0, Tot. Refills 0, Maintenance, ADCARE Evaluate and treat for outpatient, 11/09/19 10:02:00 EST, Compound Start Date: 11/09/19 Status: Ordered aspirin 81 mg oral tablet, chewable 81 mg, 1, tablet, By Mouth, Daily, # 90 tablet, Refills 3, Tot. Refills 3, Maintenance, 08/21/17 14:03:42, Route to Pharmacy Electronically, [id number], [facility]/pharmacy #[id number] Start Date: 08/21/17 Status: Ordered atenolol 25 mg oral tablet 25 mg, 1, tablet, By Mouth, Daily, # 90 tablet, Refills 3, Tot. Refills 3, Maintenance, 09/02/19 9:30:06 EST, Route to Pharmacy Electronically, [id number], [facility]/pharmacy #[id number], 168.5, cm, [...] Refills, Maintenance, 09/12/19 8:29:00 EST, [facility], 168.5, cm, 09/02/19 11:13:00 EST, Height, 94.9, [...]
--- OUTSIDE RECORDS SUMMARY | 2024-08-12 13:41 | XMS_ITS | Continuity of Care Document ---
Author Organization [facility] Address [address] [place] [address]- Care Team Providers Care Culinary Art Teacher Name Role Phone Jovita Jonas MD Primary Care Physician En[place] [facility] [place] Date(s): 03/02/20 - 04/01/20 [facility] [address] [place] [address]- [facility] Attending Physician: Admtr, Ar8 Allergies, Adverse Reactions, [...] 1Result Comment: Heplisav-B #2 2Result Comment: [07/22/2018] [facility]#[id number] 3Result Comment: [08/21/2017] [facility] #[id number] 4Admin Note: afluria quadrivalent 5Admin Note: Afluria made by [employer] 6Admin Note: h1n1 7Admin Note: [employer] PATIENT MEETS CRITERIA Medications ADCARE ADCARE, See Instructions, # 1 each, Refills 0, Tot. Refills 0, Maintenance, ADCARE Evaluate and treat for outpatient, 11/09/19 10:02:00 EST, Compound Start Date: 11/09/19 Status: Ordered aspirin 81 mg oral tablet, chewable 81 mg, 1, tablet, By Mouth, Daily, # 90 tablet, Refills 3, Tot. Refills 3, Maintenance, 08/21/17 14:03:42, Route to Pharmacy Electronically, [id number], [facility]/pharmacy #207 Start Date: 08/21/17 Status: Ordered atenolol 25 mg oral tablet 25 mg, 1, tablet, By Mouth, Daily, # 90 tablet, Refills 3, Tot. Refills 3, Maintenance, 09/02/19 9:30:06 EST, Route to Pharmacy Electronically, [id number], [facility]/pharmacy #207, 168.5, cm, 09/02/19 8:56:00 EST, [...] 03/12/20 9:24:00 EDT, Route to Pharmacy Electronically, [facility]/pharmacy #[id number], 168.5, cm, 03/06/20 9:48:00 EDT, Height, 95.3, kg, 02/23/20 7:40:00 EDT, Dry Weight Start Date: 03/12/20 Stop Date: 09/08/20 Status: Ordered QUEtiapine 200 mg oral tablet 1, tablet, By Mouth, Daily, # 90 tablet, Refills 1, Tot. Refills 1, Maintenance, 12/26/19 15:16:00 EDT, Route to Pharmacy Electronically, [facility]/pharmacy #[id number], 168.5, cm, 09/02/19 11:13:00 EST, [...] tablet, 11 Refills, Maintenance, 09/12/19 8:29:00 EST, [facility] STORE 19021, 168.5, cm, 09/02/19 11:13:00 EST, Height, 94.9, [...] Response Smoking Status Current every day sneha phpips; Type: Cigarettes; Previous treatment: Nicotine replacement; Interested in cessation: Yes; Tobacco use times per day: 1ppd; Number of years: 40; Total pack years: 40; Started at age: 15; 1 entered on: 02/19/16 Sex 11 ppd
--- OUTSIDE RECORDS SUMMARY | 2024-08-12 13:41 | XMS_ITS | Continuity of Care Document ---
Author Organization [facility] Address [address] [place] [address] [address] [place] [address]- Care Team Providers Care Maintenance Mgr Name Role Phone Jovita Jonas MD Primary Care Physician [phone] Encounter [facility] Date(s): 03/06/20 - 04/05/20 [facility] [address] [place] [address]- [facility] Attending Physician: Arielle Ortiz Admitting Physician: AdmArielle mcintosh Referring Physician: AdmtrArielle Allergies, Adverse Reactions, Alerts [...] 1Result Comment: Heplisav-B #2 2Result Comment: [07/22/2018] [facility]#[id number] 3Result Comment: [08/21/2017] [facility] #[id number] 4Admin Note: afluria quadrivalent 5Admin Note: Afluria [...] Maintenance, 08/21/17 14:03:42, Route to Pharmacy Electronically, [id number], [facility]/pharmacy #207 Start Date: 08/21/17 Status: Ordered atenolol 25 mg oral tablet 25 mg, 1, tablet, By Mouth, Daily, # 90 tablet, Refills 3, Tot. Refills 3, Maintenance, 09/02/19 9:30:06 EST, Route to Pharmacy Electronically, [id number], [facility]/pharmacy #207, 168.5, cm, 09/02/19 8:56:00 EST, Height, [...] 03/12/20 9:24:00 EDT, Route to Pharmacy Electronically, [facility]/pharmacy #[id number], 168.5, cm, 03/06/20 9:48:00 EDT, Height, 95.3, kg, 02/23/20 7:40:00 EDT, Dry Weight Start Date: 03/12/20 Stop Date: 09/08/20 Status: Ordered QUEtiapine 200 mg oral tablet 1, tablet, By Mouth, Daily, # 90 tablet, Refills 1, Tot. Refills 1, Maintenance, 12/26/19 15:16:00 EDT, Route to Pharmacy Electronically, [facility]/pharmacy #[id number], 168.5, cm, 09/02/19 11:13:00 EST, Height,94.9, [...] Refills, Maintenance, 09/12/19 8:29:00 EST, [facility], 168.5, cm, 09/02/19 11:13:00 EST, Height, 94.9, [...]
--- OUTSIDE RECORDS SUMMARY | 2024-08-12 13:41 | XMS_ITS | Continuity of Care Document ---
Author Organization [facility] Address [address] [place] [address]- Care Team Providers Care Pipeline Gang Supervisor Name Role Phone Ponce Andrew MD Primary Care Physician [facility] Date[facility]s): 06/28/21 - 10/26/21 [facility] [address] [place], [place] [address] Attending Physician: Ponce Andrew MD Allergies, Adverse [...] (old term) 03/10/01 Given 1Result Comment: [07/22/2018] [facility]#[id number] 2Result Comment: [08/21/2017] [facility] #[id number] 3Admin Note: afluria quadrivalent 4Admin Note: Afluria made by [employer] 5Result Comment: [facility]# [id number] 6Result Comment: Heplisav-B #2 7Admin Note: h1n1 8Admin Note: [employer] PATIENT MEETS CRITERIA Medications ADCARE ADCARE, See Instructions, # 1 each, Refills 0, Tot. Refills 0, Maintenance, ADCARE Evaluate and treat for outpatient, 11/09/19 10:02:00 EST, Compound Start Date: 11/09/19 Status: Ordered atazanavir 300 mg oral capsule 1 capsule, By Mouth, Daily, # 90 capsule, 1 Refills, [facility] STORE [facility]77, 90, TAKE 1 CAPSULE BY MOUTH EVERY DAY, 168.5, cm, 05/08/21 13:57:00 EDT, Height, 95.3, kg, 02/23/20 7:40:00 EDT, Dry Weight Start Date: 08/05/21 Status: Ordered atenolol 25 mg oral tablet 25 mg, 1, tablet, By Mouth, Daily, # 90 tablet, Refills 3, Tot. Refills 3, Maintenance, 09/17/20 10:02:00 EST, Route to Pharmacy Electronically, [facility]/pharmacy #207, 168.5, cm, 07/11/20 10:23:00 EDT, Height, 95.3, kg, 02/23/20 7:40:00 EDT, Dry Weight Start Date: 09/17/20 Status: Ordered atorvastatin 40 mg oral tablet 1 tablet = 40 mg, By Mouth, Daily, # 90 tablet, 3 Refills, Maintenance, 09/17/20 10:02:00 EST, Tablet, [facility]/pharmacy #207, 168.5, cm, 07/11/20 10:23:00 EDT, Height, 95.3, kg, 02/23/20 7:40:00 EDT, Dry Weight Start Date: 09/17/20 Status: Ordered diclofenac sodium 75 mg oral delayed release tablet 1 tablet = 75 mg, By Mouth, 2 times a day, PRN rib pain, with food, # 30 tablet, 1 Refills, Maintenance, 10/04/21 12:43:00 EST, EC Tablet, [facility]/pharmacy #207, Partial fill upon patient request if theprescription is for a schedule II opioid drug., 168... Start Date: 10/04/21 Stop Date: 10/04/22 Status: Ordered Norvir 100 mg oral tablet 1 tablet = 100 mg, By Mouth, Daily, # 30 tablet, 5 Refills, Maintenance, 04/08/21 10:08:00 EDT, [facility]/pharmacy #207, 168.5, cm, 02/06/21 10:35:00 EDT, Height, 95.3, kg, 02/23/20 7:40:00 EDT, Dry Weight Start Date: 04/08/21 Stop Date: 10/05/21 Status: Ordered Norvir 100 mg oral tablet 1 tablet = 100 mg, By Mouth, Daily, # 30 tablet, 2 Refills, Maintenance, 09/09/21 16:24:00 EST, [facility]/pharmacy #207, 168.5, cm, 05/08/21 13:57:00 EDT, Height, 95.3, kg, 02/23/20 7:40:00 EDT, Dry Weight Start Date: 09/09/21 Stop Date: 12/08/21 Status: Ordered Paxil 20 mg oral tablet 20 mg, 1, tablet, By Mouth, Daily, for 30 days, # 30 tablet, Refills 5, Tot. Refills 5, Hard Stop 03/08/22 15:12:00 EDT, 09/09/21 15:12:00 EST, Route to Pharmacy Electronically, [facility]/pharmacy #207, 168.5, cm, 05/08/21 13:57:00 EDT, Height, 95.3, kg, 0... Start Date: 09/09/21 Stop Date: 03/08/22 Status: Ordered QUEtiapine 200 mg oral tablet 1, tablet, By Mouth, Daily, # 90 tablet, Refills 3, Route to Pharmacy Electronically, [facility] ST[facility] 16233, 168.5, cm, 10/02/21 10:33:00 EST, Height, 95.3, kg, 02/23/20 7:40:00 EDT, Dry Weight Start Date: 10/04/21 Status: Ordered Shingrix intramuscular injection = 0.5 mL, Intramuscular, Once, repeat dose in 2 to 6 months, # 2 each, 0 Refills, Soft Stop, 09/07/20 14:31:00 EST, Powder, [facility]/pharmacy #[id number], Partial fill upon patient request if the prescription is for a schedule II opioid drug., 0.5 mL Intramuscul... Start Date: 09/07/20 Status: Ordered tenofovir disoproxil fumarate 300 mg oral tablet 1 tablet, By Mouth, Daily, # 30 tablet, 5 Refills, Maintenance, 04/08/21 10:08:00 EDT, [facility]/pharmacy#207, 168.5, cm, 02/06/21 10:35:00 EDT, Height, 95.3, kg, 02/23/20 7:40:00 EDT, Dry Weight Start Date: 04/08/21 Stop Date: 10/05/21 Status: Ordered tenofovir disoproxil fumarate 300 mg oral tablet 1 tablet, By Mouth, Daily, # 30 tablet, 2 Refills, Maintenance, 09/09/21 16:24:00 EST, [facility]/pharmacy#207, 168.5, cm, 05/08/21 13:57:00 EDT, Height, [...]
--- OUTSIDE RECORDS SUMMARY | 2024-08-12 13:41 | XMS_ITS | Continuity of Care Document ---
Author Organization [facility] Address [address] [place] [address]- Care Team Providers Care Lubrication Technician Name Role Phone Ponce Andrew MD Primary Care Physician [phone] [facility]counter [facility] Date(s): 02/06/22 - 03/08/22 [facility] [address] [place], [place] [address] Allergies, Adverse Reactions, Alerts No [...] (old term) 03/10/01 Given 1Result Comment: [07/22/2018] [facility]#[id number] 2Result Comment: [08/21/2017] [facility] #[id number] 3Admin Note: afluria quadrivalent 4Admin Note: Afluria made by [employer] 5Result Comment: [facility]# [id number] 6Result Comment: Heplisav-B #2 7Admin Note: h1n1 8Admin Note: [employer] PATIENT MEETS CRITERIA Medications ADCARE ADCARE, See Instructions, # 1 each, Refills 0, Tot. Refills 0, Maintenance, ADCARE Evaluate and treat for outpatient, 11/09/19 10:02:00 EST, Compound Start Date: 11/09/19 Status: Ordered atazanavir 300 mg oral capsule 1 capsule, By Mouth, Daily, # 90 capsule, 1 Refills, [facility] ST[facility], 90, TAKE 1 CAPSULE BY MOUTH EVERY DAY, 168.5, cm, 05/08/21 13:57:00 EDT, Height, 95.3, kg, 02/23/20 7:40:00 EDT, Dry Weight Start Date: 08/05/21 Status: Ordered atazanavir 300 mg oral capsule 1 capsule, By Mouth, Daily, for 30 days, # 30 capsule, 2 Refills, Physician Stop 05/08/22 8:55:00 EDT, 02/07/22 8:55:00 EDT, [facility]/pharmacy #2071, 1 capsule By Mouth Daily,x30 days, 168.5, cm, 11/05/2209:51:00 EST, Height, 95.3, kg, 02/23/20 7:40:00 ED... Start Date: 02/07/22 Stop Date: 05/08/22 Status: Ordered atenolol 25 mg oral tablet 25 mg, 1, tablet, By Mouth, Daily, # 90 tablet, Refills 1, Tot. Refills 1, Maintenance, 10/31/21 13:33:00 EST, Route to Pharmacy Electronically, [facility]/pharmacy #207, 168.5, cm, 10/02/21 10:33:00 EST, Height, 95.3, kg, 02/23/20 7:40:00 EDT, Dry Weight Start Date: 10/31/21 Status: Ordered atorvastatin 40 mg oral tablet 1 tablet = 40 mg, By Mouth, Daily, # 90 tablet, 3 Refills, Maintenance, 03/07/22 11:06:00 EDT, Tablet, [facility]/pharmacy #207, 168.5, cm, 11/05/21 10:51:00 EST, Height Start Date: 03/07/22 Status: Ordered diclofenac sodium 75 mg oral delayed release tablet 1 tablet = 75 mg, By Mouth, 2 times a day, PRN rib pain, with food, # 30 tablet, 1 Refills, Maintenance, 10/04/21 12:43:00 EST, EC Tablet, [facility]/pharmacy #[id number], Partial fill upon patient request if theprescription is for a schedule II opioid drug., 168... Start Date: 10/04/21 Stop Date: 10/04/22 Status: Ordered QUEtiapine 200 mg oral tablet 1, tablet, By Mouth, Daily, # 90 tablet, Refills 3, Route to Pharmacy Electronically, [facility], 168.5, cm, 10/02/21 10:33:00 EST, Height, 95.3, kg, 02/23/20 7:40:00 EDT, Dry Weight Start Date: 10/04/21 Status: Ordered ritonavir 100 mg oral tablet 1 tablet, By Mouth, Daily, # 90 tablet, 0 Refills, [facility]408, 168.5, cm, 11/05/21 10:51:00 EST, Height Start Date: 03/03/22 Status: Ordered Shingrix intramuscular injection = 0.5 mL, Intramuscular, Once, repeat dose in 2 to 6 months, # 2 each, 0 Refills, Soft Stop, 09/07/20 14:31:00 EST, Powder, [facility]/pharmacy #[id number], Partial fill upon patient request [...]
--- OUTSIDE RECORDS SUMMARY | 2024-08-12 13:41 | XMS_ITS | Continuity of Care Document ---
Author Organization [facility] Address [address] [place] [address]- Care Team Providers Care Assistant Director Of Plant Operations Name Role Phone Ponce Andrew MD Primary Care Physician [phone] [facility]counter [facility] Date[facility]s): 05/21/22 - 05/28/22 [facility] [address] [place] [address]- Encounter Diagnosis AIDS(Discharge Diagnosis) - 05/21/22 Cocaine dependence(Discharge Diagnosis) - 05/21/22 Depression(Discharge Diagnosis) - 05/21/22 Hypertension(Discharge Diagnosis) - 05/21/22 Hyperlipidemia LDL goal < 130(Discharge Diagnosis) - 05/21/22 Tobacco use(Discharge Diagnosis) - 05/21/22 Attending Physician: Ponce Andrew MD Allergies, Adverse [...] (old term) 03/10/01 Given 1Result Comment: [07/22/2018] [facility]#[id number] 2Result Comment: [08/21/2017] [facility] #[id number] 3Admin Note: afluria quadrivalent 4Admin Note: Afluria made by Se[employer] 5Result Comment: [facility]# [id number] 6Result Comment: Heplisav-B #2 7Admin Note: h1n1 8Admin Note: [employer] PATIENT MEETS CRITERIA Medications ADCARE ADCARE, See Instructions, # 1 each, Refills 0, Tot. Refills 0, Maintenance, ADCARE Evaluate and treat for outpatient, 11/09/19 10:02:00 EST, Compound Start Date: 11/09/19 Status: Ordered atazanavir 300 mg oral capsule 1 capsule, By Mouth, Daily, # 90 capsule, 1 Refills, [facility], 90, TAKE 1 CAPSULE BY MOUTH EVERY DAY, 168.5, cm, 05/08/21 13:57:00 EDT, Height, 95.3, kg, 02/23/20 7:40:00 EDT, Dry Weight Start Date: 08/05/21 Status: Ordered atenolol 25 mg oral tablet 1, tablet, By Mouth, Daily, # 90 tablet, Refills 1, Route to Pharmacy Electronically, [facility], 168.5, cm, 11/05/21 10:51:00 EST, Height Start Date: 05/08/22 Status: Ordered atorvastatin 40 mg oral tablet 1 tablet = 40 mg, By Mouth, Daily, # 90 tablet, 3 Refills, Maintenance, 03/07/22 11:06:00 EDT, Tablet, [facility]/pharmacy #2071, 168.5, cm, 11/05/21 10:51:00 EST, Height Start Date: 03/07/22 Status: Ordered diclofenac sodium 75 mg oral delayed release tablet 1 tablet = 75 mg, By Mouth, 2 times a day, PRN rib pain, with food, # 30 tablet, 1 Refills, Maintenance, 10/04/21 12:43:00 EST, EC Tablet, [facility]/pharmacy #[id number], Partial fill upon patient request if theprescription is for a schedule II opioid drug., 168... Start Date: 10/04/21 Stop Date: 10/04/22 Status: Ordered QUEtiapine 200 mg oral tablet 1, tablet, By Mouth, Daily, # 90 tablet, Refills 3, Route to Pharmacy Electronically, [facility], 168.5, cm, 10/02/21 10:33:00 EST, Height, 95.3, kg, 02/23/20 7:40:00 EDT, Dry Weight Start Date: 10/04/21 Status: Ordered ritonavir 100 mg oral tablet 1 tablet, By Mouth, Daily, # 90 tablet, 0 Refills, [facility], 168.5, cm, 11/05/21 10:51:00 EST, Height Start Date: 03/03/22 Status: Ordered Shingrix intramuscular injection = 0.5 mL, Intramuscular, Once, repeat dose in 2 to 6 months, # 2 each, 0 Refills, Soft Stop, 09/07/20 14:31:00 EST, Powder, [facility]/pharmacy #2071, Partial fill upon patient request if the prescription is for a schedule II opioid drug., 0.5 mL Intramuscul... Start Date: 09/07/20 Status: Ordered tenofovir disoproxil fumarate 300 mg oral tablet 1 tablet, By Mouth, Daily, # 30 tablet, 5 Refills, Maintenance, 04/08/21 10:08:00 EDT, [facility]/pharmacy#2071, 168.5, cm, 02/06/21 10:35:00 EDT, Height, 95.3, kg, 02/23/20 7:40:00 EDT, Dry Weight Start Date: 04/08/21 Stop Date: 10/05/21 Status: Ordered tenofovir disoproxil fumarate 300 mg oral tablet 1 tablet, By Mouth, Daily, for 30 days, # 30 tablet, 5 Refills, Hard Stop 08/09/22 10:29:00 EST, 02/10/22 10:29:00 EDT, [facility]/pharmacy #2071, 168.5, cm, 11/05/21 10:51:00 EST, Height, 95.3, kg, 02/23/20 7:40:00 EDT, Dry Weight Start Date: 02/10/22 Stop Date: 08/09/22 Status: Ordered tenofovir disoproxil fumarate 300 mg oral tablet 1 tablet, By Mouth, Daily, # 30 tablet, 2 Refills, Maintenance, 09/09/21 16:24:00 EST, [facility]/pharmacy#2071, 168.5, cm, 05/08/21 13:57:00 EDT, Height, 95.3, [...] Status Clinical Service Informant AIDS Discharge Diagnosis 05/21/22 Cocaine dependence Discharge Diagnosis 05/21/22 Depression Discharge Diagnosis 05/21/22 Hypertension Discharge Diagnosis 05/21/22 Hyperlipidemia LDL goal < 130 Discharge Diagnosis 05/21/22 Tobacco use Discharge Diagnosis 05/21/22 Vital Signs Most recent to oldest [Reference Range]: 1 2 3 Height 168.5 cm (05/21/22 11:39 AM) 168.5 cm (05/21/22 11:11 AM) 168.5 cm (05/21/22 11:10 AM) Weight 93.4 kg (05/21/22 11:10 AM) Oxygen Saturation [94-100 %] 97 % (05/21/22 11:10 AM) Pulse Rate [55-90 bpm] 68 bpm (05/21/22 11:39 AM) 66 bpm (05/21/22 11:10 AM) Body Mass Index [18.5-24.99] 32.9 *>HHI* (05/21/22 11:10 AM) Blood Pressure [90-138/55-84 mm Hg] 132/70mm Hg (05/21/22 11:39 AM) 150/80mm Hg *H* (05/21/22 11:11 AM) 150/80mm Hg *H* (05/21/22 11:10 AM) Mode of Delivery (Oxygen) Room air (05/21/22 11:10 AM) Blood pressure sites Arm, left (05/21/22 11:39 AM) Arm, left (05/21/22 11:11 AM) Arm, left (05/21/22 11:10 AM) Weight Obtained Via Standing scale (05/21/22 11:10 AM) Social History Social History Type Response Smoking Status Current every day sneha phipps; Type: Cigarettes; Previous treatment: Nicotine replacement; Interested in cessation: Yes; Tobacco use times per day: 1ppd; Number of years: 40; Total pack years: 40; Started at age: 15; 1 entered on: 02/19/16 Sex 11 ppd Care Team Personnel Name: Ponce Andrew MD Address: [address] [place] [address] Adult & Pediatric Medicine [place], [place] [address]
--- OUTSIDE RECORDS SUMMARY | 2024-08-12 13:42 | XMS_ITS | Continuity of Care Document ---
Author Organization [facility] Address [address] [place] [address]- Care Team Providers Care Junior Oracle Dba Name Role Phone Jovita Jonas MD Primary Care Physician [phone] Encounter [facility] Date(s): 12/13/20 - 01/12/[address] [facility] [address] [place] [id number] Allergies, Adverse Reactions, Alerts Substance [...] Vaccine (old term) 03/10/01 Given 1Result Comment: [facility]# [id number] 2Result Comment: [07/22/2018] [facility]#[id number] 3Result Comment: [08/21/2017] [facility] #[id number] 4Admin Note: afluria quadrivalent 5Admin Note: Afluria [...] 09/17/20 10:02:00 EST, Route to Pharmacy Electronically, [facility]/pharmacy #[id number], 168.5, cm, 07/11/20 10:23:00 EDT, Height, 95.3, kg, 02/23/20 7:40:00 EDT, Dry Weight Start Date: 09/17/20 Status: Ordered atorvastatin 40 mg oral tablet 1 tablet = 40 mg, By Mouth, Daily, # 90 tablet, 3 Refills, Maintenance, 09/17/20 10:02:00 EST, Tablet, [facility]/pharmacy #2071, 168.5, cm, 07/11/20 10:23:00 EDT, Height, 95.3, kg, 02/23/20 7:40:00 EDT, Dry Weight Start Date: 09/17/20 Status: Ordered Norvir 100 mg oral tablet 1 tablet = 100 mg, By Mouth, Daily, # 30 tablet, 5 Refills, Maintenance, 10/09/20 11:17:00 EST, [facility]/pharmacy #2071, 168.5, cm, 07/11/20 10:23:00 EDT, Height, 95.3, kg, 02/23/20 7:40:00 EDT, Dry Weight Start Date: 10/09/20 Stop Date: 04/07/21 Status: Ordered Paxil 20 mg oral tablet 20 mg, 1, tablet, By Mouth, Daily, for 30 days, # 30 tablet, Refills 5, Tot. Refills 5, Hard Stop 03/06/21 14:31:00 EDT, 09/07/20 14:31:00 EST, [id number] 168.5, cm, 07/11/20 10:23:00 EDT, Height, 95.3, kg, 0... Start Date: 09/07/20 Stop Date: 03/06/21 Status: Ordered QUEtiapine 200 mg oral tablet 1, tablet, By Mouth, Daily, # 90 tablet, Refills 1, Tot. Refills 1, Maintenance, 06/14/20 11:42:00 EDT, Route to Pharmacy Electronically, [facility]/pharmacy #207, 168.5, cm, 03/14/20 9:16:00 EDT, Height, 95.3, kg, 02/23/20 7:40:00 EDT, Dry Weight Start Date: 06/14/20 Status: Ordered QUEtiapine 200 mg oral tablet See Instructions, TAKE 1 TABLET BY MOUTH EVERY DAY, # 90 tablet, Refills 1, Tot. Refills 1, 09/07/20 14:31:00 EST, Instructions Replace Required Details, Route to Pharmacy Electronically, [facility]/pharmacy #207, 168.5, cm, 07/11/20 10:23:00 EDT, Height, 9... Start Date: 09/07/20 Status: Ordered Reyataz 300 mg oral capsule 1 capsule = 300 mg, By Mouth, Daily, # 30 capsule, 5 Refills, Maintenance, 10/09/20 11:17:00 EST, [facility]/pharmacy #2071, 1 capsule By Mouth Daily,x30 days, 168.5, cm, 07/11/20 10:23:00 EDT, Height, 95.3, kg, 02/23/20 7:40:00 EDT, Dry Weight Start Date: 10/09/20 Stop Date: 04/07/21 Status: Ordered Shingrix intramuscular injection = 0.5 mL, Intramuscular, Once, repeat dose in 2 to 6 months, # 2 each, 0 Refills, Soft Stop, 09/07/20 14:31:00 EST, Powder, [facility]/pharmacy #2071, Partial fill upon patient request if the prescription is for a schedule II opioid drug., 0.5 mL Intramuscul... Start Date: 09/07/20 Status: Ordered tenofovir disoproxil fumarate 300 mg oral tablet 1 tablet, By Mouth, Daily, # 30 tablet, 5 Refills, Maintenance, 10/09/20 11:17:00 EST, [facility]/pharmacy#2071, 168.5, cm, 07/11/20 10:23:00 EDT, Height, 95.3, [...] tablet, 5 Refills, Maintenance, 10/09/20 11:17:00 EST, [facility]/pharmacy #2071, 168.5, cm, 07/11/20 10:23:00 EDT, Height, [...]
--- OUTSIDE RECORDS SUMMARY | 2024-08-12 13:42 | XMS_ITS | Continuity of Care Document ---
Author Organization [facility] Address [address] [place] [address]- Care Team Providers Care Fractionation Plant Supervisor Name Role Phone Jovita Jonas MD Primary Care Physician [phone] [facility] Date[facility]s): 09/02/19 - 09/02/[address] [address]- [facility] Attending Physician: Jovita Jonas MD Allergies, [...] Comment: Heplisav-B #2 2Result Comment: [07/22/2018] [facility]#[id number] 3Result Comment: [08/21/2017] [facility] #[id number] 4Admin Note: afluria quadrivalent 5Admin Note: Afluria made by [employer] 6Admin Note: h1n1 7Admin Note: [employer] PATIENT MEETS CRITERIA Medications aspirin 81 mg oral tablet, chewable 81 mg, 1, tablet, By Mouth, Daily, # 90 tablet, Refills 3, Tot. Refills 3, Maintenance, 08/21/17 14:03:42, Route to Pharmacy Electronically, [id number], [facility]/pharmacy #[id number] Start Date: 08/21/17 Status: Ordered atenolol 25 mg oral tablet 25 mg, 1, tablet, By Mouth, Daily, # 90 tablet, Refills 3, Tot. Refills 3, Maintenance, 09/02/19 9:30:06 EST, Route to Pharmacy Electronically, [id number], [facility]/pharmacy #[id number], 168.5, cm, 09/02/19 8:56:00 EST, [...] 08/22/19 11:06:03 EST, Route to Pharmacy Electronically, [id number], [facility]/pharmacy #2070 Start Date: 08/22/19 Stop Date: 02/18/20 Status: Ordered QUEtiapine 200 mg oral tablet See Instructions, # 30 tablet, Refills 2 Tot. Refills 2, TAKE 1 TABLET BY MOUTH EVERY DAY, [facility]/pharmacy #[id number] Start Date: 06/21/19 Status: Ordered Reyataz [...]
--- OUTSIDE RECORDS SUMMARY | 2024-08-12 13:42 | XMS_ITS | Continuity of Care Document ---
Author Organization [facility] Address [address] [place] [address]- Care Team Providers Care Newswriter Name Role Phone Ponce Andrew MD Primary Care Physician [phone] [facility] Date(s): 07/01/22 - 07/31/22 [facility] [address], [place] [address] Allergies, Adverse Reactions, Alerts No Known [...] (old term) 03/10/01 Given 1Result Comment: [07/22/2018] [facility]#[id number] 2Result Comment: [08/21/2017] [facility] #[id number] 3Admin Note: afluria quadrivalent 4Admin Note: Afluria made by [employer] 5Result Comment: [facility]# [id number] 6Result Comment: Heplisav-B #2 7Admin Note: h1n1 8Admin Note: [employer] PATIENT MEETS CRITERIA Medications abacavir 300 mg oral tablet 2 tablet, By Mouth, Daily, # 180 tablet, 0 Refills, Maintenance, 06/30/22 8:33:00 EDT, [facility], 168.5, cm, 06/27/22 11:54:00 EDT, Height Start Date: 06/30/22 Stop Date: 07/30/22 Status: Ordered ADCARE ADCARE, See Instructions, # 1 each, Refills 0, Tot. Refills 0, Maintenance, ADCARE Evaluate and treat for outpatient, 11/09/19 10:02:00 EST, Compound Start Date: 11/09/19 Status: Ordered atazanavir 300 mg oral capsule 1 capsule, By Mouth, Daily, # 90 capsule, 0 Refills, Maintenance, 06/13/22 15:54:00 EDT, [facility], 90, TAKE 1 CAPSULE BY MOUTH EVERY DAY, 168.5, cm, 05/21/22 11:39:00 EDT, Height Start Date: 06/13/22 Status: Ordered atenolol 25 mg oral tablet 1, tablet, By Mouth, Daily, # 90 tablet, Refills 1, Route to Pharmacy Electronically, [facility], 168.5, cm, 11/05/21 10:51:00 EST, Height Start Date: 05/08/22 Status: Ordered atorvastatin 40 mg oral tablet 1 tablet = 40 mg, By Mouth, Daily, # 90 tablet, 3 Refills, Maintenance, 03/07/22 11:06:00 EDT, Tablet, [facility]/pharmacy #2071, 168.5, cm, 11/05/21 10:51:00 EST, Height Start Date: 03/07/22 Status: Ordered diclofenac sodium 75 mg oral delayed release tablet 1 tablet = 75 mg, By Mouth, 2 times a day, PRN rib pain, with food, # 30 tablet, 1 Refills, Maintenance, 10/04/21 12:43:00 EST, EC Tablet, [facility]/pharmacy #2071, Partial fill upon patient request if theprescription is for a schedule II opioid drug., 168... Start Date: 10/04/21 Stop Date: 10/04/22 Status: Ordered Paxil 20 mg oral tablet 20 mg, 1, tablet, By Mouth, Daily, for 90 days, # 90 tablet, Refills 3, Tot. Refills 3, Hard Stop 06/12/23 12:46:00 EDT, 06/17/22 12:46:00 EDT, Route to Pharmacy Electronically, [facility]/pharmacy #[id number], 168.5, cm, 05/21/22 11:39:00 EDT, Height Start Date: 06/17/22 Stop Date: 06/12/23 Status: Ordered QUEtiapine 200 mg oral tablet 1, tablet, By Mouth, Daily, # 90 tablet, Refills 3, Route to Pharmacy Electronically, [facility], 168.5, cm, 10/02/21 10:33:00 EST, Height, 95.3, kg, 02/23/20 7:40:00 EDT, Dry Weight Start Date: 10/04/21 Status: Ordered ritonavir 100 mg oral tablet 1 tablet, By Mouth, Daily, # 90 tablet, 0 Refills, Maintenance, 06/13/22 15:54:00 EDT, [facility], 168.5, cm, 05/21/22 11:39:00 EDT, Height Start Date: 06/13/22 Status: Ordered Shingrix intramuscular injection = 0.5 mL, Intramuscular, Once, repeat dose in 2 to 6 months, # 2 each, 0 Refills, Soft Stop, 09/07/20 14:31:00 EST, Powder, [facility]/pharmacy #2071, Partial fill upon patient request if the prescription is for a schedule II opioid drug., 0.5 mL Intramuscul... Start Date: 09/07/20 Status: Ordered tenofovir disoproxil fumarate 300 mg oral tablet 1 tablet, By Mouth, Daily, # 90 tablet, 1 Refills, Maintenance, 06/13/22 15:54:00 EDT, [facility], 168.5, cm, 05/21/22 11:39:00 EDT, Height Start [...] Care Team Personnel Name: Trina Beaver Position: [facility] Onco RN Member Role: Primary Care Nurse Name: Ponce Andrew MD Position: [facility] Primary Care Physician Member Role: PCP Address: Address: [address] [place] [address] Adult & Pediatric Medicine [place], [place] [address] [[email or web address] Name: Daniella Brand RN Position: [facility] RN Member Role: Primary Care Nurse Name: Kiersten Rodrigues RN Position: [facility] RN Member Role: Primary Care Nurse Name: Gloria Osorio RN Position: [facility] RN Supv Member Role: Primary Care Nurse Name: Shira Rosa RN Position: S RN Member Role: Primary Care Nurse Name: Soledad Mckee RN Position: [facility] RN Member Role: Primary Care Nurse Care Team Related Persons Name: CATRACHITO BORGES Address: home [place], [place] Name: COURTNEY BORGES Address: home [address], [place]
--- OUTSIDE RECORDS SUMMARY | 2024-08-12 13:42 | XMS_ITS | Continuity of Care Document ---
Author Organization [facility] Address [address] [place] [address]- Care Team Providers Care Supervisor Dyer Name Role Phone Pritesh JENKINS, Jovita Primary Care Physician [phone] [facility] Date[facility]): 06/14/20 - 07/14/20 [facility] [address] [place] [address]- [facility] Allergies, Adverse Reactions, Alerts Substance Reaction [...] term) 03/10/01 Given 1Result Comment: [07/22/2018] [facility]#[id number] 2Result Comment: [08/21/2017] [facility] #[id number] 3Admin Note: afluria quadrivalent 4Admin Note: Afluria [...] Maintenance, 08/21/17 14:03:42, Route to Pharmacy Electronically, [id number], [facility]/pharmacy #2071 Start Date: 08/21/17 Status: Ordered atenolol 25 mg oral tablet 25 mg, 1, tablet, By Mouth, Daily, # 90 tablet, Refills 3, Tot. Refills 3, Maintenance, 09/02/19 9:30:06 EST, Route to Pharmacy Electronically, [id number], [facility]/pharmacy #207, 168.5, cm, 09/02/19 8:56:00 EST, [...] tablet, 5 Refills, Maintenance, 06/18/20 10:40:00 EDT, [facility]/pharmacy #2071, 168.5, cm, 03/14/20 9:16:00 EDT, Height, 95.3, kg, 02/23/20 7:40:00 EDT, Dry Weight Start Date: 06/18/20 Stop Date: 12/15/20 Status: Ordered Paxil 20 mg oral tablet 20 mg, 1, tablet, By Mouth, Daily, # 30 tablet, Refills 5, Tot. Refills 5, Maintenance, 03/12/20 9:24:00 EDT, Route to Pharmacy Electronically, [facility]/pharmacy #207, 168.5, cm, 03/06/20 9:48:00 EDT, Height, 95.3, kg, 02/23/20 7:40:00 EDT, Dry Weight Start Date: 03/12/20 Stop Date: 09/08/20 Status: Ordered QUEtiapine 200 mg oral tablet 1, tablet, By Mouth, Daily, # 90 tablet, Refills 1, Tot. Refills 1, Maintenance, 06/14/20 11:42:00 EDT, Route to Pharmacy Electronically, [facility]/pharmacy #2071, 168.5, cm, 03/14/20 9:16:00 EDT, Height, 95.3, kg, 02/23/20 7:40:00 EDT, Dry Weight Start Date: 06/14/20 Status: Ordered Reyataz 300 mg oral capsule 1 capsule = 300 mg, By Mouth, Daily, # 30 capsule, 5 Refills, Maintenance, 06/18/20 10:40:00 EDT, [facility]/pharmacy #2071, 1 capsule By Mouth Daily,x30 [...]
--- OUTSIDE RECORDS SUMMARY | 2024-08-12 13:42 | XMS_ITS | Continuity of Care Document ---
Author Organization [facility] Address [address] [place] [address]- Care Team Providers Care Formation Fracturing Operator Name Role Phone Pritesh JENKINS, Jovita Primary Care Physician [phone] [facility] 09[facility]12/20 - 10/12/20 [facility] [address] [place], [place] [address] Allergies, Adverse Reactions, Alerts Substance Reaction Severity [...] (old term) 03/10/01 Given 1Result Comment: [07/22/2018] [facility]#[id number] 2Result Comment: [08/21/2017] [facility] #[id number] 3Admin Note: afluria quadrivalent 4Admin Note: Afluria made by [employer] 5Result Comment: Heplisav-B #2 6Admin Note: h1n1 7Admin Note: [employer] PATIENT MEETS CRITERIA Medications ADCARE [...] to Pharmacy Electronically, [facility]/pharmacy #[id number], 168.5, cm, [...] Stop 12/15/20 10:40:00 EDT, 06/18/20 10:40:00 EDT, [facility]/pharmacy #[id number], 168.5, cm, 03/14/20 9:16:00 EDT, Height, 95.3, kg,02/23/20 7:40:00 EDT, Dry Weight Start Date: 06/18/20 Stop Date: 12/15/20 Status: Ordered Norvir 100 mg oral tablet 1 tablet = 100 mg, By Mouth, Daily, # 30 tablet, 5 Refills, Maintenance, 10/09/20 11:17:00 EST, [facility]/pharmacy #2070, 168.5, cm, 07/11/20 10:23:00 EDT, Height, 95.3, kg, 02/23/20 7:40:00 EDT, Dry Weight Start Date: 10/09/20 Stop Date: 04/07/21 Status: Ordered Paxil 20 mg oral tablet 20 mg, 1, tablet, By Mouth, Daily, for 30 days, # 30 tablet, Refills 5, Tot. Refills 5, Hard Stop 03/06/21 14:31:00 EDT, 09/07/20 14:31:00 EST, Route to Pharmacy Electronically, [facility]/pharmacy #[id number], 168.5, cm, 07/11/20 10:23:00 EDT, Height, 95.3, kg, 0... Start Date: 09/07/20 Stop Date: 03/06/21 Status: Ordered QUEtiapine 200 mg oral tablet 1, tablet, By Mouth, Daily, # 90 tablet, Refills 1, Tot. Refills 1, Maintenance, 06/14/20 11:42:00 EDT, Route to Pharmacy Electronically, [facility]/pharmacy #[id number], 168.5, cm, 03/14/20 9:16:00 EDT, Height, 95.3, kg, 02/23/20 7:40:00 EDT, Dry Weight Start Date: 06/14/20 Status: Ordered QUEtiapine 200 mg oral tablet See Instructions, TAKE 1 TABLET BY MOUTH EVERY DAY, # 90 tablet, Refills 1, Tot. Refills 1, 09/07/20 14:31:00 EST, Instructions Replace Required Details, Route to Pharmacy Electronically, [facility]/pharmacy #[id number], 168.5, cm, 07/11/20 10:23:00 EDT, Height, 9... Start Date: 09/07/20 Status: Ordered Reyataz 300 mg oral capsule 1 capsule = 300 mg, By Mouth, Daily, for 30 days, # 30 capsule, 5 Refills, Hard Stop 12/15/20 10:40:00 EDT, 06/18/20 10:40:00 EDT, [facility]/pharmacy #207, 168.5, cm, 03/14/20 9:16:00 EDT, Height, 95.3, kg, 02/23/20 7:40:00 EDT, Dry Weight Start Date: 06/18/20 Stop Date: 12/15/20 Status: Ordered Reyataz 300 mg oral capsule 1 capsule = 300 mg, By Mouth, Daily, # 30 capsule, 5 Refills, Maintenance, 10/09/20 11:17:00 EST, [facility]/pharmacy #207, 1 capsule By Mouth Daily,x30 [...] tablet, 5 Refills, Maintenance, 10/09/20 11:17:00 EST, [facility]/pharmacy#207, 168.5, cm, 07/11/20 10:23:00 EDT, Height, 95.3, [...] Stop 12/15/20 10:40:00 EDT, 06/18/20 10:40:00 EDT, [facility]/pharmacy #207, 168.5, cm, 03/14/20 9:16:00 EDT, Height, 95.3, kg, 02/23/20 7:40:00 EDT, Dry Weight Start Date: 06/18/20 Stop Date: 12/15/20 Status: Ordered Ziagen 300 mg oral tablet 2 tablets, By Mouth, Daily, # 60 tablet, 5 Refills, Maintenance, 10/09/20 11:17:00 EST, [facility]/pharmacy #2071, 168.5, [...]
--- OUTSIDE RECORDS SUMMARY | 2024-08-12 13:42 | XMS_ITS | Continuity of Care Document ---
Author Organization [facility] Address [address] [place] [address]- Care Team Providers Care Appliance Line Assembler Name Role Phone Kamran JENKINS, Ponce Alfonso Primary Care Physician [facility]counter [facility] Date(s): 12/29/22 - 01/28/23 [facility] [address] [place], [place] [address] Allergies, Adverse Reactions, Alerts No Known [...] term) 03/10/01 Given 1Result Comment: [07/22/2018] [facility]#[id number] 2Result Comment: [08/21/2017] [facility] #[id number] 3Admin Note: afluria quadrivalent 4Admin Note: Afluria made by [employer] 5Result Comment: [facility]# [id number] 6Result Comment: Heplisav-B #2 7Admin Note: h1n1 8Admin Note: [employer] PATIENT MEETS CRITERIA Medications abacavir 300 mg oral tablet 2 tablet, By Mouth, Daily, # 180 tablet, 0 Refills, Maintenance, 11/12/22 13:43:00 EST, [facility]/pharmacy #[id number], 168.5, cm, 11/11/22 10:31:00 EST, Height Start Date: 11/12/22 Stop Date: 02/10/23 Status: Ordered ADCARE ADCARE, See Instructions, # 1 each, Refills 0, Tot. Refills 0, Maintenance, ADCARE Evaluate and treat for outpatient, 11/09/19 10:02:00 EST, Compound Start Date: 11/09/19 Status: Ordered atazanavir 300 mg oral capsule 1 capsule, By Mouth, Daily, # 90 capsule, 0 Refills, Maintenance, 01/06/23 11:49:00 EDT, [facility]/pharmacy #[id number], 1 capsule By Mouth Daily,x90 days, 168.5, cm, 11/11/22 10:31:00 EST, Height Start Date: 01/06/23 Stop Date: 04/06/23 Status: Ordered atenolol 25 mg oral tablet 1, tablet, By Mouth, Daily, # 90 tablet, Refills 1, Tot. Refills 1, 01/06/23 10:19:00 EDT, Route toPharmacy Electronically, [facility]/pharmacy #207, 168.5, cm, 11/11/22 10:31:00 EST, Height Start Date: 01/06/23 Status: Ordered atorvastatin 40 mg oral tablet 1 tablet = 40 mg, By Mouth, Daily, # 90 tablet, 3 Refills, Maintenance, 03/07/22 11:06:00 EDT, Tablet, [facility]/pharmacy #[id number], 168.5, cm, 11/05/21 10:51:00 EST, Height Start Date: 03/07/22 Status: Ordered diclofenac sodium 75 mg oral delayed release tablet 1 tablet = 75 mg, By Mouth, 2 times a day, PRN rib pain, with food, # 30 tablet, 1 Refills, Maintenance, 10/04/21 12:43:00 EST, EC Tablet, [facility]/pharmacy #207, Partial fill upon patient request if theprescription is for a schedule II opioid drug., 168... Start Date: 10/04/21 Stop Date: 10/04/22 Status: Ordered Paxil 20 mg oral tablet 20 mg, 1, tablet, By Mouth, Daily, for 90 days, # 90 tablet, Refills 3, Tot. Refills 3, Hard Stop 06/12/23 12:46:00 EDT, 06/17/22 12:46:00 EDT, Route to Pharmacy Electronically, [facility]/pharmacy #207, 168.5, cm, 05/21/22 11:39:00 EDT, Height Start Date: 06/17/22 Stop Date: 06/12/23 Status: Ordered QUEtiapine 200 mg oral tablet 1, tablet, By Mouth, Daily, # 90 tablet, Refills 3, Tot. Refills 3, 12/30/22 7:46:00 EDT, Route to Pharmacy Electronically, [facility]/pharmacy #[id number], 168.5, cm, 11/11/22 10:31:00 EST, Height Start Date: 12/30/22 Status: Ordered ritonavir 100 mg oral tablet 1 tablet, By Mouth, Daily, # 90 tablet, 0 Refills, Maintenance, 01/06/23 11:49:00 EDT, [facility]/pharmacy#[id number], 168.5, cm, 11/11/22 10:31:00 EST, Height Start Date: 01/06/23 Stop Date: 04/06/23 Status: Ordered Shingrix intramuscular injection = 0.5 mL, Intramuscular, Once, repeat dose in 2 to 6 months, # 2 each, 0 Refills, Soft Stop, 09/07/20 14:31:00 EST, Powder, [facility]/pharmacy #[id number], Partial fill upon patient request if the prescription is for a schedule II opioid drug., 0.5 mL Intramuscul... Start Date: 09/07/20 Status: Ordered tenofovir disoproxil fumarate 300 mg oral tablet 1 tablet, By Mouth, Daily, # 90 tablet, 0 Refills, Maintenance, 01/06/23 11:49:00 EDT, [facility]/pharmacy#[id number], 168.5, cm, 11/11/22 10:31:00 EST, Height Start [...] Care Physician Member Role: PCP Address: Address: [address] [place] [address] [facility] [address] Name: Daniella Brand RN Position: [facility] RN Member Role: Primary Care Nurse Name: Kiersten Rodrigues RN Position: [facility] RN Member Role: Primary Care Nurse Name: Gloria Osorio RN Position: [facility] RN Supv Member Role: Primary Care Nurse Name: Shira Rosa RN Position: [facility] ED RN W/OE and Tasks Member Role: Primary Care Nurse Name: Soledad Mckee RN Position: [facility] SN RN Member Role: Primary Care Nurse Care Team Related Persons Name: CATRACHITO BORGES Address: home [place], [place] Name: COURTNEY BORGES Address: home [address] [place] [id number]
--- OUTSIDE RECORDS SUMMARY | 2024-08-12 13:42 | XMS_ITS | Continuity of Care Document ---
Author Organization [facility] Address [address] [place] [address]- Care Team Providers Care Vinyl Flooring Installer Name Role Phone Jovita Jonas MD Primary Care Physician Encounter [facility] Date(s): 12/29/19 - 01/08/[address] [address]- [facility] Attending Physician: Arielle Ortiz Admitting Physician: AdmtrArielle Referring Physician: Admtr, Ar8 [...] Comment: Heplisav-B #2 2Result Comment: [07/22/2018] [facility]#[id number] 3Result Comment: [08/21/2017] [facility] #[id number] 4Admin Note: afluria quadrivalent 5Admin Note: Afluria [...] Maintenance, 08/21/17 14:03:42, Route to Pharmacy Electronically, [id number], [facility]/pharmacy #[id number] Start Date: 08/21/17 Status: Ordered atenolol 25 mg oral tablet 25 mg, 1, tablet, By Mouth, Daily, # 90 tablet, Refills 3, Tot. Refills 3, Maintenance, 09/02/19 9:30:06 EST, Route to Pharmacy Electronically, [id number], [facility]/pharmacy #[id number], 168.5, cm, 09/02/19 8:56:00 EST, Height, [...] 08/22/19 11:06:03 EST, Route to Pharmacy Electronically, [id number], [facility]/pharmacy #[id number] Start Date: 08/22/19 Stop Date: 02/18/20 Status: Ordered QUEtiapine 200 mg oral tablet 1, tablet, By Mouth, Daily, # 90 tablet, Refills 1, Tot. Refills 1, Maintenance, 12/26/19 15:16:00 EDT, Route to Pharmacy Electronically, [facility]/pharmacy #207, 168.5, cm, 09/02/19 11:13:00 EST, Height,94.9, [...] Refills, Maintenance, 09/12/19 8:29:00 EST, [id number], 168.5, cm, 09/02/19 11:13:00 EST, Height, 94.9, [...]
--- OUTSIDE RECORDS SUMMARY | 2024-08-12 13:42 | XMS_ITS | Continuity of Care Document ---
Author Organization [facility] Address [address] [place] [address]- Care Team Providers Care Supervisor Maintenance And Custodians Name Role Phone Ponce Andrew MD Primary Care Physician [facility] Date(s): 09/26/21 - 10/26/21 [facility] [address] [place], [place] [address] Attending Physician: Admtr, Ar8 Allergies, Adverse [...] term) 03/10/01 Given 1Result Comment: [07/22/2018] [facility]#[id number] 2Result Comment: [08/21/2017] [facility] #[id number] 3Admin Note: afluria quadrivalent 4Admin Note: Afluria made by [employer] 5Result Comment: [facility]# [id number] 6Result Comment: Heplisav-B #2 7Admin Note: h1n1 8Admin Note: [employer] PATIENT [employer]ETS [employer]ITERIA Medications ADCARE ADCARE, See Instructions, # 1 each, Refills 0, Tot. Refills 0, Maintenance, ADCARE Evaluate and treat for outpatient, 11/09/19 10:02:00 EST, Compound Start Date: 11/09/19 Status: Ordered atazanavir 300 mg oral capsule 1 capsule, By Mouth, Daily, # 90 capsule, 1 Refills, [id number], 90, TAKE 1 CAPSULE BY MOUTH EVERY DAY, 168.5, cm, 05/08/21 13:57:00 EDT, Height, 95.3, kg, 02/23/20 7:40:00 EDT, Dry Weight Start Date: 08/05/21 Status: Ordered atenolol 25 mg oral tablet 25 mg, 1, tablet, By Mouth, Daily, # 90 tablet, Refills 3, Tot. Refills 3, Maintenance, 09/17/20 10:02:00 EST, Route to Pharmacy Electronically, [facility]/pharmacy #207, 168.5, cm, 07/11/20 10:23:00 EDT, Height, 95.3, kg, 02/23/20 7:40:00 EDT, Dry Weight Start Date: 09/17/20 Status: Ordered atorvastatin 40 mg oral tablet 1 tablet = 40 mg, By Mouth, Daily, # 90 tablet, 3 Refills, Maintenance, 09/17/20 10:02:00 EST, Tablet, [facility]/pharmacy #207, 168.5, cm, 07/11/20 10:23:00 EDT, Height, 95.3, kg, 02/23/20 7:40:00 EDT, Dry Weight Start Date: 09/17/20 Status: Ordered diclofenac sodium 75 mg oral delayed release tablet 1 tablet = 75 mg, By Mouth, 2 times a day, PRN rib pain, with food, # 30 tablet, 1 Refills, Maintenance, 10/04/21 12:43:00 EST, EC Tablet, [facility]/pharmacy #207, Partial fill upon patient request if theprescription is for a schedule II opioid drug., 168... Start Date: 10/04/21 Stop Date: 10/04/22 Status: Ordered Norvir 100 mg oral tablet 1 tablet = 100 mg, By Mouth, Daily, # 30 tablet, 5 Refills, Maintenance, 04/08/21 10:08:00 EDT, [facility]/pharmacy #207, 168.5, cm, 02/06/21 10:35:00 EDT, Height, 95.3, kg, 02/23/20 7:40:00 EDT, Dry Weight Start Date: 04/08/21 Stop Date: 10/05/21 Status: Ordered Norvir 100 mg oral tablet 1 tablet = 100 mg, By Mouth, Daily, # 30 tablet, 2 Refills, Maintenance, 09/09/21 16:24:00 EST, [facility]/pharmacy #[id number], 168.5, cm, 05/08/21 13:57:00 EDT, Height, 95.3, kg, 02/23/20 7:40:00 EDT, Dry Weight Start Date: 09/09/21 Stop Date: 12/08/21 Status: Ordered Paxil 20 mg oral tablet 20 mg, 1, tablet, By Mouth, Daily, for 30 days, # 30 tablet, Refills 5, Tot. Refills 5, Hard Stop 03/08/22 15:12:00 EDT, 09/09/21 15:12:00 EST, Route to Pharmacy Electronically, [facility]/pharmacy #207, 168.5, cm, 05/08/21 13:57:00 EDT, Height, 95.3, kg, 0... Start Date: 09/09/21 Stop Date: 03/08/22 Status: Ordered QUEtiapine 200 mg oral tablet 1, tablet, By Mouth, Daily, # 90 tablet, Refills 3, Route to Pharmacy Electronically, [id number], 168.5, cm, 10/02/21 10:33:00 EST, Height, 95.3, kg, 02/23/20 7:40:00 EDT, Dry Weight Start Date: 10/04/21 Status: Ordered Shingrix intramuscular injection = 0.5 mL, Intramuscular, Once, repeat dose in 2 to 6 months, # 2 each, 0 Refills, Soft Stop, 09/07/20 14:31:00 EST, Powder, [facility]/pharmacy #207, Partial fill upon patient request if the prescription is for a schedule II opioid drug., 0.5 mL Intramuscul... Start Date: 09/07/20 Status: Ordered tenofovir disoproxil fumarate 300 mg oral tablet 1 tablet, By Mouth, Daily, # 30 tablet, 5 Refills, Maintenance, 04/08/21 10:08:00 EDT, [facility]/pharmacy#207, 168.5, cm, 02/06/21 10:35:00 EDT, Height, 95.3, kg, 02/23/20 7:40:00 EDT, Dry Weight Start Date: 04/08/21 Stop Date: 10/05/21 Status: Ordered tenofovir disoproxil fumarate 300 mg oral tablet 1 tablet, By Mouth, Daily, # 30 tablet, 2 Refills, Maintenance, 09/09/21 16:24:00 EST, [facility]/pharmacy#207, 168.5, cm, 05/08/21 13:57:00 EDT, Height, 95.3, [...] Response Smoking Status Current every day sneha gallowaylali; Type: Cigarettes; Previous treatment: Nicotine replacement; Interested in cessation: Yes; Tobacco use times per day: 1ppd; Number of years: 40; Total pack years: 40; Started at age: 15; 1 entered on: 02/19/16 Sex 11 ppd
--- OUTSIDE RECORDS SUMMARY | 2024-08-12 13:42 | XMS_ITS | Patient Health Record ---
Author Organization [facility] Address [address], [place] [id number] Support Name Relationship Address Phone Elise Kingston Emergency Contact Unknown Aron Anton Guarantor Unknown Reason For Referral No Information Plan Of Treatment No Information
--- OUTSIDE RECORDS SUMMARY | 2024-08-12 13:42 | XMS_ITS | Continuity of Care Document ---
Author Organization [facility] Address [address] [place] [address]- Care Team Providers Care Construction Management Instructor Name Role Phone Pritesh JENKINS, Jovita Primary Care Physician [phone] Encounter [facility] Date(s): 04/12/20 - 05/12/20 [facility] [address] [place] [address]- [facility] Allergies, Adverse Reactions, Alerts Substance Reaction Severity [...] 1Result Comment: Heplisav-B #2 2Result Comment: [07/22/2018] [facility]#[id number] 3Result Comment: [08/21/2017] [facility] #[id number] 4Admin Note: afluria quadrivalent 5Admin Note: Afluria [...] Maintenance, 08/21/17 14:03:42, Route to Pharmacy Electronically, [id number], [facility]/pharmacy #[id number] Start Date: 08/21/17 Status: Ordered atenolol 25 mg oral tablet 25 mg, 1, tablet, By Mouth, Daily, # 90 tablet, Refills 3, Tot. Refills 3, Maintenance, 09/02/19 9:30:06 EST, Route to Pharmacy Electronically, [id number], [facility]/pharmacy #[id number], 168.5, cm, 09/02/19 [...] 03/12/20 9:24:00 EDT, Route to Pharmacy Electronically, [facility]/pharmacy #[id number], 168.5, cm, 03/06/20 9:48:00 EDT, Height, 95.3, kg, 02/23/20 7:40:00 EDT, Dry Weight Start Date: 03/12/20 Stop Date: 09/08/20 Status: Ordered QUEtiapine 200 mg oral tablet 1, tablet, By Mouth, Daily, # 90 tablet, Refills 1, Tot. Refills 1, Maintenance, 12/26/19 15:16:00 EDT, Route to Pharmacy Electronically, [facility]/pharmacy #[id number], 168.5, cm, 09/02/19 [...] tablet, 11 Refills, Maintenance, 09/12/19 8:29:00 EST, [facility] STORE [id number], 168.5, cm, 09/02/19 11:13:00 EST, Height, 94.9, [...]
== END 2024-08-09 19:51 | disposition left against medical advice (07) ==
PROVIDERS: Emergency Provider Emergency Medicine Emergency Medical Services; PCP Internal Medicine
DX: S01.81XA Laceration without foreign body of other part of head, initial encounter (principal); S09.90XA Unspecified injury of head, initial encounter; W01.198A Fall on same level from slipping, tripping and stumbling with subsequent striking against other object, initial encounter; Y93.01 Activity, walking, marching and hiking; Y92.511 Restaurant or cafe as the place of occurrence of the external cause; Y99.9 Unspecified external cause status; Z53.29 Procedure and treatment not carried out because of patient's decision for other reasons
CPT/HCPCS: 12011; 70450; 72125; 99283; 99284; J2003

== ENCOUNTER 2025-04-19 07:42 | Outpatient (REF) | payer MEDICARE, MEDICAID, SELFPAY | END 2025-04-19 07:43 | disposition home or self-care (01) | LOC: HO.SH 07:42 | PROVIDERS: Visit Provider Internal Medicine | DX: H90.3 Sensorineural hearing loss, bilateral (principal) | CPT/HCPCS: 92557 ==

== ENCOUNTER 2025-04-19 08:24 | Emergency (ER) | payer MEDICARE, MEDICAID, SELFPAY ==
--- NOTE | ~2025-04-19 | XR_ITS ---
EXAMINATION: XR ANKLE 3 OR MORE VIEWS LEFT, XR FOOT 3 OR MORE VIEWS LEFT HISTORY: fall, pain COMPARISON: There are no prior studies available for comparison. FINDINGS: Six views of the left foot and ankle are submitted. Osseous mineralization is normal. There is no fracture or dislocation. The joint spaces are preserved. There is soft tissue swelling over the lateral malleolus. XR/XR ankle LT min 3V IMPRESSION: Soft tissue swelling over the lateral malleolus. No evidence of fracture of the left foot or ankle. Electronically signed by: Otoniel Davis MD 04/19/2025 09:30 AM EDT
--- NOTE | ~2025-04-19 | XR_ITS ---
EXAMINATION: XR ELBOW 3 VIEWS LEFT HISTORY: fall, pain COMPARISON: There are no prior studies available for comparison. FINDINGS: Three views of the left elbow are submitted. Osseous mineralization is normal. There is no fracture or dislocation. The joint spaces are preserved. The soft tissues are unremarkable. There is no joint effusion. XR/XR elbow LT min 3V IMPRESSION: No evidence of fracture of the left elbow. Electronically signed by: Otoniel Davis MD 04/19/2025 09:31 AM EDT
--- NOTE | ~2025-04-19 | CT_ITS ---
EXAMINATION: CT HEAD WITHOUT CONTRAST CLINICAL INFORMATION: Fall down stairs, head trauma COMPARISON: 08/09/2024 TECHNIQUE: Contiguous axial imaging was performed from the skull base to vertex without intravenous administration of contrast. This CT examination was performed using dose optimization techniques as appropriate, variously including the following: *Automated exposure control *Adjustment of mA and/or kV according to patient size (this includes techniques or standardized protocols for targeted exams where dose is matched to indication/reason for exam; i.e. extremities or head) *Use of iterative reconstruction technique FINDINGS: There is no evidence of intracranial hemorrhage or extra-axial fluid collection. There is no mass effect, or edema. No CT evidence of acute territorial infarct. Ventricles, sulci, and cisterns are diffusely somewhat prominent in keeping with age advanced cerebral and cerebellar volume loss. No hydrocephalus. No midline shift. Negative hyperdense MCA sign. Negative insular ribbon sign. Patchy periventricular and deep white matter hypoattenuation is consistent with moderate small vessel ischemic changes. There are old lacunar type infarcts in the anterior gangliocapsular regions. Mild atheromatous calcification of the bilateral carotid siphons and V4 segments vertebral arteries bilaterally. Globes and orbital contents image normally. No extracranial soft tissue abnormalities. The paranasal sinuses, mastoid air cells, and tympanic cavities are normally aerated. No suspicious bony abnormalities. There are no acute fractures evident. CT/CT head/brain wo IV con IMPRESSION: No acute intracranial abnormality. No fracture evident. Electronically signed by: Dameon Shipman MD 04/19/2025 09:19 AM EDT RP
--- NOTE | ~2025-04-19 | CT_ITS ---
EXAMINATION: CT CERVICAL SPINE WITHOUT CONTRAST CLINICAL INFORMATION: Status post fall. COMPARISON: August 09, 2024. TECHNIQUE: Contiguous axial images through the cervical spine using 3 mm collimation with bone and soft tissue algorithm. Sagittal and coronal reformatted images acquired. DLP: 678.[address] examination was performed using dose optimization techniques as appropriate, variously including the following: *Automated exposure control *Adjustment of mA and/or kV according to patient size (this includes techniques or standardized protocols for targeted exams where dose is matched to indication/reason for exam; i.e. extremities or head) *Use of iterative reconstruction technique FINDINGS: The craniocervical junction is intact with normal alignment between the occipital condyles and the lateral masses of C1. Degenerative changes in the periodontal C1 region. Marginal osteophyte formation at C5-6 and C6-7 and to a lesser extent C4-5. Endplate sclerosis decreased intervertebral disc height and subchondral cyst formation at C5-6 and C6-7 levels. Grade 1 anterolisthesis C3-4. Reverse curvature apex at C5-6. Bilateral facet joint hypertrophy, C2-3 to C6-7. C1 is intact. C2 is intact. C3 is intact. C4 is intact. C5 is intact. C6 is intact. C7 is intact. No prevertebral compartment hematoma. Central spinal canal stenosis on a multifactorial basis at C5-6 and C6-7. Calcified plaques in the carotid bulbs and both ICAs. Multiple punctate calcifications in the superficial left parotid gland. Tympanic cavities and mastoid cells are aerated. Calcified plaques in the cavernous supraclinoid segments both ICAs. Calcified plaques in the V3/V4 segments. CT/CT cervical spine wo IV con IMPRESSION: Multilevel cervical spondylosis pronounced at C5-6 and C6-C7 resulting in central spinal canal stenosis at acute fracture or trauma-related listhesis. Sialolithiasis, left parotid gland. Atherosclerosis disease, both ICA. Fleischner guidelines were followed. Electronically signed by: Mt Weaver MD 04/19/2025 09:18 AM EDT
--- NOTE | ~2025-04-19 | XR_ITS ---
EXAMINATION: XR SHOULDER 2 OR MORE VIEWS LEFT HISTORY: fall, pain COMPARISON: There are no prior studies available for comparison. FINDINGS: Three views of the left shoulder are submitted. Osseous mineralization is normal. There is no fracture or dislocation. The glenohumeral joint is maintained. There is mild degenerative change of the AC joint with joint space narrowing and osteophyte formation. The soft tissues are unremarkable. XR/XR shoulder LT min 2V IMPRESSION: No evidence of fracture of the left shoulder. Electronically signed by: Otoniel Davis MD 04/19/2025 09:33 AM EDT
--- NOTE | ~2025-04-19 | XR_ITS ---
EXAMINATION: XR ANKLE 3 OR MORE VIEWS LEFT, XR FOOT 3 OR MORE VIEWS LEFT HISTORY: fall, pain COMPARISON: There are no prior studies available for comparison. FINDINGS: Six views of the left foot and ankle are submitted. Osseous mineralization is normal. There is no fracture or dislocation. The joint spaces are preserved. There is soft tissue swelling over the lateral malleolus. XR/XR foot LT min 3V IMPRESSION: Soft tissue swelling over the lateral malleolus. No evidence of fracture of the left foot or ankle. Electronically signed by: Otoniel Davis MD 04/19/2025 09:30 AM EDT
[2025-04-19 08:31] VITALS: BP 163/87; PULSE 76; RESP 20; TEMP 36.9; O2SAT 96; BMI 33.1
--- NOTE | 2025-04-19 08:32 | ED_ITS ---
HPI - Fall General Chief Complaint: Fall Stated Complaint: fall Time Seen by Provider: 04/19/25 09:42 Source: patient Mode of arrival: ambulatory Limitations: no limitations History of Present Illness ED Provider: [facility] Narrative: 70-year-old male presenting with left arm left shoulder left ankle pain, head pain after a fall yesterday he was carrying laundry and missed a step, reports injury in his head, no nausea no vomiting no visual changes he is not on blood thinners. Related Data Previous Rx's ?Medication ?Instructions ?Recorded bacitracin 500 unit/gram topical 1 appl topical BID #3 0 grams 08/09/24 ointment methylprednisolone 4 mg tablets in 4 mg PO DAILY #21 e a 04/19/25 a dose pack (Medrol (Michael)) Allergies Allergy/AdvReac Type Severity Reaction Status Date / Time No Known Allergies Allergy Verified 04/19/25 08:33 Review of Systems Constitutional: Constitutional: Reports as per [facility] Social History Social History Advance Directives: No Advance Directives Information Provided: Yes Physical Exam Vital Signs: Vital Signs: Last Vital Signs Temp 98.4 F 04/19/25 08:31 Pulse 76 04/19/25 08:31 Resp 20 04/19/25 08:31 BP 163/87 H 04/19/25 08:31 Pulse Ox 96 04/19/25 08:31 O2 Del Method Room Air 04/19/25 08:31 BMI result Body Mass Index 33.1 Const: Other: * Gen: ?Overall well-appearing patient * HEENT: PERRLA, EOMI, MMM, * Neck: Supple, no LAD * CV: RRR, no obvious murmurs appreciated * Resp: ?No wheezing rales rhonchi no stridor moving air well * Abd: ?Bowel sounds are present, no tenderness no rebound no rigidity * MSK: Painful range of motion left ankle, left shoulder some tenderness along left back, no deformities * Skin: Abrasion to right ramos * Neuro: ?Alert and oriented x3, moving upper and lower extremities symmetrically, no obvious facial asymmetry noted Course Course Course Narrative: 70 yo male with PMH of HIV well controlled, HTN, HLD, not on blood thinners - tripped and fell down 5 stairs, he went down head first - he denies LOC, he was on the ground for 5 minutes. He c/o pain to L shoulder, L ankle, he cannot raise his L arm. He denies confusion or neck pain. At this time xrays and CT scans ordered he is a poor historian but he is oriented x 3 this is a RAPID medical screening exam the rest of the history and physical exam is to be done by the main provider. BROOKE 04/19/25 834am Medical Decision Making Medical Decision Making MDM Narrative: Presenting with nonsyncopal fall, tenderness and pain over her left joints, multiple x-rays without any fractures, CT of the brain and cervical spine ordered, we will discharge if workup is unremarkable Admission/Observation 2022 Emergency Medicine Coding Guide from [employer] on 04/19/2025 All calculations should be rechecked by clinician prior to use RESULT SUMMARY: 4 Estimated Level of Service Problems: Moderate (4) Risk: Moderate (4) Data: Moderate (4) NARRATIVE MDM: This patient's problem complexity is Moderate as patient: has an acute complicated injury requiring significant evaluation or with concern for morbidity or multiple treatment options. This patient's risk is Moderate due to: overall presentation requiring evaluation for a potentially Moderate-risk process. This patient's data complexity is Moderate due to: -multiple tests ordered/reviewed INPUTS: Number and Complexity ?> 7 = 4: acute, complicated injury (g) Risk level ?> 3 = Moderate Tests ordered ?> 3 = >= Tests results reviewed (excluding labs) ?> 3 = >= Prior external notes reviewed ?> 0 = 0 Assessment requiring and independent historian ?> 0 = No Independent interpretation of tests ?> 0 = No Discussed management/test interpretation w/external professional ?> 0 = No Independent Interpretation I performed an independent interpretation of an: Plain X-Ray (No acute fractures noted on the x-rays, CT brain and cervical spine without traumatic brain injury cervical spine fractures) Radiology Impression Discussion of test interpretation with radiology: I have reviewed the radiologist's reading. Discharge Plan Discharge Clinical Impression: Fall from standing Qualifiers: Encounter type: initial encounter Qualified Code(s): W19.XXXA - Unspecified fall, initial encounter Contusion of head Qualifiers: Encounter type: initial encounter Patient Disposition: Home, Self-Care Additional Instructions: You have had multiple x-rays, CT of the brain and cervical spine all of which has been reassuring, I am starting you on steroids, this will help you with both pain and inflammation, you can also add on Tylenol 975 mg every 6 hours for additional pain control Prescriptions: New methylprednisolone [Medrol (Michael)] 4 mg tablets,dose pack 4 mg PO DAILY Qty: 21 0RF Rx Instructions: Day 1: 24 mg on day 1 administered as 8 mg before breakfast, 4 mg after lunch, 4 mg after supper, and 8 mg at bedtime or 24 mg as a single dose or divided into 2 or 3 doses upon initiation. Day 2: 20 mg on day 2 administered as 4 mg before breakfast, 4 mg after lunch, 4 mg after supper, and 8 mg at bedtime. Day 3: 16 mg on day 3 administered as 4 mg before breakfast, 4 mg after lunch, 4 mg after supper, and 4 mg at bedtime. Day 4: 12 mg on day 4 administered as 4 mg before breakfast, 4 mg after lunch, and 4 mg at bedtime. Day 5: 8 mg on day 5 administered as 4 mg before breakfast and 4 mg at bedtime. Day 6: 4 mg on day 6 administered as 4 mg before breakfast. No Action bacitracin 500 unit/gram ointment 1 appl topical BID Qty: 30 0RF Print Language: Turkmen
[2025-04-19 10:18] VITALS: BP 173/98; PULSE 69; RESP 18; TEMP 36.4; O2SAT 94
[2025-04-19] MEDS: oxyCODONE HCl Immed Release 5 MG TABLET 10 MG PO (10:29)
[2025-04-19 10:35] VITALS: BP 173/98; PULSE 69; RESP 18; TEMP 36.4; O2SAT 94
== END 2025-04-19 10:35 | disposition home or self-care (01) ==
PROVIDERS: Emergency Provider Emergency Medicine; PCP Internal Medicine
DX: S09.90XA Unspecified injury of head, initial encounter (principal); W10.9XXA Fall (on) (from) unspecified stairs and steps, initial encounter; Y93.E2 Activity, laundry; Y92.9 Unspecified place or not applicable; Y99.9 Unspecified external cause status; M25.512 Pain in left shoulder; M25.522 Pain in left elbow; M25.572 Pain in left ankle and joints of left foot
CPT/HCPCS: 70450; 72125; 73030; 73080; 73610; 73630; 99283; 99284; J1885

== ENCOUNTER → 2025-04-19 08:34 | Outpatient (BNV) | payer MEDICARE, MEDICAID, SELFPAY | PROVIDERS: Emergency Provider Emergency Medicine; PCP Internal Medicine; Visit Provider Radiology Diagnostic Radiology | DX: M48.02 Spinal stenosis, cervical region (principal); S09.90XA Unspecified injury of head, initial encounter; M19.012 Primary osteoarthritis, left shoulder; R22.42 Localized swelling, mass and lump, left lower limb; M25.522 Pain in left elbow | CPT/HCPCS: 70450; 73030; 73080; 73610; 73630 ==

== ENCOUNTER 2025-05-18 12:32 | Outpatient (REF) | payer MEDICARE, MEDICAID, SELFPAY ==
--- NOTE | 2025-05-18 13:20 | MHC.AU.MED ---
Medical Clearance for Hearing Instrumentation Date: 05/18/25 Patient Name: Aron Anton Date of : 1955 Primary Care Provider: Ponce Andrew MD We have seen your patient on 05/18/25 and have determined that they are a candidate for amplification (See accompanying report). Specifically, they would benefit from: Hearing aid use in both ears There is a statute that addresses Medical Evaluation Requirements prior to fitting a patient with a hearing aid. According to [place] statute [facility] CMR:6.03(1), (a) General. Except as provided in 265 CMR 6.03(1)(b), a business taxes specialist shall not sell a hearing aid unless the prospective user has presented to the business taxes specialist a written statement signed by a licensed physician that states that the patient's hearing loss has been medically evaluated and the patient may be considered a candidate for a hearing aid. The medical evaluation must have taken place within the preceding six months. Please note: Due to the [place] Statute referenced above, we cannot accept a signature other than that of a licensed physician. [employer] and [place] signatures cannot be accepted. I am in agreement with the above recommendation. There is no medical contraindication for hearing instrumentation. Physician Signature Date Physician Name (Printed)
--- NOTE | 2025-05-18 13:34 | MHC.AU.HA3 ---
Hearing Instrument Follow-Up- Binaural Date of Visit: 05/18/25 Right Ear: Make, Model, Color, Serial Number: Truong Alas B50-SP Color: Black Battery Size: 13 Earmold/Dome/CShell/SlimTip:Silicone canal lock Dispensed By: [facility] Date of Fitting: Unknown Left Ear: Make, Model, Color, Serial Number: Truong Alas B50-SP Color: Black Battery Size: 13 Earmold/Dome/CShell/SlimTip: Silicone canal lock Dispensed By: [facility] Date of Fitting: Unknown Follow-Up Summary: Recently lost left CRAFT. Ready to pursue new HAs due to age of current pair - see HAE note. Right CRAFT reportedly weak. EM/tubing almost completely occluded with wax. Cleaned CRAFT (1). Cleaned EM (1). Replaced tubing (1). 10804 x3. Brushed microphones. Lots of debris/rust noted in battery door/compartment, cleaned as best as possible. Ran through dehumidifier. Listening check demonstrated CRAFT amplifying clearly. Recommendations: Hearing instrument follow-up or maintenance as needed. Please contact our clinic with any questions or concerns. Diagnosis Code(s): Primary Diagnosis: H90.3 Bilateral Sensorineural Hearing Loss Signature: Provider: Milton Velazquez, [facility]
--- NOTE | 2025-05-18 13:39 | MHC.AU.HA1 ---
Hearing Aid Evaluation Date of Visit: 05/18/25 Historical Information: Description of Hearing: Moderate sloping to severe rising to moderately-severe sensorineural hearing loss, bilaterally Current personal amplification information: Truong Alas B50-SP Summary: Previous patient at [facility]. Long-time CRAFT user, recently lost left CRAFT. Could not get an appointment at [facility] for several months so decided to transfer care here. Given age of current device, recommend two new HAs. Opted for same style and cardiovascular specialist, rechargeable. Impressions taken, bilaterally, without incident - in hold drawer pending medical clearance. Hearing Aid Prescription: Based on the individual?s shared listening needs, communication environments, dexterity, desire for connectivity, and personal preferences, the following prescription for amplification has been made: Right ear: Make, Model, Color: Phonak Anupama L70-VT Color: Black Battery Size: Rechargeable Type of Earmold/Dome/CShell/SlimTip: Joanna 40 shore canal lock Left ear: Left ear prescription to be same as Right Hearing Aid above: Make, Model, Color: Phonak Anupama L70-VT Color: Black Battery Size: Rechargeable Type of Earmold/Dome/CShell/SlimTip: Joanna 40 shore canal lock Accessories/Assistive Technology: Hvac Installer Plan of Care: Patient wishes to purchase hearing aids as prescribed Action Taken/Action Needed: Medical Clearance to be requested from PCP/ENT. Hearing Instrument Fitting to be scheduled when materials arrive Primary Diagnosis: H90.3 Bilateral Sensorineural Hearing Loss Signature: Provider: Milton Velazquez, [facility]
== END 2025-05-18 12:33 | disposition home or self-care (01) ==
LOC: HO.HAP 12:32
PROVIDERS: Visit Provider Internal Medicine
DX: Z46.1 Encounter for fitting and adjustment of hearing aid (principal); H90.3 Sensorineural hearing loss, bilateral
CPT/HCPCS: 92591; 92592; 99499; V5275

== ENCOUNTER 2025-07-06 12:19 | Outpatient (REF) | payer MEDICARE, MEDICAID, SELFPAY ==
--- NOTE | 2025-07-06 13:14 | MHC.AU.HA2 ---
Hearing Instrument Fitting- Adult- Binaural Date of Visit: 07/06/25 Hearing Instruments Dispensed: Right Ear: Ross, Model, Color, Serial Number: Truong Altman L70-MA SN: [id number] Color: Black [employer] Paralegal Repair Warranty: 07/14/2028 [employer]igation Paralegal Loss and Damage Warranty: 07/14/2028 [facility] Service Plan: 07/06/2026 Battery Size: Rechargeable Earmold/Dome/CShell/SlimTip: Joanna 40 shore canal lock SN: [id number] Amando: 09/21/2025 Left Ear: Make, Model, Color, Serial Number: Truong Altman L70-MA SN: [id number] Color: Black [employer] Paralegal Repair Warranty: 07/14/2028 [employer] Litigation Paralegal Loss and Damage Warranty: 07/14/2028 [facility] Service Plan: 07/06/2026 Battery Size: Rechargeable Earmold/Dome/CShell/SlimTip: Joanna 40 shore canal lock SN: [id number] Amando: 09/21/2025 Accessories/Assistive Technology: Phonak Filter Screen Cleaner Combi SN: [id number] Amando: 07/25/2026 Summary of Fitting: Ran feedback analyzer and real ear measures. Too loud at real ear settings, decreased overall gain significantly. Discussed importance of daily, consistent use in acclimating to HAs. Explained care, use, and rechargeability including manually turning on/off and VC use. As a previous CRAFT use, otherwise familiar with general maintenance. Did not discuss bluetooth, will do at follow up. Recommendations: A hearing instrument follow-up was scheduled. Diagnosis Code(s): Primary Diagnosis: H90.3 Bilateral Sensorineural Hearing Loss Signature: Provider: Milton Velazquez, [facility]
== END 2025-07-06 12:20 | disposition home or self-care (01) ==
LOC: HO.HAP 12:19
PROVIDERS: Visit Provider Internal Medicine
DX: Z46.1 Encounter for fitting and adjustment of hearing aid (principal); H90.3 Sensorineural hearing loss, bilateral
CPT/HCPCS: V5011; V5020; V5160; V5261; V5264